=== PATIENT | male | born 1945 | race Caucasian/White ===

== ENCOUNTER → 2018-05-31 08:46 | Outpatient (CLI) | payer MEDICARE, BC, SELFPAY ==
[2018-05-31 10:40] LABS: Microalbumin,Random Urine 6.7 mg/L (NO RANGE EST.); Microalbumin:Creatinine Ratio 6.7 mg/g CRE (<30 mg/g CRE)
[2018-05-31 10:52] LABS: ALB/GLOB Ratio 1.4 RATIO (0.9-2.4); AST(SGOT) 13 U/L (15-37); Alanine Aminotransfer ALT/SGPT 19 U/L (16-61); Albumin, Serum 3.8 g/dL (3.2-5.0); Alkaline Phosphatase 74 U/L (45-117); Anion Gap 8 (5-15); BUN 16 mg/dL (7-18); BUN/Creat Ratio 18.5 RATIO (10-20); Calcium,Total 8.6 mg/dL (8.5-10.1); Chloride 107 mmol/L (98-107); Cholesterol 194 mg/dL (200); Creatinine, Serum 0.87 mg/dL (0.70-1.30); EST Glomerular Filtration Rate 92 mL/min (>60); Est Glom Filt Rate - Afr Amer 112 mL/min (>60); Globulin 2.8 g/dL (2.2-4.2); Glucose 103 mg/dL (74-106); High Density Lipoprotein 47 mg/dL; Magnesium 1.9 mg/dL (1.6-2.6); Potassium 4.3 mmol/L (3.5-5.1); Protein, Total 6.6 g/dL (6.4-8.2); Sodium Level 140 mmol/L (136-145); Thyroid Stim Hormone (TSH) 1.63 uIU/mL (0.358-3.74); Triglycerides 80 mg/dL; Very Low Density Lipoprotein 16 mg/dL (5-40)
== END ==
PROVIDERS: Family Provider Family Medicine; PCP Family Medicine; Visit Provider Family Medicine
DX: E78.00 Pure hypercholesterolemia, unspecified (principal); N40.0 Benign prostatic hyperplasia without lower urinary tract symptoms; G56.01 Carpal tunnel syndrome, right upper limb
CPT/HCPCS: 36415; 80053; 80061; 82043; 82570; 83735; 84443

== ENCOUNTER → 2018-11-30 10:01 | Outpatient (CLI) | payer MEDICARE, BC, SELFPAY ==
[2013-05-16 14:16] VITALS: BMI 33.9
[2018-11-30 12:25] LABS: Anion Gap 7 (5-15); BUN 15 mg/dL (7-18); BUN/Creat Ratio 17.6 RATIO (10-20); Calcium,Total 8.7 mg/dL (8.5-10.1); Chloride 110 mmol/L (98-107); Cholesterol 163 mg/dL (200); Creatinine, Serum 0.85 mg/dL (0.70-1.30); EST Glomerular Filtration Rate 94 mL/min (>60); Est Glom Filt Rate - Afr Amer 114 mL/min (>60); Glucose 102 mg/dL (74-106); High Density Lipoprotein 51 mg/dL; Potassium 4.3 mmol/L (3.5-5.1); Sodium Level 141 mmol/L (136-145); Triglycerides 61 mg/dL; Very Low Density Lipoprotein 12 mg/dL (5-40)
== END ==
PROVIDERS: Family Provider Family Medicine; PCP Family Medicine; Referring Provider Family Medicine; Visit Provider Nurse Practitioner Family
DX: E78.00 Pure hypercholesterolemia, unspecified (principal)
CPT/HCPCS: 36415; 80048; 80061

== ENCOUNTER 2019-04-19 12:06 | Inpatient (IN) | payer MEDICARE, BC, SELFPAY ==
[2019-04-19] VITALS (10 sets, daily range): BP systolic 98–120; BP diastolic 61–72; PULSE 48–70; RESP 16–18; TEMP 36.3–37.2; O2SAT 95–98; BMI 32.5
--- NOTE | 2019-04-19 12:40 | RAD_ITS ---
STUDY: X-RAY CHEST REASON FOR EXAM: Male, 73 years old. Chest pain and dizziness. TECHNIQUE: AP and lateral views of the chest. COMPARISON: None. FINDINGS: EKG electrodes are seen. The lungs are clear and expanded. There is no demonstrated pleural abnormality. Normal size heart. Normal mediastinum and reynold. Normal visualized pulmonary arteries. There is atherosclerotic tortuosity of the aortic arch and descending thoracic aorta. There are diffuse degenerative changes of the visualized thoracic spine. Normal visualized ribs, clavicles, and shoulders. There is no demonstrated abnormality of the visualized soft tissue structures of the upper abdomen. RAD/Chest PA and Lateral IMPRESSION: No acute abnormality is seen. Electronically Signed: Daniel Self, at 14:31 EDT , Service support ,
--- NOTE | 2019-04-19 12:40 | EKG12_ITS ---
Test Reason : CP Blood Pressure : / mmHG Vent. Rate : 048 BPM Atrial Rate : 048 BPM P-R Int : 116 ms QRS Dur : 096 ms QT Int : 432 ms P-R-T Axes : 061 051 002 degrees QTc Int : 385 ms Sinus bradycardia Incomplete right bundle branch block Borderline ECG Confirmed by ALMAZ RAZO MD ([id number]), graphics editor ELADIA SHARMA ([id number]) on 04/23/2019 10:50:06 AM Referred By: JEREMY
--- NOTE | 2019-04-19 12:54 | ED.VIS.GEN ---
History of Present Illness Chief Complaint: Chest Pain Informant: Patient Onset: Today, Hours - 2 Context: Sudden Onset Timing: Continuous Current Severity: Mild Maximum Severity: Moderate Narrative: Is a 73-year-old male denies any significant past medical history presenting with chest pain. Patient states he was washing his car when he had chest pressure in the center of his chest. He describes it as a pain and an ache. He denies any associated shortness of breath. He was nauseous and sweaty with it. His called 911 he was brought to the emergency room. Patient received full dose aspirin in route. Patient states his pain is starting to improve but is still present. He has a small amount of pain radiating to his left arm. He denies any other complaints at this time. He states when he woke up he was feeling well this morning. He does note that he had a cough and some chest congestion for the past few days. He denies any fever or chills. Has had a runny nose but denies any congestion right now. Denies any other complaints at this time. States he is never had a cardiac catheterization in the past. Past Medical History - Allergies and Home Meds Allergies/Adverse Reactions: Allergies No Known Allergies Allergy (Verified 04/19/19 12:07) Primary Care Physician: Cali Streeter MD [Primary Care Provider] - Prior records reviewed: Yes Surgical History: noncontributory Lives: With Family Smoking Status: Never smoker Review of Systems Cardiovascular: Reports: Chest pain Physical Exam Vital Signs/Narrative: Vital Signs Temp Pulse Resp BP Pulse Ox 04/19/19 12:36 102/72 04/19/19 12:07 99 F 48 L 17 99/66 98 Inital Vital Signs reviewed: Yes General: Well nourished, Well developed, - - Diaphoretic Head: Normocephalic, Atraumatic Eyes: Perrl, EOMI ENT: Moist mucous membranes, No rhinorrhea Neck: Supple, Nontender Cardiovascular: Regular rate, Regular rhythm, No murmurs Respiratory: No distress, CTA bilaterally, Chest nontender Abdomen: Soft, Nontender, Nondistended, Normal bowel sounds Back: Nontender, Normal Inspection Extremities: Nontender, No edema Skin: Normal color, No rash Neurological: Alert, Oriented x3, Cranial nerves II-XII grossly intact, Normal Strength, Normal Sensation Psychological: Normal affect, Normal Mood Diagnostic/Tx/Re-eval Chest X-Ray - ED: 2 View, Read by Radiologist, No Acute Disease Clinical Impression(s) from Imaging Studies Chest X-Ray 04/19/19 12:40 IMPRESSION: No acute abnormality is seen. Electronically Signed: Daniel Self, at 14:31 EDT , Service support , Laboratory Data 04/19/19 04/19/19 04/19/19 13:11 13:11 13:11 WBC 10.7 RBC 4.35 L Hgb 13.9 Hct 40.4 MCV 92.9 MCH 32.0 MCHC 34.4 RDW Std Deviation 43.3 RDW Coeff of Margarette 12.6 Plt Count 186 MPV 10.0 Immature Gran % (Auto) 0.400 Neut % (Auto) 88.3 H Lymph % (Auto) 5.9 L Brewster % (Auto) 4.7 Eos % (Auto) 0.5 Baso % (Auto) 0.2 Absolute Neuts (auto) 9.5 H Absolute Lymphs (auto) 0.63 L Nucleated RBC % 0 PT 14.3 INR 1.1 APTT 25.8 Sodium 140 Potassium 3.9 Chloride 108 H Carbon Dioxide 23.0 Anion Gap 9 BUN 19 H Creatinine 1.01 Estim Creat Clear Calc 73.63 Est GFR (MDRD) Af Amer 93 Est GFR (MDRD) Non-Af 77 BUN/Creatinine Ratio 18.8 Glucose 182 H Calcium 8.7 Troponin I < 0.015 - Rhythm Strip Rhythm Strip: Sinus bradycardia Rate: 48 Ectopy: None - EKG Initial EKG Interpretation: Sinus Bradycardia, RBBB, - - Sinus tachycardia rate of 48 ME interval 160 QRS 96 QT/QTc 432/385 Normal axis Nonspecific T wave inversion in lead III - Medical Decision Making Evaluated for an episode of chest pressure and pain rating to his left arm. It was associated with exertion. Patient appears diaphoretic but that resolved. Patient received full dose aspirin in route via EMS. Patient is normotensive with a systolic of 105. Is not given nitroglycerin for chest pain because of this. He is given IV morphine. Reevaluation is improvement of his symptoms. Given the timing and story I do think patient would benefit from observation for further cardiac monitoring. He is agreeable to this plan. He stable for general medical floor at time of disposition. Case discussed with Dr. Ruiz who accepts the patient. ED Disposition - Plan for ED Patient: Disposition: Acute Care Hospital [facility] Diagnosis: Chest pain Referrals: Cali Streeter MD [Primary Care Provider] -
[2019-04-19] MEDS: 0.9% Normal Saline 1,000 ML 1000 ML IV (13:09)
[2019-04-19] MEDS: Ondansetron 4 MG/2 ML Vial IV (13:10)
[2019-04-19] MEDS: Morphine 4 MG/ML Syringe IV (13:10)
[2019-04-19 13:17] LABS: Absolute Lymphocyte Count 0.63 X10^3/uL (0.83-4.51); Absolute Neutrophil Count 9.5 X10^3/uL (2.0-7.7); Basophil# 0.02 X10^3/uL; Basophil% 0.2 % (0-1); Eosinophil# 0.05 X10^3/uL; Eosinophils% 0.5 % (0-5); Hematocrit 40.4 % (40-54); Hemoglobin 13.9 g/dL (13.0-16.5); Lymphocyte # 0.63 X10^3/ul (4.0); Lymphocyte % 5.9 % (19-41); Mean Corp Hgb Conc 34.4 g/dL (32-36); Mean Corpuscular Volume 92.9 fL (80-94); Monocyte% 4.7 % (0-10); NRBC Flagged by Analyzer 0 % (0-5); Neutrophil # 9.48 X10^3/uL (2.7-7.7); Neutrophil % 88.3 % (47-70); Platelet Count 186 K/mm3 (150-450); RBC Distribution Width CV 12.6 % (11.6-14.6); RBC Distribution Width SD 43.3 fl (35.1-43.9); Red Blood Count 4.35 M/mm3 (4.6-6.2); White Blood Count 10.7 K/mm3 (4.4-11.0)
[2019-04-19 13:26] LABS: International Normalized Ratio 1.1; Prothrombin Time (Protime)PT. 14.3 SECONDS (11.7-14.9)
[2019-04-19 13:27] LABS: Partial Thromboplast Time 25.8 Seconds (24.1-36.2)
[2019-04-19 13:37] LABS: Anion Gap 9 (5-15); BUN 19 mg/dL (7-18); BUN/Creat Ratio 18.8 RATIO (10-20); Calcium,Total 8.7 mg/dL (8.5-10.1); Chloride 108 mmol/L (98-107); Creatinine, Serum 1.01 mg/dL (0.70-1.30); EST Glomerular Filtration Rate 77 mL/min (>60); Est Glom Filt Rate - Afr Amer 93 mL/min (>60); Estimated Creatinine Clearance 73.63 ml/min; Glucose 182 mg/dL (74-106); Potassium 3.9 mmol/L (3.5-5.1); Sodium Level 140 mmol/L (136-145)
--- NOTE | 2019-04-19 16:27 | HP.PCM_ITS ---
<Rosa Smith - Last Filed: 04/19/19 16:42> Problem List (1) BPH (benign prostatic hyperplasia) Status: Chronic (2) Chest pain Status: Acute History of Present Illness Date of Admission: 04/19/19 Chief Complaint: Chest pain. The patient is a 73 year old M who presents emergency room due to chest pain. Patient reports around 1030 this morning he was working on his car when he developed chest pressure in the center of his chest with associated shortness of breath, diaphoresis and lightheadedness. He reports pain radiated down left arm. Pain continued until he received morphine in the emergency room. He denies chest pain currently. He denies history of heart disease. He reports his blood pressure typically runs low. He takes medication for BPH. Otherwise denies medical history. He states he has never had chest pain before. Pain is not reproducible. Past Medical History Past Medical History (Chronic Problems): Chronic Problems BPH (benign prostatic hyperplasia) (Chronic) Allergies No Known Allergies Allergy (Verified 04/19/19 12:07) Home Medications: Ambulatory Orders Medication Instructions Recorded Calcium Carbonate/Vitamin D3 1 each PO DAILY 05/15/13 [Calcium 600 + Vit D Tablet] Lecithin, Soy [Lecithin] 200 mg PO DAILY 05/15/13 Terazosin HCl [Hytrin] 5 mg PO QHS 05/15/13 Surgical History: appendectomy, - - Left eye retinal detachment surgery. Psychiatric History: No pertinent psych hx Lives: Spouse/ Significant Other Smoking Status: Never smoker Tobacco Use: Non-smoker Alcohol: None Drugs: None - *Family History Maternal History Items: - - in her 90s from old age. Denies known cardiac history. Paternal History Items: - - from [place] in his 80s. Review of Systems Constitutional: Reports: - - Diaphoretic with chest pain. Denies: Chills, Fever, Weight Change HEENT: Denies: Head Aches, Sinus Congestion, Sinus Drainage Cardiovascular: Reports: Chest Pain, Light Headedness. Denies: Palpitations, Syncope Respiratory: Reports: Shortness of Breath - Associated with episode of chest pain. Denies: Cough, Shortness of breath at rest, Sputum production Gastrointestinal: Denies: Abdominal Pain, Nausea, Vomiting Genitourinary: Denies: Dysuria Musculoskeletal: Denies: Joint Pain, Joint Tenderness Skin: Denies: Rash, Wounds Neurological: Denies: Numbness, Tingling, Focal weakness Psychiatric: Denies: Anxiety, Depression, Homicidal Ideations, Suicidal Ideations Hematologic/ Lymphatic: Denies: Easy Bruising, Easy Bleeding VTE Information - Inpt Only VTE Present on Admission: No VTE Mechan Device Prophylaxis: None VTE Pharm Prophylaxis ordered?: Yes Patient Problems: Active and Suspected Problems Chest pain (Acute) - Physical Exam Vitals/I&O's: Vital Signs Temp Pulse Resp BP Pulse Ox 97.4 F L 56 L 17 108/72 97 04/19/19 15:51 04/19/19 15:51 04/19/19 15:51 04/19/19 15:51 04/19/19 15:51 Oxygen Delivery Method Room Air Weight: 240 lb 8.389 oz Body Mass Index (BMI) 32.5 Intake and Output for Last 24 Hours 04/17/19 04/18/19 04/19/19 23:59 23:59 23:59 Intake Total 1000 / 1000 Balance 1000 / 1000 General: Alert, Oriented x3, Cooperative HEENT: Atraumatic, PERRLA, EOMI, Normocephalic Neck: Supple, No JVD, Negative Carotid Bruits Lungs: Clear to auscultation, Normal air movement Cardiovascular: Regular rate, No murmurs Abdomen: Bowel Sounds Present, Soft, Non Tender, Non-Distended Extremities: No clubbing, No cyanosis, No edema, Capillary Refill Less than 3 Seconds Skin: No rashes, No breakdown Musculoskeletal: No Tenderness to Palpation of Joints or Extremities Neurological: Cranial nerves II-XII grossly intact, Neuro grossly intact Psych/Mental Status: Normal Affect, Appropriate Laboratory Results 04/19/19 13:11: WBC 10.7, RBC 4.35 L, Hgb 13.9, Hct 40.4, MCV 92.9, MCH 32.0, MCHC 34.4, RDW Std Deviation 43.3, RDW Coeff of Margarette 12.6, Plt Count 186, MPV 10.0, Immature Gran % (Auto) 0.400, Neut % (Auto) 88.3 H, Lymph % (Auto) 5.9 L, [place] % (Auto) 4.7, Eos % (Auto) 0.5, Baso % (Auto) 0.2, Absolute Neuts (auto) 9.5 H, Absolute Lymphs (auto) 0.63 L, Nucleated RBC % 0 04/19/19 13:11: PT 14.3, INR 1.1, APTT 25.8 04/19/19 13:11: Sodium 140, Potassium 3.9, Chloride 108 H, Carbon Dioxide 23.0, Anion Gap 9, BUN 19 H, Creatinine 1.01, Estim Creat Clear Calc 73.63, Est GFR (MDRD) Af Amer 93, Est GFR (MDRD) Non-Af 77, BUN/Creatinine Ratio 18.8, Glucose 182 H, Calcium 8.7, Troponin I < 0.015 Assessment/Plan All Active Problems Chest pain (Acute) 1. Chest pain, rule out ACS-initial troponin negative. EKG in ER demonstrated sinus bradycardia with right bundle branch block, T wave inversion in lead III. Trend enzymes. Repeat EKG in a.m. Plan for stress test in a.m. Check lipid panel in a.m. 2. Elevated glucose-suspect reactive, however check hemoglobin A1c. 3. BPH-continue home terra Zosyn regimen. DVT prophylaxis-Lovenox subcu. This patient was seen by JONI Dejesus under the supervision of Dr. Ruiz. <Marian Ruiz - Last Filed: 04/19/19 18:00> History of Present Illness The patient is a 73 year old M [] Past Medical History Allergies No Known Allergies Allergy (Verified 04/19/19 12:07) - Physical Exam Vitals/I&O's: Vital Signs Temp Pulse Resp BP Pulse Ox 97.4 F L 56 L 17 108/72 97 04/19/19 15:51 04/19/19 15:51 04/19/19 15:51 04/19/19 15:51 04/19/19 15:51 Oxygen Delivery Method Room Air Weight: 240 lb 8.389 oz Body Mass Index (BMI) 32.5 Intake and Output for Last 24 Hours 04/17/19 04/18/19 04/19/19 23:59 23:59 23:59 Intake Total 1000 / 1000 Balance 1000 / 1000 Laboratory Results 04/19/19 13:11: WBC 10.7, RBC 4.35 L, Hgb 13.9, Hct 40.4, MCV 92.9, MCH 32.0, MCHC 34.4, RDW Std Deviation 43.3, RDW Coeff of Margarette 12.6, Plt Count 186, MPV 10.0, Immature Gran % (Auto) 0.400, Neut % (Auto) 88.3 H, Lymph % (Auto) 5.9 L, [place] % (Auto) 4.7, Eos % (Auto) 0.5, Baso % (Auto) 0.2, Absolute Neuts (auto) 9.5 H, Absolute Lymphs (auto) 0.63 L, Nucleated RBC % 0 04/19/19 13:11: PT 14.3, INR 1.1, APTT 25.8 04/19/19 13:11: Sodium 140, Potassium 3.9, Chloride 108 H, Carbon Dioxide 23.0, Anion Gap 9, BUN 19 H, Creatinine 1.01, Estim Creat Clear Calc 73.63, Est GFR (MDRD) Af Amer 93, Est GFR (MDRD) Non-Af 77, BUN/Creatinine Ratio 18.8, Glucose 182 H, Calcium 8.7, Troponin I < 0.015 Current Medications Acetaminophen (Tylenol) 650 mg PO Q6H PRN PRN PRN Reason: Pain Score 1-3/Temp > 100.7 F Aspirin (Ecotrin) 81 mg PO DAILY@0800 RONALD Doxazosin Mesylate (Cardura) 4 mg PO QHS RONALD Sodium Chloride () 1,000 mls @ 125 mls/hr IV .Q8H RONALD Morphine Sulfate () 2 mg IV Q3H PRN PRN PRN Reason: Pain Score 6-10/10 Nitroglycerin (Nitrostat) 0.4 mg SUBLINGUAL Q5M PRN PRN Reason: CARDIAC/CHEST PAIN Ondansetron HCl (Zofran) 4 mg IV Q8H PRN PRN PRN Reason: NAUSEA/VOMITING Assessment/Plan Patient seen by FABIAN Dejesus under my supervision Patient is a 73-year-old male was admitted with complaint of chest pain. Chest pain started while he was washing his car today he described as pressure-like chest pain. He had associated shortness of breath, lightheadedness and diaphoresis. Pain was persistent and so he came into the ED and was relieved by morphine. He has no history of heart disease but does have heart disease in his family namely his father and his brother. Vitals were stable in the ED. Initial troponin was negative and EKG shows sinus bradycardia. He has been admitted to be managed for chest pain to rule out ACS. o/e: Vital Signs Height 6 ft Weight: 240 lb 8.389 oz Weight in Pounds 240.5 lbs Pulse Ox 97 Temperature 97.4 F Pulse Rate 56 Respiratory Rate 17 Blood Pressure 108/72 Blood Pressure Position Semi-Fowlers General: Alert, Oriented x3, Cooperative HEENT: Atraumatic, PERRLA, EOMI, Normocephalic Neck: Supple, No JVD, Negative Carotid Bruits Lungs: Clear to auscultation, Normal air movement Cardiovascular: Regular rate, No murmurs Abdomen: Bowel Sounds Present, Soft, Non Tender, Non-Distended Extremities: No clubbing, No cyanosis, No edema, Capillary Refill Less than 3 Seconds Skin: No rashes, No breakdown Musculoskeletal: No Tenderness to Palpation of Joints or Extremities Neurological: Cranial nerves II-XII grossly intact, Neuro grossly intact Psych/Mental Status: Normal Affect, Appropriate Plan is to admit to PCU with telemetry to manage for chest pain to rule out ACS. Cycle troponins and if negative for stress test tomorrow. Check lipid panel. P.o. aspirin 81 mg daily and sublingual nitroglycerin as needed. Rest of management as per JONI Dejesus's notes which I reviewed and endorsed. Code Visit OBSV E&M: [id number] Initial observation care L2
--- NOTE | 2019-04-19 16:53 | EKG12_ITS ---
Test Reason : AM EKG Blood Pressure : / mmHG Vent. Rate : 056 BPM Atrial Rate : 056 BPM P-R Int : 156 ms QRS Dur : 126 ms QT Int : 430 ms P-R-T Axes : 064 087 013 degrees QTc Int : 414 ms Sinus bradycardia Right bundle branch block Anteroseptal infarct , age undetermined Abnormal ECG When compared with ECG of 19-APR-2019 21:18, MANUAL COMPARISON REQUIRED, DATA IS UNCONFIRMED Confirmed by DUNG ARAGON, ALMAZ ([id number]), associate editor ELADIA SHARMA ([id number]) on 04/23/2019 11:29:02 AM Referred By: DR FAIRBANKS Confirmed By:ALMAZ RAZO MD
[2019-04-19] MEDS: 0.9% Normal Saline 1,000 ML 125 ML IV (17:56)
[2019-04-19 20:41] LABS: Hemoglobin A1c 5.5 % (4.2-6.3)
[2019-04-19] MEDS: Morphine 2 MG/ML Syringe IV (20:56)
[2019-04-19] MEDS: Enoxaparin 100 MG/ML Syringe SC (20:57)
--- NOTE | 2019-04-19 21:05 | EKG12_ITS ---
Test Reason : CP Blood Pressure : / mmHG Vent. Rate : 065 BPM Atrial Rate : 065 BPM P-R Int : 158 ms QRS Dur : 134 ms QT Int : 408 ms P-R-T Axes : 051 078 016 degrees QTc Int : 424 ms Normal sinus rhythm Right bundle branch block Anteroseptal infarct , age undetermined Abnormal ECG When compared with ECG of 19-APR-2019 16:43, MANUAL COMPARISON REQUIRED, DATA IS UNCONFIRMED Confirmed by DUNG ARAGON, ALMAZ ([id number]), science editor ELADIA SHARMA ([id number]) on 04/23/2019 11:30:30 AM Referred By: DR GUERRERO Confirmed By:ALMAZ RAZO MD
[2019-04-19] MEDS: Doxazosin 4 MG Tablet PO (22:07)
[2019-04-19] MEDS: Atorvastatin Calcium 40 MG Tablet PO (22:07)
[2019-04-20] VITALS (32 sets, daily range): BP systolic 102–127; BP diastolic 61–88; PULSE 54–92; RESP 14–28; TEMP 36.4–37.4; O2SAT 93–99; BMI 32.5
[2019-04-20] MEDS: 0.9% Normal Saline 1,000 ML 125 ML IV (00:56)
[2019-04-20] MEDS: Nitroglycerin Oint 1 INCH PACKET TRANSDERM. ×2 (00:58→05:54)
[2019-04-20] MEDS: Clopidogrel Bisulfate 300 MG Tablet PO (01:41)
[2019-04-20 05:00] LABS: Cholesterol 146 mg/dL (200); High Density Lipoprotein 42 mg/dL; Triglycerides 111 mg/dL; Very Low Density Lipoprotein 22 mg/dL (5-40)
[2019-04-20] MEDS: Acetaminophen 325 MG Tablet 650 MG PO ×2 (05:51→15:44)
--- NOTE | 2019-04-20 05:55 | EKG12_ITS ---
Test Reason : CP Blood Pressure : / mmHG Vent. Rate : 055 BPM Atrial Rate : 055 BPM P-R Int : 158 ms QRS Dur : 126 ms QT Int : 424 ms P-R-T Axes : 064 062 001 degrees QTc Int : 405 ms Sinus bradycardia Right bundle branch block Septal infarct , age undetermined Abnormal ECG When compared with ECG of 19-APR-2019 12:09, MANUAL COMPARISON REQUIRED, DATA IS UNCONFIRMED Confirmed by DUNG ARAGON, ALMAZ ([id number]), newspaper photo editor ELADIA SHARMA ([id number]) on 04/23/2019 11:30:55 AM Referred By: MAGDI Confirmed By:ALMAZ RAZO MD
[2019-04-20] MEDS: Ondansetron 4 MG/2 ML Vial IV (05:59)
--- NOTE | 2019-04-20 07:12 | CON.PCM_ITS ---
Reason for Consult Date of Consultation: 04/20/19 Reason for Consultation: Abnormal cardiac enzymes History of Present Illness: The patient is a 73 year old M with no any significant past medical history presenting with chest pain. Patient states he was washing his car when he had chest pressure in the center of his chest. He describes it as a pain and an ache. It was noted to be dull he denies any associated shortness of breath. He was nauseous and sweaty with it. His called 911 he was brought to the emergency room. Patient received full dose aspirin in route. Patient states his pain is starting to improve but is still present. He has a small amount of pain radiating to his left arm. He denies any other complaints at this time. He states when he woke up he was feeling well this morning. He does note that he had a cough and some chest congestion for the past few days. He denies any fever or chills. Has had a runny nose but denies any congestion right now. Denies any other complaints at this time. States he is never had a cardiac catheterization in the past. He was seen in the emergency room was noted to have nonspecific ST-T wave changes with T wave inversions in the inferior leads. Subsequent cardiac enzymes were obtained which were noted to be abnormal. Cardiology was consulted for further evaluation and management. This morning he is free of chest discomfort. Past Medical History Allergies/Adverse Reactions: Allergies No Known Allergies Allergy (Verified 04/19/19 12:07) Home Medications: Ambulatory Orders Medication Instructions Recorded Calcium Carbonate/Vitamin D3 1 each PO DAILY 05/15/13 [Calcium 600 + Vit D Tablet] Lecithin, Soy [Lecithin] 200 mg PO DAILY 05/15/13 Terazosin HCl [Hytrin] 5 mg PO QHS 05/15/13 Past Medical History (Chronic Problems): Chronic Problems BPH (benign prostatic hyperplasia) (Chronic) Surgical History: appendectomy, - - Left eye retinal detachment surgery. Psychiatric History: No pertinent psych hx - *Family History Maternal History Items: - - in her 90s from old age. Denies known cardiac history. Paternal History Items: - - from [place] in his 80s. Lives: Spouse/ Significant Other Smoking Status: Never smoker Tobacco Use: Non-smoker Alcohol: None Drugs: None Review of Systems - Review of Systems General: Denies: Fever, Night Sweats, Fatigue HEENT: Denies: Vision Change Cardiovascular: Reports: Chest Discomfort, Chest Discomfort with Exertion, Chest Pressure. Denies: Shortness of Breath, Orthopnea, PND, Peripheral Edema, Palpitations, Lightheadedness, Dizziness, Near Syncope, Syncope Respiratory: Denies: Cough, Sputum Production, Hemoptysis Gastrointestinal: Denies: Hematemesis, Hematochezia, Melena Genitourinary: Denies: Dysuria, Hematuria Muscoloskeletal: Denies: Myalgias Skin: Denies: Rash Psychiatric: Denies: Anxiety Endocrine: Denies: Heat Intolerance Hematologic/ Lymphatic: Denies: Anemia Subjectve: Pleasant gentleman in no distress Objective: Vital Signs Temp Pulse Resp BP Pulse Ox 97.9 F 54 L 18 118/76 96 04/20/19 05:50 04/20/19 05:54 04/20/19 05:50 04/20/19 05:54 04/20/19 05:50 Oxygen Flow Rate (L/min) 2 Oxygen Delivery Method Nasal Cannula Weight: 240 lb 8.389 oz Body Mass Index (BMI) 32.5 Intake and Output for Last 24 Hours 04/18/19 04/19/19 04/20/19 23:59 23:59 23:59 Intake Total 2446.25 / 2446.25 812.08 / 812.08 Output Total 250 / 250 Balance 2196.25 / 2196.25 812.08 / 812.08 General: Awake, Alert, Oriented x 3 HEENT: PERRL, EOMI, Sclera Non Icteric Neck: Supple, Good ROM, No Lymph Node Enlargement Lungs: Clear to auscultation Cardiovascular: Regular Rhythm, Normal S1, Normal S2, No Murmurs, No Rubs, No Gallops Vascular: No Carotid Bruits, Normal Femoral Pulses, Normal Radial Pulses, Normal Dorsalis Pedal Pulse, Normal Posterior Tibial Pulses Abdomen: Bowel Sounds Present, Soft, Non Tender, No HSM, No Organomegaly Extremities: No Cyanosis, No Clubbing, No edema Musculoskeletal: No Erythema Skin: No Rashes Lymphatic: No Lymph Node Enlargement Neurological: No Focal Motor or Sensory Deficit Psych/Mental Status: Appropriate 04/19/19 13:11: WBC 10.7, RBC 4.35 L, Hgb 13.9, Hct 40.4, MCV 92.9, MCH 32.0, MCHC 34.4, Plt Count 186, MPV 10.0, Immature Gran % (Auto) 0.400, Neut % (Auto) 88.3 H, Lymph % (Auto) 5.9 L, [place] % (Auto) 4.7, Eos % (Auto) 0.5, Baso % (Auto) 0.2, Absolute Neuts (auto) 9.5 H, Nucleated RBC % 0 04/19/19 13:11: PT 14.3, INR 1.1, APTT 25.8 04/19/19 13:11: Sodium 140, Potassium 3.9, Chloride 108 H, Carbon Dioxide 23.0, Anion Gap 9, BUN 19 H, Creatinine 1.01, Est GFR (MDRD) Af Amer 93, Est GFR (MDRD) Non-Af 77, BUN/Creatinine Ratio 18.8, Glucose 182 H, Calcium 8.7, Troponin I < 0.015 04/19/19 13:11: Hemoglobin A1c 5.5 04/19/19 18:08: Troponin I 1.650 H* 04/19/19 20:11: Troponin I 9.470 H* 04/19/19 23:00: Troponin I 36.200 H* 04/20/19 01:40: Troponin I 65.000 H* 04/20/19 04:20: Triglycerides 111, Cholesterol 146, LDL Cholesterol 82, VLDL Cholesterol 22, HDL Cholesterol 42 04/20/19 04:20: Troponin I 93.900 H* Rhythm: EKG: Normal sinus rhythm with sinus bradycardia with T wave inversions noted in lead III. Assessment/Plan 1. Non-ST elevation myocardial infarction * Patient presents with chest discomfort and is noted to have a non-ST elevation myocardial infarction. At this particular time he is pain-free but my recommendation is in view of his presentation and the enzyme abnormality would recommend urgent cardiac catheterization. The risk benefits and alternatives have been explained to the patient and his they understand and agreed to proceed. * Continue aspirin * Patient was loaded with clopidogrel and will continue * High intensity statin * Further recommendations will depend on the results of the above. * Addendum: Review of the EKG this morning demonstrates anterior Q waves. Cardiac catheterization performed this morning demonstrates the following: Normal left main coronary artery. Left anterior descending artery totally occluded. Left circumflex artery with mild diffuse disease. Dominant right coronary artery with no significant disease. Severe left ventricular systolic dysfunction with nearly akinetic anterior and a pical wall with estimated EF of 20 to 25%. Based on the above angiographic findings the patient to be considered for angioplasty and stenting and possible thrombectomy of the left anterior descending artery. Patient remains pain-free at this time. Above discussed with interventionalist.
[2019-04-20] MEDS: Aspirin E.C. 81 MG Tablet PO (07:49)
[2019-04-20] MEDS: 0.9% Normal Saline 1,000 ML 15 ML IV (07:58)
--- NOTE | 2019-04-20 08:50 | CL.D_ITS ---
Patient Name: MIESHA CHAVEZ Study Date: 04/20/2019 Performing: Mynor Smallwood MD Ht: 72.04 inches 183 cm : 1945 Wt: 240.3 lbs 109 kg Age: 73 Gender: male BSA: 2.3 PROCEDURE(S) PERFORMED [id number]/LV CLINICAL PROFILE AND INDICATIONS Indications: ACS <= 24 hrs Heart Failure: None Stress/Imaging Stress/Image Study Performed: No CAD Presentations: Non-STEMI. Symptom onset Date/Time: 04/20/19 10:25:19 CONCLUSIONS Acute IL due to occlusion of LAD Depressed Left Ventricular systolic function - Severe RECOMMENDATIONS Referred for immediate PCI DESCRIPTION OF PROCEDURE The patient arrived to the procedure lab. The risks and benefits of the procedure as well as a full d escription of our services here and current unavailability of surgical backup were fully explained to the patient and/or their significant other prior to the catheterization. The Timeout was completed, verifying the correct patient and procedure. The patient's procedural site was prepped and draped in the usual fashion. Local anesthetic was given subcutaneously to right radial region with Lidocaine 2% . Using a modified Seldinger technique, arterial access was obtained via the right radial artery, a 6 Fr sheath was inserted. Left Coronary Artery selective angiography was performed in multiple views u sing a 5 Fr. 4.0 [place] catheter. Right Coronary Artery selective angiography was then performed in mu ltiple views using a 5 Fr. 4.0 [place] catheter. Left Ventriculography was performed in JOAQUIN projection using a 5 Fr. Pigtail catheter. LV to AO pullback pressures were then recorded. CORONARY ANGIOGRAPHY DOMINANCE: Co- Dominant LEFT HEART ASSESSMENT Left Ventricular Ejection Fraction: by LV Gram 20 % Anterior Akinesis. Apical Akinesis Depressed Left Ventricular systolic function LEFT MAIN: Angiographically normal LEFT ANTERIOR DESCENDING ARTERY: OSTIAL LAD: is occluded CIRCUMFLEX ARTERY: Mild luminal irregularities RAMUS: Moderate luminal irregularities up to 50% RIGHT CORONARY ARTERY: Mild luminal irregularities less than 30% COMPLICATIONS PROCEDURE MEDICATIONS Versed 1 mg IV Fentanyl 50 mcg IV Oxygen: 2 L/min via nasal cannula Heparin diluted in 23cc Heparinized saline. Patient given 10cc IA of this solution. 04/20/2019 08:28 :01 SUMMARY OF HEMODYNAMIC DATA Time AIR REST ECG 08:13:30 AO 104/66 (79) SA 08:29:47 LV 89/7, 20 08:34:09 LV 90/8, 19 08:34:15 LV 106/2, 34 08:35:28 LVp 102/1, 24 08:35:31 AOp 103/0 (56) 08:35:36 AOp 135/61 (80) 08:37:49 Signed By Mynor Smallwood MD On 04/20/2019 08:50:19 Mynor Smallwood MD
--- NOTE | 2019-04-20 10:45 | EKG12_ITS ---
Test Reason : Blood Pressure : / mmHG Vent. Rate : 059 BPM Atrial Rate : 059 BPM P-R Int : 160 ms QRS Dur : 124 ms QT Int : 398 ms P-R-T Axes : 069 084 005 degrees QTc Int : 394 ms Sinus bradycardia Right bundle branch block Anteroseptal infarct , age undetermined Abnormal ECG Confirmed by AUGIE ARAGON, ANALI ([id number]), book or script editor VITO QUINN ([id number]) on 05/01/2019 9:06:54 AM Referred By: Confirmed By:ANALI GHOSH MD
[2019-04-20 11:05] LABS: ACT Activated Clotting Time 202 sec (74-137)
--- NOTE | 2019-04-20 11:07 | CL.I_ITS ---
Patient Name: MIESHA CHAVEZ Study Date: 04/20/2019 Performing: Lorelei Torres MD Ht: 72.05 inches 183 cm : 1945 Wt: 240.3 lbs 109 kg Age: 73 Gender: male BSA: 2.3 PROCEDURE(S) PERFORMED [id number] W OR WO PTCA, SINGLE CORONARY ARTERY [id number], SINGLE CORONARY ARTERY CLINICAL PROFILE AND CO-MORBIDITIES Indications: ACS <= 24 hrs Heart Failure: None Stress/Imaging Stress/Image Study Performed: No CAD Presentations: Non-STEMI. Symptom onset Date/Time: 04/20/19 10:25:19 CONCLUSIONS Successful PCI with Drug eluting stent and PTCA to the proximal LAD and PTCA alone of ostial LCx (Kis sing balloon inflation). RECOMMENDATIONS Follow up with primary inventory clerk RENETTA Indefinitley Brilinta for at least 12 months. Consider DAPT with ASA and plavix for a longer duration than 1 year if patient is able to tolerate. DESCRIPTION OF PROCEDURE The patient arrived to the procedure lab. The risks and benefits of the procedure as well as a full d escription of our services here and current unavailability of surgical backup were fully explained to the patient and/or their significant other prior to the catheterization. The Timeout was completed, verifying the correct patient and procedure. The patient's procedural site was prepped and draped in the usual fashion. Local anesthetic was given subcutaneously to right radial region with Lidocaine 2% Using a modified Seldinger technique,arterial access was obtained via the right radial artery, a 6Fr sheath was inserted. Left Coronary Artery selective angiography was performed in multiple views usin g a 5 Fr. 4.0 [place] catheter. Right Coronary Artery selective angiography was then performed in multi ple views using a 5 Fr. 4.0 [place] catheter. Left Ventriculography was performed in JOAQUIN projection usi ng a 5 Fr. Pigtail catheter. LV to AO pullback pressures were then recorded.The images were reviewed and options discussed. A decision was then made to proceed with an Intervention, IVUS o r other adjunct procedure. XB 3 Guide catheter was inserted and engaged into the LCA. BMW Guide wire was advanced to the LAD . Zoar AP inserted Pass # 1 Zoar AP Removed 3x20 Emerge Balloon catheter was inserted. Balloon ca theter was advanced across lesion in the LAD, proximal. PTCA balloon inflated at 8 atms for 15 secs. 4x32 Synergy Drug Eluting stent was inserted. Drug Eluting stent was advanced across the lesion in th e LAD, proximal. Angiogram performed post stent deployment. 4x8 Synergy Drug Eluting stent was insert ed. Drug Eluting stent was advanced across the lesion in the LAD, proximal. Angiogram performed post stent deployment. Angiogram performed post stent deployment. Runthrough Guide wire was advanced to th e Circumflex. 3x12 Emerge Balloon catheter was inserted. Balloon catheter was advanced across lesion in the circumflex, ostial. 3.5x8 Emerge Balloon catheter was inserted. Balloon catheter was advanced across lesion in the LAD, proximal. PTCA balloon inflated at 6 atms for 8 secs. Circ Angiogram performed post balloon dilatation. The arterial sheath was pulled and a TR Band was appli ed for hemostasis.9cc of air INTERVENTION INFORMATION LESION SITE: LAD (Proximal) Lesion Complexity: High/C, lesion at bifurcation: Yes, thrombus present: Yes, lesion length: 30 mm, c ulprit lesion: Yes, Previously treated lesion: No Pre Stenosis: 100 % Pre intervention GARRISON flow: 0 PROCEDURE: Thrombectomy, Drug Eluting Stent with pre and post dilatation Post Stenosis: 0 % Post intervention GARRISON flow: 2 Lesion Devices: Ferguson .014 BMW [place] Straight 190cm Cardinal 6 Fr XB3.0 100cm Guide Catheter hField Technologiestronic 6 Fr. Zoar AP Aspiration Catheter Nima Sci EMERGE MR 3.00x20 BALLOON Nima Sci Synergy MR MAX 4.00x32 Nima Sci Synergy MR MAX 4.00x08 Nima Sci EMERGE MR 3.50x08 BALLOON LESION SITE: Circumflex (Ostial) Lesion Complexity: High/C, chronic total occlusion: No, lesion at bifurcation: Yes, thrombus present: No, lesion length: 4 mm, culprit lesion: Yes, Previously treated lesion: No Pre Stenosis: 80 % Pre intervention GARRISON flow: 3 PROCEDURE: Balloon Angioplasty Post Stenosis: 0 % Post intervention GARRISON flow: 3 Lesion Devices: Cardinal 6 Fr XB3.0 100cm Guide Catheter Terumo .014 Runthrough Extra Floppy 180cm straight Nima Sci EMERGE MR 3.00x12 BALLOON COMPLICATIONS No Complications PROCEDURE MEDICATIONS Versed 1 mg IV Fentanyl 50 mcg IV Versed 1 mg IV Oxygen: 2 L/min via nasal cannula Brilinta 180 mg PO @ 04/20/2019 10:20:37 Heparin diluted in 23cc Heparinized saline. Patient given 10cc IA of this solution. 04/20/2019 08:28 :01 Heparin 7000 unit(s) IV 04/20/2019 09:36:03 Heparin 1000 unit(s) IV 04/20/2019 10:11:47 Nitro 200 mcg IC 04/20/2019 09:44:12 Nitro 200 mcg IC 04/20/2019 09:44:12 SUMMARY OF HEMODYNAMIC DATA Time AIR REST ECG 08:13:30 AO 104/66 (79) SA 08:29:47 LV 89/7, 20 08:34:09 LV 90/8, 19 08:34:15 LV 106/2, 34 08:35:28 LVp 102/1, 24 08:35:31 AOp 103/0 (56) 08:35:36 AOp 135/61 (80) 08:37:49 AO 81/51 (64) 09:46:40 Signed By Lorelei Torres MD On 04/20/2019 11:06:36 Lorelei Torres MD
--- NOTE | 2019-04-20 11:16 | CASEMGMT ---
RN CM Assessment Presentation: NSTEMI Intro role of CM and purpose of RN CM assessment to patient and his . Demographics, PCP and Pharmacy verified. Pt states he is very independent, does exercise walking. Does not anticipate discharge needs. PCP: Dr. Cali Streeter Specialists: Dr. Smallwood Preferred Pharmacy: [facility]. Entered in chart Insurance: [facility]; [place] Prescription Benefit: yes. Brilinta savings card given to patient and his and explained. will ask for future copay amounts and notify cardiology office if cost issues arise. LNOK: Macrina Weller, Living Arrangements: Lives independently with his . No care needs. Transportation: Drives or can drive DME: none HHC: none Patient DC goals: home DC PLAN: home. No dc needs identified. Family encouraged to contact CM if concerns arise. Sanjay THORPEN RN ACM
[2019-04-20] MEDS: 0.9% Normal Saline 1,000 ML 40 ML IV (11:20)
[2019-04-20 11:42] LABS: Hematocrit 40.4 % (40-54); Hemoglobin 13.7 g/dL (13.0-16.5); Mean Corp Hgb Conc 33.9 g/dL (32-36); Mean Corpuscular Hgb 31.6 pg (27.0-32.0); Mean Corpuscular Volume 93.1 fL (80-94); Mean Platelet Vol. 10.1 fl (6.2-12.0); Platelet Count 221 K/mm3 (150-450); RBC Distribution Width SD 44.3 fl (35.1-43.9); Red Blood Count 4.34 M/mm3 (4.6-6.2); White Blood Count 14.3 K/mm3 (4.4-11.0)
--- NOTE | 2019-04-20 11:54 | CRPHASE1_ITS ---
Patient Communication PHII Cardiac Rehab Discussed with Patient:: Yes Guide to Cardiac Rehab Given to Patient:: Yes Cardiac Rehab Facility Choice List Given to Patient:: Yes Choice Program [facility] PHII:: Communication Given to CR, Refer to [facility] [place] Operator:: Ihsan Torres PCP:: Cali Streeter Phase II Cardiac Rehab:: Yes Sessions:: 36 sessions - 3 days/wk, 12 weeks Risk Factors/Lifestyle Smoking Status: Never smoker Hx Hypertension: No Hx Diabetes Mellitus Type 1: No Hx Diabetes Mellitus Type 2: No Hx Dyslipidemia: No Height: 6 ft Weight:: 240 lb BMI: 32.5 ETOH: No Substance Abuse: No Laboratory Values: Cardiac Rehab Phase I Labs Hemoglobin A1c 5.5 % (4.2-6.3) 04/19/19 13:11 Triglycerides 111 mg/dL (-199) 04/20/19 04:20 Cholesterol 146 mg/dL (200) 04/20/19 04:20 LDL Cholesterol 82 mg/dL (0-130) 04/20/19 04:20 HDL Cholesterol 42 mg/dL (40-) 04/20/19 04:20 Phase I Education Given On:: [place], Nutrition, Antiplatelet medication, CHF, Smoking cessation, Diabetes - Type I, Diabetes - Type II Issues Affecting Care:: None Knowledge of Condition:: Yes - NEEDS REINFORCEMENT Hospital Course Pain Description: Pressure Pain Intensity: 8 Medical/Surgical History NM:: Yes Angina:: Yes CAD:: Yes Pulmonary:: No COPD:: No Asthma:: No Diabetes:: No Hypertension:: No Dyslipidemia:: No Arrhythmias:: No PE:: No DVT:: No PVD:: No PAD:: No Arthritis:: Yes - LITTLE IN THE KNEES GERD:: Yes - OCCASIONAL, TAKE OTC IF NEEDED Cancer:: No Renal:: No Thyroid:: No Depression:: No Anxiety:: No PTCA:: Yes ICD:: No Pacemaker:: No Discharge/Home/Social Eval Discharge Disposition: Home Marital Status: Cardiac Rehabilitation Info Cardiac Rehabilitation Program Information: Cardiac Rehabilitation is important for patients like you who are recovering from a heart problem. Cardiac rehabilitation programs are recognized as integral to the continued care of the patient with coronary heart disease. The cardiac rehabilitation program is designed to optimize a patient's physical, psychological, and social functioning. Health palliative care physician work in cardiac rehabilitation programs and assist you with getting the treatments you need to get stronger and healthier - like exercise, healthy eating habits, and medications. Cardiac rehabilitation has been show to help people with heart problems live longer and have better life enjoyment than people who do not go to cardiac rehabilitation. Please contact the Cardiac Rehabilitation Program at [facility] at in two weeks if you have not heard from them.
--- NOTE | 2019-04-20 11:58 | CRPH1.INSTRU ---
General Education CAD and cardiac anatomy and function:: Not instructed Explanation of diagnoses and procedures:: Not instructed Sign/Symptoms of [place]:: Not instructed Antiplatelet therapy: Patient communicates acknowledgment, Family communicates acknowledgment Proper use of NTG-SL: Not instructed Emergency procedures and activation of EMS: Patient communicates acknowledgment, Family communicates acknowledgment Compliance of all prescribed medications: Patient communicates acknowledgment, Family communicates acknowledgment Smoking Patient Nicotine/Smoking Risk Factors Are:: Never smoked Dyslipidemia Patient Dyslipidemia Risk Factors Are:: Total Cholesterol - 146, Triglycerides - 111, HDL - 42, LDL - 82 Recommendations Include:: Lipid profile provided Dyslipidemia Response Code:: Not instructed Overweight/Obesity Patient Overweight/Obesity Risk Factors Are:: Obesity - > or = 30 Recommendations Include:: Weight loss of 5-10%, Reduced calorie diet, Exercise 5-7 times/week Overweight/Obesity:: Not instructed Hypertension Patient Hypertension Risk Factors Are:: No documented hx of HTN Heart Disease Heart Disease Response Code:: Not instructed Diabetes Patient Diabetes Risk Factors Are:: No documented hx of diabetes Metabolic Syndrome Recommendations Include:: Does not meet criteria Sedentary Sedentary Response Code:: Not instructed Stress Patient Stress Risk Factors Are:: Patient denies stress as a risk factor
--- NOTE | 2019-04-20 12:01 | PCM.PROGNOTE ---
Patient Problems: Active and Suspected Problems Chest pain (Acute) Subjective: Patient seen and examined. Denies further chest pain. Patient underwent PCI/PTCA to the proximal LAD and PTCA alone of ostial LCx this morning. - Physical Exam Vitals/I&O's: Vital Signs Temp Pulse Resp BP Pulse Ox 97.9 F 75 18 118/76 97 04/20/19 05:50 04/20/19 07:00 04/20/19 05:50 04/20/19 05:54 04/20/19 10:51 Oxygen Flow Rate (L/min) 2 Oxygen Delivery Method Room Air Weight: 240 lb Body Mass Index (BMI) 32.5 Intake and Output for Last 24 Hours 04/18/19 04/19/19 04/20/19 23:59 23:59 23:59 Intake Total 2446.25 / 2446.25 1095.50 / 1095.50 Output Total 250 / 250 Balance 2196.25 / 2196.25 1095.50 / 1095.50 General: Alert, Oriented x3, Cooperative HEENT: Atraumatic, PERRLA, EOMI, Normocephalic Neck: Supple, No JVD, Negative Carotid Bruits Lungs: Clear to auscultation, Normal air movement Cardiovascular: Regular rate, Regular Rhythm, Normal S1, Normal S2, No murmurs Abdomen: Bowel Sounds Present, Soft, Non Tender, Non-Distended Extremities: No clubbing, No cyanosis, No edema, Capillary Refill Less than 3 Seconds Skin: No rashes, No breakdown Musculoskeletal: No Tenderness to Palpation of Joints or Extremities Neurological: Cranial nerves II-XII grossly intact, Neuro grossly intact Psych/Mental Status: Normal Affect, Appropriate Laboratory Results 04/19/19 13:11: WBC 10.7, RBC 4.35 L, Hgb 13.9, Hct 40.4, MCV 92.9, MCH 32.0, MCHC 34.4, RDW Std Deviation 43.3, RDW Coeff of Margarette 12.6, Plt Count 186, MPV 10.0, Immature Gran % (Auto) 0.400, Neut % (Auto) 88.3 H, Lymph % (Auto) 5.9 L, Teller % (Auto) 4.7, Eos % (Auto) 0.5, Baso % (Auto) 0.2, Absolute Neuts (auto) 9.5 H, Absolute Lymphs (auto) 0.63 L, Nucleated RBC % 0 04/19/19 13:11: PT 14.3, INR 1.1, APTT 25.8 04/19/19 13:11: Sodium 140, Potassium 3.9, Chloride 108 H, Carbon Dioxide 23.0, Anion Gap 9, BUN 19 H, Creatinine 1.01, Estim Creat Clear Calc 73.63, Est GFR (MDRD) Af Amer 93, Est GFR (MDRD) Non-Af 77, BUN/Creatinine Ratio 18.8, Glucose 182 H, Calcium 8.7, Troponin I < 0.015 04/19/19 13:11: Hemoglobin A1c 5.5 04/19/19 18:08: Troponin I 1.650 H* 04/19/19 20:11: Troponin I 9.470 H* 04/19/19 23:00: Troponin I 36.200 H* 04/20/19 01:40: Troponin I 65.000 H* 04/20/19 04:20: Triglycerides 111, Cholesterol 146, LDL Cholesterol 82, VLDL Cholesterol 22, HDL Cholesterol 42 04/20/19 04:20: Troponin I 93.900 H* 04/20/19 07:08: Troponin I 100.000 H* 04/20/19 10:06: Activated Clotting Time 202 H 04/20/19 11:30: WBC 14.3 H, RBC 4.34 L, Hgb 13.7, Hct 40.4, MCV 93.1, MCH 31.6, MCHC 33.9, RDW Std Deviation 44.3 H, RDW Coeff of Margarette 13.0, Plt Count 221, MPV 10.1 Current Medications Acetaminophen (Tylenol) 650 mg PO Q6H PRN PRN PRN Reason: Pain Score 1-3/Temp > 100.7 F Last Admin: 04/20/19 05:51 Dose: 650 mg Documented by: Aspirin (Ecotrin) 81 mg PO DAILY@0800 [facility] Last Admin: 04/20/19 07:49 Dose: 81 mg Documented by: Atorvastatin Calcium (Lipitor) 40 mg PO QHS [facility] Last Admin: 04/19/19 22:38 Dose: Not Given Documented by: Atropine Sulfate () 0.5 mg IV UD PRN PRN Reason: HR <50 bpm Doxazosin Mesylate (Cardura) 4 mg PO QHS [facility] Last Admin: 04/19/19 22:07 Dose: 4 mg Documented by: Heparin Sodium (Beef Lung) (Heparin 500 Unit/5 Ml (100/Ml)) 500 unit IV UD PRN PRN Reason: HEPARIN FLUSH Sodium Chloride () 1,000 mls @ 125 mls/hr IV .Q8H [facility] Last Infusion: 04/20/19 08:09 Dose: Infused Documented by: Sodium Chloride () 250 mls @ 15 mls/hr IV .[id number] PRN PRN Reason: Saline Flush Sodium Chloride () 1,000 mls @ 15 mls/hr IV .Q48H [facility] Last Infusion: 04/20/19 10:45 Dose: Infused Documented by: Sodium Chloride () 1,000 mls @ 40 mls/hr IV .Q25H [facility] Stop: 04/20/19 13:39 Last Admin: 04/20/19 11:20 Dose: 40 mls/hr Documented by: Eptifibatide (Integrilin) 75 mg in 100 mls @ 17.456 mls/hr CONT INF .Q5H44M [facility] Last Admin: 04/20/19 11:30 Dose: 2 mcg/kg/min, 17.5 mls/hr Documented by: Labetalol HCl (Trandate) 5 mg IV X1 PRN PRN Reason: SBP > 160 when pulling sheath Stop: 04/22/19 10:40 Morphine Sulfate () 2 mg IV Q3H PRN PRN PRN Reason: Pain Score 6-10/10 Last Admin: 04/19/19 20:56 Dose: 2 mg Documented by: Nitroglycerin (Nitrostat) 0.4 mg SUBLINGUAL Q5M PRN PRN Reason: CARDIAC/CHEST PAIN Nitroglycerin (Nitrobid) 1 inch TRANSDERM. Q6 [facility] Last Admin: 04/20/19 05:54 Dose: 1 inch Documented by: Ondansetron HCl (Zofran) 4 mg IV Q8H PRN PRN PRN Reason: NAUSEA/VOMITING Last Admin: 04/20/19 05:59 Dose: 4 mg Documented by: Sodium Chloride () 10 - 40 ml IV UD PRN PRN Reason: SALINE FLUSH Sodium Chloride () 500 ml IV BOLUS PRN PRN Reason: VASO-VAGAL PROTOCOL Medical Necessity - Tobacco Use Smoking Status: Never smoker Tobacco Use: Non-smoker Assessment/Plan All Active Problems Chest pain (Acute) 1. NSTEMI secondary to LAD occlusion-troponin peaked at 100. Patient underwent cardiac catheterization which showed occluded ostial LAD and subsequently underwent PCI/PTCA to the proximal LAD and PTCA alone of ostial LCx this morning. LVEF 20%. Continue aspirin, Brilinta, statin. If blood pressure allows, recommend low-dose beta-adam. Obtain echo in a.m. 2. BPH-continue home medication regimen. DVT prophylaxis -Lovenox subcu This patient was seen by JONI Dejesus under the supervision of Dr. Gil.
[2019-04-20] MEDS: LORazepam 0.5 MG Tablet PO (17:02)
[2019-04-20] MEDS: Atorvastatin Calcium 40 MG Tablet PO (22:08)
[2019-04-20] MEDS: Doxazosin 4 MG Tablet PO (22:08)
[2019-04-21] VITALS (17 sets, daily range): BP systolic 94–123; BP diastolic 54–82; PULSE 66–89; RESP 15–24; TEMP 36.7–37.2; O2SAT 92–96
[2019-04-21 04:22] LABS: Hematocrit 38.9 % (40-54); Hemoglobin 13.3 g/dL (13.0-16.5); Mean Corp Hgb Conc 34.2 g/dL (32-36); Mean Corpuscular Hgb 32.1 pg (27.0-32.0); Mean Platelet Vol. 10.3 fl (6.2-12.0); Platelet Count 204 K/mm3 (150-450); RBC Distribution Width CV 13.1 % (11.6-14.6); RBC Distribution Width SD 45.1 fl (35.1-43.9); Red Blood Count 4.14 M/mm3 (4.6-6.2); White Blood Count 12.2 K/mm3 (4.4-11.0)
[2019-04-21 04:40] LABS: ALB/GLOB Ratio 1.1 RATIO (0.9-2.4); AST(SGOT) 267 U/L (15-37); Alanine Aminotransfer ALT/SGPT 75 U/L (16-61); Alkaline Phosphatase 58 U/L (45-117); Anion Gap 6 (5-15); BUN 21 mg/dL (7-18); BUN/Creat Ratio 23.9 RATIO (10-20); Calcium,Total 8.3 mg/dL (8.5-10.1); Chloride 107 mmol/L (98-107); Creatinine, Serum 0.88 mg/dL (0.70-1.30); EST Glomerular Filtration Rate 91 mL/min (>60); Est Glom Filt Rate - Afr Amer 110 mL/min (>60); Estimated Creatinine Clearance 84.51 ml/min; Globulin 2.7 g/dL (2.2-4.2); Glucose 122 mg/dL (74-106); Potassium 4.3 mmol/L (3.5-5.1); Protein, Total 5.7 g/dL (6.4-8.2); Sodium Level 137 mmol/L (136-145)
--- NOTE | 2019-04-21 05:55 | ECHOCS_ITS ---
Reason For Study: S/P TX Procedure This was a 2D Doppler, Color Flow transthoracic echocardiogram. The study was technically difficult. Exam performed portable in ICU/CCU. Left Ventricle Normal LV size. The estimated ejection fraction is 25 %. Stage 1 diastolic dysfunction. Severe segmental systolic dysfunction (see wall motion). Mid-anteroseptal : Akinetic. [place] : Akinetic. Mid- Anterior : Hypokinetic. There are regional wall motion abnormalities as specified. The rest of the wall segments are normal. Right Ventricle Normal RV size. Normal systolic function. Atria The left atrium is moderately enlarged. Normal right atrium. Hypermobile atrial septum. Mitral Valve Normal mitral valve. Mild (1+) eccentric mitral valve insufficiency. Tricuspid Valve Normal tricuspid valve. Mild tricuspid valve insufficiency. Pulmonary artery systolic pressure is 36 mmHg. Aortic Valve Trisinus/trileaflet aortic valve. Pulmonic Valve Normal pulmonic valve. Great Vessels Normal aortic root. The pulmonary artery is normal size. Normal inferior vena cava. Pericardium/Pleural No pericardial effusion. Medication Performed a rapid injection of agitated mix of 9 cc saline and 1cc air to assess for atrial septal defect. Unable to visualize bubble study x 2. Diluted definity 3.5ml given slow IV push to enhance endocardial definition. MMode/2D Measurements & Calculations LVIDd: 5.5 cm IVSd: 0.93 cm Ao root diam: 3.1 cm LVIDs: 3.9 cm LVPWd: 1.1 cm RVDd: 3.3 cm FS: 28.7 % LAV(MOD-bp): 77.6 ml LA A4 area: 24.0 cm2 LA dimension(2D): 4.2 cm LAV(MOD-bp) Indexed: 33.8 ml/m2 LAV(MOD-sp2): 77.7 ml LAV(MOD-sp4): 77.4 ml RA A4 area: 17.2 cm2 Doppler Measurements & Calculations MV E max dameon: 53.7 cm/sec Lat Peak E' Dameon: 10.3 cm/sec Med Peak E' Dameon: 5.8 cm/sec MV A max dameon: 64.6 cm/sec E/E' lat: 5.2 E/E' med: 9.3 MV E/A: 0.83 Ao V2 max: 100.2 cm/sec LV V1 max: 77.3 cm/sec PA V2 max: 76.9 cm/sec Ao max P.0 mmHg LV V1 max P.4 mmHg TR max dameon: 274.8 cm/sec TR max P.2 mmHg Interpretation Summary Hypermobile atrial septum. Normal LV size. The estimated ejection fraction is 25 %. Stage 1 diastolic dysfunction. The left atrium is moderately enlarged. Severe segmental systolic dysfunction (see wall motion). Contrast injection was performed. Ordering Physician: Rosa Smith Referring Physician: Cali Streeter MD Performed By: Polly Laurent RDCS
[2019-04-21] MEDS: TICAGRELOR 90 MG TABLET PO (09:46)
[2019-04-21] MEDS: Aspirin E.C. 81 MG Tablet PO (09:50)
--- NOTE | 2019-04-21 10:00 | EKG12_ITS ---
Test Reason : AM EKG Blood Pressure : / mmHG Vent. Rate : 076 BPM Atrial Rate : 076 BPM P-R Int : 148 ms QRS Dur : 130 ms QT Int : 376 ms P-R-T Axes : 069 081 057 degrees QTc Int : 423 ms Normal sinus rhythm RIVCD Anteroseptal [place], age undetermined Abnormal ECG Confirmed by AUGIE ARAGON, ANALI ([id number]), video editor VITO QUINN ([id number]) on 05/01/2019 9:06:42 AM Referred By: ALESSIA Confirmed By:ANALI GHOSH MD
--- NOTE | 2019-04-21 10:50 | PN.CARD_ITS ---
Subjectve: Patient seen and evaluated. Appears to be doing well with no cardiac complaints. Had uneventful night Objective: Vital Signs Temp Pulse Resp BP Pulse Ox 99 F 73 20 H 98/61 95 04/21/19 04:00 04/21/19 08:00 04/21/19 08:00 04/21/19 08:00 04/21/19 08:00 Oxygen Flow Rate (L/min) 2 Oxygen Delivery Method Room Air Weight: 240 lb Body Mass Index (BMI) 32.5 Intake and Output for Last 24 Hours 04/19/19 04/20/19 04/21/19 23:59 23:59 23:59 Intake Total 2446.25 / 2446.25 2337.96 / 2337.96 307.92 / 307.92 Output Total 250 / 250 Balance 2196.25 / 2196.25 2337.96 / 2337.96 307.92 / 307.92 General: Awake, Alert, Oriented x 3 HEENT: PERRL, EOMI, Sclera Non Icteric Neck: Supple, Good ROM, No Lymph Node Enlargement Lungs: Clear to auscultation Cardiovascular: Regular Rhythm, Normal S1, Normal S2, No Murmurs, No Rubs, No Gallops Vascular: No Carotid Bruits, Normal Femoral Pulses, Normal Radial Pulses, Normal Dorsalis Pedal Pulse, Normal Posterior Tibial Pulses Abdomen: Bowel Sounds Present, Soft, Non Tender, No HSM, No Organomegaly Extremities: No Cyanosis, No Clubbing, No edema Musculoskeletal: No Erythema Skin: No Rashes Lymphatic: No Lymph Node Enlargement Neurological: No Focal Motor or Sensory Deficit Psych/Mental Status: Appropriate 04/20/19 11:30: WBC 14.3 H, RBC 4.34 L, Hgb 13.7, Hct 40.4, MCV 93.1, MCH 31.6, MCHC 33.9, Plt Count 221, MPV 10.1 04/21/19 04:15: WBC 12.2 H, RBC 4.14 L, Hgb 13.3, Hct 38.9 L, MCV 94.0, MCH 32.1 H, MCHC 34.2, Plt Count 204, MPV 10.3 04/21/19 04:15: Sodium 137, Potassium 4.3, Chloride 107, Carbon Dioxide 24.0, Anion Gap 6, BUN 21 H, Creatinine 0.88, Est GFR (MDRD) Af Amer 110, Est GFR (MDRD) Non-Af 91, BUN/Creatinine Ratio 23.9 H, Glucose 122 H, Calcium 8.3 L, Total Bilirubin 1.20 H Rhythm: EKG: ECHO: Stress Test: Cardiac Cath: PCI: CT Surgery: Holter monitor: EPS: PPM: CXR: Chest CT Scan: Medical Necessity - Tobacco Use Smoking Status: Never smoker Tobacco Use: Non-smoker Assessment/Plan 1. Non-ST elevation myocardial infarction * Patient presents with chest discomfort and is noted to have a non-ST elevation myocardial infarction. * High intensity statin * Patient underwent cardiac catheterization which demonstrated the following Normal left main coronary artery. Left anterior descending artery totally occluded. Left circumflex artery with mild diffuse disease. Dominant right coronary artery with no significant disease. Severe left ventricular systolic dysfunction with nearly akinetic anterior and apical wall with estimated EF of 20 to 25%. He subsequently underwent angioplasty and stenting of the proximal left anterior descending artery and mid left anterior descending artery uneventfully. This morning he is free of chest discomfort evolutionary EKG changes are noted. Echocardiogram demonstrates severe left ventricular systolic dysfunction. His blood pressure is too low to add MALIK inhibitors at this particular time We will try low-dose beta-adam with Toprol XL 25 mg a day and then switch to carvedilol as an outpatient. Will discharge for outpatient follow-up
--- NOTE | 2019-04-21 11:16 | DCINST_ITS ---
- Discharge Diagnoses Current Active Problems: Current Active and Chronic Problems (Last Updated 04/20/19 @ 16:34 by Merry Salomon) Atherosclerosis of coronary artery of [place] heart without angina pectoris (Chronic) History of coronary artery stent placement (Acute 04/20/19) [id number] LAD w/ 4.0 x 32 mm and 4.0 x 8 mm Synergy Stents, POBA-Ostial LCx 04/20/19 Non-STEMI (non-ST elevated myocardial infarction) (Acute 04/19/19) Ischemic cardiomyopathy (Acute) You will use the following diet at home:: Cardiac Discharge Activity: - - Follow post-cath instructions. Call your doctor if your incision/area has: Continuous Slow Oozing, Sudden Increased Bleeding, Increased Pain/ Swelling, Increased Redness, Foul Smelling Discharge, Swelling at the incision site Call your doctor if you observe: Shortness of breath, Dizziness, Fainting spel ls, Chest pain Allergies/Adverse Reactions: Allergies No Known Allergies Allergy (Verified 04/19/19 12:07) Medications to take at Discharge Calcium Carbonate/Vitamin D3 [Calcium 600-Vit D3 400 Tablet] 1 each PO DAILY 05/15/13 Lecithin, Soy [Lecithin] 200 mg PO DAILY 05/15/13 Terazosin HCl [Hytrin] 5 mg PO QHS 05/15/13 Aspirin E.C. [Ecotrin] 81 mg PO DAILY@0800 #30 tab 04/21/19 Atorvastatin Calcium [Lipitor] 40 mg PO QHS #30 tab 04/21/19 Metoprolol(XL)Succ [Toprol Xl (Beta Larissa)] 12.5 mg PO DAILY #30 tab 04/21/19 Ticagrelor [Brilinta] 90 mg PO BID #60 tab 04/21/19 The following prescriptions were given: Ticagrelor [Brilinta] 90 mg PO BID #60 tab Transmission Status: Pending to [facility] Aspirin E.C. [Ecotrin] 81 mg PO DAILY@0800 #30 tab Transmission Status: Pending to [facility] Atorvastatin Calcium [Lipitor] 40 mg PO QHS #30 tab Transmission Status: Pending to [facility] Metoprolol(XL)Succ [Toprol Xl (Beta Larissa)] 12.5 mg PO DAILY #30 tab Transmission Status: Pending to [facility] Orders to be completed after discharge: Phase II, Outpatient Cardiac Rehab Location: None Selected Primary Care Physician: Cali Streeter MD [Primary Care Provider] - Please follow up with your Primary Care Physician in: 1 Week Test Results: Test results from this visit will be discussed in further detail at your follow- up appointment, if applicable. Please Follow Up With: Mynor Smallwood MD When: 1-2 Weeks, May see AVI[employer] ELECTRONIC WARFARE OPERATOR/PA Proposed Discharge Date: 04/21/19
--- NOTE | 2019-04-21 11:18 | PCM.DC.SUM ---
<Rosa Smith - Last Filed: 04/21/19 11:28> Discharge Date and Diagnosis Date of Admission: 04/19/19 Date of Discharge: 04/21/19 - Primary Discharge Diagnosis Active and Suspected Problems (Last Updated 04/20/19 @ 16:34 by Merry Salomon) 1. NSTEMI secondary to LAD occlusion s/p PTCA/MAX to LAD and PTCA of the ostial LCX 2. Severe ischemic cardiomyopathy 3. Hyperlipidemia 4. BPH - Secondary Discharge Diagnosis Chronic Problems (Last Updated 04/20/19 @ 16:34 by Merry Salomon) Atherosclerosis of coronary artery of [place] heart without angina pectoris (Chronic) Hospital Course and Treatment Imaging Results: Diagnostic Data Chest X-Ray 04/19/19 12:40 IMPRESSION: No acute abnormality is seen. Electronically Signed: Daniel Self, at 14:31 EDT , Service support , Dr. Smallwood- Cardiology Operations: None Procedures: 2-D Echocardiogram, Cardiac catheterization Summary of Care Provided: The patient is a 73 year old M admitted 04/19/2019 due to chest pain. 1. NSTEMI secondary to LAD occlusion s/p PTCA/MAX to LAD and PTCA of the ostial LCX- troponin peaked at 100. Patient underwent cardiac catheterization 04/20/19 which showed occluded ostial LAD and subsequently underwent PCI/PTCA to the proximal LAD and PTCA alone of ostial LCx. LVEF 20%. Continue aspirin, Brilinta, statin, metoprolol XL. Follow-up with cardiology in 1 to 2 weeks. Follow-up with primary care provider in 1 week. 2. Severe ischemic cardiomyopathy-echocardiogram demonstrated EF 25%, stage I diastolic dysfunction, severe segmental systolic dysfunction. 3. Hyperlipidemia-continue statin regimen. 4. BPH-continue home medication regimen. General: Alert, Oriented x3, Cooperative HEENT: Atraumatic, PERRLA, EOMI, Normocephalic Neck: Supple, No JVD, Negative Carotid Bruits Lungs: Clear to auscultation, Normal air movement Cardiovascular: Regular rate, Regular Rhythm, Normal S1, Normal S2, No murmurs Abdomen: Bowel Sounds Present, Soft, Non Tender, Non-Distended Extremities: No clubbing, No cyanosis, No edema, Capillary Refill Less than 3 Seconds Skin: No rashes, No breakdown Musculoskeletal: No Tenderness to Palpation of Joints or Extremities Neurological: Cranial nerves II-XII grossly intact, Neuro grossly intact Psych/Mental Status: Normal Affect, Appropriate Patient seen and examined prior to discharge. Physical assessment as noted above. Patient is stable for discharge with follow up recommendations as noted above. This patient was seen by JONI Dejesus under the supervision of Dr. Perez. - Physical Exam Vitals/I&O's: Vital Signs Temp Pulse Resp BP Pulse Ox 99 F 73 20 H 98/61 95 04/21/19 04:00 04/21/19 08:00 04/21/19 08:00 04/21/19 08:00 04/21/19 08:00 Oxygen Flow Rate (L/min) 2 Oxygen Delivery Method Room Air Weight: 240 lb Body Mass Index (BMI) 32.5 Intake and Output for Last 24 Hours 04/19/19 04/20/19 04/21/19 23:59 23:59 23:59 Intake Total 2446.25 / 2446.25 2337.96 / 2337.96 307.92 / 307.92 Output Total 250 / 250 Balance 2196.25 / 2196.25 2337.96 / 2337.96 307.92 / 307.92 Laboratory Results 04/20/19 11:30: WBC 14.3 H, RBC 4.34 L, Hgb 13.7, Hct 40.4, MCV 93.1, MCH 31.6, MCHC 33.9, RDW Std Deviation 44.3 H, RDW Coeff of Margarette 13.0, Plt Count 221, MPV 10.1 04/21/19 04:15: WBC 12.2 H, RBC 4.14 L, Hgb 13.3, Hct 38.9 L, MCV 94.0, MCH 32.1 H, MCHC 34.2, RDW Std Deviation 45.1 H, RDW Coeff of Margarette 13.1, Plt Count 204, MPV 10.3 04/21/19 04:15: Sodium 137, Potassium 4.3, Chloride 107, Carbon Dioxide 24.0, Anion Gap 6, BUN 21 H, Creatinine 0.88, Estim Creat Clear Calc 84.51, Est GFR (MDRD) Af Amer 110, Est GFR (MDRD) Non-Af 91, BUN/Creatinine Ratio 23.9 H, Glucose 122 H, Calcium 8.3 L, Total Bilirubin 1.20 H, AST 267 H, ALT 75 H, Alkaline Phosphatase 58, Total Protein 5.7 L, Albumin 3.0 L, Globulin 2.7, Albumin/Globulin Ratio 1.1 Current Medications Acetaminophen (Tylenol) 650 mg PO Q6H PRN PRN PRN Reason: Pain Score 1-3/Temp > 100.7 F Last Admin: 04/20/19 15:44 Dose: 650 mg Documented by: Aspirin (Ecotrin) 81 mg PO DAILY@0800 [facility] Last Admin: 04/21/19 09:50 Dose: 81 mg Documented by: Atorvastatin Calcium (Lipitor) 40 mg PO QHS [facility] Last Admin: 04/20/19 22:08 Dose: 40 mg Documented by: Atropine Sulfate () 0.5 mg IV UD PRN PRN Reason: HR <50 bpm Doxazosin Mesylate (Cardura) 4 mg PO QHS [facility] Last Admin: 04/20/19 22:08 Dose: 4 mg Documented by: Heparin Sodium (Beef Lung) (Heparin 500 Unit/5 Ml (100/Ml)) 500 unit IV UD PRN PRN Reason: HEPARIN FLUSH Sodium Chloride () 250 mls @ 15 mls/hr IV .[id number] PRN PRN Reason: Saline Flush Sodium Chloride () 1,000 mls @ 15 mls/hr IV .Q48H [facility] Last Infusion: 04/20/19 10:45 Dose: Infused Documented by: Labetalol HCl (Trandate) 5 mg IV X1 PRN PRN Reason: SBP > 160 when pulling sheath Stop: 04/22/19 10:40 Metoprolol Succinate (Toprol Xl (Beta Larissa)) 12.5 mg PO DAILY [facility] Morphine Sulfate () 2 mg IV Q3H PRN PRN PRN Reason: Pain Score 6-10/10 Last Admin: 04/19/19 20:56 Dose: 2 mg Documented by: Nitroglycerin (Nitrostat) 0.4 mg SUBLINGUAL Q5M PRN PRN Reason: CARDIAC/CHEST PAIN Ondansetron HCl (Zofran) 4 mg IV Q8H PRN PRN PRN Reason: NAUSEA/VOMITING Last Admin: 04/20/19 05:59 Dose: 4 mg Documented by: Sodium Chloride () 10 - 40 ml IV UD PRN PRN Reason: SALINE FLUSH Sodium Chloride () 500 ml IV BOLUS PRN PRN Reason: VASO-VAGAL PROTOCOL Ticagrelor (Brilinta) 90 mg PO BID [facility] Last Admin: 04/21/19 09:46 Dose: 90 mg Documented by: Discharge Diet: Low fat/ Low Cholesterol Discharge Activity: - - Follow post-cath instructions. Call your doctor if your incision/area has: Continuous Slow Oozing, Sudden Increased Bleeding, Increased Pain/ Swelling, Increased Redness, Foul Smelling Discharge, Swelling at the incision site Call your doctor if you observe: Shortness of breath, Dizziness, Fainting spells, Chest pain Home Medications: Medications to take at Discharge Calcium Carbonate/Vitamin D3 [Calcium 600-Vit D3 400 Tablet] 1 each PO DAILY 05/15/13 Lecithin, Soy [Lecithin] 200 mg PO DAILY 05/15/13 Terazosin HCl [Hytrin] 5 mg PO QHS 05/15/13 Aspirin E.C. [Ecotrin] 81 mg PO DAILY@0800 #30 tab 04/21/19 Atorvastatin Calcium [Lipitor] 40 mg PO QHS #30 tab 04/21/19 Metoprolol(XL)Succ [Toprol Xl (Beta Larissa)] 12.5 mg PO DAILY #30 tab 04/21/19 Ticagrelor [Brilinta] 90 mg PO BID #60 tab 04/21/19 Following Prescrptions Were Given to Patient: Ticagrelor [Brilinta] 90 mg PO BID #60 tab Transmission Status: Received by [address] Aspirin E.C. [Ecotrin] 81 mg PO DAILY@0800 #30 tab Transmission Status: Received by [address] Atorvastatin Calcium [Lipitor] 40 mg PO QHS #30 tab Transmission Status: Received by [address] Metoprolol(XL)Succ [Toprol Xl (Beta Larissa)] 12.5 mg PO DAILY #30 tab Transmission Status: Received by [address] Other Amb Orders: Phase II, Outpatient Cardiac Rehab Location: None Selected Primary Care Physician: Cali Streeter MD [Primary Care Provider] - Please follow up with your Primary Care Physician in: 1 Week Please Follow Up With: Mynor Smallwood MD When: 1-2 Weeks, May see BACK END DEVELOPER/PA Disposition: Home Minutes spent on discharge:: 35 Patient Condition:: Stable Medical Necessity - Tobacco Use Smoking Status: Never smoker Tobacco Use: Non-smoker Meaningful Use Info Meaningful Use Diagnoses (Choose all that apply): AMI - AMI Aspirin given w/in 24hrs of arrival?: Yes ASA at discharge?: Yes Statins at discharge?: Yes Harshil/ARB at discharge?: No Reason Harshil/ARB not ordered:: Hypotension Beta Larissa at discharge?: Yes Done w/ Acute NM measure.: Yes Documented LVEF (%): 25 <Devin Perez - Last Filed: 04/21/19 13:17> Discharge Date and Diagnosis - Secondary Discharge Diagnosis Chronic Problems (Last Updated 04/21/19 @ 11:18 by SAURABH DejesusC) Atherosclerosis of coronary artery of [place] heart without angina pectoris (Chronic) Hospital Course and Treatment Imaging Results: 04/21/19 05:55 Echo Complete W/ Contrast [ECHO] Routine Summary of Care Provided: This patient was seen in conjunction with Rosa BORJAS. I have independently interviewed and examined the patient and reviewed pertinent history, examination findings, laboratory and plan of management. I have reviewed the note and agree with the documented findings with the few additional points. In brief, patient is 73-year-old gentleman admitted for chest pain and evaluation came to be non-STEMI. Patient further heart catheter showed LAD occlusion status post MAX and LAD and PTCA of ostial left circumflex. EF 20%. Patient on aspirin, Brilinta, statin, metoprolol XL. Cardiac rehab and follow-up with PCP and americ[employer] board certified orthotist set up. Severe ischemic cardiomyopathy, acute systolic heart failure secondary to non-STEMI. Discharge medication reconciliation done. Discharge follow-up instructions completed. Discharge process discussed with the patient and all questions were answered to patient's satisfaction. Total time spent, exact 35 minutes on discharge meds reconciliation, examination, review of imaging and blood test and discussion with the patient on follow-up instructions. I have discussed my assessment with Rosa BORJAS and orders have been reviewed. [] Subjective: Seen and examined. Patient does not have chest pain, shortness of breath or palpitation. Overall, uneventful last night. Right radial artery good pulse, no bruise or hematoma - Physical Exam Vitals/I&O's: Vital Signs Temp Pulse Resp BP Pulse Ox 98.0 F 78 16 114/82 H 95 04/21/19 08:00 04/21/19 11:26 04/21/19 11:00 04/21/19 11:00 04/21/19 11:00 Oxygen Flow Rate (L/min) 2 Oxygen Delivery Method Room Air Weight: 240 lb Body Mass Index (BMI) 32.5 Intake and Output for Last 24 Hours 04/19/19 04/20/19 04/21/19 23:59 23:59 23:59 Intake Total 2446.25 / 2446.25 2337.96 / 2337.96 307.92 / 307.92 Output Total 250 / 250 Balance 2196.25 / 2196.25 2337.96 / 2337.96 307.92 / 307.92 General: Alert, Oriented x3, Cooperative HEENT: Atraumatic, PERRLA, EOMI, Normocephalic Neck: Supple, No JVD, Negative Carotid Bruits Lungs: Clear to auscultation, Normal air movement, No rhonchi, No wheeze, No rales Cardiovascular: Regular rate, Regular Rhythm, Normal S1, Normal S2, No murmurs Abdomen: Bowel Sounds Present, Soft, Non Tender, Non-Distended Extremities: No edema, Capillary Refill Less than 3 Seconds Skin: No rashes, No breakdown Musculoskeletal: No Tenderness to Palpation of Joints or Extremities, Arthritic Changes Neurological: Cranial nerves II-XII grossly intact, Deep Tendon Reflexes 2+/4 and Symmetrical, Neuro grossly intact Psych/Mental Status: Normal Affect, Appropriate Laboratory Results 04/21/19 04:15: WBC 12.2 H, RBC 4.14 L, Hgb 13.3, Hct 38.9 L, MCV 94.0, MCH 32.1 H, MCHC 34.2, RDW Std Deviation 45.1 H, RDW Coeff of Margarette 13.1, Plt Count 204, MPV 10.3 04/21/19 04:15: Sodium 137, Potassium 4.3, Chloride 107, Carbon Dioxide 24.0, Anion Gap 6, BUN 21 H, Creatinine 0.88, Estim Creat Clear Calc 84.51, Est GFR (MDRD) Af Amer 110, Est GFR (MDRD) Non-Af 91, BUN/Creatinine Ratio 23.9 H, Glucose 122 H, Calcium 8.3 L, Total Bilirubin 1.20 H, AST 267 H, ALT 75 H, Alkaline Phosphatase 58, Total Protein 5.7 L, Albumin 3.0 L, Globulin 2.7, Albumin/Globulin Ratio 1.1 Current Medications Acetaminophen (Tylenol) 650 mg PO Q6H PRN PRN PRN Reason: Pain Score 1-3/Temp > 100.7 F Last Admin: 04/20/19 15:44 Dose: 650 mg Documented by: Aspirin (Ecotrin) 81 mg PO DAILY@0800 [facility] Last Admin: 04/21/19 09:50 Dose: 81 mg Documented by: Atorvastatin Calcium (Lipitor) 40 mg PO QHS [facility] Last Admin: 04/20/19 22:08 Dose: 40 mg Documented by: Atropine Sulfate () 0.5 mg IV UD PRN PRN Reason: HR <50 bpm Doxazosin Mesylate (Cardura) 4 mg PO QHS [facility] Last Admin: 04/20/19 22:08 Dose: 4 mg Documented by: Heparin Sodium (Beef Lung) (Heparin 500 Unit/5 Ml (100/Ml)) 500 unit IV UD PRN PRN Reason: HEPARIN FLUSH Sodium Chloride () 250 mls @ 15 mls/hr IV .[id number] PRN PRN Reason: Saline Flush Sodium Chloride () 1,000 mls @ 15 mls/hr IV .Q48H [facility] Last Infusion: 04/20/19 10:45 Dose: Infused Documented by: Labetalol HCl (Trandate) 5 mg IV X1 PRN PRN Reason: SBP > 160 when pulling sheath Stop: 04/22/19 10:40 Metoprolol Succinate (Toprol Xl (Beta Larissa)) 12.5 mg PO DAILY [facility] Last Admin: 04/21/19 11:26 Dose: 12.5 mg Documented by: Morphine Sulfate () 2 mg IV Q3H PRN PRN PRN Reason: Pain Score 6-10/10 Last Admin: 04/19/19 20:56 Dose: 2 mg Documented by: Nitroglycerin (Nitrostat) 0.4 mg SUBLINGUAL Q5M PRN PRN Reason: CARDIAC/CHEST PAIN Ondansetron HCl (Zofran) 4 mg IV Q8H PRN PRN PRN Reason: NAUSEA/VOMITING Last Admin: 04/20/19 05:59 Dose: 4 mg Documented by: Sodium Chloride () 10 - 40 ml IV UD PRN PRN Reason: SALINE FLUSH Sodium Chloride () 500 ml IV BOLUS PRN PRN Reason: VASO-VAGAL PROTOCOL Ticagrelor (Brilinta) 90 mg PO BID [facility] Last Admin: 04/21/19 09:46 Dose: 90 mg Documented by: Code Visit Inpatient E&M: [id number] Disch Hosp
[2019-04-21] MEDS: Metoprolol(XL)Succ 25 MG Tablet 12.5 MG PO (11:26)
== END 2019-04-21 13:25 | disposition home or self-care (01) | DRG 247 ==
LOC: ED 15:14 → PCU 15:18 → ICU 04-20 10:47
PROVIDERS: Hospitalist; Internal Medicine; Nurse Practitioner Family; Specialist; Admitting Provider Student in an Organized Health Care Education/Training Program; Emergency Provider Emergency Medicine; Family Provider Family Medicine; PCP Family Medicine; Visit Provider Internal Medicine
DX: I21.4 Non-ST elevation (NSTEMI) myocardial infarction (principal); N40.0 Benign prostatic hyperplasia without lower urinary tract symptoms; I25.10 Atherosclerotic heart disease of native coronary artery without angina pectoris; I25.5 Ischemic cardiomyopathy; E78.5 Hyperlipidemia, unspecified
CPT/HCPCS: 36415; 71046; 80048; 80053; 80061; 83036; 84484; 85025; 85027; 85347; 85610; 85730; 92920; 92928; 93005; 93306; 93458; 99152; 99153; 99285; J7030; J7040; Q9957; Q9967; A4216; C1725; C1757; C1769; C1874; C1887; C1894; C8929; C9600; J1327; J2405

== ENCOUNTER → 2019-05-01 | Outpatient (CLI) | payer MEDICARE, BC, SELFPAY ==
[2019-04-19 15:58] VITALS: BMI 32.5
[2019-04-20 11:58] VITALS: BMI 32.5
--- NOTE | 2019-05-01 12:20 | CR.HP_ITS ---
CR - History & Physical - General Arrival date:: 05/01/19 Arrival time:: 12:00 Date of Referral:: 04/20/19 Date of CR Evaluation:: 05/01/19 Referring Physician: DR RAZO Primary Diagnosis: PCI WITH STENT - History of Present Cardiac Event Onset Date: Enter Onset Date of cardiac illnesses in Comment field below Current stable Angina Pectoris:: No Acute Myocardial Infarction within 12 months:: Yes Coronary Artery Bypass Graft:: No Heart valve replacement or repair:: No PTCA or coronary stenting:: Yes - X2 Heart or Heart-Lung Transplant:: No Heart Failure EF <35%:: Yes - 25% EF Type of Symptoms:: CHEST PRESSURE, ARMS AND A LOT OF SWEATING Interventions with present event:: STENT X2 Were there any complications?: NONE - Medications Home Medications: Ambulatory Orders Medication Instructions Recorded Calcium Carbonate/Vitamin D3 1 each PO DAILY 05/15/13 [Calcium 600-Vit D3 400 Tablet] Lecithin, Soy [Lecithin] 200 mg PO DAILY 05/15/13 Terazosin HCl [Hytrin] 5 mg PO QHS 05/15/13 Aspirin E.C. [Ecotrin] 81 mg PO DAILY@0800 #30 tab 04/21/19 Atorvastatin Calcium [Lipitor] 40 mg PO QHS #30 tab 04/21/19 Metoprolol(XL)Succ [Toprol Xl 12.5 mg PO DAILY #30 tab 04/21/19 (Beta Larissa)] Ticagrelor [Brilinta] 90 mg PO BID #60 tab 04/21/19 - Allergies Allergies/Adverse Reactions: Allergies No Known Allergies Allergy (Verified 04/19/19 12:07) - Sleep Disorder Evaluation Hx of Sleep Apnea: No Do you snore loudly (louder than talking or can be heard through closed doors)?: No Do you often feel tired/ fatigued/ sleepy during daytime?: Yes Has anyone observed you stop breathing during sleep?: No History of Hypertension (for STOP score): No STOP Results: Negative Advanced Directives - Advanced Directives Power of Pilot: Yes - PT AND ENCOURAGED TO BRING A COPY TO [facility] DNR Order?:: No Past Medical History - Past Medical Illness Medical History: Past Medical History (Last Updated 04/21/19 @ 11:18 by Rosa Luis, GEOSCIENCE PROFESSOR-C) Atherosclerosis of coronary artery of [place] heart without angina pectoris (Chronic) I25.10 Non-STEMI (non-ST elevated myocardial infarction) (Acute) Onset Date: 04/19/19 I21.4 Ischemic cardiomyopathy (Acute) I25.5 BPH (benign prostatic hyperplasia) N40.0 Obesity E66.9 Ureteral calculus, left N20.1 - Past Surgical History Surgical History: Past Surgical History (Last Updated 04/21/19 @ 11:18 by SAURABH DejesusC) History of coronary artery stent placement (Acute) Onset Date: 04/20/19 Z95.5 [id number] LAD w/ 4.0 x 32 mm and 4.0 x 8 mm Synergy Stents, POBA-Ostial LCx 04/20/19 History of appendectomy Z90.49 History of eye surgery Z98.890 History of lithotripsy Z98.890 Surgical History: appendectomy, - - Left eye retinal detachment surgery. - Family History Summary Family History: Family History (Last Updated 04/20/19 @ 16:34 by Merry Salomon) Father Myocardial infarction, Onset Age: 80 Social History - Smoking History Smoking Status: Never smoker - Alcohol Use Alcohol Usage: No - Substance Abuse Hx Substance Use: No - Occupation Occupation (List type of work in comments):: Retired - Hobbies, Recreation, Social Activities Hobbies: Reading, Watch TV, Walking Recreational Activities: I am able to engage in a few activities Social Environment - Status Marital Status: - Current Living Arrangements Living Environment:: Spouse - Children How many children do you have?: 2 Do any of your children live nearby?: Yes - Safety Do you feel safe in your surroundings?: Yes - Assistance Do you need any assistance at home?: NONE Review of Systems - Review of Systems Hints: Right click = Denies (Slash). Left click = Reports ([place]) Review of Present Symptoms: Reports: Shortness of Breath at Rest - SOMETIMES I FEEL LIKE I NEED TO 'CATCH MY BREATH' AT NIGHT WHEN LYING ON MY SIDE?, Shortness of Breath with Exertion - I DO HAVE SOME SOB WITH EXERTION AT PRESENT,, Dizziness/Lightheadedness - WITH SUDDEN CHANGE OF POSITION, Fatigue, Appetite - Normal, Sleep - Normal. Denies: PVD, Operative Discomfort, Angina, Wound Healing, Heart Arrhythmia/Irregularities - Pain Is Patient Pain Free?: Yes Risk Factor Assessment - Chief Complaint Chief Complaint: CURRETN PCI PAT WHO PRESENTS TODAY FOR CR INITIAL EVALUATION - Vital Signs Temperature: 98.6 F Respiratory Rate: 16 Pulse Ox: 95 Blood Pressure: 100/68 Nailbeds:: PINK - Pulse Pulse Rate: 65 Pulse Rhythm: Regular - Hypertension How long have you been treated?: HAVE NEVER BEEN ON B/P MEDS BEFORE MY STENTS - Blood Cholesterol/Lipids Total Cholesterol (mg/dL) Goal = less than 200 mg/dL: 146 HDL Cholesterol (mg/dL) Goal = less than 40 mg/dL: 42 LDL Cholesterol (mg/dL) Goal = less than 70 mg/dL: 82 Triglycerides (mg/dL) Goal = less than 150 mg/dL: 111 - Diabetes Nutrition Referral for Diabetes: No - Obesity Height: 6 ft Weight:: 240 lb Weight in Pounds: 240.0 lbs Weight Source: Estimated by Patient Body Mass Index (BMI): 32.5 Nutritional Referral for Obesity: No - PT NOT INTERESTED AT THIS TIME - Physical Inactivity Physical Inactivity: Recreational activity - Risk Stratification Risk Guidelines: Lowest Risk: Risk Factor for Smoking, Risk Factor for Dyslipidemia, Risk Factor for Diabetes, Risk Factor for Hypertension, Risk Factor for Sedentary Lifestyle, Risk Factor for Depression, Highest Risk: Risk Factor for Obesity - BMI 32.5 - For Smoking Smoking Risk Guidelines: Smoking Low Risk: None or quit greater than 6 months ago. Smoking Moderate Risk: Smoker or quit 6 months or less ago. Smoking High Risk: Smoker - For Dyslipidemia Dyslipidemia Risk Guidelines: Low Risk: Moderate Risk: High Risk: 15-25% fat 25.1-29% fat >/= 30% fat. <7% sat fat 7-9% sat fat >9% sat fat. <150 mg chol 150-299 mg chol >/= 300 mg chol. LDL <100 LDL 100-129 LDL >/= 130. Chol/HDL ratio <5.0 Chol/HDL ratio 5.0-6.0 Chol/HDL ratio >6.0. Triglycerides <100 Triglycerides 100- 149 Triglycerides >/= 150 - For Diabetes Mellitus Diabetes Risk Guidelines: Diabetes Low Risk: HgA1c <6.5% and/or FBG <120. Diabetes Moderate Risk: HgA1c 6.6-7.9% and/or FBG 120-180. Diabetes High Risk: HgA1c >/= 8% and/or FBG >180 - For Obesity/Overweight Obesity/Overweight Risk Guidelines: Obesity Low Risk: BMI <25.0. Obesity Moderate Risk: BMI 25-29.9. Obesity High Risk: BMI >/= 30.0 - For Hypertension Hypertension Risk Guidelines: Hypertension Low Risk: Systolic <120 and Diastolic <80. Hypertension Moderate Risk: Systolic 120-139 and Diastolic 80-89. Hypertension High Risk: Systolic >/= 140 and [place] to[place] >/= 90 - For Sedentary Lifestyle Sedentary Lifestyle Risk Guidelines: Sedentary Lifestyle Low Risk: >/= 1,500 kcal/week. Sedentary Lifestyle Moderate Risk: 700-1,499 kcal/week. Sedentary Lifestyle High Risk: < 700 kcal/week - For Depression Depression Risk Guidelines: Depression Low Risk: Not clinically depressed. Depression Moderate Risk: Mildly depressed. Depression High Risk: Clinically depressed - Family History Family History: Family History (Last Updated 04/20/19 @ 16:34 by Merry Salomon) Father Myocardial infarction, Onset Age: 80 Motivation - Motivation to Participate On a scale of 1 to 10, how prepared are you to commit to attending program?: 10 What do you see as barriers to successfully being able to complete the program?: NONE What do you see as the benefits of succesfully completing the program? In other words, what do you hope to get out of participating in the program?: GET BACK TO NORMAL LIKE I WAS 2 YEARS AGO FEEL STRONGER Are there issues you are dealing with that will interfere with completing the program?: NONE Do you have a spouse or signficant other, family or friends who will help support you to complete the program?: SPOUSE
[2019-05-01 12:44] VITALS: BP 100/68; PULSE 65; RESP 16; TEMP 37; O2SAT 95; BMI 32.5
--- NOTE | 2019-05-01 13:14 | CR.ITP_ITS ---
General Information - General Information Admitting Diagnosis: NSTEMI, PCI W/COROANRY STENT PLACEMENT - Education/Goals Barriers to Learning: Hearing Impairment, Vision Impairment Individual Counseling: Initial Assessment: Abnormal Cholesterol Levels, High Blood Pressure Cardiac Rehabilitation Goals: 1. Maintain the individual as the primary focus of care. 2. To improve the patient's quality of life. 3. Identification of cardi ac risk factors and provide cardiac risk factor management. 4. Enhance the psychosocial status of the patient. 5. Reconditioning enough to allow the patient to resume customary activities. 6. Control symptoms of cardiac disease Scale for measuring improvement of personal goals: Enter appropriate number in Comments. 2 = Unchanged. 3 = Slightly Better. 4 = Moderate Improvement. 5 = Met my Goal Personal Goals: Initial Assessment: Improve energy level, Participate in home exercise program, Get back to work, or to resume activities faster, Improve knowledge of cardiac disease, Improve muscle strength and endurance, Improve diet and eating habits (eat healthier), Control risk factors (learn risk factor modification) Exercise - Initial Assessment - Visit Date of Eval: 05/01/19 Session #:: 0 - STARTING 05/02/2019 @ 10:15 - Stages of Change Stages of Change:: Action - Physician Prescribed Exercise Modalities: Treadmill, Rower, Airdyne, NuStep Frequency (days/week): 3x/week for 12 weeks [36 sessions] Duration (Minutes):: 30-45 Intensity: 60-80% age predicted maximum heart rate reserve METs - Progression: 0.5-1.0 MET, RPE 11-14 WEEK: 3 Target Heart Rate:: 97-127 - Hypertension Do any of the following apply?: Yes, Medication Resting Blood Pressure:: 100/68 - Intervention Home Exercise/Activity Goal:: Moderate Exercise 30 min/day x 5 days/wk - Education Goals:: Warm-up, RPE LELAND Scale, S/S, Safe Exercise, Self-Monitoring - Exercise Program Goals Exercise Program Goals: Aerobic Activity >30 min Nutrition - Initial Assessment - Program Goals Nutrition Program Goals: LDL <70. Total Cholesterol <200. HDL >45. Triglycerides <150. HgbA1C <7%. BMI <25 - Visit Date of Assessment:: 05/01/19 - Stages of Change Stages of Change:: Action - Lipids Total Cholesterol (mg/dL) Goal = less than 200 mg/dL: 146 HDL Cholesterol (mg/dL) Goal = less than 45 mg/dL: 42 LDL Cholesterol (mg/dL) Goal = less than 70 mg/dL: 82 Triglycerides (mg/dL) Goal = less than 150 mg/dL: 111 - Diabetes Diabetes:: No Insulin: No Non-Insulin Dependent?: No Do you monitor your blood sugar at home?: No - Weight Management Height: 6 ft Weight:: 240 lb Body Fat %:: 32.5 - Intervention Referral to dietitian:: No Referral to Diabetic Clinic:: No Will attend diet classes:: Yes - Education Gave educational materials for:: Healthy eating Tobacco - Initial Assessment - Program Goals Tobacco Program Goals: Complete smoking cessation. Attend education classes. Improve Knowledge Test score - Stage of Change Stages of Change:: Action - Learning Barriers Learning Barriers: Hearing, Vision - Family Support Do you have family support?: Yes - Tobacco Use Tobacco Use: Non-smoker Do you use smokeless tobacco?: No - Intervention Smoking Cessation Referral:: No Individual Education/Counseling:: No Education Schedule Given:: Yes - Education Attended class for:: Treating Heart Disease, How The Heart Works, What it means to have Heart Disease, How Coronary Artery Disease is Diagnosed, Heart Procedures, What Heart Medications Do, Risk Factors & Modifications, Living an Active Life, Nutrition, Emotions & Heart Disease, Stress Management & Relaxation, Sleep Disorders & Heart Disease Psychosocial - Initial Assess - Target Goals Target Goals: Assess presence or absence of depression. Using a valid screening tool, maximizes coping skills. Positive support system - Stages of Change Stages of Change:: Action - Psychosocial Test Tool Used:: HANDS Depression Questionnaire - Intervention PS - Interventions: Yes Attend Stress Management Classes, No Referral to Mental Health, No Referral to [facility] Case Management, No Referral to Physician, No Uses Stress Management Skills - Education Gave educational materials for:: Coping techniques, Signs & symptoms of depression, Stress management, Relaxation techniques - Patient/Program Goal Preventative Medication(s):: Aspirin, MALIK inhibitor, Clopidogrel, Beta adam, Statin/lipid - Assistive Devices Assistive Devices:: None Fall Risk Assessed:: Yes Patient Health Questionnaire Initial Assessment 1. Little interest or pleasure in doing things: Several days 2. Feeling down, depressed, or hopeless: Not at all 3. Trouble falling or staying asleep, or sleeping too much: Several days 4. Feeling tired or having little energy: Several days 5. Poor appetite or overeating: Not at all 6. Feeling bad about yourself -- or that you are a failure or have let yourself or your family down: Not at all 7. Trouble concentrating on things, such as reading the newspaper or watching television: Not at all 8. Moving or speaking so slowly that other people could have noticed. Or the opposite - being so fidgety or restless that you have been moving around a lot more than usual: Not at all 9. Thoughts that you would be better off , or of hurting yourself in some way: Not at all How difficult have these problems made it for you to do your work, take care of things at home, or get along with other people?: Not difficult at all Total Score: 3 AMY-Q SV Test - Statements CAD is a disease of the arteries in the heart: False Examples of risk factors for heart disease: True Angina is chest pain or discomfort: True The benefits of resistance training include: True Eating more meat and dairy products: False Anti-platelet medications such as aspirin are important: True The only effective way to manage stress: False An exercise warm-up slowly increases heart rate: True Prepared, processed foods usually have high sodium: True Depression is common after a heart attack: True The statin medications lower cholesterol: True To control blood pressure, lower the amount of sodium: True If someone gets chest discomfort during walking: False Transfats are partially hydrogenated vegetable oils: True Sleep apnea that is not treated increases the risk: False To control cholesterol, one should become a vegetarian: False Someone knows if he/she is exercising at the right level: True Diabetes cannot be prevented with exercise & health eating: False Stress is a large risk for heart attack: True A diet that can help lower blood pressure is rich in: True - Total Score Total Correct Responses: 20 Self-Efficacy Initial Assessment We would like to know how confident you are in doing certain activities. Please select your confidence level for:: Select your confidence level for the following using the scale 1-10 where 1 is not at all confident and 10 is totally confident. Your score is the average of all 6 responses. Fatigue: How confident are you that you can keep the fatigue caused by your disease from interfering with the things you want to do? Select Number: 8 Physical Discomfort or Pain: How confident are you that you can keep the physical discomfort or pain of your disease from interfering with the things you want to do? Select Number: 8 Emotional Distress: How confident are you that you can keep the emotional distress caused by your disease from interfering with the things you want to do? Select Number: 8 Other Symptoms or Health Problems: How confident are you that you can keep other symptoms or health problems from interfering with the things you want to do? Select Number: 8 Different Tasks and Activities: How confident are you that you can do the different tasks and activities needed to manage your health condition so as to reduce your need to see a doctor? Select Number: 8 Medication: How confident are you that you can do things other than just taking medication to reduce how much your illness affects your everyday life? Select Number: 8 Total Score:: 8 Nutrition Survey - Nutrition Survey Instructions Scoring Instructions: Scoring is as follows: Yes = 1 points. No = 0 point. Patient score that is >/=12 is considered to be at potential nutritional risk and could benefit from a referral to a registered dietitian. - Nutrition Survey Initial Have you lost >10 lbs over the past 2 months without trying?: No Are you following a special diet at home for diabetes, low fat, or low salt?: No Are you interested in meeting with a dietitian for help understanding your diet?: No Do you eat less than 3 meals a day?: No Do you eat fatty meats (sol, sausage, ribs, etc), fried foods, desserts, large amounts of salad dressings, margarine, butter, or cheese most days?: No Do you have food allergies? [Enter types in comment field]: No Do you eat in restaurants more than 3 times a week?: No Do you season food with salt, seasoning salt, or garlic salt?: Yes - SOME, VERY LITTLE Do you used canned, boxed, frozen meals, or soups, seasoning packets?: No Total Score:: 1
[2019-05-01 13:33] VITALS: BP 100/68
== END | disposition home or self-care (01) ==
LOC: CR 12:19
PROVIDERS: Family Provider Family Medicine; PCP Family Medicine; Referring Provider Internal Medicine Cardiovascular Disease; Visit Provider Internal Medicine Cardiovascular Disease
DX: Z95.5 Presence of coronary angioplasty implant and graft (principal)

== ENCOUNTER 2019-05-23 10:15 | Outpatient (RCR) | payer MEDICARE, BC, SELFPAY ==
[2019-04-20 11:58] VITALS: BMI 32.5
[2019-05-01 12:44] VITALS: BMI 32.5
== END 2019-05-26 23:59 ==
LOC: CR 10:15
PROVIDERS: Family Provider Family Medicine; PCP Family Medicine; Referring Provider Internal Medicine Cardiovascular Disease; Visit Provider Internal Medicine Cardiovascular Disease
DX: I25.10 Atherosclerotic heart disease of native coronary artery without angina pectoris (principal); Z95.5 Presence of coronary angioplasty implant and graft
CPT/HCPCS: 93798

== ENCOUNTER 2019-06-25 10:15 | Outpatient (RCR) | payer MEDICARE, BC, SELFPAY ==
[2019-04-20 11:58] VITALS: BMI 32.5
[2019-05-08 07:20] VITALS: BMI 32.3
--- NOTE | 2019-05-30 06:59 | PCM.CR.ITP ---
Exercise - 30-day Assessment - Visit Date of Eval: 05/30/19 Session #:: 11 - Started CR on 05/02/2019 has not missed any sessions. - Stages of Change Stages of Change:: Action - Physician Prescribed Exercise Modalities: Treadmill, Rower, Airdyne, NuStep Frequency (days/week): 3 Duration (Minutes):: 30-45 Intensity: 60-80% age predicted maximum heart rate reserve METs - Progression: 0.5-1.0 MET, RPE 11-14 WEEK: 4 Target Heart Rate:: 97-127 max HR 126 - Hypertension Medication Changes:: Yes - 05/16/19 lisinopril 2.5mg added - Intervention Home Exercise/Activity Goal:: Moderate Exercise 30 min/day x 5 days/wk - Education Goals:: Warm-up, RPE LELAND Scale, S/S, Safe Exercise, Self-Monitoring - Exercise Program Goals Exercise Program Goals: Aerobic Activity >30 min Nutrition - Initial Assessment - Program Goals Nutrition Program Goals: LDL <70. Total Cholesterol <200. HDL >45. Triglycerides <150. HgbA1C <7%. BMI <25 - Diabetes Do you monitor your blood sugar at home?: No Nutrition - 30-Day Assessment - Program Goals Nutrition Program Goals: LDL <70. Total Cholesterol <200. HDL >45. Triglycerides <150. HgbA1C <7%. BMI <25 - Visit Date of Eval: 05/30/19 - Stages of Change Stages of Change:: Action - Lipids Has the patient seen the dietitian?: No - Diabetes Diabetes:: No - Weight Management Weight:: 238 lb 8 oz - stable +/- 1# - Intervention Referral to dietitian:: No Referral to Diabetic Clinic:: No Will attend diet classes:: Yes - Education Attended class for:: Healthy eating Tobacco - Initial Assessment - Program Goals Tobacco Program Goals: Complete smoking cessation. Attend education classes. Improve Knowledge Test score - Learning Barriers Learning Barriers: Hearing, Vision Tobacco - 30-Day Assessment - Program Goals Tobacco Program Goals: Complete smoking cessation. Attend education classes. Improve Knowledge Test score - Stage of Change Stages of Change:: Action - Learning Barriers Learning Barriers: Participates in education - Family Support Do you have family support?: Yes - Tobacco Use Tobacco Use: Non-smoker Do you use smokeless tobacco?: No - Intervention Smoking Cessation Referral:: No Individual Education/Counseling:: No Education Schedule Given:: Yes - Education Attended class for:: Treating Heart Disease, How The Heart Works, What it means to have Heart Disease, How Coronary Artery Disease is Diagnosed Psychosocial - Initial Assess - Target Goals Target Goals: Assess presence or absence of depression. Using a valid screening tool, maximizes coping skills. Positive support system - Psychosocial Test Tool Used:: HANDS Depression Questionnaire - Assistive Devices Fall Risk Assessed:: Yes Psychosocial - 30-Day Assess - Target Goals Target Goals: Assess presence or absence of depression. Using a valid screening tool, maximizes coping skills. Positive support system - Stages of Change Stages of Change:: Action - Psychosocial Test Tool Used:: HANDS Depression Questionnaire - Intervention PS - Interventions: Yes Attend Stress Management Classes, No Referral to Mental Health, No Referral to [facility] Case Management, No Referral to Physician, No Uses Stress Management Skills - Education Attended classes for:: Coping techniques, Signs & symptoms of depression, Stress management, Relaxation techniques - Patient/Program Goal Preventative Medication(s):: Aspirin, MALIK inhibitor, Clopidogrel, Beta adam, Statin/lipid - patient reports taking medications as prescribed. - Assistive Devices Assistive Devices:: None Fall Risk Assessed:: Yes Patient Health Questionnaire 30-Day Re-eval Assessment 1. Little interest or pleasure in doing things: Several days 2. Feeling down, depressed, or hopeless: Not at all 3. Trouble falling or staying asleep, or sleeping too much: Several days 4. Feeling tired or having little energy: Not at all 5. Poor appetite or overeating: Not at all 6. Feeling bad about yourself -- or that you are a failure or have let yourself or your family down: Not at all 7. Trouble concentrating on things, such as reading the newspaper or watching television: Not at all 8. Moving or speaking so slowly that other people could have noticed. Or the opposite - being so fidgety or restless that you have been moving around a lot more than usual: Not at all 9. Thoughts that you would be better off , or of hurting yourself in some way: Not at all How difficult have these problems made it for you to do your work, take care of things at home, or get along with other people?: Not difficult at all Total Score: 2 Self-Efficacy 30-Day Re-eval Assessment We would like to know how confident you are in doing certain activities. Please select your confidence level for:: Select your confidence level for the following using the scale 1-10 where 1 is not at all confident and 10 is totally confident. Your score is the average of all 6 responses. Fatigue: How confident are you that you can keep the fatigue caused by your disease from interfering with the things you want to do? Select Number: 8 Physical Discomfort or Pain: How confident are you that you can keep the physical discomfort or pain of your disease from interfering with the things you want to do? Select Number: 9 Emotional Distress: How confident are you that you can keep the emotional distress caused by your disease from interfering with the things you want to do? Select Number: 9 Other Symptoms or Health Problems: How confident are you that you can keep other symptoms or health problems from interfering with the things you want to do? Select Number: 9 Different Tasks and Activities: How confident are you that you can do the different tasks and activities needed to manage your health condition so as to reduce your need to see a doctor? Select Number: 10 Medication: How confident are you that you can do things other than just taking medication to reduce how much your illness affects your everyday life? Select Number: 10 Total Score:: 9
== END 2019-06-26 23:59 ==
LOC: CR 10:15
PROVIDERS: Family Provider Family Medicine; PCP Family Medicine; Referring Provider Internal Medicine Cardiovascular Disease; Visit Provider Internal Medicine Cardiovascular Disease
DX: I25.10 Atherosclerotic heart disease of native coronary artery without angina pectoris (principal); Z95.5 Presence of coronary angioplasty implant and graft
CPT/HCPCS: 93798

== ENCOUNTER → 2019-07-19 08:31 | Outpatient (CLI) | payer MEDICARE, BC, SELFPAY ==
[2019-04-20 11:58] VITALS: BMI 32.5
[2019-05-08 07:20] VITALS: BMI 32.3
--- NOTE | 2019-07-19 08:32 | ECHOCS_ITS ---
Reason For Study: S/P AK Procedure This was a 2D Doppler, Color Flow transthoracic echocardiogram. Exam performed in department. Left Ventricle Mildly dilated left ventricle. The estimated ejection fraction is 30 %. Moderately severe segmental systolic dysfunction (see wall motion). Stage 2 diastolic dysfunction. [place] : Akinetic. Anterio- Basal: Normal. Infero-Basal: Normal. The rest of the wall segments are hypokinetic. Right Ventricle Normal RV size. Normal systolic function. Atria The left atrium is mildly enlarged. The right atrium is mildly enlarged. Bubble contrast study negative for right to left interatrial shunt. Mitral Valve Normal mitral valve. Tricuspid Valve Normal tricuspid valve. Mild (1+) tricuspid valve insufficiency. Pulmonary artery systolic pressure is 34 mmHg. Aortic Valve Trisinus/trileaflet aortic valve. Pulmonic Valve The pulmonic valve is not well visualized. Great Vessels Normal aortic root. The pulmonary artery is normal size. Normal inferior vena cava. Pericardium/Pleural No pericardial effusion. Medication 22 gauge I.V. with prn adaptor inserted into right arm. Performed a rapid injection of agitated mix of 9 cc saline and 1cc air to assess for atrial septal defect. Diluted definity 4ml given slow IV push to enhance endocardial definition. MMode/2D Measurements & Calculations LVIDd: 5.8 cm IVSd: 0.97 cm Ao root diam: 3.3 cm LVIDs: 4.7 cm LVPWd: 0.97 cm RVDd: 3.6 cm FS: 19.1 % LAV(MOD-bp): 73.2 ml LVAd ap4: 38.4 cm2 SV(MOD-sp4): 57.2 ml LAV(MOD-bp) Indexed: 32.3 ml/m2 EDV(MOD-sp4): 147.2 ml LAV(MOD-sp2): 78.0 ml EDV(sp4-el): 149.6 ml LAV(MOD-sp4): 65.0 ml LVAs ap4: 28.8 cm2 ESV(MOD-sp4): 90.1 ml ESV(sp4-el): 91.3 ml EF(MOD-sp4): 38.8 % EF(sp4-el): 38.9 % SV(sp4-el): 58.2 ml LA A4 area: 22.0 cm2 LA dimension(2D): 4.5 cm RA A4 area: 21.0 cm2 Time Measurements MV dec time: 0.19 sec Doppler Measurements & Calculations MV E max dameon: 66.2 cm/sec Lat Peak E' Dameon: 11.0 cm/sec Med Peak E' Dameon: 7.1 cm/sec MV A max dameon: 49.3 cm/sec E/E' lat: 6.0 E/E' med: 9.3 MV E/A: 1.3 Ao V2 max: 121.0 cm/sec LV V1 max: 91.5 cm/sec PA V2 max: 99.3 cm/sec Ao max P.9 mmHg LV V1 max P.4 mmHg TR max dameon: 265.8 cm/sec TR max P.3 mmHg Interpretation Summary Mildly dilated left ventricle. The estimated ejection fraction is 30 %. Moderately severe segmental systolic dysfunction (see wall motion). Stage 2 diastolic dysfunction. The rest of the wall segments are hypokinetic. Contrast injection was performed. Compared to prior study, there is no significant change. Ordering Physician: Mynor Smallwood Referring Physician: SHERI HEATON Performed By: Soila Peres RDCS
== END ==
PROVIDERS: Family Provider Family Medicine; PCP Family Medicine; Referring Provider Internal Medicine Cardiovascular Disease; Visit Provider Internal Medicine Cardiovascular Disease
DX: I25.5 Ischemic cardiomyopathy (principal)
CPT/HCPCS: 93306; Q9957; A4216; C8929

== ENCOUNTER 2019-07-27 10:15 | Outpatient (RCR) | payer MEDICARE, BC, SELFPAY ==
[2019-04-20 11:58] VITALS: BMI 32.5
[2019-05-08 07:20] VITALS: BMI 32.3
--- NOTE | 2019-06-29 08:53 | PCM.CR.ITP ---
General Information - General Information Admitting Diagnosis: PCI with Stent - Education/Goals Barriers to Learning: None Cardiac Rehabilitation Goals: 1. Maintain the individual as the primary focus of care. 2. To improve the patient's quality of life. 3. Identification of cardiac risk factors and provide cardiac risk factor management. 4. Enhance the psychosocial status of the patient. 5. Reconditioning enough to allow the patient to resume customary activities. 6. Control symptoms of cardiac disease Scale for measuring improvement of personal goals: Enter appropriate number in Comments. 2 = Unchanged. 3 = Slightly Better. 4 = Moderate Improvement. 5 = Met my Goal Exercise - 60-Day Assessment - Visit Date of Eval: 06/29/19 Session #:: 22 - Stages of Change Stages of Change:: Action - Physician Prescribed Exercise Modalities: Treadmill, Airdyne, NuStep Frequency (days/week): 3 Duration (Minutes):: 30-45 Intensity: 60-80% age predicted maximum heart rate reserve METs - Progression: 0.5-1.0 MET, RPE 11-14 WEEK: 4.5 Target Heart Rate:: 97-127 Max HR 129 - Hypertension Resting Blood Pressure:: 94/54 Peak Exercise Blood Pressure:: 140/48 Medication Changes:: Yes - 05/16 Lisinopril 2.5 mg QD added - Intervention Home Exercise/Activity Goal:: Moderate Exercise 30 min/day x 5 days/wk - Education Goals:: RPE LELAND Scale, S/S, Safe Exercise, Self-Monitoring - Exercise Program Goals Exercise Program Goals: Aerobic Activity >30 min, B/P <130/80 Nutrition - Initial Assessment - Program Goals Nutrition Program Goals: LDL <70. Total Cholesterol <200. HDL >45. Triglycerides <150. HgbA1C <7%. BMI <25 - Diabetes Do you monitor your blood sugar at home?: No Nutrition - 60-Day Assessment - Program Goals Nutrition Program Goals: LDL <70. Total Cholesterol <200. HDL >45. Triglycerides <150. HgbA1C <7%. BMI <25 - Visit Date of Eval: 06/29/19 - Stages of Change Stages of Change:: Action - Diabetes Diabetes:: No - Weight Management Weight:: 108.182 kg - Intervention Referral to dietitian:: No Referral to Diabetic Clinic:: No Will attend diet classes:: Yes - Education Attended class for:: Signs & symptoms of hypoglycemia, Signs & symptoms of hyperglycemia, Relate diabetes to coronary artery disease, Healthy eating Tobacco - Initial Assessment - Program Goals Tobacco Program Goals: Complete smoking cessation. Attend education classes. Improve Knowledge Test score - Learning Barriers Learning Barriers: Hearing, Vision Tobacco - 60-Day Assessment - Program Goals Tobacco Program Goals: Complete smoking cessation. Attend education classes. Improve Knowledge Test score - Stage of Change Stages of Change:: Action - Learning Barriers Learning Barriers: Participates in education - Family Support Do you have family support?: Yes - Tobacco Use Tobacco Use: Non-smoker Do you use smokeless tobacco?: No - Intervention Smoking Cessation Referral:: No Individual Education/Counseling:: No Education Schedule Given:: Yes - Education Attended class for:: Treating Heart Disease, How The Heart Works, What it means to have Heart Disease, How Coronary Artery Disease is Diagnosed, Heart Procedures, What Heart Medications Do, Living an Active Life, Nutrition, Emotions & Heart Disease, Stress Management & Relaxation, Sleep Disorders & Heart Disease Psychosocial - Initial Assess - Target Goals Target Goals: Assess presence or absence of depression. Using a valid screening tool, maximizes coping skills. Positive support system - Psychosocial Test Tool Used:: HANDS Depression Questionnaire - Assistive Devices Fall Risk Assessed:: Yes Psychosocial - 60-Day Assess - Target Goals Target Goals: Assess presence or absence of depression. Using a valid screening tool, maximizes coping skills. Positive support system - Stages of Change Stages of Change:: Action - Psychosocial Test Tool Used:: HANDS Depression Questionnaire - Intervention PS - Interventions: Yes Attend Stress Management Classes, Yes Uses Stress Management Skills, No Referral to Mental Health, No Referral to [facility] Case Management, No Referral to Physician - Education Attended classes for:: Coping techniques, Signs & symptoms of depression, Stress management, Relaxation techniques - Assistive Devices Assistive Devices:: None Fall Risk Assessed:: Yes Patient Health Questionnaire 60-Day Re-eval Assessment 1. Little interest or pleasure in doing things: Several days 2. Feeling down, depressed, or hopeless: Not at all 3. Trouble falling or staying asleep, or sleeping too much: Several days 4. Feeling tired or having little energy: Not at all 5. Poor appetite or overeating: Not at all 6. Feeling bad about yourself -- or that you are a failure or have let yourself or your family down: Not at all 7. Trouble concentrating on things, such as reading the newspaper or watching television: Not at all 8. Moving or speaking so slowly that other people could have noticed. Or the opposite - being so fidgety or restless that you have been moving around a lot more than usual: Not at all 9. Thoughts that you would be better off , or of hurting yourself in some way: Not at all How difficult have these problems made it for you to do your work, take care of things at home, or get along with other people?: Not difficult at all Total Score: 2 Self-Efficacy 60-Day Re-eval Assessment We would like to know how confident you are in doing certain activities. Please select your confidence level for:: Select your confidence level for the following using the scale 1-10 where 1 is not at all confident and 10 is totally confident. Your score is the average of all 6 responses. Fatigue: How confident are you that you can keep the fatigue caused by your disease from interfering with the things you want to do? Select Number: 9 Physical Discomfort or Pain: How confident are you that you can keep the physical discomfort or pain of your disease from interfering with the things you want to do? Select Number: 9 Emotional Distress: How confident are you that you can keep the emotional distress caused by your disease from interfering with the things you want to do? Select Number: 9 Other Symptoms or Health Problems: How confident are you that you can keep other symptoms or health problems from interfering with the things you want to do? Select Number: 9 Different Tasks and Activities: How confident are you that you can do the different tasks and activities needed to manage your health condition so as to reduce your need to see a doctor? Select Number: 10 Medication: How confident are you that you can do things other than just taking medication to reduce how much your illness affects your everyday life? Select Number: 10 Total Score:: 9
[2019-06-29 08:59] VITALS: BP 140/48; BP 94/54
== END 2019-07-27 23:59 ==
LOC: CR 10:15
PROVIDERS: Family Provider Family Medicine; PCP Family Medicine; Referring Provider Internal Medicine Cardiovascular Disease; Visit Provider Internal Medicine Cardiovascular Disease
DX: I25.10 Atherosclerotic heart disease of native coronary artery without angina pectoris (principal); Z95.5 Presence of coronary angioplasty implant and graft
CPT/HCPCS: 93798

== ENCOUNTER 2019-07-30 08:28 | Outpatient (RCR) | payer MEDICARE, BC, SELFPAY ==
[2019-04-20 11:58] VITALS: BMI 32.5
[2019-05-08 07:20] VITALS: BMI 32.3
[2019-07-28 00:46] VITALS: BP 140/48; BP 94/54
== END 2019-08-25 23:59 ==
LOC: CR 08:28
PROVIDERS: Family Provider Family Medicine; PCP Family Medicine; Referring Provider Internal Medicine Cardiovascular Disease; Visit Provider Internal Medicine Cardiovascular Disease
DX: I25.10 Atherosclerotic heart disease of native coronary artery without angina pectoris (principal); Z95.5 Presence of coronary angioplasty implant and graft
CPT/HCPCS: 93798

== ENCOUNTER 2019-09-13 10:42 | Day surgery (SDC) | payer MEDICARE, BC, SELFPAY ==
[2019-04-20 11:58] VITALS: BMI 32.5
[2019-08-09 09:36] VITALS: BMI 32.5
[2019-09-10 15:04] LABS: Bacteria 0 SEEN /hpf (None Seen); Mucous, Urine 0 SEEN /hpf (<or=2+); Red Blood Cells-Urine 0 SEEN /hpf (0-5); Squamous Epithelial Cells - UA 0 SEEN /hpf (0-5); White Blood Cells 0 SEEN /hpf (0-5)
[2019-09-10 16:06] LABS: Color, Urine Yellow (Yellow); Glucose, Dipstick Normal (Normal); Ketone-Dipstick Negative (Negative); Leukocyte Esterase-Dipstick Negative /ul (Negative); Nitrite-Dipstick Negative (Negative); Occult Blood-Urine Negative /ul (Negative); Protein-Dipstick Negative (Negative); Urine Bilirubin Dipstick Negative (Negative); Urine Clarity Clear (Clear); Urine Urobilinogen Normal (Normal)
[2019-09-10 16:08] LABS: Hematocrit 44.5 % (40-54); Mean Corp Hgb Conc 33.7 g/dL (32-36); Mean Corpuscular Hgb 31.6 pg (27.0-32.0); Mean Corpuscular Volume 93.9 fL (80-94); Mean Platelet Vol. 11.5 fl (6.2-12.0); Platelet Count 200 K/mm3 (150-450); RBC Distribution Width CV 12.7 % (11.6-14.6); RBC Distribution Width SD 43.8 fl (35.1-43.9); Red Blood Count 4.74 M/mm3 (4.6-6.2); White Blood Count 7.2 K/mm3 (4.4-11.0)
[2019-09-10 16:21] LABS: International Normalized Ratio 1.2; Prothrombin Time (Protime)PT. 14.7 SECONDS (11.7-14.9)
[2019-09-10 16:25] LABS: Anion Gap 6 (5-15); BUN 14 mg/dL (7-18); BUN/Creat Ratio 17.4 RATIO (10-20); Calcium,Total 9.1 mg/dL (8.5-10.1); Chloride 112 mmol/L (98-107); EST Glomerular Filtration Rate 100 mL/min (>60); Est Glom Filt Rate - Afr Amer 121 mL/min (>60); Glucose 110 mg/dL (74-106); Potassium 4.4 mmol/L (3.5-5.1); Sodium Level 142 mmol/L (136-145)
[2019-09-12 07:43] VITALS: BMI 32.5
[2019-09-13] VITALS (14 sets, daily range): BP systolic 103–120; BP diastolic 43–76; PULSE 57–69; RESP 14–18; TEMP 36.8–36.9; O2SAT 92–98; BMI 32.5
--- NOTE | 2019-09-13 11:51 | HP.PCM_ITS ---
History and Physical Date of Admission: 09/13/19 This is a 74-year-old gentleman that presents here today for a defibrillator placement. In March 2019 he had a non-ST myocardial infarction with a totally occluded left anterior descending artery and circumflex artery with mild diffuse disease. He did have severe left ventricular systolic dysfunction with an estimated ejection fraction of 20 to 25%. He underwent angioplasty and stenting of the proximal left anterior descending artery with 2 drug-eluting stents and plain old balloon angioplasty to the ostial circumflex artery. He did have a repeat echocardiogram which demonstrated an ejection fraction of 30% with segmental wall motion abnormalities involving an akinetic apex in 06/2019. He does not have any chest discomfort/heaviness/tightness. He does not have any worsening symptoms of shortness of breath. He denies any PND. He does not have any orthopnea. He does not have any symptoms of congestive heart failure. He does not have any palpitations that he is aware of. He does not have any lightheadedness or dizziness. He does not have any near-syncope or syncope. He does not have any lower extremity edema. He does not have any symptoms of claudication. Intake Vital Signs 09/13/19 BMI 32.5 Intake Visit Reasons: Amb Documentation Allergies No Known Allergies Allergy (Verified 08/09/19 10:43) [facility] Medical History Atherosclerosis of coronary artery of [place] heart without angina pectoris (Chronic) Non-STEMI (non-ST elevated myocardial infarction) (Resolved 04/19/19) Ischemic cardiomyopathy (Chronic) Hyperlipemia (Chronic) Right bundle branch block (RBBB) (Chronic) BPH (benign prostatic hyperplasia) (Chronic) Obesity (Chronic) Ureteral calculus, left (Resolved) Surgical History History of coronary artery stent placement (Resolved 04/20/19) History of appendectomy (Resolved) History of eye surgery (Resolved) History of lithotripsy (Resolved) Family History Father Myocardial infarction, Onset Age: 80 Social History Smoking Status: Never smoker ROS Const Const: Negative for fatigue, weakness, headache(s), frequent falls, night sweats, daytime sleepiness or excessive sweating Eyes Eyes: Negative for blind spots, loss of peripheral vision, transient loss of vision, blurry vision or double vision ENT ENT: Negative for headache(s) or balance problems Cardio Chest Pain: No Palpitations: No Edema: Right (slight edema), None Muscle aches with walking: None Resp Respiratory: Negative for SOB with activity, SOB at rest, SOB orthopnea\SOB lying down, Cough or paroxysmal nocturnal dyspnea GI GI: Negative nausea, vomiting, heartburn, bright, red blood in stools or black,tarry stools : Negative for hematuria Musc Musc: Negative for muscle aches/ myalgia, muscle weakness, joint pain or balance problems Skin Skin: Negative non-healing lesions, rash or unusual bruising Neuro Neuro: Negative for frequent falls, headache(s), weakness, blurry vision or double vision Humphrey Hematologic/Lymphatic: Negative for easy bleeding or easy bruising Endo Endo: Negative for fatigue or excessive sweating Psych Psych: Negative for anxiety or depression Allergy Allergy/Immunology: Negative for rash Cardiology Exam Const Appearance: cooperative, no acute distress and well developed Orientation: alert, awake and oriented x3 Head Head: normocephalic and atraumatic Mouth: moist mucous membranes Eyes General: appearance normal, both eyes and all related structures Conjunctivae: conjunctivae normal Pupils: PERRL EOM: EOM intact bilaterally Neck Neck: normal visual inspection, no lymphadenopathy and no JVD Carotids: Negative bruit Neck Mass: Negative Neck mass Chest Chest inspection: normal inspection of the chest and symmetric chest movement Auscultation: Bilateral: Clear to Auscultation Cardio Palpation: normal PMI Rate: regular rate Rhythm: regular rhythm Heart sounds: S1 normal and S2 normal; negative rub, gallop or murmur GI GI: normal to inspection, soft, no hepatosplenomegaly and bowel sounds present; negative tender Neuro General: alert, awake, oriented x3, CN's II-XI intact bilaterally and moves all extremities Extremities Pulses: Normal: Right Posterior Tibial Pulse, Left Posterior Tibial Pulse, Right Radial Pulse, Left Radial Pulse Lower Extremity Edema: None: Bilateral Psych Psychological: normal affect Assessment & Plan 1. Cardiomyopathy, ischemic I25.5 Plan He will undergo a prophylactic ICD placement today. He will follow-up in the office accordingly. A SDM interaction occurred at this visit using an SDM tool prior to initial implant of ICD. 2. Atherosclerosis of coronary artery of [place] heart without angina pectoris I25.10 Plan Patient will continue with his current dose of beta-adam, lisinopril, aspirin and atorvastatin. He is also on Brilinta.
--- NOTE | 2019-09-13 14:19 | OP.PCM_ITS ---
Report of Operation Date of Procedure: 09/13/19 Description of Procedure: Preoperative diagnosis implantation of ISCHEMIC cm WITH nyha cLASS ii AND LVEF 25-30% for Primary prevention VVI ICD Postoperative diagnosis same as above After informed consent and IV antibiotics the patient was brought to the [place] catheterization laboratory. The left side of the chest was prepped and draped in the usual sterile manner. The patient was sedated with intermittent boluses of IV Versed fentanyl and propofol as well as subcutaneous 1% lidocaine. An incision was made inferior to the clavicle to accommodate the size of the hardware device. The pocket was created using blunt and Bovie dissection. Hemostasis was obtained. Using the Seldinger technique the axillary vein was cannulated once and a guidewire was advanced under fluoroscopic guidance. Over the guidewire a sheath was advanced. Through this sheath, the electrode was positioned under fluoroscopic guidance into the right ventricle and was actively fixated. Once actively fixated, the lead was tested to check for proper sensing, capture threshold, impedance and to exclude diaphragmatic stimulation. Once the lead was implanted and all electrical parameters were confirmed to be functioning normally with appropriate values, the leads was then sutured to the pectoralis muscle with 2-0 silk on the Silastic collar ?2. The sponge and needle count were correct. Hemostasis was obtained. Antibiotic solution was used to flush the pocket. The new device was brought to the field. The lead was placed in the appropriate position of the header of the device and were secured by the setscrews and confirmed by the tug test. The device and the leads were then placed in the pocket. Pocket was closed with a deep layer of running 2-0 Vicryl, superficial layer of running 4-0 Vicryl and skin with Steri- Strips that were covered with a rolled 4 x 4's and Tegaderm. The patient left the lab with the device programmed to chronic parameters. There were no complications. Lead and device serial and model numbers are available in the chart documents provided by the device company entry level marketing representative procedure summary.
[2019-09-13] MEDS: Acetaminophen 325 MG Tablet PO (16:23)
--- NOTE | 2019-09-13 16:55 | RAD_ITS ---
STUDY: X-RAY CHEST REASON FOR EXAM: Male, 74 years old. post ICD insert TECHNIQUE: Single AP portable view of the chest. COMPARISON: 04/19/2019 FINDINGS: Left chest wall single-lead pacing device is in place. Appropriate lead positioning. No pneumothorax. Lungs are otherwise clear. Heart size is within normal limits RAD/Chest 1 View (Portable) IMPRESSION: As above Electronically Signed: Mahendra Streeter DO at 18:09 EDT Tel , Service support ,
[2019-09-13] MEDS: HYDROcodone Bitartrate/Apap 5/325 Tablet PO (21:43)
[2019-09-13] MEDS: Carvedilol 3.125 MG TABLET PO (21:43)
[2019-09-13] MEDS: TICAGRELOR 90 MG TABLET PO (21:44)
[2019-09-13] MEDS: Atorvastatin Calcium 40 MG Tablet PO (21:44)
[2019-09-13] MEDS: Doxazosin 4 MG Tablet PO (21:44)
[2019-09-14] MEDS: Acetaminophen 325 MG Tablet PO ×2 (01:54→08:46)
[2019-09-14] MEDS: HYDROcodone Bitartrate/Apap 5/325 Tablet PO ×2 (01:55→08:46)
[2019-09-14 02:00] VITALS: BP 97/48; PULSE 60; RESP 16; TEMP 36.6; O2SAT 98
--- NOTE | 2019-09-14 03:04 | NURSING ---
patient given ice pack for pain
[2019-09-14 03:41] VITALS: PULSE 65
--- NOTE | 2019-09-14 05:55 | RAD_ITS ---
STUDY: X-RAY CHEST REASON FOR EXAM: Male, 74 years old. S/P PACEMAKER INSERTION -- TO EXCLUDE PNEUMOTHORAX TECHNIQUE: Frontal and lateral views of the chest. Frontal inspiratory and excretory chest x-ray. COMPARISON: 09/13/2019 FINDINGS: Left single lead pacer with late tip over the right ventricle in good position. No kinking of wire. There is no demonstrated pneumothorax. The lungs are clear and expanded. There is no demonstrated pleural abnormality. Normal size heart. Normal mediastinum and reynold. Normal visualized pulmonary arteries. Normal visualized aortic arch and descending thoracic aorta. Normal visualized thoracic spine. There are degenerative changes of the acromioclavicular joints. There is no demonstrated abnormality of the visualized soft tissue structures of the upper abdomen. RAD/Chest 3 View IMPRESSION: No acute cardiopulmonary disease. There is no demonstrated pneumothorax. No significant interval change. Electronically Signed: Karen Manzano MD at 6:07 EDT , Service support ,
[2019-09-14 06:30] LABS: Anion Gap 5 (5-15); BUN 15 mg/dL (7-18); BUN/Creat Ratio 17.3 RATIO (10-20); Calcium,Total 8.1 mg/dL (8.5-10.1); Chloride 107 mmol/L (98-107); Creatinine, Serum 0.87 mg/dL (0.70-1.30); EST Glomerular Filtration Rate 92 mL/min (>60); Est Glom Filt Rate - Afr Amer 111 mL/min (>60); Estimated Creatinine Clearance 84.24 ml/min; Glucose 111 mg/dL (74-106); Potassium 4.1 mmol/L (3.5-5.1); Sodium Level 138 mmol/L (136-145)
[2019-09-14 07:43] VITALS: PULSE 55
[2019-09-14 08:25] VITALS: BP 100/71; PULSE 62; RESP 16; TEMP 36.7; O2SAT 95
[2019-09-14] MEDS: Aspirin E.C. 81 MG Tablet PO (08:38)
[2019-09-14] MEDS: TICAGRELOR 90 MG TABLET PO (08:38)
[2019-09-14] MEDS: Lisinopril 2.5 MG Tablet PO (08:39)
[2019-09-14] MEDS: Calcium Carb/Vitamin D 1 TABLET Tablet PO (08:39)
[2019-09-14] MEDS: Carvedilol 3.125 MG TABLET PO (08:39)
--- NOTE | 2019-09-14 09:02 | DCINST_ITS ---
Discharge Activity: May Drive - for at least 4 weeks or until your doctor says you may drive., May Not Shower - or take a bath for the first 6 days. You may shower on the 7th day after your procedure. Cover the incision site with saran wrap with the edges taped with bandage tape. Avoid getting the incision site soaking wet. After the shower remove the saran wrap & pat dry with a clean towel. Shower with the site covered for 3 days. NO tub baths, swimming, or hot tubs for 14 days after your procedure. Lifting Restrictions: 10 pounds Additional Activity Instructions:: Avoid raising the arm on the device implanted side over your head for 4 weeks following the procedure. Keep the arm sling on if it helps remind you not to lift your arm. No excessive stretching. Call your doctor if your incision/area has: Continuous Slow Oozing, Sudden Increased Bleeding, Increased Pain/ Swelling, Increased Redness, Foul Smelling Discharge, Swelling at the incision site, - - A pimple that develops along the incision. A dark or light colored thread (suture) along the incision. Call your doctor if you observe: Fever of 101 or Higher - and you do not have a cold or the flu., Change in Color - or significant swelling of the hand and arm on the ICD implanted side., Shortness of breath, Dizziness, Fainting spells, Swelling in the ankles, Chest pain Remove Dressing in (days):: 2 - Remove the large outer bandage 48 hours after your procedure. Do not remove the narrow white tapes (steri strips) which are over the incision. They will fall off on their own. Additional Dressing/Incision Instructions:: Follow the discharge instructions given to you for ICD/Pacemaker Additional Instructions: DO NOT HAVE AN MRI TEST. An MRI may damage or reprogram your ICD to a mode which is not safe. WHAT TO DO IF YOU RECEIVE A SHOCK FROM YOUR ICD. IF YOU RECEIVE A SHOCK FROM YOUR ICD, DO NOT, UNDER ANY CIRCUMSTANCES, DRIVE UNTIL YOUR ICD HAS BEEN EVALUATED and/or YOUR DOCTOR SAYS YOU MAY DRIVE. Call 911 if necessary to take you to the nearest Emergency Department. IF you receive a shock from your ICD and feel that your heart rhythm is back to normal and you do not feel short of breath, lightheaded, or have any chest discomfort, it is not necessary for you to go to the hospital or call 911. You should sit down and call your doctor the next day the office is open. IF you receive more than one shock from the ICD in a day, you should call 911 and go to the nearest Emergency Department to be seen by a doctor. IF your ICD shocks you more than once within a minute or you continue to feel lightheaded, short of breath, or have chest discomfort, you should call 911 immediately. If you become unconscious and your ICD has not been able to put your heart back into rhythm, someone should call 911 and start CPR. CPR should continue until the rescue squad arrives. IF the ICD fires while someone is giving you CPR, they may feel a slight shock sensation; this is not harmful to them. If at any time you are uncertain about what to do following a shock from your ICD, call 911. Allergies/Adverse Reactions: Allergies No Known Allergies Allergy (Verified 08/09/19 10:43) Medications to take at Discharge Calcium Carbonate/Vitamin D3 [Calcium 600-Vit D3 400 Tablet] 1 ea PO DAILY 05/15/13 Lecithin, Soy [Lecithin] 200 mg PO DAILY 05/15/13 Terazosin HCl [Hytrin] 5 mg PO QHS 05/15/13 Aspirin E.C. [Ecotrin] 81 mg PO DAILY@0800 #30 tab 04/21/19 atorvastatin 40 mg tablet 40 mg PO QHS #90 tab 05/08/19 lisinopril 2.5 mg tablet 2.5 mg PO DAILY #90 tab 05/08/19 ticagrelor 90 mg tablet 90 mg PO BID #180 tab 05/08/19 carvedilol 3.125 mg tablet 3.125 mg PO BID #180 tab 08/09/19 Primary Care Physician: Cali Streeter MD [Primary Care Provider] - Test Results: Test results from this visit will be discussed in further detail at your follow- up appointment, if applicable. Please Follow Up With: [facility] When: 09/23 at 1030am
--- NOTE | 2019-09-14 09:57 | PHA.DC.MR ---
Pharmacy Service has performed discharge medication reconciliation for this patient. The patient's discharge medication list was reviewed for discrepancies and discrepancies were resolved. Home Medications Calcium Carbonate/Vitamin D3 [Calcium 600-Vit D3 400 Tablet] 1 ea PO DAILY 05/15/13 Lecithin, Soy [Lecithin] 200 mg PO DAILY 05/15/13 Terazosin HCl [Hytrin] 5 mg PO QHS 05/15/13 Aspirin E.C. [Ecotrin] 81 mg PO DAILY@0800 #30 tab 04/21/19 atorvastatin 40 mg tablet 40 mg PO QHS #90 tab 05/08/19 lisinopril 2.5 mg tablet 2.5 mg PO DAILY #90 tab 05/08/19 ticagrelor 90 mg tablet 90 mg PO BID #180 tab 05/08/19 carvedilol 3.125 mg tablet 3.125 mg PO BID #180 tab 08/09/19
[2019-09-14 10:43] VITALS: BP 99/60; PULSE 65; RESP 17; TEMP 36.8; O2SAT 93
== END 2019-09-14 09:04 | disposition home or self-care (01) ==
LOC: CLSP 10:43 → PCU 09-14 07:28
PROVIDERS: Internal Medicine Cardiovascular Disease; PCP Family Medicine; Referring Provider Internal Medicine Cardiovascular Disease; Visit Provider Internal Medicine Cardiovascular Disease
DX: Z45.02 Encounter for adjustment and management of automatic implantable cardiac defibrillator (principal); I25.5 Ischemic cardiomyopathy; I25.10 Atherosclerotic heart disease of native coronary artery without angina pectoris; I25.2 Old myocardial infarction; E78.5 Hyperlipidemia, unspecified; N40.0 Benign prostatic hyperplasia without lower urinary tract symptoms; E66.9 Obesity, unspecified; Z68.32 Body mass index [BMI] 32.0-32.9, adult; Z00.6 Encounter for examination for normal comparison and control in clinical research program
CPT/HCPCS: 33249; 36415; 71045; 71047; 80048; 81001; 85027; 85610; 93641; 99152; 99153; J7040; J7050; C1894; J2405

== ENCOUNTER 2020-04-12 13:02 | Inpatient (IN) | payer MEDICARE, BC, SELFPAY ==
[2020-04-12] VITALS (13 sets, daily range): BP systolic 112–135; BP diastolic 61–91; PULSE 61–91; RESP 17–32; TEMP 36.5–37.3; O2SAT 88–97; BMI 31.1
--- NOTE | 2020-04-12 13:04 | EKG12_ITS ---
Test Reason : SOB Blood Pressure : / mmHG Vent. Rate : 063 BPM Atrial Rate : 063 BPM P-R Int : 152 ms QRS Dur : 136 ms QT Int : 444 ms P-R-T Axes : 042 030 -05 degrees QTc Int : 454 ms Normal sinus rhythm Right bundle branch block Anteroseptal infarct , age undetermined Abnormal ECG Confirmed by AUGIE ARAGON, ANALI ([id number]), senior editor ELADIA SHARMA ([id number]) on 04/15/2020 8:15:56 AM Referred By: LINA Confirmed By:ANALI GHOSH MD
--- NOTE | 2020-04-12 13:05 | ED.DCSUM_ITS ---
History of Present Illness Chief Complaint: Shortness of Breath Informant: Patient Onset: Weeks - 2 weeks Context: Gradual Onset Current Severity: Moderate Maximum Severity: Moderate Narrative: Patient presents with shortness of breath and cough. He was exposed to Covid on March 27. He states he developed symptoms on March 31. He complains of shortness of breath, mild cough, nausea, diarrhea, body aches, subjective fever. He has had decreased appetite and decreased p.o. intake. EMS states his pulse ox was 87% on room air. - Past Medical History (1) Atherosclerosis of coronary artery of [place] heart without angina pectoris Status: Chronic (2) History of implantable cardiac defibrillator (ICD) Status: Chronic (3) Hyperlipemia Status: Chronic (4) Ischemic cardiomyopathy Status: Chronic (5) Right bundle branch block (RBBB) Status: Chronic (6) History of coronary artery stent placement Status: Resolved Comment: [id number] LAD w/ 4.0 x 32 mm and 4.0 x 8 mm Synergy Stents, POBA-Ostial LCx 04/20/19 (7) Non-STEMI (non-ST elevated myocardial infarction) Status: Resolved Past Medical History - Allergies and Home Meds Allergies/Adverse Reactions: Allergies No Known Allergies Allergy (Verified 02/21/20 10:37) Primary Care Physician: Cali Streeter MD [Primary Care Provider] - Prior records reviewed: Yes Surgical History: appendectomy, - - Left eye retinal detachment surgery. Lives: Spouse/ Significant Other Smoking Status: Never smoker - Family History Maternal Family History: Family History (Last Reviewed 02/21/20 @ 10:[address] Mynor Smallwood MD) Father Myocardial infarction, Onset Age: 80 Family History: Reports: - - in her 90s from old age. Denies known cardiac history. Paternal Family History: Family History (Last Reviewed 02/21/20 @ 10:[address] Mynor Smallwood MD) Father Myocardial infarction, Onset Age: 80 Family History: Reports: - - from [place] in his 80s. Review of Systems General: Reports: Fever, Subjective Eyes: Denies: Visual changes - bilaterally ENT: Denies: Bilateral ear pain Cardiovascular: Denies: Chest pain Respiratory: Reports: Dyspnea, Cough. Denies: Sputum Gastrointestinal: Reports: Nausea, Diarrhea. Denies: Abdominal pain, Vomiting Musculoskeletal: Reports: Myalgias. Denies: Swelling Skin: Denies: Rash Neurological: Denies: Headache Hematologic: Denies: Easy bruising, Easy bleeding Allergy: Denies: Uticaria Physical Exam Inital Vital Signs reviewed: Yes General: Well nourished, Well developed Head: Normocephalic ENT: Moist mucous membranes Neck: Supple Cardiovascular: Regular rate, Regular rhythm Respiratory: Diminished Abdomen: Soft, Nontender Extremities: Nontender Skin: Normal color Neurological: Alert, Oriented x3 Psychological: Normal affect Diagnostic/Tx/Re-eval 04/12/20 13:50 Chest 1 View (Portable) [RAD] Stat IMPRESSION: Cardiomegaly with bilateral reticulonodular infiltrates may relate with pulmonary edema or multifocal pneumonia. 04/12/20 15:00 CTA Chest W/WO Contrast [CT] Stat IMPRESSION: No evidence for acute, embolism. No evidence for aortic dissection. Extensive bilateral groundglass densities seen likely relate with pulmonary edema or multifocal pneumonia such as atypical viral pneumonia. Ill-defined nodule in the right upper lobe also seen which can be assessed with follow-up chest CT in 3-6 months. Cardiomegaly with coronary vascular calcifications. Borderline enlarged mediastinal lymph nodes. Laboratory Results 04/12/20 04/12/20 04/12/20 13:30 13:30 13:30 WBC 10.3 RBC 4.84 Hgb 15.1 Hct 43.8 MCV 90.5 MCH 31.2 MCHC 34.5 RDW Std Deviation 41.1 RDW Coeff of Margarette 12.3 Plt Count 379 MPV 10.7 Immature Gran % (Auto) 0.600 Neut % (Auto) 86.9 H Lymph % (Auto) 2.9 L [place] % (Auto) 9.4 Eos % (Auto) 0.1 Baso % (Auto) 0.1 Absolute Neuts (auto) 9.0 H Absolute Lymphs (auto) 0.30 L Nucleated RBC % 0 D-Dimer Quant (PE/DVT) Cancelled Sodium 136 Potassium 3.8 Chloride 103 Carbon Dioxide 24.0 Anion Gap 9 BUN 27 H Creatinine 0.91 Estim Creat Clear Calc 80.54 Est GFR (MDRD) Af Amer 105 Est GFR (MDRD) Non-Af 87 BUN/Creatinine Ratio 29.7 H Glucose 127 H Lactic Acid Calcium 9.4 Total Bilirubin 1.20 H AST 38 H ALT 30 Alkaline Phosphatase 92 Total Protein 7.3 Albumin 2.6 L Globulin 4.7 H Albumin/Globulin Ratio 0.6 L COVID-19 (DANIEL) 04/12/20 04/12/20 04/12/20 13:30 13:30 14:19 WBC RBC Hgb Hct MCV MCH MCHC RDW Std Deviation RDW Coeff of Margarette Plt Count MPV Immature Gran % (Auto) Neut % (Auto) Lymph % (Auto) [place] % (Auto) Eos % (Auto) Baso % (Auto) Absolute Neuts (auto) Absolute Lymphs (auto) Nucleated RBC % D-Dimer Quant (PE/DVT) 3.97 H* Sodium Potassium Chloride Carbon Dioxide Anion Gap BUN Creatinine Estim Creat Clear Calc Est GFR (MDRD) Af Amer Est GFR (MDRD) Non-Af BUN/Creatinine Ratio Glucose Lactic Acid 2.4 H* Calcium Total Bilirubin AST ALT Alkaline Phosphatase Total Protein Albumin Globulin Albumin/Globulin Ratio COVID-19 (DANIEL) Detected - EKG Initial EKG Interpretation: Sinus Rhythm - Sinus at 63 with no acute ischemia. Right bundle branch block noted. - Medical Decision Making Patient was transitioned from nonrebreather to 6 L nasal cannula. O2 sat is currently 93% on this. Test results are discussed with him. No evidence of PE at this time. Patient be admitted for further treatment and care. - Critical Care Time Critical care time (excluding procedures): 30-74 minutes ED Disposition - Plan for ED Patient: Disposition: Acute Care Hospital [facility] Diagnosis: COVID-19, Respiratory failure Referrals: Cali Streeter MD [Primary Care Provider] -
--- NOTE | 2020-04-12 13:50 | RAD_ITS ---
STUDY: X-RAY CHEST REASON FOR EXAM: Male, 74 years old. cough, patient was exposed to covid TECHNIQUE: Single view of the chest was obtained COMPARISON: 09/14/2019 FINDINGS: Cardiac size is stable. Bilateral reticular nodule infiltrates noted may relate with pulmonary edema or multifocal pneumonia. Left-sided pacemaker device. No pneumothorax. No definite pleural effusion. IMPRESSION: Cardiomegaly with bilateral reticulonodular infiltrates may relate with pulmonary edema or multifocal pneumonia. Electronically Signed: Blas Gregorio, at 14:31 EDT Tel , Service support , RAD/Chest 1 View (Portable)
[2020-04-12 14:01] LABS: Basophil# 0.01 X10^3/uL; Basophil% 0.1 % (0-1); Eosinophil# 0.01 X10^3/uL; Eosinophils% 0.1 % (0-5); Hematocrit 43.8 % (40-54); Hemoglobin 15.1 g/dL (13.0-16.5); Lymphocyte % 2.9 % (19-41); Mean Corp Hgb Conc 34.5 g/dL (32-36); Mean Corpuscular Hgb 31.2 pg (27.0-32.0); Mean Corpuscular Volume 90.5 fL (80-94); Mean Platelet Vol. 10.7 fl (6.2-12.0); Monocyte# 0.97 X10^3/uL; Monocyte% 9.4 % (0-10); NRBC Flagged by Analyzer 0 % (0-5); Neutrophil # 8.99 X10^3/uL (2.7-7.7); Neutrophil % 86.9 % (47-70); POSITIVE DIFFERENTIAL YES; Platelet Count 379 K/mm3 (150-450); RBC Distribution Width CV 12.3 % (11.6-14.6); RBC Distribution Width SD 41.1 fl (35.1-43.9); Red Blood Count 4.84 M/mm3 (4.6-6.2); White Blood Count 10.3 K/mm3 (4.4-11.0)
[2020-04-12 14:04] LABS: Differential Indicated SCAN CRITERIA MET
--- NOTE | 2020-04-12 14:08 | NURSING ---
BLUE TOP NEEDS REDRAWN
[2020-04-12 14:16] LABS: ALB/GLOB Ratio 0.6 RATIO (0.9-2.4); AST(SGOT) 38 U/L (15-37); Alanine Aminotransfer ALT/SGPT 30 U/L (16-61); Albumin, Serum 2.6 g/dL (3.2-5.0); Alkaline Phosphatase 92 U/L (45-117); Anion Gap 9 (5-15); BUN 27 mg/dL (7-18); BUN/Creat Ratio 29.7 RATIO (10-20); Calcium,Total 9.4 mg/dL (8.5-10.1); Chloride 103 mmol/L (98-107); Creatinine, Serum 0.91 mg/dL (0.70-1.30); EST Glomerular Filtration Rate 87 mL/min (>60); Est Glom Filt Rate - Afr Amer 105 mL/min (>60); Estimated Creatinine Clearance 80.54 ml/min; Globulin 4.7 g/dL (2.2-4.2); Glucose 127 mg/dL (74-106); Potassium 3.8 mmol/L (3.5-5.1); Protein, Total 7.3 g/dL (6.4-8.2); Sodium Level 136 mmol/L (136-145)
--- NOTE | 2020-04-12 14:30 | ED.RN ---
lab called critical lab value of lactic 2.4. dr chaparro
[2020-04-12 14:32] LABS: Lactic Acid 2.4 mmol/L (0.4-1.9)
[2020-04-12 14:48] LABS: D-Dimer Quantitative (DVT/PE) 3.97 FEU/ug/m (0.27-0.49)
--- NOTE | 2020-04-12 15:00 | CT_ITS ---
STUDY: CTA CHEST REASON FOR EXAM: Male, 74 years old. COUGH,NAUSEA, COVID EXPOSURE, SOB RADIATION DOSAGE (If Supplied By Facility): CTDIvol = ( 28.00 ) mGy, DLP = ( 538.39 ) mGycm TECHNIQUE: The examination was performed with the intravenous administration of IV 100mL Isovue-370. Post-processing of the angiographic images was performed, with multiplanar reformation and 3D reconstruction. Individualized dose optimization techniques were used for this CT. COMPARISON: Chest radiograph from 04/12/2020. FINDINGS: The pulmonary artery and its branches demonstrate no evidence of filling defects to suggest acute pulmonary embolism. No evidence for aortic dissection. Calcifications of the thoracic aorta. Borderline enlarged mediastinal lymph nodes. Prominent caliber hilar lymph nodes also seen. Mild cardiomegaly. Extensive coronary vascular calcifications. Extensive bilateral groundglass densities seen likely relate with pulmonary edema or multifocal pneumonia. Ill-defined nodule in the right upper lobe also seen which can be assessed with follow-up chest CT in 3-6 months. No evidence for axillary lymphadenopathy. Asymmetric enlargement of the left thyroid lobe with calcifications in the isthmus trace amount pericardial fluid seen. Upper abdominal structures demonstrate no acute abnormalities. Reflux of contrast into the IVC mild hypoplasia of the adrenal glands. Small hiatal hernia. Left-sided pacemaker device. Osseous structures demonstrate no acute abnormalities. Degenerative changes of the thoracic spine with mild compression deformities and accentuated thoracic kyphotic curvature. IMPRESSION: No evidence for acute, embolism. No evidence for aortic dissection. Extensive bilateral groundglass densities seen likely relate with pulmonary edema or multifocal pneumonia such as atypical viral pneumonia. Ill-defined nodule in the right upper lobe also seen which can be assessed with follow-up chest CT in 3-6 months. Cardiomegaly with coronary vascular calcifications. Borderline enlarged mediastinal lymph nodes. Electronically Signed: Blas Gregorio, at 15:58 EDT Tel , Service support , CT/CTA Chest W/WO Contrast
--- NOTE | 2020-04-12 16:46 | NURSING ---
[facility], RESP FAILURE
--- NOTE | 2020-04-12 16:55 | HP.PCM_ITS ---
Problem List (1) COVID-19 Status: Acute (2) Respiratory failure Status: Acute (3) Atherosclerosis of coronary artery of [place] heart without angina pectoris Status: Chronic (4) History of coronary artery stent placement Status: Chronic Comment: [id number] LAD w/ 4.0 x 32 mm and 4.0 x 8 mm Synergy Stents, POBA-Ostial LCx 04/20/19 (5) History of implantable cardiac defibrillator (ICD) Status: Chronic (6) Ischemic cardiomyopathy Status: Chronic (7) Hyperlipemia Status: Chronic History of Present Illness Date of Admission: 04/12/20 Chief Complaint: Body pains and aches, shortness of breath. The patient is a 74 year old M with past medical history as mentioned above presented to the emergency room because of body pains and aches, cough and shortness of breath. His symptoms started 12 days ago with generalized body aches and pains, dull aching pains, all over the body, mild, without irritating or relieving factors. He mentioned that he exposed to someone who was diagnosed with COVID-19 on 27 April 2020 and 5 days later, he started having symptoms. Also, he complained of shortness of breath, mainly exertional, aggravated by any type of activity, relieved by rest, associated with dry cough without sputum production and without other associated symptoms. He reported diarrhea as well, twice to 3 times a day, loose stool without blood. He denied abdominal pain, nausea or vomiting. He denied urinary symptoms. In the emergency department, patient was afebrile, blood pressure and heart rate were stable, he was tachypneic, initially, required nonrebreather mask. Later, oxygen improved and he required 6 L of oxygen. Routine blood work was unremarkable. LFT was unremarkable. Lactic acid was 2.4. Chest x-ray showed bilateral lower lobe infiltrate. CTA chest reportedly showed no PE or dissection, official report is pending. EKG revealed normal sinus rhythm, right bundle branch block, no acute changes. He is being admitted for acute bilateral COVID-19 pneumonia complicated by acute hypoxic respiratory failure. Past Medical History Past Medical History (Chronic Problems): Chronic Problems (Last Updated 04/12/20 @ 16:[address] Maryann Diaz MD) Atherosclerosis of coronary artery of [place] heart without angina pectoris (Chronic) History of coronary artery stent placement (Chronic 04/20/19) [id number] LAD w/ 4.0 x 32 mm and 4.0 x 8 mm Synergy Stents, POBA-Ostial LCx 04/20/19 Non-STEMI (non-ST elevated myocardial infarction) (Chronic 04/19/19) History of implantable cardiac defibrillator (ICD) (Chronic 09/13/19) Ischemic cardiomyopathy (Chronic) Hyperlipemia (Chronic) Right bundle branch block (RBBB) (Chronic) Medical History: Medical History (Last Updated 04/12/20 @ 16:[address] Maryann Diaz MD) Atherosclerosis of coronary artery of [place] heart without angina pectoris (Chronic) I25.10 Non-STEMI (non-ST elevated myocardial infarction) (Chronic) Onset Date: 04/19/19 I21.4 Ischemic cardiomyopathy (Chronic) I25.5 Hyperlipemia (Chronic) E78.5 Right bundle branch block (RBBB) (Chronic) I45.10 BPH (benign prostatic hyperplasia) N40.0 Obesity E66.9 Ureteral calculus, left N20.1 Allergies No Known Allergies Allergy (Verified 02/21/20 10:37) Home Medications: Ambulatory Orders Medication Instructions Recorded Calcium Carbonate/Vitamin D3 1 ea PO DAILY 05/15/13 [Calcium 600-Vit D3 400 Tablet] Lecithin, Soy [Lecithin] 200 mg PO DAILY 05/15/13 Terazosin HCl [Hytrin] 5 mg PO QHS 05/15/13 Aspirin E.C. [Ecotrin] 81 mg PO DAILY@0800 #30 tab 04/21/19 atorvastatin 40 mg tablet 40 mg PO QHS #90 tab 05/08/19 lisinopril 2.5 mg tablet 2.5 mg PO DAILY #90 tab 05/08/19 ticagrelor 90 mg tablet 90 mg PO BID #180 tab 05/08/19 carvedilol 3.125 mg tablet 3.125 mg PO BID #180 tab 08/09/19 Surgical History: Surgical History (Last Reviewed 04/12/20 @ 17:[address] Maryann Diaz MD) History of coronary artery stent placement (Chronic) Onset Date: 04/20/19 Z95.5 [id number] LAD w/ 4.0 x 32 mm and 4.0 x 8 mm Synergy Stents, POBA-Ostial LCx 04/20/19 History of implantable cardiac defibrillator (ICD) (Chronic) Onset Date: 09/13/19 Z95.810 History of appendectomy Z90.49 History of eye surgery Z98.890 History of lithotripsy Z98.890 Surgical History: appendectomy, - - Left eye retinal detachment surgery. Psychiatric History: No pertinent psych hx Lives: Spouse/ Significant Other Smoking Status: Never smoker Alcohol: None Drugs: None - *Family History Maternal Family History: Family History (Last Reviewed 04/12/20 @ 17:[address] Maryann Diaz MD) Father Myocardial infarction, Onset Age: 80 History Items: - - in her 90s from old age. Denies known cardiac history. Paternal Family History: Family History (Last Reviewed 04/12/20 @ 17:[address] Maryann Diaz MD) Father Myocardial infarction, Onset Age: 80 History Items: - - from [place] in his 80s. Review of Systems Constitutional: Reports: Malaise, Weakness, Fatigue. Denies: Anorexia, Chills, Fever Eyes: Denies: Blurred vision, Double vision, Drainage, Redness HEENT: Denies: Difficulty Hearing, Ear Pain, Eye Pain, Nasal Congestion, Sore Throat Cardiovascular: Denies: Chest Pain, Chest Pressure, Edema, Heaviness, Light Headedness, Palpitations, Paroxysmal Noc. Dyspnea, Syncope Respiratory: Reports: Cough, Shortness of Breath. Denies: Sputum production, Wheezing Gastrointestinal: Reports: Diarrhea. Denies: Abdominal Pain, Constipation, Nausea, Vomiting Genitourinary: Denies: Dysuria, Frequency, Hematuria Musculoskeletal: Denies: Arm Pain, Back Pain, Foot Pain Skin: Denies: Dryness, Rash Neurological: Denies: Balance problems, Blurred vision, Double vision, Change in Speech, Slurred speech, Confusion, Headaches, Incoordination, Numbness Psychiatric: Denies: Anxiety, Depression Endocrine: Denies: Change in Body Habitus, Polydipsia, Polyuria VTE Information - Inpt Only VTE Present on Admission: No VTE Mechan Device Prophylaxis: None VTE Pharm Prophylaxis ordered?: No Patient Problems: Active and Suspected Problems (Last Updated 04/12/20 @ 16:[address] Maryann Diaz MD) COVID-19 (Acute) Respiratory failure (Acute) - Physical Exam Vitals/I&O's: Vital Signs Temp Pulse Resp BP Pulse Ox 98.8 F 66 17 123/75 H 94 04/12/20 16:08 04/12/20 16:08 04/12/20 16:08 04/12/20 16:08 04/12/20 16:08 Oxygen Flow Rate (L/min) 6 Oxygen Delivery Method Nasal Cannula Weight: 233 lb 3.985 oz Body Mass Index (BMI) 31.6 General: Alert, Oriented x3, Cooperative, - - Minimally short of breath. HEENT: Atraumatic, PERRLA, EOMI, Normocephalic Oral: Moist Mucosa, No Gingival or Mucosal Lesions/ Ulcerations Neck: Supple, No JVD, Negative Carotid Bruits, Trachea Midline, Thyroid Normal Size and Texture Lungs: No wheeze, Diminished, Rales, Rhonchi, - - Decreased breath sounds at the bases, bilateral basilar crackles. Cardiovascular: Regular rate, Regular Rhythm, Normal S1, Normal S2, PMI Normal Abdomen: Bowel Sounds Present, Soft, Non Tender, Non-Distended, No Hepato- splenomegaly Extremities: No clubbing, No cyanosis, No edema Skin: No rashes, No breakdown Lymphatic: No Cervical, Supraclavicular, or Inguinal Adenopathy Neurological: Cranial nerves II-XII grossly intact, Motor Exam 5/5 strength throughout Psych/Mental Status: Normal Affect, Appropriate, Alert and oriented to time, place, person, mood and affect Laboratory Results 04/12/20 13:30: WBC 10.3, RBC 4.84, Hgb 15.1, Hct 43.8, MCV 90.5, MCH 31.2, MCHC 34.5, RDW Std Deviation 41.1, RDW Coeff of Margarette 12.3, Plt Count 379, MPV 10.7, Immature Gran % (Auto) 0.600, Neut % (Auto) 86.9 H, Lymph % (Auto) 2.9 L, [place] % (Auto) 9.4, Eos % (Auto) 0.1, Baso % (Auto) 0.1, Absolute Neuts (auto) 9.0 H, Absolute Lymphs (auto) 0.30 L, Nucleated RBC % 0 04/12/20 13:30: D-Dimer Quant (PE/DVT) Cancelled 04/12/20 13:30: Sodium 136, Potassium 3.8, Chloride 103, Carbon Dioxide 24.0, Anion Gap 9, BUN 27 H, Creatinine 0.91, Estim Creat Clear Calc 80.54, Est GFR (MDRD) Af Amer 105, Est GFR (MDRD) Non-Af 87, BUN/Creatinine Ratio 29.7 H, Glucose 127 H, Calcium 9.4, Total Bilirubin 1.20 H, AST 38 H, ALT 30, Alkaline Phosphatase 92, Total Protein 7.3, Albumin 2.6 L, Globulin 4.7 H, Albumin/Globulin Ratio 0.6 L 04/12/20 13:30: Lactic Acid 2.4 H* 04/12/20 13:30: COVID-19 (DANIEL) Detected 04/12/20 14:19: D-Dimer Quant (PE/DVT) 3.97 H* Assessment/Plan All Active Problems (Last Updated 04/12/20 @ 16:[address] Maryann Diaz MD) COVID-19 (Acute) Respiratory failure (Acute) This is a 74 years old male patient presented to the emergency room because of 12 days history of body aches, pains, weakness, dry cough and shortness of breath, and he was found to have bilateral lower lung infiltrate, found to have COVID-19 positive and is being admitted for acute bilateral COVID-19 pneumonia complicated by acute hypoxic respiratory failure. #1 acute bilateral COVID-19 pneumonia: Chest x-ray reviewed. COVID-19 PCR was positive. Lactic acid is 2.4. Patient is afebrile, not tachycardic, tachypneic, blood pressure stable. He does not qualify for sepsis or severe sepsis. Blood culture sent. D-dimer was elevated but CTA chest was negative for PE, official report is pending. [facility], start IV Decadron, therapy Lovenox twice daily, check BMP, troponin, CPK, fibrinogen, LDH, pro time and INR, infectious disease consult, pulmonology consult, repeat CBC and BMP tomorrow morning, PT OT evaluation and treatment. No indication to start IV antibiotics. #2 acute hypoxic respiratory failure: Secondary to #1. Initially, patient required nonrebreather mask. Currently, he is on 6 L. He feels little bit better. Plan to treat underlying COVID-19 pneumonia, albuterol inhaler as needed, incentive spirometer. #3 CAD status post stents: EKG reviewed, no acute segment changes. Patient denied any chest pain. Continue aspirin, Coreg, Brilinta, lisinopril and statins. #4 ischemic cardiomyopathy: Status post ICD. Clinically stable, compensated, no evidence of acute CHF. Plan to continue aspirin, lisinopril and Coreg, monitor volume status. #5 hyperlipidemia: Continue statins. #6 CODE STATUS: Full code. Discussed with the patient himself. #7 DVT prophylaxis: He will be on therapeutic Lovenox twice daily. This note was generated with [employer] dictation software. It may contain incorrect words, spelling, and punctuation that were not noted in checking the note before signing. Inpatient E&M: 11917 Init Hosp L3
--- NOTE | 2020-04-12 17:21 | ED.RN ---
Saw med order after patient left floor. Called [facility]ner on mS2.
[2020-04-12 17:54] LABS: Reflex Lactate? Y
[2020-04-12 18:55] LABS: Lactic Acid 3.6 mmol/L (0.4-1.9)
[2020-04-12 20:20] LABS: International Normalized Ratio 1.4; Prothrombin Time (Protime)PT. 16.5 SECONDS (11.7-14.9)
[2020-04-12 20:24] LABS: BNP,B-Type NATRIURETIC PEPTIDE 440.1 pg/mL (0-100)
[2020-04-12 20:28] LABS: CPK Total, Creatine Kinase 50 U/L (39-308); LDH 344 U/L (87-241)
[2020-04-12 21:06] LABS: Procalcitonin 0.27 ng/mL (0.00-0.09)
[2020-04-12] MEDS: Atorvastatin Calcium 40 MG Tablet PO (21:07)
[2020-04-12] MEDS: Doxazosin 4 MG Tablet PO (21:07)
[2020-04-12] MEDS: TICAGRELOR 90 MG TABLET PO (21:07)
[2020-04-12] MEDS: Enoxaparin 100 MG/ML Syringe SC (21:08)
[2020-04-12] MEDS: 0.9% Saline Lock 10 ML Syringe IV (21:08)
[2020-04-12] MEDS: dexAMETHasone 4 MG/ML Vial 6 MG IV (21:10)
[2020-04-12 21:22] LABS: Fibrinogen > 900 mg/dl (203-444)
[2020-04-12 21:26] LABS: Allen Test Positive; Base Excess -1 mmol/L (-2 to +2); Bicarbonate 22.7 mmol/L (22-26); Blood Gas Specimen Type ART; O2 Delivery Device Cannula; PO2 54 mmHG (75-100); SITE L Radial; SO2 91 % (95-99); Total Carbon Dioxide 24 mmol/L; pCO2 28.8 mmHg (35-45)
[2020-04-13] VITALS (15 sets, daily range): BP systolic 101–121; BP diastolic 66–86; PULSE 56–89; RESP 16–20; TEMP 36.6–37.1; O2SAT 89–94
[2020-04-13 04:39] LABS: Absolute Neutrophil Count 6.7 X10^3/uL (2.0-7.7); Basophil# 0.01 X10^3/uL; Basophil% 0.1 % (0-1); Hematocrit 40.3 % (40-54); Hemoglobin 13.5 g/dL (13.0-16.5); Mean Corp Hgb Conc 33.5 g/dL (32-36); Mean Corpuscular Volume 92.6 fL (80-94); Mean Platelet Vol. 10.2 fl (6.2-12.0); Monocyte# 0.35 X10^3/uL; Monocyte% 4.7 % (0-10); NRBC Flagged by Analyzer 0 % (0-5); Neutrophil # 6.73 X10^3/uL (2.7-7.7); Neutrophil % 90.4 % (47-70); POSITIVE DIFFERENTIAL YES; POSITIVE MORPHOLOGY YES; Platelet Count 344 K/mm3 (150-450); RBC Distribution Width CV 12.5 % (11.6-14.6); RBC Distribution Width SD 42.9 fl (35.1-43.9); Red Blood Count 4.35 M/mm3 (4.6-6.2); White Blood Count 7.5 K/mm3 (4.4-11.0)
[2020-04-13 04:52] LABS: Differential Indicated SCAN CRITERIA MET
[2020-04-13 04:53] LABS: Anion Gap 8 (5-15); BUN 28 mg/dL (7-18); BUN/Creat Ratio 31.1 RATIO (10-20); Calcium,Total 8.7 mg/dL (8.5-10.1); Chloride 102 mmol/L (98-107); EST Glomerular Filtration Rate 88 mL/min (>60); Est Glom Filt Rate - Afr Amer 106 mL/min (>60); Estimated Creatinine Clearance 81.43 ml/min; Glucose 141 mg/dL (74-106); Potassium 4.1 mmol/L (3.5-5.1); Sodium Level 135 mmol/L (136-145)
[2020-04-13 05:14] LABS: Differential Comment SCANNED
[2020-04-13] MEDS: Enoxaparin 100 MG/ML Syringe SC ×2 (06:16→18:00)
--- NOTE | 2020-04-13 08:35 | PCM.CONS.PUL ---
Problem List (1) COVID-19 Status: Acute (2) Atherosclerosis of coronary artery of [place] heart without angina pectoris Status: Chronic Qualifiers: Coronary Disease-Associated Artery/Lesion type: [place] artery Qualified Code(s): I25.10 - Atherosclerotic heart disease of [place] coronary artery without angina pectoris (3) History of implantable cardiac defibrillator (ICD) Status: Chronic (4) Ischemic cardiomyopathy Status: Chronic (5) Hyperlipemia Status: Chronic (6) Right bundle branch block (RBBB) Status: Chronic Reason for Consult Date of Consultation: 04/13/20 Reason for Consultation: COVID-19 History of Present Illness: The patient is a 74 year old M, with past medical history listed below, who presented was [facility] on 04/12/2020 secondary to progressive cough, shortness of breath, body aches and subjective fever. Patient reportedly had been exposed to COVID-19 on March 27 and started to develop symptoms on March 31. Patient had contacted his primary care physician and was reportedly told to try to manage symptoms at home. Patient states that the symptoms eventually became overwhelming so he called EMS for evaluation. Reportedly EMS had noted a pulse oximetry of 87% on room air at rest. In the ER, patient was noted to have hypoxia requiring 6 L nasal cannula to maintain appropriate saturations. Patient did not have tachycardia, but laboratory work-up did show an elevated lactate of 2.4, d-dimer at 3.97 and a leukocytosis of 10.3. Chemistry and liver functions were within normal limits. Patient was admitted to the floor for further evaluation. Patient reports subjective improvement in overall condition after being admitted. Patient states he feels the supplemental oxygen is made a significant improvement in his overall condition. Patient continues to report intermittent headaches, but states these has been improving. Patient states he feels fatigued. 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 Patient denies any exposure to asbestos or TB. Patient has never been a smoker and does not use inhalers at baseline. Patient does have an extensive cardiac history, but feels that this has not really been associated with any chest pain. Patient does not report any lower extremity swelling. Patient does not currently use therapy for sleep apnea and is unaware if he snores. Review of systems otherwise negative from a constitutional, HEENT, respiratory, cardiovascular, GI, genitourinary, musculoskeletal, skin, neurologic, psychiatric and hematologic system unless stated above. Past Medical History Past Medical History (Chronic Problems): Chronic Problems (Last Updated 04/12/20 @ 16:[address] Maryann Diaz MD) Atherosclerosis of coronary artery of [place] heart without angina pectoris (Chronic) History of coronary artery stent placement (Chronic 04/20/19) [id number] LAD w/ 4.0 x 32 mm and 4.0 x 8 mm Synergy Stents, POBA-Ostial LCx 04/20/19 Non-STEMI (non-ST elevated myocardial infarction) (Chronic 04/19/19) History of implantable cardiac defibrillator (ICD) (Chronic 09/13/19) Ischemic cardiomyopathy (Chronic) Hyperlipemia (Chronic) Right bundle branch block (RBBB) (Chronic) Medical History: Medical History (Last Updated 04/12/20 @ 16:[address] Maryann Diaz MD) Atherosclerosis of coronary artery of [place] heart without angina pectoris (Chronic) I25.10 Non-STEMI (non-ST elevated myocardial infarction) (Chronic) Onset Date: 04/19/19 I21.4 Ischemic cardiomyopathy (Chronic) I25.5 Hyperlipemia (Chronic) E78.5 Right bundle branch block (RBBB) (Chronic) I45.10 BPH (benign prostatic hyperplasia) N40.0 Obesity E66.9 Ureteral calculus, left N20.1 Allergies No Known Allergies Allergy (Verified 02/21/20 10:37) Home Medications: Ambulatory Orders Medication Instructions Recorded Calcium Carbonate/Vitamin D3 1 ea PO DAILY 05/15/13 [Calcium 600-Vit D3 400 Tablet] Lecithin, Soy [Lecithin] 200 mg PO DAILY 05/15/13 Terazosin HCl [Hytrin] 5 mg PO QHS 05/15/13 Aspirin E.C. [Ecotrin] 81 mg PO DAILY@0800 #30 tab 04/21/19 atorvastatin 40 mg tablet 40 mg PO QHS #90 tab 05/08/19 lisinopril 2.5 mg tablet 2.5 mg PO DAILY #90 tab 05/08/19 ticagrelor 90 mg tablet 90 mg PO BID #180 tab 05/08/19 carvedilol 3.125 mg tablet 3.125 mg PO BID #180 tab 08/09/19 Surgical History: Surgical History (Last Reviewed 04/12/20 @ 17:[address] Maryann Diaz MD) History of coronary artery stent placement (Chronic) Onset Date: 04/20/19 Z95.5 [id number]-[id number] LAD w/ 4.0 x 32 mm and 4.0 x 8 mm Synergy Stents, POBA-Ostial LCx 04/20/19 History of implantable cardiac defibrillator (ICD) (Chronic) Onset Date: 09/13/19 Z95.810 History of appendectomy Z90.49 History of eye surgery Z98.890 History of lithotripsy Z98.890 Surgical History: appendectomy, - - Left eye retinal detachment surgery. Psychiatric History: No pertinent psych hx Lives: Spouse/ Significant Other Smoking Status: Never smoker Alcohol: None Drugs: None - *Family History Maternal Family History: Family History (Last Reviewed 04/12/20 @ 17:[address] Maryann Diaz MD) Father Myocardial infarction, Onset Age: 80 History Items: - - in her 90s from old age. Denies known cardiac history. Paternal Family History: Family History (Last Reviewed 04/12/20 @ 17:[address] Maryann Diaz MD) Father Myocardial infarction, Onset Age: 80 History Items: - - from [place] in his 80s. Review of Systems Comment: See HPI Patient Problems: Active and Suspected Problems (Last Updated 04/12/20 @ 16:[address] Maryann Diaz MD) COVID-19 (Acute) Respiratory failure (Acute) Objective: All imaging was personally reviewed. Agree with formal interpretation. CT scan of the chest does show extensive groundglass opacities bilaterally. There is some bronchial thickening without bronchiectasis. Patient does not have a previous pulmonary function test for review. Previous cardiac work-up had shown an EF of 25 to 30% as recently as August 2019. - Physical Exam Vitals/I&O's: Vital Signs Temp Pulse Resp BP Pulse Ox 37.0 C 65 20 H 117/78 91 04/13/20 06:14 04/13/20 07:00 04/13/20 06:14 04/13/20 06:14 04/13/20 06:14 Oxygen Flow Rate (L/min) 50 Oxygen Delivery Method Airvo Weight: 104.014 kg Body Mass Index (BMI) 31.1 Intake and Output for Last 24 Hours 04/11/20 04/12/20 04/13/20 23:59 23:59 23:59 Intake Total 500 / 500 Output Total 250 / 250 Balance 250 / 250 General: Alert, Oriented x3, Cooperative, - - Mild conversational dyspnea. Appears stated age. HEENT: Atraumatic, PERRLA, EOMI, Normocephalic, - - Slight scleral injection without icterus Oral: Moist Mucosa, No Gingival or Mucosal Lesions/ Ulcerations, - - Crowded posterior pharynx Neck: Supple, No JVD, No Nodes, Trachea Midline Lungs: No rhonchi, No wheeze, Diminished, Rales - Right greater than left, - - Symmetric expansion. Cardiovascular: Regular rate, Regular Rhythm, Normal S1, Normal S2, No murmurs, No rub noted, No Gallop Abdomen: Bowel Sounds Present, Soft, Non Tender, Non-Distended, Obese Extremities: No clubbing, No cyanosis, No edema, Capillary Refill Less than 3 Seconds Skin: No rashes, No breakdown Musculoskeletal: No Tenderness to Palpation of Joints or Extremities Lymphatic: No Cervical, Supraclavicular, or Inguinal Adenopathy Neurological: Cranial nerves II-XII grossly intact, Neuro grossly intact, Motor Exam 5/5 strength throughout Psych/Mental Status: Alert and oriented to time, place, person, mood and affect Laboratory Results 04/12/20 13:30: WBC 10.3, RBC 4.84, Hgb 15.1, Hct 43.8, MCV 90.5, MCH 31.2, MCHC 34.5, RDW Std Deviation 41.1, RDW Coeff of [place] 12.3, Plt Count 379, MPV 10.7, Immature Gran % (Auto) 0.600, Neut % (Auto) 86.9 H, Lymph % (Auto) 2.9 L, [place] % (Auto) 9.4, Eos % (Auto) 0.1, Baso % (Auto) 0.1, Absolute Neuts (auto) 9.0 H, Absolute Lymphs (auto) 0.30 L, Nucleated RBC % 0 04/12/20 13:30: D-Dimer Quant (PE/DVT) Cancelled 04/12/20 13:30: Sodium 136, Potassium 3.8, Chloride 103, Carbon Dioxide 24.0, Anion Gap 9, BUN 27 H, Creatinine 0.91, Estim Creat Clear Calc 80.54, Est GFR (MDRD) Af Amer 105, Est GFR (MDRD) Non-Af 87, BUN/Creatinine Ratio 29.7 H, Glucose 127 H, Calcium 9.4, Total Bilirubin 1.20 H, AST 38 H, ALT 30, Alkaline Phosphatase 92, Total Protein 7.3, Albumin 2.6 L, Globulin 4.7 H, Albumin/Globulin Ratio 0.6 L 04/12/20 13:30: Lactic Acid 2.4 H* 04/12/20 13:30: COVID-19 (DANIEL) Detected 04/12/20 14:19: D-Dimer Quant (PE/DVT) 3.97 H* 04/12/20 18:17: Lactic Acid 3.6 H* 04/12/20 19:56: PT 16.5 H, INR 1.4, Fibrinogen > 900 H 04/12/20 19:56: Lactate Dehydrogenase 344 H, Total Creatine Kinase 50, Troponin I < 0.015 04/12/20 19:56: B-Natriuretic Peptide 440.1 H 04/12/20 19:56: Procalcitonin 0.27 H 04/12/20 21:20: Specimen Type ART, Sample Site L Radial, pH 7.50 H, Bicarbonate Actual 22.7, Total CO2 24, Base Excess -1, O2 Saturation 91 L, ABG pCO2 28.8 L, ABG pO2 54 L, Cash Test Positive, O2 Delivery Device Cannula 04/13/20 04:27: WBC 7.5, RBC 4.35 L, Hgb 13.5, Hct 40.3, MCV 92.6, MCH 31.0, MCHC 33.5, RDW Std Deviation 42.9, RDW Coeff of [place] 12.5, Plt Count 344, MPV 10.2, Immature Gran % (Auto) 0.800, Neut % (Auto) 90.4 H, Lymph % (Auto) 4.0 L, [place] % (Auto) 4.7, Eos % (Auto) 0.0, Baso % (Auto) 0.1, Absolute Neuts (auto) 6.7, Absolute Lymphs (auto) 0.30 L, Nucleated RBC % 0, Differential Comment SCANNED 04/13/20 04:27: Sodium 135 L, Potassium 4.1, Chloride 102, Carbon Dioxide 25.0, Anion Gap 8, BUN 28 H, Creatinine 0.90, Estim Creat Clear Calc 81.43, Est GFR (MDRD) Af Amer 106, Est GFR (MDRD) Non-Af 88, BUN/Creatinine Ratio 31.1 H, Glucose 141 H, Calcium 8.7 Current Medications Acetaminophen (Acetaminophen 325 Mg Tablet) 650 mg PO Q6H PRN PRN PRN Reason: HEADACHE(1-10)/FEVER (T>100F) Albuterol Sulfate (Albuterol Ih 8.5 Gm (Proair) Inhaler (200 Puffs)) 2 puff INHALATION Q4H PRN PRN PRN Reason: Shortness of breath, wheezing Aspirin (Aspirin E.C. 81 Mg Tablet) 81 mg PO DAILY@0800 [facility] Atorvastatin Calcium (Atorvastatin Calcium 40 Mg Tablet) 40 mg PO QHS [facility] Last Admin: 04/12/20 21:07 Dose: 40 mg Documented by: Carvedilol (Carvedilol 3.125 Mg Tablet) [facility] Dexamethasone Sodium Phosphate (Dexamethasone 10 Mg/Ml Vial) 6 mg IV DAILY [facility] Doxazosin Mesylate (Doxazosin 4 Mg Tablet) 4 mg PO QHS [facility] Last Admin: 04/12/20 21:07 Dose: 4 mg Documented by: Enoxaparin Sodium (Enoxaparin 100 Mg/Ml Syringe) 100 mg SC Q12@0600,1800 [facility] Last Admin: 04/13/20 06:16 Dose: 100 mg Documented by: Lisinopril (Lisinopril 2.5 Mg Tablet) 2.5 mg PO DAILY [facility] Miscellaneous Information (Inhaler, Assist Devices 1 Each Spacer) 1 each INHALATION PRN PRN PRN Reason: WITH ALBUTEROL MDI Ondansetron HCl (Ondansetron 4 Mg/2 Ml Vial) 4 mg IV Q8H PRN PRN PRN Reason: NAUSEA/VOMITING Sodium Chloride (0.9% Saline Lock 10 Ml Syringe) 10 - 40 ml IV UD PRN PRN Reason: SALINE FLUSH Last Admin: 04/12/20 21:08 Dose: 10 ml Documented by: Ticagrelor (Ticagrelor 90 Mg Tablet) 90 mg PO BID [facility] Last Admin: 04/12/20 21:07 Dose: 90 mg Documented by: Clinical Impression(s) from Imaging Studies Chest X-Ray 04/12/20 13:50 Chest CTA 04/12/20 15:00 Assessment/Plan All Active Problems (Last Updated 04/12/20 @ 16:[address] Maryann Diaz MD) COVID-19 (Acute) Respiratory failure (Acute) RECOMMENDATIONS: 1. Initiate anticoagulation and Decadron therapy 2. Hold on Remdesivir and convalescent serum 3. Wean oxygen as tolerated 4. Possible empiric BiPAP with AVAPS (tidal volume 450) with sleep 5. Okay to continue with baseline medical therapy for ischemic cardiomyopathy 6. Hold on diuretics for now, but also limit IV fluids IMPRESSIONS: 1. Acute hypoxic respiratory failure secondary to acute bilateral COVID-19 pneumonia Patient does not have a significant baseline respiratory insults. Patient does have a significant cardiac history. Extensive bilateral infiltrates are noted, likely secondary to COVID-19. However, patient is reporting symptomatology starting on March 31, almost 2 weeks ago. This would suggest the patient is possibly on the recovery phase of COVID-19. We will hold off on convalescent serum and Remdesivir at this point. Continue with supplemental oxygen. Patient does not appear to be volume overloaded at this time, so we will hold off on diuretic therapy. Continue recruitment measures and wean oxygen as tolerated. 2. Chronic systolic CHF secondary to ischemic cardiomyopathy with CAD status post stents Patient appears to be stable from a cardiac standpoint. Continue with medical therapy as previously prescribed. No significant renal dysfunction to indicate need to hold lisinopril. We will have to watch liver function closely if Remdesivir is initiated given statins. 3. Hyperlipidemia/obesity/advanced age/suspected JANAK Complicates care, management, recovery and prognosis. Patient may benefit from empiric BiPAP therapy with sleep and especially if patient has significant desaturations. Okay to continue with baseline medications for now. Inpatient E&M: 93688 Init Hosp L3
[2020-04-13] MEDS: TICAGRELOR 90 MG TABLET PO ×2 (08:57→23:18)
[2020-04-13] MEDS: Carvedilol 3.125 MG TABLET PO ×2 (08:57→17:59)
[2020-04-13] MEDS: Lisinopril 2.5 MG Tablet PO (08:57)
[2020-04-13] MEDS: Acetaminophen 325 MG Tablet 650 MG PO (08:58)
[2020-04-13] MEDS: 0.9% Saline Lock 10 ML Syringe IV (08:58)
[2020-04-13] MEDS: dexAMETHasone 10 MG/ML Vial 6 MG IV (08:58)
[2020-04-13] MEDS: Aspirin E.C. 81 MG Tablet PO (08:58)
--- NOTE | 2020-04-13 10:55 | PCM.PN.HOSP ---
Patient Problems: Active and Suspected Problems (Last Updated 04/12/20 @ 16:[address] Maryann Diaz MD) COVID-19 (Acute) Respiratory failure (Acute) Subjective: Pt states that he is feeling well other than his hypoxemia. No complaints. Vitals/I&O's: Vital Signs Temp Pulse Resp BP Pulse Ox 98.4 F 86 18 121/74 H 89 04/13/20 08:15 04/13/20 08:15 04/13/20 08:15 04/13/20 08:15 04/13/20 08:15 Oxygen Flow Rate (L/min) 9 Oxygen Delivery Method Nasal Cannula Weight: 104.014 kg Body Mass Index (BMI) 31.1 Intake and Output for Last 24 Hours 04/11/20 04/12/20 04/13/20 23:59 23:59 23:59 Intake Total 500 / 500 Output Total 250 / 250 Balance 250 / 250 General: Alert, Oriented x3, Cooperative, No apparent distress, Well developed, Well nourished HEENT: Atraumatic, Normocephalic Oral: Moist Mucosa Lungs: No rhonchi, No wheeze, No rales, Diminished Cardiovascular: Regular rate, Regular Rhythm, Normal S1, Normal S2, No murmurs, No Ectopic Activity, No rub noted, No Gallop Abdomen: Bowel Sounds Present, Soft, Non Tender, Non-Distended, No Hepato-splenomegaly, No hernias noted Extremities: No clubbing, No cyanosis, No edema, Capillary Refill Less than 3 Seconds, Peripheral Pulses Normal Skin: No rashes, No breakdown Neurological: Cranial nerves II-XII grossly intact, Neuro grossly intact Psych/Mental Status: Normal Affect, Agitated, Alert and oriented to time, place, person, mood and affect Laboratory Results 04/12/20 13:30: WBC 10.3, RBC 4.84, Hgb 15.1, Hct 43.8, MCV 90.5, MCH 31.2, MCHC 34.5, RDW Std Deviation 41.1, RDW Coeff of [place] 12.3, Plt Count 379, MPV 10.7, Immature Gran % (Auto) 0.600, Neut % (Auto) 86.9 H, Lymph % (Auto) 2.9 L, [place] % (Auto) 9.4, Eos % (Auto) 0.1, Baso % (Auto) 0.1, Absolute Neuts (auto) 9.0 H, Absolute Lymphs (auto) 0.30 L, Nucleated RBC % 0 04/12/20 13:30: D-Dimer Quant (PE/DVT) Cancelled 04/12/20 13:30: Sodium 136, Potassium 3.8, Chloride 103, Carbon Dioxide 24.0, Anion Gap 9, BUN 27 H, Creatinine 0.91, Estim Creat Clear Calc 80.54, Est GFR (MDRD) Af Amer 105, Est GFR (MDRD) Non-Af 87, BUN/Creatinine Ratio 29.7 H, Glucose 127 H, Calcium 9.4, Total Bilirubin 1.20 H, AST 38 H, ALT 30, Alkaline Phosphatase 92, Total Protein 7.3, Albumin 2.6 L, Globulin 4.7 H, Albumin/Globulin Ratio 0.6 L 04/12/20 13:30: Lactic Acid 2.4 H* 04/12/20 13:30: COVID-19 (DANIEL) Detected 04/12/20 14:19: D-Dimer Quant (PE/DVT) 3.97 H* 04/12/20 18:17: Lactic Acid 3.6 H* 04/12/20 19:56: PT 16.5 H, INR 1.4, Fibrinogen > 900 H 04/12/20 19:56: Lactate Dehydrogenase 344 H, Total Creatine Kinase 50, Troponin I < 0.015 04/12/20 19:56: B-Natriuretic Peptide 440.1 H 04/12/20 19:56: Procalcitonin 0.27 H 04/12/20 21:20: Specimen Type ART, Sample Site L Radial, pH 7.50 H, Bicarbonate Actual 22.7, Total CO2 24, Base Excess -1, O2 Saturation 91 L, ABG pCO2 28.8 L, ABG pO2 54 L, Cash Test Positive, O2 Delivery Device Cannula 04/13/20 04:27: WBC 7.5, RBC 4.35 L, Hgb 13.5, Hct 40.3, MCV 92.6, MCH 31.0, MCHC 33.5, RDW Std Deviation 42.9, RDW Coeff of [place] 12.5, Plt Count 344, MPV 10.2, Immature Gran % (Auto) 0.800, Neut % (Auto) 90.4 H, Lymph % (Auto) 4.0 L, [place] % (Auto) 4.7, Eos % (Auto) 0.0, Baso % (Auto) 0.1, Absolute Neuts (auto) 6.7, Absolute Lymphs (auto) 0.30 L, Nucleated RBC % 0, Differential Comment SCANNED 04/13/20 04:27: Sodium 135 L, Potassium 4.1, Chloride 102, Carbon Dioxide 25.0, Anion Gap 8, BUN 28 H, Creatinine 0.90, Estim Creat Clear Calc 81.43, Est GFR (MDRD) Af Amer 106, Est GFR (MDRD) Non-Af 88, BUN/Creatinine Ratio 31.1 H, Glucose 141 H, Calcium 8.7 Current Medications Acetaminophen (Acetaminophen 325 Mg Tablet) 650 mg PO Q6H PRN PRN PRN Reason: HEADACHE(1-10)/FEVER (T>100F) Last Admin: 04/13/20 08:58 Dose: 650 mg Documented by: Albuterol Sulfate (Albuterol Ih 8.5 Gm (Proair) Inhaler (200 Puffs)) 2 puff INHALATION Q4H PRN PRN PRN Reason: Shortness of breath, wheezing Aspirin (Aspirin E.C. 81 Mg Tablet) 81 mg PO DAILY@0800 [facility] Last Admin: 04/13/20 08:58 Dose: 81 mg Documented by: Atorvastatin Calcium (Atorvastatin Calcium 40 Mg Tablet) 40 mg PO QHS [facility] Last Admin: 04/12/20 21:07 Dose: 40 mg Documented by: Carvedilol (Carvedilol 3.125 Mg Tablet) 3.125 mg PO BIDCM [facility] Last Admin: 04/13/20 08:57 Dose: 3.125 mg Documented by: Dexamethasone Sodium Phosphate (Dexamethasone 10 Mg/Ml Vial) 6 mg IV DAILY [facility] Last Admin: 04/13/20 08:58 Dose: 6 mg Documented by: Doxazosin Mesylate (Doxazosin 4 Mg Tablet) 4 mg PO QHS [facility] Last Admin: 04/12/20 21:07 Dose: 4 mg Documented by: Enoxaparin Sodium (Enoxaparin 100 Mg/Ml Syringe) 100 mg SC Q12@0600,1800 [facility] Last Admin: 04/13/20 06:16 Dose: 100 mg Documented by: Lisinopril (Lisinopril 2.5 Mg Tablet) 2.5 mg PO DAILY [facility] Last Admin: 04/13/20 08:57 Dose: 2.5 mg Documented by: Miscellaneous Information (Inhaler, Assist Devices 1 Each Spacer) 1 each INHALATION PRN PRN PRN Reason: WITH ALBUTEROL MDI Ondansetron HCl (Ondansetron 4 Mg/2 Ml Vial) 4 mg IV Q8H PRN PRN PRN Reason: NAUSEA/VOMITING Sodium Chloride (0.9% Saline Lock 10 Ml Syringe) 10 - 40 ml IV UD PRN PRN Reason: SALINE FLUSH Last Admin: 04/13/20 08:58 Dose: 10 ml Documented by: Ticagrelor (Ticagrelor 90 Mg Tablet) 90 mg PO BID [facility] Last Admin: 04/13/20 08:57 Dose: 90 mg Documented by: STROKE Vital Signs/Narrative: Vital Signs Temp Pulse Resp BP Pulse Ox 04/13/20 08:15 98.4 F 86 18 121/74 H 89 04/13/20 08:00 91 04/13/20 07:00 65 Medical Necessity - Tobacco Use Smoking Status: Never smoker Assessment/Plan All Active Problems (Last Updated 04/12/20 @ 16:[address] Maryann Diaz MD) COVID-19 (Acute) Respiratory failure (Acute) Acute Hypoxemia Respiratory Failure 07/29 COVID 19 PNA -now on 9 L with SpO2 at 89% -wean as able -continue Decadron 6 mg daily for 10 days Day 08/06 -CT neg for PE -continue Lovenox 100 BID for now -plan is to hold off on Remdesivir and convalescent plasma for now as pt started with sx on 03/31 -Pulm and ID consulted Lactic acidosis -suspect related to acute hypoxia -did trend up so will repeat in am now that oxygenation is better Hyponatremia -mild -monitor HFpEF compensated -BNP not markedly elevated -ECHO from 06/2019 shows EF of 30%, stage 2 diastolic dysfunction -continue Coreg, lisinopril -no current diuretics needed CAD/HTN/HPL -last PCI 03/2019 -continue Brilinta/Coreg/Lisinopril/statin -hold ASA while on Brilinta and full dose LMWH or NOAC -avoid triple therapy BPH -takes no chronic meds Obesity -recommend wgt loss H/O nephrolithiasis -no current issues DVT prophylaxis -full dose LMWH Code status -Full Inpatient E&M: 76127 Subs Hosp L2
[2020-04-13] MEDS: Atorvastatin Calcium 40 MG Tablet PO (23:18)
[2020-04-13] MEDS: Doxazosin 4 MG Tablet PO (23:18)
[2020-04-14] VITALS (11 sets, daily range): BP systolic 108–132; BP diastolic 66–80; PULSE 58–67; RESP 16–24; TEMP 36.4–36.7; O2SAT 74–96
[2020-04-14] MEDS: Enoxaparin 100 MG/ML Syringe SC ×2 (06:01→17:13)
[2020-04-14 07:07] LABS: Lactic Acid 2.4 mmol/L (0.4-1.9)
--- NOTE | 2020-04-14 07:18 | PCM.PN.PUL ---
Patient Problems: Active and Suspected Problems (Last Updated 04/12/20 @ 16:[address] Maryann Diaz MD) COVID-19 (Acute) Respiratory failure (Acute) Subjective: The patient was seen and examined at the bedside this morning. Events from the last 24 hours have been reviewed. The patient is currently afebrile, hemodynamically stable and maintaining appropriate oxygen saturations on 7 L/min via nasal cannula. The patient remains on therapeutic Lovenox and Decadron. Objective: The patient's most recent lab work, culture data and imaging studies have all been personally reviewed. Surface echocardiogram from June 2019 revealed a mildly dilated LV with an ejection fraction of 30%. Pulmonary artery systolic pressure was estimated to be 34 mmHg. Coronavirus PCR was positive on April 12. Blood cultures have not shown any growth to date. - Physical Exam Vitals/I&O's: Vital Signs Temp Pulse Resp BP Pulse Ox 97.6 F L 63 24 H 126/72 H 93 04/14/20 06:07 04/14/20 06:07 04/14/20 06:07 04/14/20 06:07 04/14/20 06:07 Oxygen Flow Rate (L/min) 9 Oxygen Delivery Method Nasal Cannula Weight: 229 lb 4.986 oz Body Mass Index (BMI) 31.1 Intake and Output for Last 24 Hours 04/12/20 04/13/20 04/14/20 23:59 23:59 23:59 Intake Total 2800 / 2800 0 / 0 Output Total 850 / 850 Balance 1950 / 1950 0 / 0 General: Alert, Cooperative HEENT: Atraumatic, Normocephalic Oral: Moist Mucosa, No Gingival or Mucosal Lesions/ Ulcerations Neck: Supple, No Nodes, Trachea Midline Lungs: No rhonchi, No wheeze, No rales, Diminished Cardiovascular: Regular rate, Regular Rhythm Abdomen: Bowel Sounds Present, Soft, Non Tender, Obese Extremities: No clubbing, No cyanosis, Edema Skin: No breakdown Musculoskeletal: No Tenderness to Palpation of Joints or Extremities Lymphatic: No Cervical, Supraclavicular, or Inguinal Adenopathy Neurological: Cranial nerves II-XII grossly intact, Neuro grossly intact Psych/Mental Status: Normal Affect, Appropriate Labs (Last 48 Hours) 04/12/20 04/12/20 04/12/20 13:30 13:30 13:30 WBC 10.3 RBC 4.84 Hgb 15.1 Hct 43.8 MCV 90.5 MCH 31.2 MCHC 34.5 RDW Std Deviation 41.1 RDW Coeff of Margarette 12.3 Plt Count 379 MPV 10.7 Immature Gran % (Auto) 0.600 Neut % (Auto) 86.9 H Lymph % (Auto) 2.9 L [place] % (Auto) 9.4 Eos % (Auto) 0.1 Baso % (Auto) 0.1 Absolute Neuts (auto) 9.0 H Absolute Lymphs (auto) 0.30 L Nucleated RBC % 0 Differential Comment PT INR Fibrinogen D-Dimer Quant (PE/DVT) Cancelled Specimen Type Sample Site pH Bicarbonate Actual Total CO2 Base Excess O2 Saturation ABG pCO2 ABG pO2 Cash Test O2 Delivery Device Sodium 136 Potassium 3.8 Chloride 103 Carbon Dioxide 24.0 Anion Gap 9 BUN 27 H Creatinine 0.91 Estim Creat Clear Calc 80.54 Est GFR (MDRD) Af Amer 105 Est GFR (MDRD) Non-Af 87 BUN/Creatinine Ratio 29.7 H Glucose 127 H Lactic Acid Calcium 9.4 Total Bilirubin 1.20 H AST 38 H ALT 30 Alkaline Phosphatase 92 Lactate Dehydrogenase Total Creatine Kinase Troponin I B-Natriuretic Peptide Total Protein 7.3 Albumin 2.6 L Globulin 4.7 H Albumin/Globulin Ratio 0.6 L Procalcitonin COVID-19 (DANIEL) 04/12/20 04/12/20 04/12/20 13:30 13:30 14:19 WBC RBC Hgb Hct MCV MCH MCHC RDW Std Deviation RDW Coeff of [place] Plt Count MPV Immature Gran % (Auto) Neut % (Auto) Lymph % (Auto) [place] % (Auto) Eos % (Auto) Baso % (Auto) Absolute Neuts (auto) Absolute Lymphs (auto) Nucleated RBC % Differential Comment PT INR Fibrinogen D-Dimer Quant (PE/DVT) 3.97 H* Specimen Type Sample Site pH Bicarbonate Actual Total CO2 Base Excess O2 Saturation ABG pCO2 ABG pO2 Cash Test O2 Delivery Device Sodium Potassium Chloride Carbon Dioxide Anion Gap BUN Creatinine Estim Creat Clear Calc Est GFR (MDRD) Af Amer Est GFR (MDRD) Non-Af BUN/Creatinine Ratio Glucose Lactic Acid 2.4 H* Calcium Total Bilirubin AST ALT Alkaline Phosphatase Lactate Dehydrogenase Total Creatine Kinase Troponin I B-Natriuretic Peptide Total Protein Albumin Globulin Albumin/Globulin Ratio Procalcitonin COVID-19 (DANIEL) Detected 04/12/20 04/12/20 04/12/20 18:17 19:56 19:56 WBC RBC Hgb Hct MCV MCH MCHC RDW Std Deviation RDW Coeff of Margarette Plt Count MPV Immature Gran % (Auto) Neut % (Auto) Lymph % (Auto) [place] % (Auto) Eos % (Auto) Baso % (Auto) Absolute Neuts (auto) Absolute Lymphs (auto) Nucleated RBC % Differential Comment PT 16.5 H INR 1.4 Fibrinogen > 900 H D-Dimer Quant (PE/DVT) Specimen Type Sample Site pH Bicarbonate Actual Total CO2 Base Excess O2 Saturation ABG pCO2 ABG pO2 Cash Test O2 Delivery Device Sodium Potassium Chloride Carbon Dioxide Anion Gap BUN Creatinine Estim Creat Clear Calc Est GFR (MDRD) Af Amer Est GFR (MDRD) Non-Af BUN/Creatinine Ratio Glucose Lactic Acid 3.6 H* Calcium Total Bilirubin AST ALT Alkaline Phosphatase Lactate Dehydrogenase 344 H Total Creatine Kinase 50 Troponin I < 0.015 B-Natriuretic Peptide Total Protein Albumin Globulin Albumin/Globulin Ratio Procalcitonin COVID-19 (DANIEL) 04/12/20 04/12/20 04/12/20 19:56 19:56 21:20 WBC RBC Hgb Hct MCV MCH MCHC RDW Std Deviation RDW Coeff of Marg[place] Plt Count MPV Immature Gran % (Auto) Neut % (Auto) Lymph % (Auto) [place] % (Auto) Eos % (Auto) Baso % (Auto) Absolute Neuts (auto) Absolute Lymphs (auto) Nucleated RBC % Differential Comment PT INR Fibrinogen D-Dimer Quant (PE/DVT) Specimen Type ART Sample Site L Radial pH 7.50 H Bicarbonate Actual 22.7 Total CO2 24 Base Excess -1 O2 Saturation 91 L ABG pCO2 28.8 L ABG pO2 54 L Cash Test Positive O2 Delivery Device Cannula Sodium Potassium Chloride Carbon Dioxide Anion Gap BUN Creatinine Estim Creat Clear Calc Est GFR (MDRD) Af Amer Est GFR (MDRD) Non-Af BUN/Creatinine Ratio Glucose Lactic Acid Calcium Total Bilirubin AST ALT Alkaline Phosphatase Lactate Dehydrogenase Total Creatine Kinase Troponin I B-Natriuretic Peptide 440.1 H Total Protein Albumin Globulin Albumin/Globulin Ratio Procalcitonin 0.27 H COVID-19 (DANIEL) 04/13/20 04/13/20 04/14/20 04:27 04:27 06:20 WBC 7.5 RBC 4.35 L Hgb 13.5 Hct 40.3 MCV 92.6 MCH 31.0 MCHC 33.5 RDW Std Deviation 42.9 RDW Coeff of [place] 12.5 Plt Count 344 MPV 10.2 Immature Gran % (Auto) 0.800 Neut % (Auto) 90.4 H Lymph % (Auto) 4.0 L [place] % (Auto) 4.7 Eos % (Auto) 0.0 Baso % (Auto) 0.1 Absolute Neuts (auto) 6.7 Absolute Lymphs (auto) 0.30 L Nucleated RBC % 0 Differential Comment SCANNED PT INR Fibrinogen D-Dimer Quant (PE/DVT) Specimen Type Sample Site pH Bicarbonate Actual Total CO2 Base Excess O2 Saturation ABG pCO2 ABG pO2 Cash Test O2 Delivery Device Sodium 135 L Potassium 4.1 Chloride 102 Carbon Dioxide 25.0 Anion Gap 8 BUN 28 H Creatinine 0.90 Estim Creat Clear Calc 81.43 Est GFR (MDRD) Af Amer 106 Est GFR (MDRD) Non-Af 88 BUN/Creatinine Ratio 31.1 H Glucose 141 H Lactic Acid 2.4 H* Calcium 8.7 Total Bilirubin AST ALT Alkaline Phosphatase Lactate Dehydrogenase Total Creatine Kinase Troponin I B-Natriuretic Peptide Total Protein Albumin Globulin Albumin/Globulin Ratio Procalcitonin COVID-19 (DANIEL) Clinical Impression(s) from Imaging Studies Chest X-Ray 04/12/20 13:50 Chest CTA 04/12/20 15:00 Current Medications Acetaminophen (Acetaminophen 325 Mg Tablet) 650 mg PO Q6H PRN PRN PRN Reason: HEADACHE(1-10)/FEVER (T>100F) Last Admin: 04/13/20 08:58 Dose: 650 mg Documented by: Albuterol Sulfate (Albuterol Ih 8.5 Gm (Proair) Inhaler (200 Puffs)) 2 puff INHALATION Q4H PRN PRN PRN Reason: Shortness of breath, wheezing Atorvastatin Calcium (Atorvastatin Calcium 40 Mg Tablet) [address] [facility] Last Admin: 04/13/20 23:18 Dose: 40 mg Documented by: Carvedilol (Carvedilol 3.125 Mg Tablet) 3.[address] [facility] Last Admin: 04/13/20 17:59 Dose: 3.125 mg Documented by: Dexamethasone Sodium Phosphate (Dexamethasone 10 Mg/Ml Vial) [address] [facility] Last Admin: 04/13/20 08:58 Dose: 6 mg Documented by: Doxazosin Mesylate (Doxazosin 4 Mg Tablet) [address] [facility] Last Admin: 04/13/20 23:18 Dose: 4 mg Documented by: Enoxaparin Sodium (Enoxaparin 100 Mg/Ml Syringe) 100 mg SC Q12@0600,1800 [facility] Last Admin: 04/14/20 06:01 Dose: 100 mg Documented by: Lisinopril (Lisinopril 2.5 Mg Tablet) 2.[address] [facility] Last Admin: 04/13/20 08:57 Dose: 2.5 mg Documented by: Miscellaneous Information (Inhaler, Assist Devices 1 Each Spacer) 1 each INHALATION PRN PRN PRN Reason: WITH ALBUTEROL MDI Ondansetron HCl (Ondansetron 4 Mg/2 Ml Vial) 4 mg IV Q8H PRN PRN PRN Reason: NAUSEA/VOMITING Sodium Chloride (0.9% Saline Lock 10 Ml Syringe) 10 - 40 ml IV UD PRN PRN Reason: SALINE FLUSH Last Admin: 04/13/20 08:58 Dose: 10 ml Documented by: Ticagrelor (Ticagrelor 90 Mg Tablet) [address] [facility] Last Admin: 04/13/20 23:18 Dose: 90 mg Documented by: Medical Necessity - Tobacco Use Smoking Status: Never smoker Assessment/Plan All Active Problems (Last Updated 04/12/20 @ 16:[address] Maryann Diaz MD) COVID-19 (Acute) Respiratory failure (Acute) RECOMMENDATIONS: 1. Continue to wean supplemental oxygen to maintain saturations at or above 90%. 2. Continue therapeutic Lovenox. 3. Continue Decadron 6 mg daily x10 days. 4. Defer need for convalescent plasma and/or remdesivir to infectious diseases. IMPRESSIONS: 1. Acute hypoxic respiratory failure secondary to acute bilateral COVID-19 pneumonia The patient has apparently had 2 weeks of respiratory symptoms and was subsequently found to be positive for coronavirus. Plan to continue current supportive measures with supplemental oxygen to maintain saturations at or above 90%. Plan to continue Decadron 6 mg daily x10 days. Continue systemic anticoagulation with Lovenox. Given the duration of symptoms, unclear if the patient would benefit from remdesivir or convalescent plasma. However, infectious diseases consultation is currently pending. 2. Chronic systolic CHF secondary to ischemic cardiomyopathy with CAD status post stents Continue home medications as indicated. 3. Hyperlipidemia/obesity/advanced age/suspected JANAK Complicates care, management, recovery and prognosis. This note was generated with [email or web address] dictation software. It may contain incorrect words, spelling, and punctuation that were not noted in checking the note before signing. Inpatient E&M: 16006 Subs Hosp L2
--- NOTE | 2020-04-14 08:01 | PCM.PN.HOSP ---
Patient Problems: Active and Suspected Problems (Last Updated 04/12/20 @ 16:[address] Maryann Diaz MD) COVID-19 (Acute) Respiratory failure (Acute) Reason for Visit: Follow-up for COVID-19 pneumonia. Patient has significant cardiac disease with history of coronary stent and chronic systolic heart failure status post AICD. Objective: Seen and examined Patient is short of breath at rest. Has dry cough, nonproductive. No chest pain or pressure. History of coronary artery disease with 2 stents. Left subclavicular AICD with history of chronic systolic heart failure. On 9 L of oxygen. Physical exam General: Alert, Oriented x3, Cooperative HEENT: Atraumatic, PERRLA, EOMI, Normocephalic Oral: No Gingival or Mucosal Lesions/ Ulcerations Neck: Supple, No JVD, Negative Carotid Bruits Lungs: Air entry diminished in bilateral lung bases. Bilateral coarse crepitation. Cardiovascular: Regular rate, Regular Rhythm, Normal S1, Normal S2, No murmurs Abdomen: Bowel Sounds Present, Soft, Non Tender, Non-Distended : No renal angle tenderness. No suprapubic tenderness. Extremities: Bilateral ankle edema, Capillary Refill Less than 3 Seconds Skin: No rashes, No breakdown Musculoskeletal: No Tenderness to Palpation of Joints or Extremities Neurological: Cranial nerves II-XII grossly intact, Deep Tendon Reflexes 2+/4 and Symmetrical, Neuro grossly intact Psych/Mental Status: Normal Affect, Appropriate. Vitals/I&O's: Vital Signs Temp Pulse Resp BP Pulse Ox 97.6 F L 63 24 H 126/72 H 93 04/14/20 06:07 04/14/20 06:07 04/14/20 06:07 04/14/20 06:07 04/14/20 06:07 Oxygen Flow Rate (L/min) 9 Oxygen Delivery Method Nasal Cannula Weight: 229 lb 4.986 oz Body Mass Index (BMI) 31.1 Intake and Output for Last 24 Hours 04/12/20 04/13/20 04/14/20 23:59 23:59 23:59 Intake Total 2800 / 2800 0 / 0 Output Total 850 / 850 Balance 1950 / 1950 0 / 0 Laboratory Results 04/14/20 06:20: Lactic Acid 2.4 H* Current Medications Acetaminophen (Acetaminophen 325 Mg Tablet) 650 mg PO Q6H PRN PRN PRN Reason: HEADACHE(1-10)/FEVER (T>100F) Last Admin: 04/13/20 08:58 Dose: 650 mg Documented by: Albuterol Sulfate (Albuterol Ih 8.5 Gm (Proair) Inhaler (200 Puffs)) 2 puff INHALATION Q4H PRN PRN PRN Reason: Shortness of breath, wheezing Atorvastatin Calcium (Atorvastatin Calcium 40 Mg Tablet) 40 mg PO QHS [facility] Last Admin: 04/13/20 23:18 Dose: 40 mg Documented by: Carvedilol (Carvedilol 3.125 Mg Tablet) 3.125 mg PO BIDCM [facility] Last Admin: 04/13/20 17:59 Dose: 3.125 mg Documented by: Dexamethasone Sodium Phosphate (Dexamethasone 10 Mg/Ml Vial) 6 mg IV DAILY [facility] Last Admin: 04/13/20 08:58 Dose: 6 mg Documented by: Doxazosin Mesylate (Doxazosin 4 Mg Tablet) 4 mg PO QHS [facility] Last Admin: 04/13/20 23:18 Dose: 4 mg Documented by: Enoxaparin Sodium (Enoxaparin 100 Mg/Ml Syringe) 100 mg SC Q12@0600,1800 [facility] Last Admin: 04/14/20 06:01 Dose: 100 mg Documented by: Lisinopril (Lisinopril 2.5 Mg Tablet) 2.5 mg PO DAILY [facility] Last Admin: 04/13/20 08:57 Dose: 2.5 mg Documented by: Miscellaneous Information (Inhaler, Assist Devices 1 Each Spacer) 1 each INHALATION PRN PRN PRN Reason: WITH ALBUTEROL MDI Ondansetron HCl (Ondansetron 4 Mg/2 Ml Vial) 4 mg IV Q8H PRN PRN PRN Reason: NAUSEA/VOMITING Sodium Chloride (0.9% Saline Lock 10 Ml Syringe) 10 - 40 ml IV UD PRN PRN Reason: SALINE FLUSH Last Admin: 04/13/20 08:58 Dose: 10 ml Documented by: Ticagrelor (Ticagrelor 90 Mg Tablet) 90 mg PO BID [facility] Last Admin: 04/13/20 23:18 Dose: 90 mg Documented by: STROKE Vital Signs/Narrative: Vital Signs Temp Pulse Resp BP Pulse Ox 04/14/20 06:07 97.6 F L 63 24 H 126/72 H 93 10/19/20 06:00 74 04/14/20 05:59 58 L Medical Necessity - Tobacco Use Smoking Status: Never smoker Assessment/Plan All Active Problems (Last Updated 04/12/20 @ 16:[address] Maryann Diaz MD) COVID-19 (Acute) Respiratory failure (Acute) Acute Hypoxemia Respiratory Failure secondary to COVID-19 pneumonia: Titrate oxygen to keep pulse ox 92%. -continue Decadron 6 mg daily for 10 days Day 08/06 -CT neg for PE -continue Lovenox 100 BID for now -plan is to hold off on Remdesivir and convalescent plasma for now as pt started with started on 03/31. His symptoms started on 04/04. Therefore 2 weeks or over. Employee Relations Manager and ID were consulted. Lactic acidosis suspected secondary to hypoxia and dehydration: Patient lactic acid was 3.6, 2.4 and then 2.6. IV fluid normal saline 500 normal bolus ordered. Mild hyponatremia: Corrected. HFpEF compensated: -BNP not markedly elevated -ECHO from 06/2019 shows EF of 30%, stage 2 diastolic dysfunction -continue Coreg, lisinopril -no current diuretics needed Coronary artery disease, hypertension and dyslipidemia: -last PCI 03/2019 -continue Brilinta/Coreg/Lisinopril/statin -hold ASA while on Brilinta and full dose LMWH, enoxaparin -avoid triple therapy. H&H 13.5/40.3 BPH -takes no chronic meds Obesity -recommend wgt loss H/O nephrolithiasis -no current issues DVT prophylaxis -full dose LMWH Code status -Full Inpatient E&M: 47982 Subs Hosp L2
[2020-04-14] MEDS: Carvedilol 3.125 MG TABLET PO ×2 (08:03→17:13)
[2020-04-14] MEDS: Lisinopril 2.5 MG Tablet PO (09:34)
[2020-04-14] MEDS: TICAGRELOR 90 MG TABLET PO ×2 (09:34→21:29)
[2020-04-14] MEDS: dexAMETHasone 10 MG/ML Vial 6 MG IV (09:35)
[2020-04-14 10:26] LABS: Reflex Lactate? Y
[2020-04-14 11:35] LABS: Lactic Acid 2.6 mmol/L (0.4-1.9)
--- NOTE | 2020-04-14 15:01 | CON.PCM_ITS ---
Problem List (1) COVID-19 Status: Acute Reason for Consult: covid Consulted by: Dr. Perez History of Present Illness: The patient is a 74 year old M who presented with 2 weeks of progressive cough, dyspnea, diarrhea, loss of smell, mild nausea, headache. No sputum. No fever. also sick after he developed symptoms. Came to ED, admitted on dex, feeling ok now but still hypoxic with some cough. Full ROS performed and neg except as noted above. - Medical History Past Medical History (Chronic Problems): Chronic Problems (Last Updated 04/12/20 @ 16:[address] Maryann Diaz MD) Atherosclerosis of coronary artery of [place] heart without angina pectoris (Chronic) History of coronary artery stent placement (Chronic 04/20/19) [id number] LAD w/ 4.0 x 32 mm and 4.0 x 8 mm Synergy Stents, POBA-Ostial LCx 04/20/19 Non-STEMI (non-ST elevated myocardial infarction) (Chronic 04/19/19) History of implantable cardiac defibrillator (ICD) (Chronic 09/13/19) Ischemic cardiomyopathy (Chronic) Hyperlipemia (Chronic) Right bundle branch block (RBBB) (Chronic) Allergies/Adverse Reactions: Allergies No Known Allergies Allergy (Verified 02/21/20 10:37) Home Medications: Ambulatory Orders Medication Instructions Recorded Calcium Carbonate/Vitamin D3 1 ea PO DAILY 05/15/13 [Calcium 600-Vit D3 400 Tablet] Lecithin, Soy [Lecithin] 200 mg PO DAILY 05/15/13 Terazosin HCl [Hytrin] 5 mg PO QHS 05/15/13 Aspirin E.C. [Ecotrin] 81 mg PO DAILY@0800 #30 tab 04/21/19 atorvastatin 40 mg tablet 40 mg PO QHS #90 tab 05/08/19 lisinopril 2.5 mg tablet 2.5 mg PO DAILY #90 tab 05/08/19 carvedilol 3.125 mg tablet 3.125 mg PO BID #180 tab 08/09/19 ticagrelor 90 mg tablet 90 mg PO BID #180 tab 04/14/20 - Social History Tobacco Use: non-smoker Vital Signs Temp Pulse Resp BP Pulse Ox 97.8 F 65 16 114/66 90 04/14/20 11:56 04/14/20 11:56 04/14/20 11:56 04/14/20 11:56 04/14/20 11:56 Oxygen Flow Rate (L/min) 9 Oxygen Delivery Method Nasal Cannula Weight: 104.014 kg Body Mass Index (BMI) 31.1 Microbiology Past 72 Hours 04/12/20 13:30 Blood Culture - Preliminary Blood Culture (Wb) - Right Hand No growth in 48 hours. 04/12/20 13:30 Blood Culture - Preliminary Blood Culture (Wb) - Left Hand No growth in 48 hours. Laboratory Tests Past 24 Hrs 04/14/20 04/14/20 06:20 11:05 Lactic Acid 2.4 H* 2.6 H* - Other Studies Radiology: [] reviewed Other Studies: [] Route of nutrition/ use of supplements: [] Nutritional Intake: [] IV Site: [] Rivera Catheter: [] - Physical Exam General: Alert, Oriented x3, Cooperative, No apparent distress HEENT: Atraumatic, PERRLA, EOMI Neck: Supple, No Nodes Lungs: Diminished Cardiovascular: Regular rate, Regular Rhythm Abdomen: Soft, Non Tender, Non-Distended Extremities: No edema Skin: No rashes, Rash Present IV Site: Peripheral, without redness Musculoskeletal: No Tenderness to Palpation of Joints or Extremities Neurological: Cranial nerves II-XII grossly intact - Assessment/Plan Antibiotics: [] Assessment/Plan: [] Active and Suspected Problems (Last Updated 04/12/20 @ 16:[address] Maryann Diaz MD) COVID-19 (Acute) Respiratory failure (Acute) acute hypoxic resp failure due to covid - on steroids. Given timing of symptoms, doubt benefit from plasma and remdesivir. No PE seen on CT. Will follow, thank you, d/w Dr. Eldridge
--- NOTE | 2020-04-14 15:05 | CASEMGMT ---
RN CM called patient's for initial transition planning/care coordination assessment. RN SHAINA introduced self and role at [facility]. willing to participate in assessment and is able to answer all questions appropriately. Care providers, pharmacy, and demographics verified. Patient wishes to discharge home, denies need for home health at this time. states she has no further needs or concerns at this time. CM to follow for discharge planning needs that may arise. PCP: Cali Streeter Specialists: Selin international account representative [facility] [employer] Prescription Benefit: yes Living Will/HPOA: yes, Macrina Weller LNOK: Living Arrangements: Patient lives with in a 1.5 story home with bed and bath on main level. Patient is independent at home. Transportation: self/ DME/HHC: No DME or previous HHC. Will monitor need for home oxygen at discharge. Disposition Plan: Patient to discharge home with family support and follow-up plans in place. Kacie BURCH, RN, CM
[2020-04-14] MEDS: 0.9% Normal Saline 1,000 ML 500 ML IV (19:22)
[2020-04-14] MEDS: Doxazosin 4 MG Tablet PO (21:29)
[2020-04-14] MEDS: Atorvastatin Calcium 40 MG Tablet PO (21:29)
[2020-04-14] MEDS: 0.9% Normal Saline 1,000 ML 100 ML IV (21:30)
[2020-04-14] MEDS: INHALER, ASSIST DEVICES 1 EACH SPACER INHALATION (21:30)
[2020-04-14 21:54] LABS: Reflex Lactate? Y
[2020-04-14 23:51] LABS: Lactic Acid 6.8 mmol/L (0.4-1.9)
[2020-04-15] VITALS (10 sets, daily range): BP systolic 107–129; BP diastolic 51–73; PULSE 57–95; RESP 18; TEMP 36.6–37.1; O2SAT 93–99
--- NOTE | 2020-04-15 00:08 | NURSING ---
lab notified to redraw lactic acid stat
[2020-04-15 01:11] LABS: Lactic Acid 2.4 mmol/L (0.4-1.9)
[2020-04-15] MEDS: INHALER, ASSIST DEVICES 1 EACH SPACER INHALATION (03:43)
[2020-04-15 04:46] LABS: Reflex Lactate? Y
[2020-04-15] MEDS: Enoxaparin 100 MG/ML Syringe SC ×2 (05:22→17:32)
[2020-04-15 06:25] LABS: Absolute Lymphocyte Count 0.41 X10^3/uL (0.83-4.51); Absolute Neutrophil Count 9.8 X10^3/uL (2.0-7.7); Basophil# 0.02 X10^3/uL; Basophil% 0.2 % (0-1); Eosinophil# 0.02 X10^3/uL; Eosinophils% 0.2 % (0-5); Hemoglobin 13.5 g/dL (13.0-16.5); Lymphocyte # 0.41 X10^3/ul (4.0); Lymphocyte % 3.6 % (19-41); Mean Corp Hgb Conc 32.9 g/dL (32-36); Mean Corpuscular Hgb 31.1 pg (27.0-32.0); Mean Corpuscular Volume 94.5 fL (80-94); Mean Platelet Vol. 10.2 fl (6.2-12.0); Monocyte# 0.97 X10^3/uL; Monocyte% 8.6 % (0-10); NRBC Flagged by Analyzer 0 % (0-5); Neutrophil # 9.75 X10^3/uL (2.7-7.7); Neutrophil % 86.2 % (47-70); POSITIVE DIFFERENTIAL YES; Platelet Count 404 K/mm3 (150-450); RBC Distribution Width CV 12.6 % (11.6-14.6); RBC Distribution Width SD 43.8 fl (35.1-43.9); Red Blood Count 4.34 M/mm3 (4.6-6.2); White Blood Count 11.3 K/mm3 (4.4-11.0)
[2020-04-15 06:26] LABS: Differential Indicated SCAN CRITERIA MET
[2020-04-15 06:43] LABS: Differential Comment SCANNED
[2020-04-15 06:48] LABS: ALB/GLOB Ratio 0.6 RATIO (0.9-2.4); AST(SGOT) 30 U/L (15-37); Alanine Aminotransfer ALT/SGPT 31 U/L (16-61); Albumin, Serum 2.2 g/dL (3.2-5.0); Alkaline Phosphatase 69 U/L (45-117); Anion Gap 8 (5-15); BUN 19 mg/dL (7-18); Calcium,Total 8.5 mg/dL (8.5-10.1); Chloride 109 mmol/L (98-107); Creatinine, Serum 0.86 mg/dL (0.70-1.30); EST Glomerular Filtration Rate 92 mL/min (>60); Est Glom Filt Rate - Afr Amer 112 mL/min (>60); Estimated Creatinine Clearance 85.22 ml/min; Globulin 3.8 g/dL (2.2-4.2); Glucose 99 mg/dL (74-106); Sodium Level 138 mmol/L (136-145)
[2020-04-15 06:51] LABS: Lactic Acid 3.3 mmol/L (0.4-1.9)
--- NOTE | 2020-04-15 08:24 | PCM.PN.HOSP ---
Patient Problems: Active and Suspected Problems (Last Updated 04/12/20 @ 16:[address] Maryann Diaz MD) COVID-19 (Acute) Respiratory failure (Acute) Reason for Visit: Follow-up for COVID-19 bilateral pneumonia along with acute hypoxic respiratory failure and history of coronary artery disease, CHF status post AICD and cardiac stents Objective: Patient is still on minute of oxygen. Good urine output almost 1 L yesterday and 1850 mL on 04/13. Positive fluid balance of about 3 L. Had bowel movement on 04/13. No fever since admission. Lactic acid elevated, peaked at 6.8, down to 2.4 then again 3.3 chest x-ray is ordered. 9 L of oxygen. Physical exam General: Alert, Oriented x3, Cooperative HEENT: Atraumatic, PERRLA, EOMI, Normocephalic Oral: No Gingival or Mucosal Lesions/ Ulcerations Neck: Supple, No JVD, Negative Carotid Bruits Lungs: Air entry diminished in bilateral lung bases. No gross crepitations or rhonchi auscultated. Cardiovascular: Regular rate, Regular Rhythm, Normal S1, Normal S2, No murmurs Abdomen: Bowel Sounds Present, Soft, Non Tender, Non-Distended : No renal angle tenderness. No suprapubic tenderness. Extremities: No edema, Capillary Refill Less than 3 Seconds Skin: No rashes, No breakdown Musculoskeletal: No Tenderness to Palpation of Joints or Extremities Neurological: Cranial nerves II-XII grossly intact, Deep Tendon Reflexes 2+/4 and Symmetrical, Neuro grossly intact, muscle strength 4+/5 major joints Psych/Mental Status: Normal Affect, Appropriate. Vitals/I&O's: Vital Signs Temp Pulse Resp BP Pulse Ox 98.8 F 68 18 107/60 96 04/15/20 03:40 04/15/20 07:44 04/15/20 03:40 04/15/20 03:40 04/15/20 03:40 Oxygen Flow Rate (L/min) 9 Oxygen Delivery Method Nasal Cannula Weight: 229 lb 4.986 oz Body Mass Index (BMI) 31.1 Intake and Output for Last 24 Hours 04/13/20 04/14/20 04/15/20 23:59 23:59 23:59 Intake Total 2800 / 2800 1500 / 1500 943.33 / 943.33 Output Total 850 / 850 975 / 975 400 / 400 Balance 1950 / 1950 525 / 525 543.33 / 543.33 Microbiology Past 72 Hours 04/12/20 13:30 Blood Culture (Wb) - Right Hand Blood Culture - Preliminary No growth in 48 hours. 04/12/20 13:30 Blood Culture (Wb) - Left Hand Blood Culture - Preliminary No growth in 48 hours. Laboratory Results 04/14/20 11:05: Lactic Acid 2.6 H* 04/14/20 17:40: Lactic Acid 3.0 H* 04/14/20 23:08: Lactic Acid 6.8 H* 04/15/20 00:40: Lactic Acid 2.4 H* 04/15/20 06:18: WBC 11.3 H, RBC 4.34 L, Hgb 13.5, Hct 41.0, MCV 94.5 H, MCH 31.1, MCHC 32.9, RDW Std Deviation 43.8, RDW Coeff of Margarette 12.6, Plt Count 404, MPV 10.2, Immature Gran % (Auto) 1.200 H, Neut % (Auto) 86.2 H, Lymph % (Auto) 3.6 L, [place] % (Auto) 8.6, Eos % (Auto) 0.2, Baso % (Auto) 0.2, Absolute Neuts (auto) 9.8 H, Absolute Lymphs (auto) 0.41 L, Nucleated RBC % 0, Differential Comment SCANNED 04/15/20 06:18: Sodium 138, Potassium 4.0, Chloride 109 H, Carbon Dioxide 21.0, Anion Gap 8, BUN 19 H, Creatinine 0.86, Estim Creat Clear Calc 85.22, Est GFR (MDRD) Af Amer 112, Est GFR (MDRD) Non-Af 92, BUN/Creatinine Ratio 22.0 H, Glucose 99, Calcium 8.5, Total Bilirubin 0.50, AST 30, ALT 31, Alkaline Phosphatase 69, Total Protein 6.0 L, Albumin 2.2 L, Globulin 3.8, Albumin/Globulin Ratio 0.6 L 04/15/20 06:18: Lactic Acid 3.3 H* Current Medications Acetaminophen (Acetaminophen 325 Mg Tablet) 650 mg PO Q6H PRN PRN PRN Reason: HEADACHE(1-10)/FEVER (T>100F) Last Admin: 04/13/20 08:58 Dose: 650 mg Documented by: Albuterol Sulfate (Albuterol Ih 8.5 Gm (Proair) Inhaler (200 Puffs)) 2 puff INHALATION Q4H PRN PRN PRN Reason: Shortness of breath, wheezing Last Admin: 04/15/20 03:43 Dose: 2 puff Documented by: Atorvastatin Calcium (Atorvastatin Calcium 40 Mg Tablet) 40 mg PO QHS [facility] Last Admin: 04/14/20 21:29 Dose: 40 mg Documented by: Carvedilol (Carvedilol 3.125 Mg Tablet) 3.125 mg PO BIDCM [facility] Last Admin: 04/14/20 17:13 Dose: 3.125 mg Documented by: Dexamethasone Sodium Phosphate (Dexamethasone 10 Mg/Ml Vial) 6 mg IV DAILY [facility] Last Admin: 04/14/20 09:35 Dose: 6 mg Documented by: Doxazosin Mesylate (Doxazosin 4 Mg Tablet) 4 mg PO QHS [facility] Last Admin: 04/14/20 21:29 Dose: 4 mg Documented by: Enoxaparin Sodium (Enoxaparin 100 Mg/Ml Syringe) 100 mg SC Q12@0600,1800 [facility] Last Admin: 04/15/20 05:22 Dose: 100 mg Documented by: Lisinopril (Lisinopril 2.5 Mg Tablet) 2.5 mg PO DAILY [facility] Last Admin: 04/14/20 09:34 Dose: 2.5 mg Documented by: Miscellaneous Information (Inhaler, Assist Devices 1 Each Spacer) 1 each INHALATION PRN PRN PRN Reason: WITH ALBUTEROL MDI Last Admin: 04/15/20 03:43 Dose: 1 each Documented by: Ondansetron HCl (Ondansetron 4 Mg/2 Ml Vial) 4 mg IV Q8H PRN PRN PRN Reason: NAUSEA/VOMITING Sodium Chloride (0.9% Saline Lock 10 Ml Syringe) 10 - 40 ml IV UD PRN PRN Reason: SALINE FLUSH Last Admin: 04/13/20 08:58 Dose: 10 ml Documented by: Ticagrelor (Ticagrelor 90 Mg Tablet) 90 mg PO BID [facility] Last Admin: 04/14/20 21:29 Dose: 90 mg Documented by: STROKE Vital Signs/Narrative: Vital Signs Pulse 04/15/20 07:44 68 Medical Necessity - Tobacco Use Smoking Status: Never smoker Assessment/Plan All Active Problems (Last Updated 04/12/20 @ 16:[address] Maryann Diaz MD) COVID-19 (Acute) Respiratory failure (Acute) Acute Hypoxemia Respiratory Failure secondary to COVID-19 pneumonia: Titrate oxygen to keep pulse ox 92%. -continue Decadron 6 mg daily for 10 days. ID consult reviewed. Already more than 2 weeks therefore doubt benefit from plasma and remdesivir. -CT neg for PE -continue Lovenox 100 BID for now -plan is to hold off on Remdesivir and convalescent plasma for now as pt started with started on 03/31. His symptoms started on 04/04. Lactic acidosis suspected secondary to hypoxia and dehydration: Patient lactic acid was 3.6, 2.4 and then 2.6. Lactic acid elevated 3.3, patient does not look septic and is well hydrated. Had about 2 L of fluid and 1 L of urine output. Positive fluid balance of 3 L. 3 L. Chest x-ray portable ordered. Map 75. Mild hyponatremia: Corrected. HFpEF compensated, chronic systolic and diastolic heart failure: -BNP not markedly elevated -ECHO from 06/2019 shows EF of 30%, stage 2 diastolic dysfunction -continue Coreg, lisinopril -no current diuretics needed Coronary artery disease, hypertension and dyslipidemia: -last PCI 03/2019 -continue Brilinta/Coreg/Lisinopril/statin -hold ASA while on Brilinta and full dose LMWH, enoxaparin -avoid triple therapy. H&H 13.5/40.3 BPH -takes no chronic meds Obesity -recommend wgt loss H/O nephrolithiasis -no current issues DVT prophylaxis -full dose LMWH Code status -Full Inpatient E&M: 54463 Subs Hosp L2
--- NOTE | 2020-04-15 08:30 | RAD_ITS ---
STUDY: X-RAY CHEST REASON FOR EXAM: Male, 74 years old. covid 19, pneumonia, acute respiratory failure TECHNIQUE: Single AP portable view of the chest. COMPARISON: Comparison is made with prior study dated 04/12/2020. FINDINGS: EKG electrodes are seen. Since prior study, there has been progressive pulmonary infiltrates predominantly in the bilateral peripheral distribution more prominent in the right hemithorax. This is in keeping with the patient''s diagnosis of covid . There is no demonstrated pleural abnormality. A left-sided ICD is seen. Normal mediastinum and reynold. Normal visualized pulmonary arteries. There is atherosclerotic tortuosity of the aortic arch and descending thoracic aorta. There are diffuse degenerative changes of the visualized thoracic spine. Normal visualized ribs, clavicles, and shoulders. There is no demonstrated abnormality of the visualized soft tissue structures of the upper abdomen. RAD/Chest 1 View (Portable) IMPRESSION: Progressive infiltrates in both lungs preferentially in the peripheral distribution. Electronically Signed: Daniel Self, at 8:57 EDT , Service support ,
[2020-04-15 09:55] LABS: BNP,B-Type NATRIURETIC PEPTIDE 409.6 pg/mL (0-100)
[2020-04-15] MEDS: Carvedilol 3.125 MG TABLET PO ×2 (10:11→17:32)
[2020-04-15] MEDS: dexAMETHasone 10 MG/ML Vial 6 MG IV (10:11)
[2020-04-15] MEDS: Lisinopril 2.5 MG Tablet PO (10:11)
[2020-04-15] MEDS: TICAGRELOR 90 MG TABLET PO ×2 (10:11→22:34)
[2020-04-15] MEDS: 0.9% Saline Lock 10 ML Syringe IV ×2 (10:13→13:51)
--- NOTE | 2020-04-15 13:24 | PN_ITS ---
Patient Problems: Active and Suspected Problems (Last Updated 04/12/20 @ 16:[address] Maryann Diaz MD) COVID-19 (Acute) Respiratory failure (Acute) Subjective: The patient was seen and examined at the bedside this morning. Events from the last 24 hours have been reviewed. The patient is currently afebrile, hemodynamically stable and maintaining appropriate oxygen saturations on 9 L/min. The patient feels about the same from a respiratory perspective is yesterday. He is currently documented to be overall net +3 L for the hospital admission. Objective: The patient's most recent lab work, culture data and imaging studies have all been personally reviewed. Surface echocardiogram from June 2019 revealed a mildly dilated LV with an ejection fraction of 30%. Pulmonary artery systolic pressure was estimated to be 34 mmHg. Coronavirus PCR was positive on April 12. Blood cultures have not shown any growth to date. - Physical Exam Vitals/I&O's: Vital Signs Temp Pulse Resp BP Pulse Ox 97.8 F 81 18 121/51 H 99 04/15/20 09:40 04/15/20 09:40 04/15/20 09:40 04/15/20 09:40 04/15/20 09:40 Oxygen Flow Rate (L/min) 9 Oxygen Delivery Method Nasal Cannula Weight: 229 lb 4.986 oz Body Mass Index (BMI) 31.1 Intake and Output for Last 24 Hours 04/13/20 04/14/20 04/15/20 23:59 23:59 23:59 Intake Total 2800 / 2800 1500 / 1500 943.33 / 943.33 Output Total 850 / 850 975 / 975 400 / 400 Balance 1950 / 1950 525 / 525 543.33 / 543.33 General: Alert, Cooperative, No apparent distress HEENT: Atraumatic, Normocephalic Oral: No Gingival or Mucosal Lesions/ Ulcerations Neck: Supple, No Nodes, Trachea Midline Lungs: Diminished Cardiovascular: Regular rate, Regular Rhythm Abdomen: Bowel Sounds Present, Soft, Non Tender Extremities: No clubbing, No cyanosis Skin: No breakdown Musculoskeletal: No Tenderness to Palpation of Joints or Extremities Lymphatic: No Cervical, Supraclavicular, or Inguinal Adenopathy Neurological: Cranial nerves II-XII grossly intact, Neuro grossly intact Psych/Mental Status: Normal Affect, Appropriate Labs (Last 48 Hours) 04/14/20 04/14/20 04/14/20 06:20 11:05 17:40 WBC RBC Hgb Hct MCV MCH MCHC RDW Std Deviation RDW Coeff of Margarette Plt Count MPV Immature Gran % (Auto) Neut % (Auto) Lymph % (Auto) [place] % (Auto) Eos % (Auto) Baso % (Auto) Absolute Neuts (auto) Absolute Lymphs (auto) Nucleated RBC % Differential Comment Sodium Potassium Chloride Carbon Dioxide Anion Gap BUN Creatinine Estim Creat Clear Calc Est GFR (MDRD) Af Amer Est GFR (MDRD) Non-Af BUN/Creatinine Ratio Glucose Lactic Acid 2.4 H* 2.6 H* 3.0 H* Calcium Total Bilirubin AST ALT Alkaline Phosphatase Troponin I B-Natriuretic Peptide Total Protein Albumin Globulin Albumin/Globulin Ratio 04/14/20 04/15/20 04/15/20 23:08 00:40 06:18 WBC 11.3 H RBC 4.34 L Hgb 13.5 Hct 41.0 MCV 94.5 H MCH 31.1 MCHC 32.9 RDW Std Deviation 43.8 RDW Coeff of Margarette 12.6 Plt Count 404 MPV 10.2 Immature Gran % (Auto) 1.200 H Neut % (Auto) 86.2 H Lymph % (Auto) 3.6 L [place] % (Auto) 8.6 Eos % (Auto) 0.2 Baso % (Auto) 0.2 Absolute Neuts (auto) 9.8 H Absolute Lymphs (auto) 0.41 L Nucleated RBC % 0 Differential Comment SCANNED Sodium Potassium Chloride Carbon Dioxide Anion Gap BUN Creatinine Estim Creat Clear Calc Est GFR (MDRD) Af Amer Est GFR (MDRD) Non-Af BUN/Creatinine Ratio Glucose Lactic Acid 6.8 H* 2.4 H* Calcium Total Bilirubin AST ALT Alkaline Phosphatase Troponin I B-Natriuretic Peptide Total Protein Albumin Globulin Albumin/Globulin Ratio 04/15/20 04/15/20 04/15/20 06:18 06:18 06:18 WBC RBC Hgb Hct MCV MCH MCHC RDW Std Deviation RDW Coeff of Margarette Plt Count MPV Immature Gran % (Auto) Neut % (Auto) Lymph % (Auto) [place] % (Auto) Eos % (Auto) Baso % (Auto) Absolute Neuts (auto) Absolute Lymphs (auto) Nucleated RBC % Differential Comment Sodium 138 Potassium 4.0 Chloride 109 H Carbon Dioxide 21.0 Anion Gap 8 BUN 19 H Creatinine 0.86 Estim Creat Clear Calc 85.22 Est GFR (MDRD) Af Amer 112 Est GFR (MDRD) Non-Af 92 BUN/Creatinine Ratio 22.0 H Glucose 99 Lactic Acid 3.3 H* Calcium 8.5 Total Bilirubin 0.50 AST 30 ALT 31 Alkaline Phosphatase 69 Troponin I B-Natriuretic Peptide 409.6 H Total Protein 6.0 L Albumin 2.2 L Globulin 3.8 Albumin/Globulin Ratio 0.6 L 04/15/20 06:18 WBC RBC Hgb Hct MCV MCH MCHC RDW Std Deviation RDW Coeff of Margarette Plt Count MPV Immature Gran % (Auto) Neut % (Auto) Lymph % (Auto) [place] % (Auto) Eos % (Auto) Baso % (Auto) Absolute Neuts (auto) Absolute Lymphs (auto) Nucleated RBC % Differential Comment Sodium Potassium Chloride Carbon Dioxide Anion Gap BUN Creatinine Estim Creat Clear Calc Est GFR (MDRD) Af Amer Est GFR (MDRD) Non-Af BUN/Creatinine Ratio Glucose Lactic Acid Calcium Total Bilirubin AST ALT Alkaline Phosphatase Troponin I < 0.015 B-Natriuretic Peptide Total Protein Albumin Globulin Albumin/Globulin Ratio Microbiology 04/12/20 13:30 Blood Culture (Wb) - Right Hand Blood Culture - Preliminary No growth in 48 hours. 04/12/20 13:30 Blood Culture (Wb) - Left Hand Blood Culture - Preliminary No growth in 48 hours. Clinical Impression(s) from Imaging Studies Chest X-Ray 04/12/20 13:50 Chest CTA 04/12/20 15:00 Chest X-Ray 04/15/20 08:30 IMPRESSION: Progressive infiltrates in both lungs preferentially in the peripheral distribution. Electronically Signed: Daniel Self, at 8:57 EDT , Service support , Current Medications Acetaminophen (Acetaminophen 325 Mg Tablet) 650 mg PO Q6H PRN PRN PRN Reason: HEADACHE(1-10)/FEVER (T>100F) Last Admin: 04/13/20 08:58 Dose: 650 mg Documented by: Albuterol Sulfate (Albuterol Ih 8.5 Gm (Proair) Inhaler (200 Puffs)) 2 puff INHALATION Q4H PRN PRN PRN Reason: Shortness of breath, wheezing Last Admin: 04/15/20 03:43 Dose: 2 puff Documented by: Atorvastatin Calcium (Atorvastatin Calcium 40 Mg Tablet) 40 mg PO QHS [facility] Last Admin: 04/14/20 21:29 Dose: 40 mg Documented by: Carvedilol (Carvedilol 3.125 Mg Tablet) 3.125 mg PO BIDCM [facility] Last Admin: 04/15/20 10:11 Dose: 3.125 mg Documented by: Dexamethasone Sodium Phosphate (Dexamethasone 10 Mg/Ml Vial) 6 mg IV DAILY [facility] Last Admin: 04/15/20 10:11 Dose: 6 mg Documented by: Doxazosin Mesylate (Doxazosin 4 Mg Tablet) 4 mg PO QHS [facility] Last Admin: 04/14/20 21:29 Dose: 4 mg Documented by: Enoxaparin Sodium (Enoxaparin 100 Mg/Ml Syringe) 100 mg SC Q12@0600,1800 [facility] Last Admin: 04/15/20 05:22 Dose: 100 mg Documented by: Lisinopril (Lisinopril 2.5 Mg Tablet) 2.5 mg PO DAILY [facility] Last Admin: 04/15/20 10:11 Dose: 2.5 mg Documented by: Miscellaneous Information (Inhaler, Assist Devices 1 Each Spacer) 1 each INHALATION PRN PRN PRN Reason: WITH ALBUTEROL MDI Last Admin: 04/15/20 03:43 Dose: 1 each Documented by: Ondansetron HCl (Ondansetron 4 Mg/2 Ml Vial) 4 mg IV Q8H PRN PRN PRN Reason: NAUSEA/VOMITING Sodium Chloride (0.9% Saline Lock 10 Ml Syringe) 10 - 40 ml IV UD PRN PRN Reason: SALINE FLUSH Last Admin: 04/15/20 10:13 Dose: 10 ml Documented by: Ticagrelor (Ticagrelor 90 Mg Tablet) 90 mg PO BID [facility] Last Admin: 04/15/20 10:11 Dose: 90 mg Documented by: Medical Necessity - Tobacco Use Smoking Status: Never smoker Assessment/Plan All Active Problems (Last Updated 04/12/20 @ 16:[address] Maryann Diaz MD) COVID-19 (Acute) Respiratory failure (Acute) RECOMMENDATIONS: 1. Continue to wean supplemental oxygen to maintain saturations at or above 90%. 2. Continue therapeutic Lovenox. 3. Continue Decadron 6 mg daily x10 days. 4. Consider attempts at gentle diuresis as tolerated by hemodynamics and renal function. 5. Encourage incentive spirometer use and mobilize patient as tolerated. IMPRESSIONS: 1. Acute hypoxic respiratory failure secondary to acute bilateral COVID-19 pneumonia The patient has apparently had 2 weeks of respiratory symptoms and was subsequently found to be positive for coronavirus. Plan to continue current supportive measures with supplemental oxygen to maintain saturations at or above 90%. Plan to continue Decadron 6 mg daily x10 days. Continue systemic anticoagulation with Lovenox. Given the duration of symptoms, it is unlikely that the patient would benefit from remdesivir or convalescent plasma. The patient's persistently elevated lactate is likely secondary to hypoxemia. I would recommend that routine lactate levels not be checked any further. Consider attempts at gentle diuresis as tolerated by hemodynamics and renal function. 2. Chronic systolic CHF secondary to ischemic cardiomyopathy with CAD status post stents Continue home medications as indicated. Start IV Lasix today. 3. Hyperlipidemia/obesity/advanced age/suspected JANAK Complicates care, management, recovery and prognosis. Continue home medications as indicated. This note was generated with [employer] dictation software. It may contain incorrect words, spelling, and punctuation that were not noted in checking the note before signing. Inpatient E&M: 33349 Subs Hosp L2
[2020-04-15] MEDS: Furosemide 20 MG/2 ML VIAL IV (13:51)
--- NOTE | 2020-04-15 14:42 | CASEMGMT ---
RN CM Note: Spoke with re: home oxygen for her on dc. She states both she and her will use [facility] on discharge. Sanjay BURCH RN ACM
--- NOTE | 2020-04-15 15:13 | PN.ID_ITS ---
Patient Problems: Active and Suspected Problems (Last Updated 04/12/20 @ 16:[address] Maryann Diaz MD) COVID-19 (Acute) Respiratory failure (Acute) Subjective: Feeling better today, no aches, no fever, no sputum - Physical Exam Vitals/I&O's: Vital Signs Temp Pulse Resp BP Pulse Ox 97.8 F 95 18 121/51 H 99 04/15/20 09:40 04/15/20 13:00 04/15/20 09:40 04/15/20 09:40 04/15/20 09:40 Oxygen Flow Rate (L/min) 9 Oxygen Delivery Method Nasal Cannula Weight: 104.014 kg Body Mass Index (BMI) 31.1 Intake and Output for Last 24 Hours 04/13/20 04/14/20 04/15/20 23:59 23:59 23:59 Intake Total 2800 / 2800 1500 / 1500 1743.33 / 1743.33 Output Total 850 / 850 975 / 975 850 / 850 Balance 1950 / 1950 525 / 525 893.33 / 893.33 General: Alert, Cooperative, No apparent distress Lungs: Diminished Cardiovascular: Regular rate, Regular Rhythm Abdomen: Soft, Non Tender, Non-Distended Skin: No rashes Microbiology Past 72 Hours 04/12/20 13:30 Blood Culture (Wb) - Right Hand Blood Culture - Preliminary No growth in 48 hours. 04/12/20 13:30 Blood Culture (Wb) - Left Hand Blood Culture - Preliminary No growth in 48 hours. Laboratory Results 04/14/20 17:40: Lactic Acid 3.0 H* 04/14/20 23:08: Lactic Acid 6.8 H* 04/15/20 00:40: Lactic Acid 2.4 H* 04/15/20 06:18: WBC 11.3 H, RBC 4.34 L, Hgb 13.5, Hct 41.0, MCV 94.5 H, MCH 31.1, MCHC 32.9, RDW Std Deviation 43.8, RDW Coeff of Margarette 12.6, Plt Count 404, MPV 10.2, Immature Gran % (Auto) 1.200 H, Neut % (Auto) 86.2 H, Lymph % (Auto) 3.6 L, [place] % (Auto) 8.6, Eos % (Auto) 0.2, Baso % (Auto) 0.2, Absolute Neuts (auto) 9.8 H, Absolute Lymphs (auto) 0.41 L, Nucleated RBC % 0, Differential Comment SCANNED 04/15/20 06:18: Sodium 138, Potassium 4.0, Chloride 109 H, Carbon Dioxide 21.0, Anion Gap 8, BUN 19 H, Creatinine 0.86, Estim Creat Clear Calc 85.22, Est GFR (MDRD) Af Amer 112, Est GFR (MDRD) Non-Af 92, BUN/Creatinine Ratio 22.0 H, Glucose 99, Calcium 8.5, Total Bilirubin 0.50, AST 30, ALT 31, Alkaline Phosphatase 69, Total Protein 6.0 L, Albumin 2.2 L, Globulin 3.8, Albumin/Globulin Ratio 0.6 L 04/15/20 06:18: Lactic Acid 3.3 H* 04/15/20 06:18: B-Natriuretic Peptide 409.6 H 04/15/20 06:18: Troponin I < 0.015 Current Medications Acetaminophen (Acetaminophen 325 Mg Tablet) 650 mg PO Q6H PRN PRN PRN Reason: HEADACHE(1-10)/FEVER (T>100F) Last Admin: 04/13/20 08:58 Dose: 650 mg Documented by: Albuterol Sulfate (Albuterol Ih 8.5 Gm (Proair) Inhaler (200 Puffs)) 2 puff INHALATION Q4H PRN PRN PRN Reason: Shortness of breath, wheezing Last Admin: 04/15/20 03:43 Dose: 2 puff Documented by: Atorvastatin Calcium (Atorvastatin Calcium 40 Mg Tablet) 40 mg PO QHS [facility] Last Admin: 04/14/20 21:29 Dose: 40 mg Documented by: Carvedilol (Carvedilol 3.125 Mg Tablet) 3.125 mg PO BIDCM [facility] Last Admin: 04/15/20 10:11 Dose: 3.125 mg Documented by: Dexamethasone Sodium Phosphate (Dexamethasone 10 Mg/Ml Vial) 6 mg IV DAILY [facility] Last Admin: 04/15/20 10:11 Dose: 6 mg Documented by: Doxazosin Mesylate (Doxazosin 4 Mg Tablet) 4 mg PO QHS [facility] Last Admin: 04/14/20 21:29 Dose: 4 mg Documented by: Enoxaparin Sodium (Enoxaparin 100 Mg/Ml Syringe) 100 mg SC Q12@0600,1800 [facility] Last Admin: 04/15/20 05:22 Dose: 100 mg Documented by: Lisinopril (Lisinopril 2.5 Mg Tablet) 2.5 mg PO DAILY [facility] Last Admin: 04/15/20 10:11 Dose: 2.5 mg Documented by: Miscellaneous Information (Inhaler, Assist Devices 1 Each Spacer) 1 each INHALATION PRN PRN PRN Reason: WITH ALBUTEROL MDI Last Admin: 04/15/20 03:43 Dose: 1 each Documented by: Ondansetron HCl (Ondansetron 4 Mg/2 Ml Vial) 4 mg IV Q8H PRN PRN PRN Reason: NAUSEA/VOMITING Sodium Chloride (0.9% Saline Lock 10 Ml Syringe) 10 - 40 ml IV UD PRN PRN Reason: SALINE FLUSH Last Admin: 04/15/20 13:51 Dose: 10 ml Documented by: Ticagrelor (Ticagrelor 90 Mg Tablet) 90 mg PO BID [facility] Last Admin: 04/15/20 10:11 Dose: 90 mg Documented by: Medical Necessity - Tobacco Use Smoking Status: Never smoker Route of nutrition/ use of supplements: [] Nutritional Intake: [] IV Site: [] Rivera Catheter: [] - Assessment/Plan Antibiotics: [] Assessment/Plan: [] Active and Suspected Problems (Last Updated 04/12/20 @ 16:[address] Maryann Diaz MD) COVID-19 (Acute) Respiratory failure (Acute) acute hypoxic resp failure due to covid - on steroids. Given timing of symptoms, doubt benefit from plasma and remdesivir. No PE seen on CT. Sats improved. Lactate still elevated. Will follow
[2020-04-15] MEDS: Atorvastatin Calcium 40 MG Tablet PO (22:34)
[2020-04-15] MEDS: Doxazosin 4 MG Tablet PO (22:34)
[2020-04-16] VITALS (9 sets, daily range): BP systolic 104–127; BP diastolic 63–81; PULSE 60–80; RESP 18–30; TEMP 36.4–36.8; O2SAT 90–96
[2020-04-16] MEDS: Enoxaparin 100 MG/ML Syringe SC ×2 (06:38→17:12)
[2020-04-16 06:44] LABS: Absolute Lymphocyte Count 0.37 X10^3/uL (0.83-4.51); Basophil# 0.01 X10^3/uL; Basophil% 0.1 % (0-1); Eosinophil# 0.04 X10^3/uL; Eosinophils% 0.5 % (0-5); Hematocrit 37.6 % (40-54); Hemoglobin 12.6 g/dL (13.0-16.5); Lymphocyte # 0.37 X10^3/ul (4.0); Lymphocyte % 5.1 % (19-41); Mean Corp Hgb Conc 33.5 g/dL (32-36); Mean Corpuscular Hgb 31.5 pg (27.0-32.0); Mean Platelet Vol. 10.4 fl (6.2-12.0); Monocyte# 0.65 X10^3/uL; Monocyte% 8.9 % (0-10); NRBC Flagged by Analyzer 0 % (0-5); Neutrophil # 6.04 X10^3/uL (2.7-7.7); Neutrophil % 82.8 % (47-70); POSITIVE DIFFERENTIAL YES; Platelet Count 380 K/mm3 (150-450); RBC Distribution Width CV 12.7 % (11.6-14.6); RBC Distribution Width SD 44.3 fl (35.1-43.9); White Blood Count 7.3 K/mm3 (4.4-11.0)
[2020-04-16 06:58] LABS: Differential Indicated SCAN CRITERIA MET
[2020-04-16 07:02] LABS: Differential Comment SCANNED
[2020-04-16] MEDS: Lisinopril 2.5 MG Tablet PO (08:17)
[2020-04-16] MEDS: dexAMETHasone 10 MG/ML Vial 6 MG IV (08:17)
[2020-04-16] MEDS: 0.9% Saline Lock 10 ML Syringe IV ×2 (08:17→09:15)
[2020-04-16] MEDS: TICAGRELOR 90 MG TABLET PO ×2 (08:17→19:56)
[2020-04-16] MEDS: Carvedilol 3.125 MG TABLET PO ×2 (08:17→17:12)
--- NOTE | 2020-04-16 08:23 | PCM.PN.HOSP ---
Patient Problems: Active and Suspected Problems (Last Updated 04/12/20 @ 16:[address] Maryann Diaz MD) COVID-19 (Acute) Respiratory failure (Acute) Reason for Visit: Follow-up for COVID-19 pneumonia and multiple other cardiac comorbidities. Objective: Patient did not had fever. Heart rate and blood pressure is controlled. Respiratory rate 18 but he still on 9 L of oxygen. No leukocytosis. Lymphocyte count 5.1%. Patient has cough and chest congestion but unable to bring phlegm or mucus. Soft bowel movement yesterday. Physical exam General: Alert, Oriented x3, Cooperative HEENT: Atraumatic, PERRLA, EOMI, Normocephalic Oral: No Gingival or Mucosal Lesions/ Ulcerations Neck: Supple, No JVD, Negative Carotid Bruits Lungs: Air entry diminished in bilateral lung bases. Bilateral coarse crepitations present on both flanks. Cardiovascular: Regular rate, Regular Rhythm, Normal S1, Normal S2, No murmurs Abdomen: Bowel Sounds Present, Soft, Non Tender, Non-Distended : No renal angle tenderness. No suprapubic tenderness. Extremities: No edema, Capillary Refill Less than 3 Seconds Skin: No rashes, No breakdown Musculoskeletal: No Tenderness to Palpation of Joints or Extremities Neurological: Cranial nerves II-XII grossly intact, Deep Tendon Reflexes 2+/4 and Symmetrical, Neuro grossly intact Psych/Mental Status: Normal Affect, Appropriate. Vitals/I&O's: Vital Signs Temp Pulse Resp BP Pulse Ox 98.3 F 69 30 H 127/80 H 90 04/16/20 08:09 04/16/20 08:09 04/16/20 08:09 04/16/20 08:09 04/16/20 08:09 Oxygen Flow Rate (L/min) 9 Oxygen Delivery Method Nasal Cannula Weight: 229 lb 4.986 oz Body Mass Index (BMI) 31.1 Intake and Output for Last 24 Hours 04/14/20 04/15/20 04/16/20 23:59 23:59 23:59 Intake Total 1500 / 1500 2343.33 / 2343.33 Output Total 975 / 975 1650 / 1650 Balance 525 / 525 693.33 / 693.33 Microbiology Past 72 Hours 04/12/20 13:30 Blood Culture (Wb) - Right Hand Blood Culture - Preliminary No growth in 48 hours. 04/12/20 13:30 Blood Culture (Wb) - Left Hand Blood Culture - Preliminary No growth in 48 hours. Laboratory Results 04/15/20 06:18: B-Natriuretic Peptide 409.6 H 04/15/20 06:18: Troponin I < 0.015 04/16/20 06:10: WBC 7.3, RBC 4.00 L, Hgb 12.6 L, Hct 37.6 L, MCV 94.0, MCH 31.5, MCHC 33.5, RDW Std Deviation 44.3 H, RDW Coeff of Margarette 12.7, Plt Count 380, MPV 10.4, Immature Gran % (Auto) 2.600 H, Neut % (Auto) 82.8 H, Lymph % (Auto) 5.1 L, Humphreys % (Auto) 8.9, Eos % (Auto) 0.5, Baso % (Auto) 0.1, Absolute Neuts (auto) 6.0, Absolute Lymphs (auto) 0.37 L, Nucleated RBC % 0, Differential Comment SCANNED Current Medications Acetaminophen (Acetaminophen 325 Mg Tablet) 650 mg PO Q6H PRN PRN PRN Reason: HEADACHE(1-10)/FEVER (T>100F) Last Admin: 04/13/20 08:58 Dose: 650 mg Documented by: Albuterol Sulfate (Albuterol Ih 8.5 Gm (Proair) Inhaler (200 Puffs)) 2 puff INHALATION Q4H PRN PRN PRN Reason: Shortness of breath, wheezing Last Admin: 04/15/20 03:43 Dose: 2 puff Documented by: Atorvastatin Calcium (Atorvastatin Calcium 40 Mg Tablet) 40 mg PO QHS REPLACED BY [facility] Last Admin: 04/15/20 22:34 Dose: 40 mg Documented by: Carvedilol (Carvedilol 3.125 Mg Tablet) 3.125 mg PO BIDCM REPLACED BY [facility] Last Admin: 04/16/20 08:17 Dose: 3.125 mg Documented by: Dexamethasone Sodium Phosphate (Dexamethasone 10 Mg/Ml Vial) 6 mg IV DAILY REPLACED BY [facility] Last Admin: 04/16/20 08:17 Dose: 6 mg Documented by: Doxazosin Mesylate (Doxazosin 4 Mg Tablet) 4 mg PO QHS REPLACED BY [facility] Last Admin: 04/15/20 22:34 Dose: 4 mg Documented by: Enoxaparin Sodium (Enoxaparin 100 Mg/Ml Syringe) 100 mg SC Q12@0600,1800 REPLACED BY [facility] Last Admin: 04/16/20 06:38 Dose: 100 mg Documented by: Furosemide (Furosemide 40 Mg/4 Ml Vial) 40 mg IV DAILY REPLACED BY [facility] Lisinopril (Lisinopril 2.5 Mg Tablet) 2.5 mg PO DAILY REPLACED BY [facility] Last Admin: 04/16/20 08:17 Dose: 2.5 mg Documented by: Miscellaneous Information (Inhaler, Assist Devices 1 Each Spacer) 1 each INHALATION PRN PRN PRN Reason: WITH ALBUTEROL MDI Last Admin: 04/15/20 03:43 Dose: 1 each Documented by: Ondansetron HCl (Ondansetron 4 Mg/2 Ml Vial) 4 mg IV Q8H PRN PRN PRN Reason: NAUSEA/VOMITING Sodium Chloride (0.9% Saline Lock 10 Ml Syringe) 10 - 40 ml IV UD PRN PRN Reason: SALINE FLUSH Last Admin: 04/16/20 08:17 Dose: 10 ml Documented by: Ticagrelor (Ticagrelor 90 Mg Tablet) 90 mg PO BID REPLACED BY [facility] Last Admin: 04/16/20 08:17 Dose: 90 mg Documented by: STROKE Vital Signs/Narrative: Vital Signs Temp Pulse Resp BP Pulse Ox 04/16/20 08:09 98.3 F 69 30 H 127/80 H 90 04/16/20 06:54 80 04/16/20 06:39 97.6 F L 67 18 125/81 H 96 Medical Necessity - Tobacco Use Smoking Status: Never smoker Assessment/Plan All Active Problems (Last Updated 04/12/20 @ 16:[address] Maryann Diaz MD) COVID-19 (Acute) Respiratory failure (Acute) Acute Hypoxemia Respiratory Failure secondary to COVID-19 pneumonia: Titrate oxygen to keep pulse ox 92%. -continue Decadron 6 mg daily for 10 days. ID consult reviewed. Already more than 2 weeks therefore doubt benefit from plasma and remdesivir. -CT neg for PE -continue Lovenox 100 BID for now -plan is to hold off on Remdesivir and convalescent plasma for now as pt started with started on 03/31. His symptoms started on 04/04. 04/16: I talked to the patient's son, Mr Gonsales yesterday and updated the clinical information. Lactic acid still high 3.3 on 04/15. Patient seems well-hydrated. 6950 mL urine output. Positive fluid balance 3.1 L. Chest x-ray reviewed and shows progression of bilateral peripheral infiltrates. Discussed with ID. Since no benefit for antibiotics. Ordered sputum culture. Lactic acidosis suspected secondary to hypoxia and dehydration: Patient lactic acid was 3.6, 2.4 and then 2.6. Lactic acid elevated 3.3, patient does not look septic and is well hydrated. Mild hyponatremia: Corrected. HFpEF compensated, chronic systolic and diastolic heart failure: -BNP not markedly elevated -ECHO from 06/2019 shows EF of 30%, stage 2 diastolic dysfunction -continue Coreg, lisinopril -no current diuretics needed Coronary artery disease, hypertension and dyslipidemia: -last PCI 03/2019 -continue Brilinta/Coreg/Lisinopril/statin -hold ASA while on Brilinta and full dose LMWH, enoxaparin -avoid triple therapy. H&H 13.5/40.3 BPH -takes no chronic meds Obesity -recommend wgt loss H/O nephrolithiasis -no current issues DVT prophylaxis -full dose LMWH Code status -Full Inpatient E&M: 75457 Subs Hosp L2
[2020-04-16] MEDS: Furosemide 40 MG/4 ML Vial IV (09:15)
--- NOTE | 2020-04-16 13:03 | PCM.PN.PUL ---
Patient Problems: Active and Suspected Problems (Last Updated 04/12/20 @ 16:[address] Maryann Diaz MD) COVID-19 (Acute) Respiratory failure (Acute) Subjective: The patient was seen and examined at the bedside this morning. Events from the last 24 hours have been reviewed. The patient is currently afebrile, hemodynamically stable and maintaining appropriate oxygen saturations on 9 L/min via nasal cannula. The patient's coughing persists. The patient is currently documented to be overall net +3.1 L for the hospital admission. Objective: The patient's most recent lab work, culture data and imaging studies have all been personally reviewed. Surface echocardiogram from June 2019 revealed a mildly dilated LV with an ejection fraction of 30%. Pulmonary artery systolic pressure was estimated to be 34 mmHg. Coronavirus PCR was positive on April 12. Blood cultures have not shown any growth to date. - Physical Exam Vitals/I&O's: Vital Signs Temp Pulse Resp BP Pulse Ox 98.3 F 78 30 H 127/80 H 90 04/16/20 08:09 04/16/20 10:00 04/16/20 08:09 04/16/20 08:09 04/16/20 10:00 Oxygen Flow Rate (L/min) 9 Oxygen Delivery Method Nasal Cannula Weight: 229 lb 4.986 oz Body Mass Index (BMI) 31.1 Intake and Output for Last 24 Hours 04/14/20 04/15/20 04/16/20 23:59 23:59 23:59 Intake Total 1500 / 1500 2343.33 / 2343.33 300 / 300 Output Total 975 / 975 1650 / 1650 300 / 300 Balance 525 / 525 693.33 / 693.33 0 / 0 General: Alert, Cooperative HEENT: Atraumatic, Normocephalic Oral: No Gingival or Mucosal Lesions/ Ulcerations Neck: Supple, No Nodes Lungs: Diminished Cardiovascular: Regular rate, Regular Rhythm Abdomen: Bowel Sounds Present, Soft, Non Tender Extremities: No clubbing, No cyanosis Skin: No breakdown Musculoskeletal: No Tenderness to Palpation of Joints or Extremities Lymphatic: No Cervical, Supraclavicular, or Inguinal Adenopathy Neurological: Cranial nerves II-XII grossly intact, Neuro grossly intact Psych/Mental Status: Normal Affect, Appropriate Labs (Last 48 Hours) 1004/14/20 04/15/20 17:40 23:08 00:40 WBC RBC Hgb Hct MCV MCH MCHC RDW Std Deviation RDW Coeff of Margarette Plt Count MPV Immature Gran % (Auto) Neut % (Auto) Lymph % (Auto) Hughes % (Auto) Eos % (Auto) Baso % (Auto) Absolute Neuts (auto) Absolute Lymphs (auto) Nucleated RBC % Differential Comment Sodium Potassium Chloride Carbon Dioxide Anion Gap BUN Creatinine Estim Creat Clear Calc Est GFR (MDRD) Af Amer Est GFR (MDRD) Non-Af BUN/Creatinine Ratio Glucose Lactic Acid 3.0 H* 6.8 H* 2.4 H* Calcium Total Bilirubin AST ALT Alkaline Phosphatase Troponin I B-Natriuretic Peptide Total Protein Albumin Globulin Albumin/Globulin Ratio 04/15/20 04/15/20 04/15/20 06:18 06:18 06:18 WBC 11.3 H RBC 4.34 L Hgb 13.5 Hct 41.0 MCV 94.5 H MCH 31.1 MCHC 32.9 RDW Std Deviation 43.8 RDW Coeff of Margarette 12.6 Plt Count 404 MPV 10.2 Immature Gran % (Auto) 1.200 H Neut % (Auto) 86.2 H Lymph % (Auto) 3.6 L Hughes % (Auto) 8.6 Eos % (Auto) 0.2 Baso % (Auto) 0.2 Absolute Neuts (auto) 9.8 H Absolute Lymphs (auto) 0.41 L Nucleated RBC % 0 Differential Comment SCANNED Sodium 138 Potassium 4.0 Chloride 109 H Carbon Dioxide 21.0 Anion Gap 8 BUN 19 H Creatinine 0.86 Estim Creat Clear Calc 85.22 Est GFR (MDRD) Af Amer 112 Est GFR (MDRD) Non-Af 92 BUN/Creatinine Ratio 22.0 H Glucose 99 Lactic Acid 3.3 H* Calcium 8.5 Total Bilirubin 0.50 AST 30 ALT 31 Alkaline Phosphatase 69 Troponin I B-Natriuretic Peptide Total Protein 6.0 L Albumin 2.2 L Globulin 3.8 Albumin/Globulin Ratio 0.6 L 04/15/20 04/15/20 04/16/20 06:18 06:18 06:10 WBC 7.3 RBC 4.00 L Hgb 12.6 L Hct 37.6 L MCV 94.0 MCH 31.5 MCHC 33.5 RDW Std Deviation 44.3 H RDW Coeff of Margarette 12.7 Plt Count 380 MPV 10.4 Immature Gran % (Auto) 2.600 H Neut % (Auto) 82.8 H Lymph % (Auto) 5.1 L Hughes % (Auto) 8.9 Eos % (Auto) 0.5 Baso % (Auto) 0.1 Absolute Neuts (auto) 6.0 Absolute Lymphs (auto) 0.37 L Nucleated RBC % 0 Differential Comment SCANNED Sodium Potassium Chloride Carbon Dioxide Anion Gap BUN Creatinine Estim Creat Clear Calc Est GFR (MDRD) Af Amer Est GFR (MDRD) Non-Af BUN/Creatinine Ratio Glucose Lactic Acid Calcium Total Bilirubin AST ALT Alkaline Phosphatase Troponin I < 0.015 B-Natriuretic Peptide 409.6 H Total Protein Albumin Globulin Albumin/Globulin Ratio Clinical Impression(s) from Imaging Studies Chest X-Ray 04/12/20 13:50 Chest CTA 04/12/20 15:00 Chest X-Ray 04/15/20 08:30 IMPRESSION: Progressive infiltrates in both lungs preferentially in the peripheral distribution. Electronically Signed: Daniel Self, at 8:57 EDT , Service support , Current Medications Acetaminophen (Acetaminophen 325 Mg Tablet) 650 mg PO Q6H PRN PRN PRN Reason: HEADACHE(1-10)/FEVER (T>100F) Last Admin: 04/13/20 08:58 Dose: 650 mg Documented by: Albuterol Sulfate (Albuterol Ih 8.5 Gm (Proair) Inhaler (200 Puffs)) 2 puff INHALATION Q4H PRN PRN PRN Reason: Shortness of breath, wheezing Last Admin: 04/15/20 03:43 Dose: 2 puff Documented by: Atorvastatin Calcium (Atorvastatin Calcium 40 Mg Tablet) 40 mg PO QHS [facility] Last Admin: 04/15/20 22:34 Dose: 40 mg Documented by: Carvedilol (Carvedilol 3.125 Mg Tablet) 3.125 mg PO BIDCM [facility] Last Admin: 04/16/20 08:17 Dose: 3.125 mg Documented by: Dexamethasone Sodium Phosphate (Dexamethasone 10 Mg/Ml Vial) 6 mg IV DAILY [facility] Last Admin: 04/16/20 08:17 Dose: 6 mg Documented by: Doxazosin Mesylate (Doxazosin 4 Mg Tablet) 4 mg PO QHS [facility] Last Admin: 04/15/20 22:34 Dose: 4 mg Documented by: Enoxaparin Sodium (Enoxaparin 100 Mg/Ml Syringe) 100 mg SC Q12@0600,1800 [facility] Last Admin: 04/16/20 06:38 Dose: 100 mg Documented by: Furosemide (Furosemide 40 Mg/4 Ml Vial) 40 mg IV DAILY [facility] Last Admin: 04/16/20 09:15 Dose: 40 mg Documented by: Lisinopril (Lisinopril 2.5 Mg Tablet) 2.5 mg PO DAILY [facility] Last Admin: 04/16/20 08:17 Dose: 2.5 mg Documented by: Miscellaneous Information (Inhaler, Assist Devices 1 Each Spacer) 1 each INHALATION PRN PRN PRN Reason: WITH ALBUTEROL MDI Last Admin: 04/15/20 03:43 Dose: 1 each Documented by: Ondansetron HCl (Ondansetron 4 Mg/2 Ml Vial) 4 mg IV Q8H PRN PRN PRN Reason: NAUSEA/VOMITING Sodium Chloride (0.9% Saline Lock 10 Ml Syringe) 10 - 40 ml IV UD PRN PRN Reason: SALINE FLUSH Last Admin: 04/16/20 09:15 Dose: 10 ml Documented by: Ticagrelor (Ticagrelor 90 Mg Tablet) 90 mg PO BID [facility] Last Admin: 04/16/20 08:17 Dose: 90 mg Documented by: Medical Necessity - Tobacco Use Smoking Status: Never smoker Assessment/Plan All Active Problems (Last Updated 04/12/20 @ 16:[address] Maryann Diaz MD) COVID-19 (Acute) Respiratory failure (Acute) RECOMMENDATIONS: 1. Continue to wean supplemental oxygen to maintain saturations at or above 90%. 2. Continue therapeutic Lovenox. 3. Continue Decadron 6 mg daily x10 days. 4. Continue attempts at gentle diuresis as tolerated by hemodynamics and renal function. 5. Encourage incentive spirometer use and mobilize patient as tolerated. IMPRESSIONS: 1. Acute hypoxic respiratory failure secondary to acute bilateral COVID-19 pneumonia The patient has apparently had 2 weeks of respiratory symptoms and was subsequently found to be positive for coronavirus. Plan to continue current supportive measures with supplemental oxygen to maintain saturations at or above 90%. Plan to continue Decadron 6 mg daily x10 days. Continue systemic anticoagulation with Lovenox. Given the duration of symptoms, it is unlikely that the patient would benefit from remdesivir or convalescent plasma. The patient's persistently elevated lactate is likely secondary to hypoxemia. Continue attempts at gentle diuresis as tolerated by hemodynamics and renal function. 2. Chronic systolic CHF secondary to ischemic cardiomyopathy with CAD status post stents Continue home medications as indicated. Continue IV Lasix today. 3. Hyperlipidemia/obesity/advanced age/suspected JANAK Complicates care, management, recovery and prognosis. Continue home medications as indicated. This note was generated with [employer] dictation software. It may contain incorrect words, spelling, and punctuation that were not noted in checking the note before signing. Inpatient E&M: 38432 Subs Hosp L2
--- NOTE | 2020-04-16 13:46 | CASEMGMT ---
RN CM NOTE: Pt's states would like to have scripts sent to [facility] retail pharmacy at discharge. This was changed in [facility] at this time. Capo BURCH RN CM
--- NOTE | 2020-04-16 17:03 | PCM.PN.ID ---
Patient Problems: Active and Suspected Problems (Last Updated 04/12/20 @ 16:[address] Maryann Diaz MD) COVID-19 (Acute) Respiratory failure (Acute) Subjective: Feeling better, no fever, no other complaints - Physical Exam Vitals/I&O's: Vital Signs Temp Pulse Resp BP Pulse Ox 98.1 F 60 22 H 104/73 92 04/16/20 14:00 04/16/20 14:00 04/16/20 14:00 04/16/20 14:00 04/16/20 14:00 Oxygen Flow Rate (L/min) 9 Oxygen Delivery Method Nasal Cannula Weight: 104.014 kg Body Mass Index (BMI) 31.1 Intake and Output for Last 24 Hours 04/14/20 04/15/20 04/16/20 23:59 23:59 23:59 Intake Total 1500 / 1500 2343.33 / 2343.33 1340 / 1340 Output Total 975 / 975 1650 / 1650 1750 / 1750 Balance 525 / 525 693.33 / 693.33 -410 / -410 General: Alert, Cooperative, No apparent distress Lungs: Diminished Cardiovascular: Regular rate, Regular Rhythm Abdomen: Soft, Non Tender, Non-Distended Skin: No rashes Microbiology Past 72 Hours 04/12/20 13:30 Blood Culture (Wb) - Right Hand Blood Culture - Preliminary No growth in 48 hours. 04/12/20 13:30 Blood Culture (Wb) - Left Hand Blood Culture - Preliminary No growth in 48 hours. Laboratory Results 04/16/20 06:10: WBC 7.3, RBC 4.00 L, Hgb 12.6 L, Hct 37.6 L, MCV 94.0, MCH 31.5, MCHC 33.5, RDW Std Deviation 44.3 H, RDW Coeff of Margarette 12.7, Plt Count 380, MPV 10.4, Immature Gran % (Auto) 2.600 H, Neut % (Auto) 82.8 H, Lymph % (Auto) 5.1 L, Curry % (Auto) 8.9, Eos % (Auto) 0.5, Baso % (Auto) 0.1, Absolute Neuts (auto) 6.0, Absolute Lymphs (auto) 0.37 L, Nucleated RBC % 0, Differential Comment SCANNED Current Medications Acetaminophen (Acetaminophen 325 Mg Tablet) 650 mg PO Q6H PRN PRN PRN Reason: HEADACHE(1-10)/FEVER (T>100F) Last Admin: 04/13/20 08:58 Dose: 650 mg Documented by: Albuterol Sulfate (Albuterol Ih 8.5 Gm (Proair) Inhaler (200 Puffs)) 2 puff INHALATION Q4H PRN PRN PRN Reason: Shortness of breath, wheezing Last Admin: 04/15/20 03:43 Dose: 2 puff Documented by: Atorvastatin Calcium (Atorvastatin Calcium 40 Mg Tablet) 40 mg PO QHS [facility] Last Admin: 04/15/20 22:34 Dose: 40 mg Documented by: Carvedilol (Carvedilol 3.125 Mg Tablet) 3.125 mg PO BIDCM [facility] Last Admin: 04/16/20 08:17 Dose: 3.125 mg Documented by: Dexamethasone Sodium Phosphate (Dexamethasone 10 Mg/Ml Vial) 6 mg IV DAILY [facility] Last Admin: 04/16/20 08:17 Dose: 6 mg Documented by: Doxazosin Mesylate (Doxazosin 4 Mg Tablet) 4 mg PO QHS [facility] Last Admin: 04/15/20 22:34 Dose: 4 mg Documented by: Enoxaparin Sodium (Enoxaparin 100 Mg/Ml Syringe) 100 mg SC Q12@0600,1800 [facility] Last Admin: 04/16/20 06:38 Dose: 100 mg Documented by: Furosemide (Furosemide 40 Mg/4 Ml Vial) 40 mg IV DAILY [facility] Last Admin: 04/16/20 09:15 Dose: 40 mg Documented by: Lisinopril (Lisinopril 2.5 Mg Tablet) 2.5 mg PO DAILY [facility] Last Admin: 04/16/20 08:17 Dose: 2.5 mg Documented by: Miscellaneous Information (Inhaler, Assist Devices 1 Each Spacer) 1 each INHALATION PRN PRN PRN Reason: WITH ALBUTEROL MDI Last Admin: 04/15/20 03:43 Dose: 1 each Documented by: Ondansetron HCl (Ondansetron 4 Mg/2 Ml Vial) 4 mg IV Q8H PRN PRN PRN Reason: NAUSEA/VOMITING Sodium Chloride (0.9% Saline Lock 10 Ml Syringe) 10 - 40 ml IV UD PRN PRN Reason: SALINE FLUSH Last Admin: 04/16/20 09:15 Dose: 10 ml Documented by: Ticagrelor (Ticagrelor 90 Mg Tablet) 90 mg PO BID [facility] Last Admin: 04/16/20 08:17 Dose: 90 mg Documented by: Medical Necessity - Tobacco Use Smoking Status: Never smoker Route of nutrition/ use of supplements: [] Nutritional Intake: [] IV Site: [] Rivera Catheter: [] - Assessment/Plan Antibiotics: [] Assessment/Plan: [] Active and Suspected Problems (Last Updated 04/12/20 @ 16:[address] Maryann Diaz MD) COVID-19 (Acute) Respiratory failure (Acute) acute hypoxic resp failure due to covid - on steroids. Given timing of symptoms, doubt benefit from plasma and remdesivir. No PE seen on CT. Remains on 9L, feeling better Will follow
[2020-04-16] MEDS: Doxazosin 4 MG Tablet PO (19:56)
[2020-04-16] MEDS: Atorvastatin Calcium 40 MG Tablet PO (19:56)
--- NOTE | 2020-04-16 20:15 | NURSING ---
pt son updated via phone.
[2020-04-17] VITALS (16 sets, daily range): BP systolic 94–121; BP diastolic 45–74; PULSE 62–85; RESP 16–20; TEMP 35.6–37; O2SAT 90–96
[2020-04-17] MEDS: Enoxaparin 100 MG/ML Syringe SC ×2 (04:05→17:27)
[2020-04-17 06:45] LABS: Lactic Acid 1.4 mmol/L (0.4-1.9)
[2020-04-17 07:12] LABS: ALB/GLOB Ratio 0.5 RATIO (0.9-2.4); AST(SGOT) 26 U/L (15-37); Alanine Aminotransfer ALT/SGPT 42 U/L (16-61); Albumin, Serum 2.1 g/dL (3.2-5.0); Alkaline Phosphatase 69 U/L (45-117); Anion Gap 7 (5-15); BUN 19 mg/dL (7-18); BUN/Creat Ratio 24.2 RATIO (10-20); Calcium,Total 8.8 mg/dL (8.5-10.1); Chloride 108 mmol/L (98-107); Creatinine, Serum 0.78 mg/dL (0.70-1.30); EST Glomerular Filtration Rate 103 mL/min (>60); Est Glom Filt Rate - Afr Amer 125 mL/min (>60); Estimated Creatinine Clearance 73.29 ml/min; Glucose 99 mg/dL (74-106); Magnesium 1.8 mg/dL (1.6-2.6); Phosphorus 3.9 mg/dL (2.5-4.9); Potassium 4.2 mmol/L (3.5-5.1); Protein, Total 6.1 g/dL (6.4-8.2); Sodium Level 139 mmol/L (136-145)
--- NOTE | 2020-04-17 09:11 | PCM.PN.HOSP ---
Patient Problems: Active and Suspected Problems (Last Updated 04/12/20 @ 16:[address] Maryann Diaz MD) COVID-19 (Acute) Respiratory failure (Acute) Reason for Visit: Follow-up for COVID-19 pneumonia and chronic heart disease Objective: Patient heart rate and blood pressure is controlled Still on 9 L of oxygen. Not tachypneic. No fever. Physical exam General: Alert, Oriented x3, Cooperative HEENT: Atraumatic, PERRLA, EOMI, Normocephalic Oral: No Gingival or Mucosal Lesions/ Ulcerations Neck: Supple, No JVD, Negative Carotid Bruits Lungs: Air entry diminished in bilateral lung bases. Bilateral fine occasional crackle present in both lungs. Cardiovascular: Regular rate, Regular Rhythm, Normal S1, Normal S2, No murmurs Abdomen: Bowel Sounds Present, Soft, Non Tender, Non-Distended : No renal angle tenderness. No suprapubic tenderness. Extremities: No edema, Capillary Refill Less than 3 Seconds Skin: No rashes, No breakdown Musculoskeletal: No Tenderness to Palpation of Joints or Extremities Neurological: Cranial nerves II-XII grossly intact, Deep Tendon Reflexes 2+/4 and Symmetrical, Neuro grossly intact Psych/Mental Status: Normal Affect, Appropriate. Vitals/I&O's: Vital Signs Temp Pulse Resp BP Pulse Ox 98.6 F 68 20 H 121/74 H 96 04/17/20 04:01 04/17/20 06:00 04/17/20 04:01 04/17/20 04:01 04/17/20 04:01 Oxygen Flow Rate (L/min) 9 Oxygen Delivery Method Nasal Cannula Weight: 229 lb 4.986 oz Body Mass Index (BMI) 31.1 Intake and Output for Last 24 Hours 04/15/20 04/16/20 04/17/20 23:59 23:59 23:59 Intake Total 2343.33 / 2343.33 1740 / 1740 Output Total 1650 / 1650 2525 / 2525 1200 / 1200 Balance 693.33 / 693.33 -785 / -785 -1200 / -1200 Microbiology Past 72 Hours 04/12/20 13:30 Blood Culture (Wb) - Right Hand Blood Culture - Preliminary No growth in 48 hours. 04/12/20 13:30 Blood Culture (Wb) - Left Hand Blood Culture - Preliminary No growth in 48 hours. Laboratory Results 04/17/20 06:00: Sodium 139, Potassium 4.2, Chloride 108 H, Carbon Dioxide 24.0, Anion Gap 7, BUN 19 H, Creatinine 0.78, Estim Creat Clear Calc 73.29, Est GFR (MDRD) Af Amer 125, Est GFR (MDRD) Non-Af 103, BUN/Creatinine Ratio 24.2 H, Glucose 99, Calcium 8.8, Phosphorus 3.9, Magnesium 1.8, Total Bilirubin 0.60, AST 26, ALT 42, Alkaline Phosphatase 69, C-React Prot Ext Range 51.20 H, Total Protein 6.1 L, Albumin 2.1 L, Globulin 4.0, Albumin/Globulin Ratio 0.5 L 04/17/20 06:00: Lactic Acid 1.4 Current Medications Acetaminophen (Acetaminophen 325 Mg Tablet) 650 mg PO Q6H PRN PRN PRN Reason: HEADACHE(1-10)/FEVER (T>100F) Last Admin: 04/13/20 08:58 Dose: 650 mg Documented by: Albuterol Sulfate (Albuterol Ih 8.5 Gm (Proair) Inhaler (200 Puffs)) 2 puff INHALATION Q4H PRN PRN PRN Reason: Shortness of breath, wheezing Last Admin: 04/15/20 03:43 Dose: 2 puff Documented by: Atorvastatin Calcium (Atorvastatin Calcium 40 Mg Tablet) 40 mg PO QHS [facility] Last Admin: 04/16/20 19:56 Dose: 40 mg Documented by: Carvedilol (Carvedilol 3.125 Mg Tablet) 3.125 mg PO BIDCM [facility] Last Admin: 04/16/20 17:12 Dose: 3.125 mg Documented by: Dexamethasone Sodium Phosphate (Dexamethasone 10 Mg/Ml Vial) 6 mg IV DAILY [facility] Last Admin: 04/16/20 08:17 Dose: 6 mg Documented by: Doxazosin Mesylate (Doxazosin 4 Mg Tablet) 4 mg PO QHS [facility] Last Admin: 04/16/20 19:56 Dose: 4 mg Documented by: Enoxaparin Sodium (Enoxaparin 100 Mg/Ml Syringe) 100 mg SC Q12@0600,1800 [facility] Last Admin: 04/17/20 04:05 Dose: 100 mg Documented by: Furosemide (Furosemide 40 Mg/4 Ml Vial) 40 mg IV DAILY [facility] Last Admin: 04/16/20 09:15 Dose: 40 mg Documented by: Lisinopril (Lisinopril 2.5 Mg Tablet) 2.5 mg PO DAILY [facility] Last Admin: 04/16/20 08:17 Dose: 2.5 mg Documented by: Miscellaneous Information (Inhaler, Assist Devices 1 Each Spacer) 1 each INHALATION PRN PRN PRN Reason: WITH ALBUTEROL MDI Last Admin: 04/15/20 03:43 Dose: 1 each Documented by: Ondansetron HCl (Ondansetron 4 Mg/2 Ml Vial) 4 mg IV Q8H PRN PRN PRN Reason: NAUSEA/VOMITING Sodium Chloride (0.9% Saline Lock 10 Ml Syringe) 10 - 40 ml IV UD PRN PRN Reason: SALINE FLUSH Last Admin: 04/16/20 09:15 Dose: 10 ml Documented by: Ticagrelor (Ticagrelor 90 Mg Tablet) 90 mg PO BID [facility] Last Admin: 04/16/20 19:56 Dose: 90 mg Documented by: STROKE Vital Signs/Narrative: Vital Signs Pulse 04/17/20 06:00 68 Medical Necessity - Tobacco Use Smoking Status: Never smoker Assessment/Plan All Active Problems (Last Updated 04/12/20 @ 16:[address] Maryann Diaz MD) COVID-19 (Acute) Respiratory failure (Acute) Acute Hypoxemia Respiratory Failure secondary to COVID-19 pneumonia: Titrate oxygen to keep pulse ox 92%. -continue Decadron 6 mg daily for 10 days. ID consult reviewed. Already more than 2 weeks therefore doubt benefit from plasma and remdesivir. -CT neg for PE -continue Lovenox 100 BID for now -plan is to hold off on Remdesivir and convalescent plasma for now as pt started with started on 03/31. His symptoms started on 04/04. 04/16: I talked to the patient's son, Mr Gonsales on 04/15 and updated the clinical information. Lactic acid still high 3.3 on 04/15. Patient seems well-hydrated. 6950 mL urine output. Positive fluid balance 3.1 L. Chest x-ray reviewed and shows progression of bilateral peripheral infiltrates. Discussed with ID. Since no benefit for antibiotics. Sputum culture was ordered. 04/17: Patient oxygenation status remains same. Not tachypneic. Lactic acidosis suspected secondary to hypoxia and dehydration: Patient lactic acid was 3.6, 2.4 and then 2.6. Lactic acid elevated 3.3, patient does not look septic and is well hydrated. Mild hyponatremia: Corrected. 04/17: Lactic acid corrected 1.4 probably was related to hypoxemia. On Lasix 40 mg IV daily. HFpEF compensated, chronic systolic and diastolic heart failure: -BNP not markedly elevated -ECHO from 06/2019 shows EF of 30%, stage 2 diastolic dysfunction -continue Coreg, lisinopril Coronary artery disease, hypertension and dyslipidemia: -last PCI 03/2019 -continue Brilinta/Coreg/Lisinopril/statin -hold ASA while on Brilinta and full dose LMWH, enoxaparin -avoid triple therapy. H&H 13.5/40.3 BPH -takes no chronic meds Obesity -recommend wgt loss H/O nephrolithiasis -no current issues DVT prophylaxis -full dose LMWH Code status -Full Inpatient E&M: 60649 [facility] Hosp L2
[2020-04-17] MEDS: Lisinopril 2.5 MG Tablet PO (09:17)
[2020-04-17] MEDS: TICAGRELOR 90 MG TABLET PO ×2 (09:17→20:49)
[2020-04-17] MEDS: Carvedilol 3.125 MG TABLET PO (09:17)
[2020-04-17] MEDS: dexAMETHasone 10 MG/ML Vial 6 MG IV (09:18)
[2020-04-17] MEDS: Furosemide 40 MG/4 ML Vial IV (09:19)
[2020-04-17] MEDS: 0.9% Saline Lock 10 ML Syringe IV (09:20)
--- NOTE | 2020-04-17 13:54 | PCM.PN.PUL ---
Patient Problems: Active and Suspected Problems (Last Updated 04/12/20 @ 16:[address] Maryann Diaz MD) COVID-19 (Acute) Respiratory failure (Acute) Subjective: The patient was seen and examined at the bedside this morning. Events from the last 24 hours have been reviewed. The patient is currently afebrile, hemodynamically stable and maintaining appropriate oxygen saturations on 9 L/min via nasal cannula. Objective: The patient's most recent lab work, culture data and imaging studies have all been personally reviewed. Surface echocardiogram from June 2019 revealed a mildly dilated LV with an ejection fraction of 30%. Pulmonary artery systolic pressure was estimated to be 34 mmHg. Coronavirus PCR was positive on April 12. Blood cultures have not shown any growth to date. - Physical Exam Vitals/I&O's: Vital Signs Temp Pulse Resp BP Pulse Ox 98.4 F 63 16 94/65 93 04/17/20 12:03 04/17/20 12:03 04/17/20 12:03 04/17/20 12:03 04/17/20 12:03 Oxygen Flow Rate (L/min) 9 Oxygen Delivery Method Nasal Cannula Weight: 229 lb 4.986 oz Body Mass Index (BMI) 31.1 Intake and Output for Last 24 Hours 04/15/20 04/16/20 04/17/20 23:59 23:59 23:59 Intake Total 2343.33 / 2343.33 1740 / 1740 Output Total 1650 / 1650 2525 / 2525 1750 / 1750 Balance 693.33 / 693.33 -785 / -785 -1750 / -1750 General: Alert, No apparent distress HEENT: Atraumatic, Normocephalic Oral: Moist Mucosa Neck: Supple, No Nodes, Trachea Midline Lungs: No rhonchi, No wheeze, No rales, Diminished Cardiovascular: Regular rate, Regular Rhythm Abdomen: Bowel Sounds Present, Soft, Non Tender Extremities: No clubbing, No cyanosis, No edema Skin: No breakdown Musculoskeletal: No Tenderness to Palpation of Joints or Extremities Lymphatic: No Cervical, Supraclavicular, or Inguinal Adenopathy Neurological: Cranial nerves II-XII grossly intact, Neuro grossly intact Psych/Mental Status: Normal Affect, Appropriate Labs (Last 48 Hours) 04/16/20 04/17/20 04/17/20 06:10 06:00 06:00 WBC 7.3 RBC 4.00 L Hgb 12.6 L Hct 37.6 L MCV 94.0 MCH 31.5 MCHC 33.5 RDW Std Deviation 44.3 H RDW Coeff of Margarette 12.7 Plt Count 380 MPV 10.4 Immature Gran % (Auto) 2.600 H Neut % (Auto) 82.8 H Lymph % (Auto) 5.1 L Branch % (Auto) 8.9 Eos % (Auto) 0.5 Baso % (Auto) 0.1 Absolute Neuts (auto) 6.0 Absolute Lymphs (auto) 0.37 L Nucleated RBC % 0 Differential Comment SCANNED Sodium 139 Potassium 4.2 Chloride 108 H Carbon Dioxide 24.0 Anion Gap 7 BUN 19 H Creatinine 0.78 Estim Creat Clear Calc 73.29 Est GFR (MDRD) Af Amer 125 Est GFR (MDRD) Non-Af 103 BUN/Creatinine Ratio 24.2 H Glucose 99 Lactic Acid 1.4 Calcium 8.8 Phosphorus 3.9 Magnesium 1.8 Total Bilirubin 0.60 AST 26 ALT 42 Alkaline Phosphatase 69 C-React Prot Ext Range 51.20 H Total Protein 6.1 L Albumin 2.1 L Globulin 4.0 Albumin/Globulin Ratio 0.5 L Clinical Impression(s) from Imaging Studies Chest X-Ray 04/12/20 13:50 Chest CTA 04/12/20 15:00 Chest X-Ray 04/15/20 08:30 IMPRESSION: Progressive infiltrates in both lungs preferentially in the peripheral distribution. Electronically Signed: Daniel Self, at 8:57 EDT , Service support , Current Medications Acetaminophen (Acetaminophen 325 Mg Tablet) 650 mg PO Q6H PRN PRN PRN Reason: HEADACHE(1-10)/FEVER (T>100F) Last Admin: 04/13/20 08:58 Dose: 650 mg Documented by: Albuterol Sulfate (Albuterol Ih 8.5 Gm (Proair) Inhaler (200 Puffs)) 2 puff INHALATION Q4H PRN PRN PRN Reason: Shortness of breath, wheezing Last Admin: 04/15/20 03:43 Dose: 2 puff Documented by: Atorvastatin Calcium (Atorvastatin Calcium 40 Mg Tablet) 40 mg PO QHS [facility] Last Admin: 04/16/20 19:56 Dose: 40 mg Documented by: Carvedilol (Carvedilol 3.125 Mg Tablet) 3.125 mg PO BIDCM [facility] Last Admin: 04/17/20 09:17 Dose: 3.125 mg Documented by: Dexamethasone Sodium Phosphate (Dexamethasone 10 Mg/Ml Vial) 6 mg IV DAILY [facility] Last Admin: 04/17/20 09:18 Dose: 6 mg Documented by: Doxazosin Mesylate (Doxazosin 4 Mg Tablet) 4 mg PO QHS [facility] Last Admin: 04/16/20 19:56 Dose: 4 mg Documented by: Enoxaparin Sodium (Enoxaparin 100 Mg/Ml Syringe) 100 mg SC Q12@0600,1800 [facility] Last Admin: 04/17/20 04:05 Dose: 100 mg Documented by: Furosemide (Furosemide 40 Mg/4 Ml Vial) 40 mg IV DAILY [facility] Last Admin: 04/17/20 09:19 Dose: 40 mg Documented by: Lisinopril (Lisinopril 2.5 Mg Tablet) 2.5 mg PO DAILY [facility] Last Admin: 04/17/20 09:17 Dose: 2.5 mg Documented by: Miscellaneous Information (Inhaler, Assist Devices 1 Each Spacer) 1 each INHALATION PRN PRN PRN Reason: WITH ALBUTEROL MDI Last Admin: 04/15/20 03:43 Dose: 1 each Documented by: Ondansetron HCl (Ondansetron 4 Mg/2 Ml Vial) 4 mg IV Q8H PRN PRN PRN Reason: NAUSEA/VOMITING Sodium Chloride (0.9% Saline Lock 10 Ml Syringe) 10 - 40 ml IV UD PRN PRN Reason: SALINE FLUSH Last Admin: 04/17/20 09:20 Dose: 10 ml Documented by: Ticagrelor (Ticagrelor 90 Mg Tablet) 90 mg PO BID [facility] Last Admin: 04/17/20 09:17 Dose: 90 mg Documented by: Medical Necessity - Tobacco Use Smoking Status: Never smoker Assessment/Plan All Active Problems (Last Updated 04/12/20 @ 16:[address] Maryann Diaz MD) COVID-19 (Acute) Respiratory failure (Acute) RECOMMENDATIONS: 1. Continue to wean supplemental oxygen to maintain saturations at or above 90%. 2. Continue therapeutic Lovenox. 3. Continue Decadron 6 mg daily x10 days. 4. Continue attempts at gentle diuresis as tolerated by hemodynamics and renal function. 5. Encourage incentive spirometer use and mobilize patient as tolerated. IMPRESSIONS: 1. Acute hypoxic respiratory failure secondary to acute bilateral COVID-19 pneumonia The patient has apparently had 2 weeks of respiratory symptoms and was subsequently found to be positive for coronavirus. Plan to continue current supportive measures with supplemental oxygen to maintain saturations at or above 90%. Plan to continue Decadron 6 mg daily x10 days. Continue systemic anticoagulation with Lovenox. Given the duration of symptoms, it is unlikely that the patient would benefit from remdesivir or convalescent plasma. Continue attempts at gentle diuresis as tolerated by hemodynamics and renal function. 2. Chronic systolic CHF secondary to ischemic cardiomyopathy with CAD status post stents Continue home medications as indicated. Continue IV Lasix daily. 3. Hyperlipidemia/obesity/advanced age/suspected JANAK Complicates care, management, recovery and prognosis. Continue home medications as indicated. This note was generated with Mobi dictation software. It may contain incorrect words, spelling, and punctuation that were not noted in checking the note before signing. Inpatient E&M: 64820 Subs Hosp L2
--- NOTE | 2020-04-17 14:51 | PN.ID_ITS ---
Patient Problems: Active and Suspected Problems (Last Updated 04/12/20 @ 16:[address] Maryann Diaz MD) COVID-19 (Acute) Respiratory failure (Acute) Subjective: Feeling better today, no fever, still on 9L this AM. - Physical Exam Vitals/I&O's: Vital Signs Temp Pulse Resp BP Pulse Ox 98.1 F 64 16 98/62 90 04/17/20 14:07 04/17/20 14:37 04/17/20 14:07 04/17/20 14:07 04/17/20 14:07 Oxygen Flow Rate (L/min) 9 Oxygen Delivery Method Nasal Cannula Weight: 104.014 kg Body Mass Index (BMI) 31.1 Intake and Output for Last 24 Hours 04/15/20 04/16/20 04/17/20 23:59 23:59 23:59 Intake Total 2343.33 / 2343.33 1740 / 1740 Output Total 1650 / 1650 2525 / 2525 2750 / 2750 Balance 693.33 / 693.33 -785 / -785 -2750 / -2750 General: Alert, Cooperative, No apparent distress Lungs: Clear to auscultation, Diminished Cardiovascular: Regular rate, Regular Rhythm Abdomen: Soft, Non Tender, Non-Distended Skin: No rashes Microbiology Past 72 Hours 04/12/20 13:30 Blood Culture (Wb) - Left Hand Blood Culture - Final No growth in 5 days. 04/12/20 13:30 Blood Culture (Wb) - Right Hand Blood Culture - Final No growth in 5 days. Laboratory Results 04/17/20 06:00: Sodium 139, Potassium 4.2, Chloride 108 H, Carbon Dioxide 24.0, Anion Gap 7, BUN 19 H, Creatinine 0.78, Estim Creat Clear Calc 73.29, Est GFR (MDRD) Af Amer 125, Est GFR (MDRD) Non-Af 103, BUN/Creatinine Ratio 24.2 H, Glucose 99, Calcium 8.8, Phosphorus 3.9, Magnesium 1.8, Total Bilirubin 0.60, AST 26, ALT 42, Alkaline Phosphatase 69, C-React Prot Ext Range 51.20 H, Total Protein 6.1 L, Albumin 2.1 L, Globulin 4.0, Albumin/Globulin Ratio 0.5 L 04/17/20 06:00: Lactic Acid 1.4 Current Medications Acetaminophen (Acetaminophen 325 Mg Tablet) 650 mg PO Q6H PRN PRN PRN Reason: HEADACHE(1-10)/FEVER (T>100F) Last Admin: 04/13/20 08:58 Dose: 650 mg Documented by: Albuterol Sulfate (Albuterol Ih 8.5 Gm (Proair) Inhaler (200 Puffs)) 2 puff INHALATION Q4H PRN PRN PRN Reason: Shortness of breath, wheezing Last Admin: 04/15/20 03:43 Dose: 2 puff Documented by: Atorvastatin Calcium (Atorvastatin Calcium 40 Mg Tablet) 40 mg PO QHS [facility] Last Admin: 04/16/20 19:56 Dose: 40 mg Documented by: Carvedilol (Carvedilol 3.125 Mg Tablet) 3.125 mg PO BIDCM [facility] Last Admin: 04/17/20 09:17 Dose: 3.125 mg Documented by: Dexamethasone Sodium Phosphate (Dexamethasone 10 Mg/Ml Vial) 6 mg IV DAILY [facility] Last Admin: 04/17/20 09:18 Dose: 6 mg Documented by: Doxazosin Mesylate (Doxazosin 4 Mg Tablet) 4 mg PO QHS [facility] Last Admin: 04/16/20 19:56 Dose: 4 mg Documented by: Enoxaparin Sodium (Enoxaparin 100 Mg/Ml Syringe) 100 mg SC Q12@0600,1800 [facility] Last Admin: 04/17/20 04:05 Dose: 100 mg Documented by: Furosemide (Furosemide 40 Mg/4 Ml Vial) 40 mg IV DAILY [facility] Last Admin: 04/17/20 09:19 Dose: 40 mg Documented by: Lisinopril (Lisinopril 2.5 Mg Tablet) 2.5 mg PO DAILY [facility] Last Admin: 04/17/20 09:17 Dose: 2.5 mg Documented by: Miscellaneous Information (Inhaler, Assist Devices 1 Each Spacer) 1 each IN HALATION PRN PRN PRN Reason: WITH ALBUTEROL MDI Last Admin: 04/15/20 03:43 Dose: 1 each Documented by: Ondansetron HCl (Ondansetron 4 Mg/2 Ml Vial) 4 mg IV Q8H PRN PRN PRN Reason: NAUSEA/VOMITING Sodium Chloride (0.9% Saline Lock 10 Ml Syringe) 10 - 40 ml IV UD PRN PRN Reason: SALINE FLUSH Last Admin: 04/17/20 09:20 Dose: 10 ml Documented by: Ticagrelor (Ticagrelor 90 Mg Tablet) 90 mg PO BID [facility] Last Admin: 04/17/20 09:17 Dose: 90 mg Documented by: Medical Necessity - Tobacco Use Smoking Status: Never smoker Route of nutrition/ use of supplements: [] Nutritional Intake: [] IV Site: [] Rivera Catheter: [] - Assessment/Plan Antibiotics: [] Assessment/Plan: [] Active and Suspected Problems (Last Updated 04/12/20 @ 16:[address] Maryann Diaz MD) COVID-19 (Acute) Respiratory failure (Acute) acute hypoxic resp failure due to covid - on steroids. Given timing of symptoms, doubt benefit from plasma and remdesivir. No PE seen on CT. Remains on 9L, feeling better Will follow
[2020-04-17] MEDS: Doxazosin 4 MG Tablet PO (20:49)
[2020-04-17] MEDS: Atorvastatin Calcium 40 MG Tablet PO (20:50)
[2020-04-18] VITALS (10 sets, daily range): BP systolic 97–132; BP diastolic 59–73; PULSE 64–83; RESP 16–19; TEMP 36.2–37; O2SAT 92–96
[2020-04-18] MEDS: Enoxaparin 100 MG/ML Syringe SC ×2 (05:01→18:15)
--- NOTE | 2020-04-18 07:24 | PN_ITS ---
Patient Problems: Active and Suspected Problems (Last Updated 04/12/20 @ 16:[address] Maryann Diaz MD) COVID-19 (Acute) Respiratory failure (Acute) Reason for Visit: Follow-up for COVID-19 pneumonia and cardiac comorbidity Objective: No fever. Oxygen therapy on 8 L of oxygen. Patient blood pressure was low yesterday after giving Lasix and currently 123 systolic. Lasix discontinued. She does not have leg edema. Physical exam General: Alert, Oriented x3, Cooperative HEENT: Atraumatic, PERRLA, EOMI, Normocephalic Oral: No Gingival or Mucosal Lesions/ Ulcerations Neck: Supple, No JVD, Negative Carotid Bruits Lungs: Air entry diminished in bilateral lung bases. Bilateral fine crackles p resent. Cardiovascular: Regular rate, Regular Rhythm, Normal S1, Normal S2, No murmurs Abdomen: Bowel Sounds Present, Soft, Non Tender, Non-Distended : No renal angle tenderness. No suprapubic tenderness. Extremities: No edema, Capillary Refill Less than 3 Seconds Skin: No rashes, No breakdown Musculoskeletal: No Tenderness to Palpation of Joints or Extremities Neurological: Cranial nerves II-XII grossly intact, Deep Tendon Reflexes 2+/4 and Symmetrical, Neuro grossly intact Psych/Mental Status: Normal Affect, Appropriate. Vitals/I&O's: Vital Signs Temp Pulse Resp BP Pulse Ox 97.9 F 64 19 H 132/73 H 93 04/18/20 04:30 04/18/20 04:30 04/18/20 04:30 04/18/20 04:30 04/18/20 04:30 Oxygen Flow Rate (L/min) 8 Oxygen Delivery Method Nasal Cannula Weight: 229 lb 4.986 oz Body Mass Index (BMI) 31.1 Intake and Output for Last 24 Hours 04/16/20 04/17/20 04/18/20 23:59 23:59 23:59 Intake Total 1740 / 1740 850 / 850 250 / 250 Output Total 2525 / 2525 3600 / 3600 400 / 400 Balance -785 / -785 -2750 / -2750 -150 / -150 Microbiology Past 72 Hours 04/12/20 13:30 Blood Culture (Wb) - Left Hand Blood Culture - Final No growth in 5 days. 04/12/20 13:30 Blood Culture (Wb) - Right Hand Blood Culture - Final No growth in 5 days. Current Medications Acetaminophen (Acetaminophen 325 Mg Tablet) 650 mg PO Q6H PRN PRN PRN Reason: HEADACHE(1-10)/FEVER (T>100F) Last Admin: 04/13/20 08:58 Dose: 650 mg Documented by: Albuterol Sulfate (Albuterol Ih 8.5 Gm (Proair) Inhaler (200 Puffs)) 2 puff INHALATION Q4H PRN PRN PRN Reason: Shortness of breath, wheezing Last Admin: 04/15/20 03:43 Dose: 2 puff Documented by: Atorvastatin Calcium (Atorvastatin Calcium 40 Mg Tablet) 40 mg PO QHS [facility] Last Admin: 04/17/20 20:50 Dose: 40 mg Documented by: Carvedilol (Carvedilol 3.125 Mg Tablet) 3.125 mg PO BIDCM [facility] Last Admin: 04/17/20 17:05 Dose: Not Given Documented by: Dexamethasone Sodium Phosphate (Dexamethasone 10 Mg/Ml Vial) 6 mg IV DAILY [facility] Last Admin: 04/17/20 09:18 Dose: 6 mg Documented by: Doxazosin Mesylate (Doxazosin 4 Mg Tablet) 4 mg PO QHS [facility] Last Admin: 04/17/20 20:49 Dose: 4 mg Documented by: Enoxaparin Sodium (Enoxaparin 100 Mg/Ml Syringe) 100 mg SC Q12@0600,1800 [facility] Last Admin: 04/18/20 05:01 Dose: 100 mg Documented by: Furosemide (Furosemide 40 Mg/4 Ml Vial) 40 mg IV DAILY [facility] Last Admin: 04/17/20 09:19 Dose: 40 mg Documented by: Lisinopril (Lisinopril 2.5 Mg Tablet) 2.5 mg PO DAILY [facility] Last Admin: 04/17/20 09:17 Dose: 2.5 mg Documented by: Miscellaneous Information (Inhaler, Assist Devices 1 Each Spacer) 1 each INHALATION PRN PRN PRN Reason: WITH ALBUTEROL MDI Last Admin: 04/15/20 03:43 Dose: 1 each Documented by: Ondansetron HCl (Ondansetron 4 Mg/2 Ml Vial) 4 mg IV Q8H PRN PRN PRN Reason: NAUSEA/VOMITING Sodium Chloride (0.9% Saline Lock 10 Ml Syringe) 10 - 40 ml IV UD PRN PRN Reason: SALINE FLUSH Last Admin: 04/17/20 09:20 Dose: 10 ml Documented by: Ticagrelor (Ticagrelor 90 Mg Tablet) 90 mg PO BID [facility] Last Admin: 04/17/20 20:49 Dose: 90 mg Documented by: STROKE Vital Signs/Narrative: Vital Signs Temp Pulse Resp BP Pulse Ox 04/18/20 04:30 97.9 F 64 19 H 132/73 H 93 Medical Necessity - Tobacco Use Smoking Status: Never smoker Assessment/Plan All Active Problems (Last Updated 04/12/20 @ 16:[address] Maryann Diaz MD) COVID-19 (Acute) Respiratory failure (Acute) Acute Hypoxemia Respiratory Failure secondary to COVID-19 pneumonia: Titrate oxygen to keep pulse ox 92%. -continue Decadron 6 mg daily for 10 days. ID consult reviewed. Already more than 2 weeks therefore doubt benefit from plasma and remdesivir. -CT neg for PE -continue Lovenox 100 BID for now -plan is to hold off on Remdesivir and convalescent plasma for now as pt started with started on 03/31. His symptoms started on 04/04. 04/16: I talked to the patient's son, Mr Gonsales on 04/15 and updated the clinical information. Lactic acid still high 3.3 on 04/15. Patient seems well-hydrated. 6950 mL urine output. Positive fluid balance 3.1 L. Chest x-ray reviewed and shows progression of bilateral peripheral infiltrates. Discussed with ID. Since no benefit for antibiotics. Sputum culture was ordered. 04/17: Patient oxygenation status remains same. Not tachypneic. 04/18: On 8 L of oxygen. Lasix discontinued. Mild hypotension on low-dose Coreg 3.125 mg twice daily and lisinopril 2.5 mg daily. Advised to spread out antihypertensive with a gap of 3 hours. Lactic acidosis suspected secondary to hypoxia and dehydration: Patient lactic acid was 3.6, 2.4 and then 2.6. Lactic acid elevated 3.3, patient does not look septic and is well hydrated. Mild hyponatremia: Corrected. 04/17: Lactic acid corrected 1.4 probably was related to hypoxemia. On Lasix 40 mg IV daily. HFpEF compensated, chronic systolic and diastolic heart failure: -BNP not markedly elevated -ECHO from 06/2019 shows EF of 30%, stage 2 diastolic dysfunction -continue Coreg, lisinopril Coronary artery disease, hypertension and dyslipidemia: -last PCI 03/2019 -continue Brilinta/Coreg/Lisinopril/statin -hold ASA while on Brilinta and full dose LMWH, enoxaparin -avoid triple therapy. H&H 13.5/40.3 BPH -takes no chronic meds Obesity -recommend wgt loss H/O nephrolithiasis -no current issues DVT prophylaxis -full dose LMWH Code status -Full Active Medications Acetaminophen (Acetaminophen 325 Mg Tablet) 650 mg PO Q6H PRN PRN PRN Reason: HEADACHE(1-10)/FEVER (T>100F) Last Admin: 04/13/20 08:58 Dose: 650 mg Documented by: Albuterol Sulfate (Albuterol Ih 8.5 Gm (Proair) Inhaler (200 Puffs)) 2 puff INHALATION Q4H PRN PRN PRN Reason: Shortness of breath, wheezing Last Admin: 04/15/20 03:43 Dose: 2 puff Documented by: Atorvastatin Calcium (Atorvastatin Calcium 40 Mg Tablet) 40 mg PO QHS [facility] Last Admin: 04/17/20 20:50 Dose: 40 mg Documented by: Carvedilol (Carvedilol 3.125 Mg Tablet) 3.125 mg PO BIDCM [facility] Last Admin: 04/18/20 08:28 Dose: 3.125 mg Documented by: Dexamethasone Sodium Phosphate (Dexamethasone 10 Mg/Ml Vial) 6 mg IV DAILY [facility] Last Admin: 04/18/20 08:29 Dose: 6 mg Documented by: Doxazosin Mesylate (Doxazosin 4 Mg Tablet) 4 mg PO QHS [facility] Last Admin: 04/17/20 20:49 Dose: 4 mg Documented by: Enoxaparin Sodium (Enoxaparin 100 Mg/Ml Syringe) 100 mg SC Q12@0600,1800 [facility] Last Admin: 04/18/20 05:01 Dose: 100 mg Documented by: Lisinopril (Lisinopril 2.5 Mg Tablet) 2.5 mg PO DAILY [facility] Last Admin: 04/18/20 11:23 Dose: Not Given Documented by: Miscellaneous Information (Inhaler, Assist Devices 1 Each Spacer) 1 each INHALATION PRN PRN PRN Reason: WITH ALBUTEROL MDI Last Admin: 04/15/20 03:43 Dose: 1 each Documented by: Ondansetron HCl (Ondansetron 4 Mg/2 Ml Vial) 4 mg IV Q8H PRN PRN PRN Reason: NAUSEA/VOMITING Sodium Chloride (0.9% Saline Lock 10 Ml Syringe) 10 - 40 ml IV UD PRN PRN Reason: SALINE FLUSH Last Admin: 04/18/20 08:29 Dose: 10 ml Documented by: Ticagrelor (Ticagrelor 90 Mg Tablet) 90 mg PO BID [facility] Last Admin: 04/18/20 08:29 Dose: 90 mg Documented by: Inpatient E&M: [id number] Subs Hosp L2
[2020-04-18 08:14] LABS: ALB/GLOB Ratio 0.6 RATIO (0.9-2.4); AST(SGOT) 23 U/L (15-37); Alanine Aminotransfer ALT/SGPT 47 U/L (16-61); Albumin, Serum 2.3 g/dL (3.2-5.0); Alkaline Phosphatase 70 U/L (45-117); Anion Gap 6 (5-15); BUN 23 mg/dL (7-18); BUN/Creat Ratio 28.6 RATIO (10-20); Calcium,Total 8.8 mg/dL (8.5-10.1); Chloride 105 mmol/L (98-107); EST Glomerular Filtration Rate 100 mL/min (>60); Est Glom Filt Rate - Afr Amer 121 mL/min (>60); Estimated Creatinine Clearance 91.61 ml/min; Globulin 4.1 g/dL (2.2-4.2); Glucose 91 mg/dL (74-106); Potassium 4.4 mmol/L (3.5-5.1); Protein, Total 6.4 g/dL (6.4-8.2); Sodium Level 136 mmol/L (136-145)
[2020-04-18] MEDS: Carvedilol 3.125 MG TABLET PO (08:28)
[2020-04-18] MEDS: TICAGRELOR 90 MG TABLET PO ×2 (08:29→21:38)
[2020-04-18] MEDS: dexAMETHasone 10 MG/ML Vial 6 MG IV (08:29)
[2020-04-18] MEDS: 0.9% Saline Lock 10 ML Syringe IV (08:29)
--- NOTE | 2020-04-18 14:15 | NURSING ---
turned o2 to 7l nc
--- NOTE | 2020-04-18 15:35 | PN.ID_ITS ---
Patient Problems: Active and Suspected Problems (Last Updated 04/12/20 @ 16:[address] Maryann Diaz MD) COVID-19 (Acute) Respiratory failure (Acute) Subjective: Feeling better slowly no fever, no n/v/d. - Physical Exam Vitals/I&O's: Vital Signs Temp Pulse Resp BP Pulse Ox 97.6 F L 79 16 97/59 L 96 04/18/20 14:03 04/18/20 14:03 04/18/20 14:03 04/18/20 14:03 04/18/20 14:03 Oxygen Flow Rate (L/min) 8 Oxygen Delivery Method Nasal Cannula Weight: 104.014 kg Body Mass Index (BMI) 31.1 Intake and Output for Last 24 Hours 04/16/20 04/17/20 04/18/20 23:59 23:59 23:59 Intake Total 1740 / 1740 850 / 850 250 / 250 Output Total 2525 / 2525 3600 / 3600 800 / 800 Balance -785 / -785 -2750 / -2750 -550 / -550 General: Alert, Cooperative, No apparent distress Lungs: Clear to auscultation, Diminished Cardiovascular: Regular rate, Regular Rhythm Abdomen: Soft, Non Tender, Non-Distended Skin: No rashes Microbiology Past 72 Hours 04/12/20 13:30 Blood Culture (Wb) - Left Hand Blood Culture - Final No growth in 5 days. 04/12/20 13:30 Blood Culture (Wb) - Right Hand Blood Culture - Final No growth in 5 days. Laboratory Results 04/18/20 07:27: Sodium 136, Potassium 4.4, Chloride 105, Carbon Dioxide 25.0, Anion Gap 6, BUN 23 H, Creatinine 0.80, Estim Creat Clear Calc 91.61, Est GFR (MDRD) Af Amer 121, Est GFR (MDRD) Non-Af 100, BUN/Creatinine Ratio 28.6 H, Glucose 91, Calcium 8.8, Magnesium 2.0, Total Bilirubin 0.60, AST 23, ALT 47, Alkaline Phosphatase 70, Total Protein 6.4, Albumin 2.3 L, Globulin 4.1, Albumin/Globulin Ratio 0.6 L Current Medications Acetaminophen (Acetaminophen 325 Mg Tablet) 650 mg PO Q6H PRN PRN PRN Reason: HEADACHE(1-10)/FEVER (T>100F) Last Admin: 04/13/20 08:58 Dose: 650 mg Documented by: Albuterol Sulfate (Albuterol Ih 8.5 Gm (Proair) Inhaler (200 Puffs)) 2 puff INHALATION Q4H PRN PRN PRN Reason: Shortness of breath, wheezing Last Admin: 04/15/20 03:43 Dose: 2 puff Documented by: Atorvastatin Calcium (Atorvastatin Calcium 40 Mg Tablet) 40 mg PO QHS [facility] Last Admin: 04/17/20 20:50 Dose: 40 mg Documented by: Carvedilol ([facility] 3.125 Mg Tablet) [facility] Last Admin: 04/18/20 08:28 Dose: 3.125 mg Documented by: Dexamethasone Sodium Phosphate (Dexamethasone 10 Mg/Ml Vial) 6 mg IV DAILY [facility] Last Admin: 04/18/20 08:29 Dose: 6 mg Documented by: Doxazosin Mesylate (Doxazosin 4 Mg Tablet) 4 mg PO QHS [facility] Last Admin: 04/17/20 20:49 Dose: 4 mg Documented by: Enoxaparin Sodium (Enoxaparin 100 Mg/Ml Syringe) 100 mg SC Q12@0600,1800 [facility] Last Admin: 04/18/20 05:01 Dose: 100 mg Documented by: Lisinopril (Lisinopril 2.5 Mg Tablet) 2.5 mg PO DAILY [facility] Last Admin: 04/18/20 13:15 Dose: Not Given Documented by: Miscellaneous Information (Inhaler, Assist Devices 1 Each Spacer) 1 each INHALATION PRN PRN PRN Reason: WITH ALBUTEROL MDI Last Admin: 04/15/20 03:43 Dose: 1 each Documented by: Ondansetron HCl (Ondansetron 4 Mg/2 Ml Vial) 4 mg IV Q8H PRN PRN PRN Reason: NAUSEA/VOMITING Sodium Chloride (0.9% Saline Lock 10 Ml Syringe) 10 - 40 ml IV UD PRN PRN Reason: SALINE FLUSH Last Admin: 04/18/20 08:29 Dose: 10 ml Documented by: Ticagrelor (Ticagrelor 90 Mg Tablet) 90 mg PO BID [facility] Last Admin: 04/18/20 08:29 Dose: 90 mg Documented by: Medical Necessity - Tobacco Use Smoking Status: Never smoker Route of nutrition/ use of supplements: [] Nutritional Intake: [] IV Site: [] Rivera Catheter: [] - Assessment/Plan Antibiotics: [] Assessment/Plan: [] Active and Suspected Problems (Last Updated 04/12/20 @ 16:[address] Maryann Diaz MD) COVID-19 (Acute) Respiratory failure (Acute) acute hypoxic resp failure due to covid - on steroids. Given timing of symptoms, doubt benefit from plasma and remdesivir. No PE seen on CT. Reduced to 8L, feeling better Will follow
[2020-04-18] MEDS: Atorvastatin Calcium 40 MG Tablet PO (21:38)
[2020-04-18] MEDS: Doxazosin 4 MG Tablet PO (21:38)
[2020-04-19] VITALS (11 sets, daily range): BP systolic 101–121; BP diastolic 61–74; PULSE 58–97; RESP 17–20; TEMP 36.5–36.9; O2SAT 92–96
[2020-04-19] MEDS: Enoxaparin 100 MG/ML Syringe SC ×2 (05:09→16:16)
[2020-04-19] MEDS: TICAGRELOR 90 MG TABLET PO ×2 (08:03→22:30)
[2020-04-19] MEDS: dexAMETHasone 10 MG/ML Vial 6 MG IV (08:03)
[2020-04-19] MEDS: Carvedilol 3.125 MG TABLET PO ×2 (08:03→16:16)
[2020-04-19] MEDS: Lisinopril 2.5 MG Tablet PO (08:03)
[2020-04-19] MEDS: 0.9% Saline Lock 10 ML Syringe IV (08:04)
--- NOTE | 2020-04-19 11:12 | PN_ITS ---
Patient Problems: Active and Suspected Problems (Last Updated 04/12/20 @ 16:[address] Maryann Diaz MD) COVID-19 (Acute) Respiratory failure (Acute) Objective: Patient requirement has come down, currently on 5 L of oxygen. Denies shortness of breath on exertion. No fever or chills. Heart rate and blood pressure is controlled. Physical exam General: Alert, Oriented x3, Cooperative HEENT: Atraumatic, PERRLA, EOMI, Normocephalic Oral: No Gingival or Mucosal Lesions/ Ulcerations Neck: Supple, No JVD, Negative Carotid Bruits Lungs: Air entry diminished in bilateral lung bases. Bilateral fine crackles present, improved. Cardiovascular: Regular rate, Regular Rhythm, Normal S1, Normal S2, No murmurs Abdomen: Bowel Sounds Present, Soft, Non Tender, Non-Distended : No renal angle tenderness. No suprapubic tenderness. Extremities: Mild chronic right leg edema more than left as per patient, Capillary Refill Less than 3 Seconds Skin: No rashes, No breakdown Musculoskeletal: No Tenderness to Palpation of Joints or Extremities Neurological: Cranial nerves II-XII grossly intact, Deep Tendon Reflexes 2+/4 and Symmetrical, Neuro grossly intact Psych/Mental Status: Normal Affect, Appropriate. Vitals/I&O's: Vital Signs Temp Pulse Resp BP Pulse Ox 98.5 F 65 17 117/68 94 04/19/20 08:00 04/19/20 08:00 04/19/20 08:00 04/19/20 08:00 04/19/20 08:00 Oxygen Flow Rate (L/min) 5 Oxygen Delivery Method Nasal Cannula Weight: 229 lb 4.986 oz Body Mass Index (BMI) 31.1 Intake and Output for Last 24 Hours 04/17/20 04/18/20 04/19/20 23:59 23:59 23:59 Intake Total 850 / 850 400 / 400 300 / 300 Output Total 3600 / 3600 1200 / 1200 1000 / 1000 Balance -2750 / -2750 -800 / -800 -700 / -700 Microbiology Past 72 Hours 04/12/20 13:30 Blood Culture (Wb) - Left Hand Blood Culture - Final No growth in 5 days. 04/12/20 13:30 Blood Culture (Wb) - Right Hand Blood Culture - Final No growth in 5 days. Current Medications Acetaminophen (Acetaminophen 325 Mg Tablet) 650 mg PO Q6H PRN PRN PRN Reason: HEADACHE(1-10)/FEVER (T>100F) Last Admin: 04/13/20 08:58 Dose: 650 mg Documented by: Albuterol Sulfate (Albuterol Ih 8.5 Gm (Proair) Inhaler (200 Puffs)) 2 puff INHALATION Q4H PRN PRN PRN Reason: Shortness of breath, wheezing Last Admin: 04/15/20 03:43 Dose: 2 puff Documented by: Atorvastatin Calcium (Atorvastatin Calcium 40 Mg Tablet) 40 mg PO QHS [facility] Last Admin: 04/18/20 21:38 Dose: 40 mg Documented by: Car[facility]ilol ([facility] 3.125 Mg [facility] Last Admin: 04/19/20 08:03 Dose: 3.125 mg Documented by: Dexamethasone Sodium Phosphate (Dexamethasone 10 Mg/Ml Vial) 6 mg IV DAILY [facility] Last Admin: 04/19/20 08:03 Dose: 6 mg Documented by: Doxazosin Mesylate (Doxazosin 4 Mg Tablet) 4 mg PO QHS [facility] Last Admin: 04/18/20 21:38 Dose: 4 mg Documented by: Enoxaparin Sodium (Enoxaparin 100 Mg/Ml Syringe) 100 mg SC Q12@0600,1800 [facility] Last Admin: 04/19/20 05:09 Dose: 100 mg Documented by: Lisinopril (Lisinopril 2.5 Mg Tablet) 2.5 mg PO DAILY [facility] Last Admin: 04/19/20 08:03 Dose: 2.5 mg Documented by: Miscellaneous Information (Inhaler, Assist Devices 1 Each Spacer) 1 each INHALATION PRN PRN PRN Reason: WITH ALBUTEROL MDI Last Admin: 04/15/20 03:43 Dose: 1 each Documented by: Ondansetron HCl (Ondansetron 4 Mg/2 Ml Vial) 4 mg IV Q8H PRN PRN PRN Reason: NAUSEA/VOMITING Sodium Chloride (0.9% Saline Lock 10 Ml Syringe) 10 - 40 ml IV UD PRN PRN Reason: SALINE FLUSH Last Admin: 04/19/20 08:04 Dose: 10 ml Documented by: Ticagrelor (Ticagrelor 90 Mg Tablet) 90 mg PO BID [facility] Last Admin: 04/19/20 08:03 Dose: 90 mg Documented by: STROKE Vital Signs/Narrative: Vital Signs Temp Pulse Resp BP Pulse Ox 04/19/20 08:00 98.5 F 65 17 117/68 94 Medical Necessity - Tobacco Use Smoking Status: Never smoker Assessment/Plan All Active Problems (Last Updated 04/12/20 @ 16:[address] Maryann Diaz MD) COVID-19 (Acute) Respiratory failure (Acute) Acute Hypoxemia Respiratory Failure secondary to COVID-19 pneumonia: Titrate oxygen to keep pulse ox 92%. -continue Decadron 6 mg daily for 10 days. ID consult reviewed. Already more than 2 weeks therefore doubt benefit from plasma and remdesivir. -CT neg for PE -continue Lovenox 100 BID for now -plan is to hold off on Remdesivir and convalescent plasma for now as pt started with started on 03/31. His symptoms started on 04/04. 04/16: I talked to the patient's son, Mr Gonsales on 04/15 and updated the clinical information. Lactic acid still high 3.3 on 04/15. Patient seems well-hydrated. 6950 mL urine output. Positive fluid balance 3.1 L. Chest x-ray reviewed and shows progression of bilateral peripheral infiltrates. Discussed with ID. Since no benefit for antibiotics. Sputum culture was ordered. 04/17: Patient oxygenation status remains same. Not tachypneic. 04/18: On 8 L of oxygen. Lasix discontinued. Mild hypotension on low-dose Coreg 3.125 mg twice daily and lisinopril 2.5 mg daily. Advised to spread out a ntihypertensive with a gap of 3 hours. 04/19: On 5 L of oxygen. Continue present treatment. Lasix if leg edema increase as needed. Lactic acidosis suspected secondary to hypoxia and dehydration: Patient lactic acid was 3.6, 2.4 and then 2.6. Lactic acid elevated 3.3, patient does not look septic and is well hydrated. Mild hyponatremia: Corrected. 04/17: Lactic acid corrected 1.4 probably was related to hypoxemia. On Lasix 40 mg IV daily. HFpEF compensated, chronic systolic and diastolic heart failure: -BNP not markedly elevated -ECHO from 06/2019 shows EF of 30%, stage 2 diastolic dysfunction -continue Coreg, lisinopril Coronary artery disease, hypertension and dyslipidemia: -last PCI 03/2019 -continue Brilinta/Coreg/Lisinopril/statin -hold ASA while on Brilinta and full dose LMWH, enoxaparin -avoid triple therapy. H&H 13.5/40.3 BPH -takes no chronic meds Obesity -recommend wgt loss H/O nephrolithiasis -no current issues DVT prophylaxis -full dose LMWH Code status -Full Microbiology Past 72 Hours 04/12/20 13:30 Blood Culture (Wb) - Left Hand Blood Culture - Final No growth in 5 days. 04/12/20 13:30 Blood Culture (Wb) - Right Hand Blood Culture - Final No growth in 5 days. Inpatient E&M: [id number] Subs Hosp L2
[2020-04-19] MEDS: Doxazosin 4 MG Tablet PO (22:30)
[2020-04-19] MEDS: Atorvastatin Calcium 40 MG Tablet PO (22:30)
[2020-04-20] VITALS (11 sets, daily range): BP systolic 102–123; BP diastolic 60–78; PULSE 63–87; RESP 18–20; TEMP 36.2–36.8; O2SAT 94–97
[2020-04-20] MEDS: Enoxaparin 100 MG/ML Syringe SC ×2 (05:26→16:23)
--- NOTE | 2020-04-20 05:59 | PCM.PN.PUL ---
Patient Problems: Active and Suspected Problems (Last Updated 04/12/20 @ 16:[address] Maryann Diaz MD) COVID-19 (Acute) Respiratory failure (Acute) Subjective: The patient was seen and examined at the bedside this morning. Events from the last 24 hours have been reviewed. The patient is currently afebrile, hemodynamically stable and maintaining appropriate oxygen saturations on 4 L/min via nasal cannula. The patient remains on therapeutic Lovenox and Decadron. He is currently documented to be overall net -1.9 L for the hospital admission. Objective: The patient's most recent lab work, culture data and imaging studies have all been personally reviewed. Surface echocardiogram from June 2019 revealed a mildly dilated LV with an ejection fraction of 30%. Pulmonary artery systolic pressure was estimated to be 34 mmHg. Coronavirus PCR was positive on April 12. Blood cultures have not shown any growth to date. - Physical Exam Vitals/I&O's: Vital Signs Temp Pulse Resp BP Pulse Ox 97.9 F 65 18 113/67 95 04/20/20 03:46 04/20/20 03:59 04/20/20 03:46 04/20/20 03:46 04/20/20 03:46 Oxygen Flow Rate (L/min) 4 Oxygen Delivery Method Nasal Cannula Weight: 229 lb 4.986 oz Body Mass Index (BMI) 31.1 Intake and Output for Last 24 Hours 04/18/20 04/19/20 04/20/20 23:59 23:59 23:59 Intake Total 400 / 400 1140 / 1740 870 / 870 Output Total 1200 / 1200 1000 / 2100 1825 / 1825 Balance -800 / -800 140 / -360 -955 / -955 General: Alert, Cooperative, No apparent distress HEENT: Atraumatic, Normocephalic Oral: No Gingival or Mucosal Lesions/ Ulcerations Neck: Supple, No Nodes, Trachea Midline Lungs: Diminished Cardiovascular: Regular rate, Regular Rhythm Abdomen: Bowel Sounds Present, Soft, Non Tender Extremities: No clubbing, No cyanosis, No edema Skin: No breakdown Musculoskeletal: No Tenderness to Palpation of Joints or Extremities Lymphatic: No Cervical, Supraclavicular, or Inguinal Adenopathy Neurological: Neuro grossly intact Psych/Mental Status: Normal Affect Labs (Last 48 Hours) 04/18/20 07:27 Sodium 136 Potassium 4.4 Chloride 105 Carbon Dioxide 25.0 Anion Gap 6 BUN 23 H Creatinine 0.80 Estim Creat Clear Calc 91.61 Est GFR (MDRD) Af Amer 121 Est GFR (MDRD) Non-Af 100 BUN/Creatinine Ratio 28.6 H Glucose 91 Calcium 8.8 Magnesium 2.0 Total Bilirubin 0.60 AST 23 ALT 47 Alkaline Phosphatase 70 Total Protein 6.4 Albumin 2.3 L Globulin 4.1 Albumin/Globulin Ratio 0.6 L Clinical Impression(s) from Imaging Studies Chest X-Ray 04/12/20 13:50 Chest CTA 04/12/20 15:00 Chest X-Ray 04/15/20 08:30 IMPRESSION: Progressive infiltrates in both lungs preferentially in the peripheral distribution. Electronically Signed: Daniel Self, at 8:57 EDT , Service support , Current Medications Acetaminophen (Acetaminophen 325 Mg Tablet) 650 mg PO Q6H PRN PRN PRN Reason: HEADACHE(1-10)/FEVER (T>100F) Last Admin: 04/13/20 08:58 Dose: 650 mg Documented by: Albuterol Sulfate (Albuterol Ih 8.5 Gm (Proair) Inhaler (200 Puffs)) 2 puff INHALATION Q4H PRN PRN PRN Reason: Shortness of breath, wheezing Last Admin: 04/15/20 03:43 Dose: 2 puff Documented by: Atorvastatin Calcium (Atorvastatin Calcium 40 Mg Tablet) 40 mg PO QHS [facility] Last Admin: 04/19/20 22:30 Dose: 40 mg Documented by: Carvedilol (Carvedilol 3.125 Mg Tablet) 3.125 mg PO BIDCM [facility] Last Admin: 04/19/20 16:16 Dose: 3.125 mg Documented by: Dexamethasone Sodium Phosphate (Dexamethasone 10 Mg/Ml Vial) 6 mg IV DAILY [facility] Last Admin: 04/19/20 08:03 Dose: 6 mg Documented by: Doxazosin Mesylate (Doxazosin 4 Mg Tablet) 4 mg PO QHS [facility] Last Admin: 04/19/20 22:30 Dose: 4 mg Documented by: Enoxaparin Sodium (Enoxaparin 100 Mg/Ml Syringe) 100 mg SC Q12@0600,1800 [facility] Last Admin: 04/20/20 05:26 Dose: 100 mg Documented by: Lisinopril (Lisinopril 2.5 Mg Tablet) 2.5 mg PO DAILY [facility] Last Admin: 04/19/20 08:03 Dose: 2.5 mg Documented by: Miscellaneous Information (Inhaler, Assist Devices 1 Each Spacer) 1 each INHALATION PRN PRN PRN Reason: WITH ALBUTEROL MDI Last Admin: 04/15/20 03:43 Dose: 1 each Documented by: Ondansetron HCl (Ondansetron 4 Mg/2 Ml Vial) 4 mg IV Q8H PRN PRN PRN Reason: NAUSEA/VOMITING Sodium Chloride (0.9% Saline Lock 10 Ml Syringe) 10 - 40 ml IV UD PRN PRN Reason: SALINE FLUSH Last Admin: 04/19/20 08:04 Dose: 10 ml Documented by: Ticagrelor (Ticagrelor 90 Mg Tablet) 90 mg PO BID [facility] Last Admin: 04/19/20 22:30 Dose: 90 mg Documented by: Medical Necessity - Tobacco Use Smoking Status: Never smoker Assessment/Plan All Active Problems (Last Updated 04/12/20 @ 16:[address] Maryann Diaz MD) COVID-19 (Acute) Respiratory failure (Acute) RECOMMENDATIONS: 1. Continue to wean supplemental oxygen to maintain saturations at or above 90%. 2. Continue therapeutic Lovenox. 3. Continue Decadron 6 mg daily x10 days. 4. Continue attempts at gentle diuresis as tolerated by hemodynamics and renal function. 5. Encourage incentive spirometer use and mobilize patient as tolerated. 6. Given improving oxygenation status, will sign off. Please call with any additional questions. IMPRESSIONS: 1. Acute hypoxic respiratory failure secondary to acute bilateral COVID-19 pneumonia The patient has apparently had 2 weeks of respiratory symptoms and was subsequently found to be positive for coronavirus. Plan to continue current supportive measures with supplemental oxygen to maintain saturations at or above 90%. Plan to continue Decadron 6 mg daily x10 days. Continue systemic anticoagulation with Lovenox. Given the duration of symptoms, it is unlikely that the patient would benefit from remdesivir or convalescent plasma. Continue attempts at gentle diuresis as tolerated by hemodynamics and renal function. 2. Chronic systolic CHF secondary to ischemic cardiomyopathy with CAD status post stents Continue home medications as indicated. Continue IV Lasix daily. 3. Hyperlipidemia/obesity/advanced age/suspected JANAK Complicates care, management, recovery and prognosis. Continue home medications as indicated. This note was generated with [employer] dictation software. It may contain incorrect words, spelling, and punctuation that were not noted in checking the note before signing. Inpatient E&M: 86256 Subs Hosp L2
[2020-04-20 07:03] LABS: Absolute Lymphocyte Count 0.77 X10^3/uL (0.83-4.51); Absolute Neutrophil Count 10.1 X10^3/uL (2.0-7.7); Basophil# 0.02 X10^3/uL; Basophil% 0.2 % (0-1); Eosinophil# 0.06 X10^3/uL; Eosinophils% 0.5 % (0-5); Hematocrit 41.9 % (40-54); Hemoglobin 13.9 g/dL (13.0-16.5); Lymphocyte # 0.77 X10^3/ul (4.0); Lymphocyte % 6.3 % (19-41); Mean Corp Hgb Conc 33.2 g/dL (32-36); Mean Corpuscular Hgb 31.2 pg (27.0-32.0); Mean Corpuscular Volume 94.2 fL (80-94); Mean Platelet Vol. 10.6 fl (6.2-12.0); Monocyte# 0.96 X10^3/uL; Monocyte% 7.9 % (0-10); NRBC Flagged by Analyzer 0 % (0-5); Neutrophil # 10.14 X10^3/uL (2.7-7.7); Neutrophil % 83.4 % (47-70); Platelet Count 392 K/mm3 (150-450); RBC Distribution Width CV 12.8 % (11.6-14.6); RBC Distribution Width SD 43.8 fl (35.1-43.9); Red Blood Count 4.45 M/mm3 (4.6-6.2); White Blood Count 12.2 K/mm3 (4.4-11.0)
[2020-04-20 07:17] LABS: ALB/GLOB Ratio 0.6 RATIO (0.9-2.4); AST(SGOT) 19 U/L (15-37); Alanine Aminotransfer ALT/SGPT 45 U/L (16-61); Albumin, Serum 2.3 g/dL (3.2-5.0); Alkaline Phosphatase 66 U/L (45-117); Anion Gap 7 (5-15); BUN 22 mg/dL (7-18); BUN/Creat Ratio 28.9 RATIO (10-20); Calcium,Total 8.8 mg/dL (8.5-10.1); Chloride 106 mmol/L (98-107); Creatinine, Serum 0.76 mg/dL (0.70-1.30); EST Glomerular Filtration Rate 107 mL/min (>60); Est Glom Filt Rate - Afr Amer 129 mL/min (>60); Estimated Creatinine Clearance 73.29 ml/min; Globulin 3.8 g/dL (2.2-4.2); Glucose 95 mg/dL (74-106); Magnesium 2.1 mg/dL (1.6-2.6); Potassium 4.4 mmol/L (3.5-5.1); Protein, Total 6.1 g/dL (6.4-8.2); Sodium Level 136 mmol/L (136-145)
[2020-04-20] MEDS: dexAMETHasone 10 MG/ML Vial 6 MG IV (10:11)
[2020-04-20] MEDS: 0.9% Saline Lock 10 ML Syringe IV (10:11)
[2020-04-20] MEDS: Carvedilol 3.125 MG TABLET PO ×2 (10:11→16:24)
[2020-04-20] MEDS: TICAGRELOR 90 MG TABLET PO ×2 (10:11→21:45)
--- NOTE | 2020-04-20 12:48 | PN_ITS ---
Patient Problems: Active and Suspected Problems (Last Updated 04/12/20 @ 16:[address] Maryann Diaz MD) COVID-19 (Acute) Respiratory failure (Acute) Reason for Visit: Follow-up for COVID-19 pneumonia, other cardiac comorbidities Objective: Patient oxygen requirement has come down, currently on 3 L of oxygen. No fever or chills. Blood pressure 102/60, 113/67. No signs of dizziness, lightheadedness chest pain or shortness of breath. Physical exam General: Alert, Oriented x3, Cooperative HEENT: Atraumatic, PERRLA, EOMI, Normocephalic Oral: No Gingival or Mucosal Lesions/ Ulcerations Neck: Supple, No JVD, Negative Carotid Bruits Lungs: Air entry diminished in bilateral lung bases. Bilateral fine crackles present, improved. Cardiovascular: Regular rate, Regular Rhythm, Normal S1, Normal S2, No murmurs Abdomen: Bowel Sounds Present, Soft, Non Tender, Non-Distended : No renal angle tenderness. No suprapubic tenderness. Extremities: Mild chronic right leg edema more than left as per patient, Capillary Refill Less than 3 Seconds Skin: No rashes, No breakdown Musculoskeletal: No Tenderness to Palpation of Joints or Extremities Neurological: Cranial nerves II-XII grossly intact, Deep Tendon Reflexes 2+/4 and Symmetrical, Neuro grossly intact Psych/Mental Status: Normal Affect, Appropriate. Vitals/I&O's: Vital Signs Temp Pulse Resp BP Pulse Ox 97.2 F L 80 18 102/60 94 04/20/20 10:02 04/20/20 10:02 04/20/20 10:02 04/20/20 10:02 04/20/20 10:02 Oxygen Flow Rate (L/min) 3 Oxygen Delivery Method Nasal Cannula Weight: 229 lb 4.986 oz Body Mass Index (BMI) 31.1 Intake and Output for Last 24 Hours 04/18/20 04/19/20 04/20/20 23:59 23:59 23:59 Intake Total 400 / 400 1140 / 1740 870 / 870 Output Total 1200 / 1200 1000 / 2100 1825 / 1825 Balance -800 / -800 140 / -360 -955 / -955 Microbiology Past 72 Hours 04/12/20 13:30 Blood Culture (Wb) - Left Hand Blood Culture - Final No growth in 5 days. 04/12/20 13:30 Blood Culture (Wb) - Right Hand Blood Culture - Final No growth in 5 days. Laboratory Results 04/20/20 05:59: WBC 12.2 H, RBC 4.45 L, Hgb 13.9, Hct 41.9, MCV 94.2 H, MCH 31.2, MCHC 33.2, RDW Std Deviation 43.8, RDW Coeff of Margarette 12.8, Plt Count 392, MPV 10.6, Immature Gran % (Auto) 1.700 H, Neut % (Auto) 83.4 H, Lymph % (Auto) 6.3 L, Maries % (Auto) 7.9, Eos % (Auto) 0.5, Baso % (Auto) 0.2, Absolute Neuts (auto) 10.1 H, Absolute Lymphs (auto) 0.77 L, Nucleated RBC % 0 04/20/20 05:59: Sodium 136, Potassium 4.4, Chloride 106, Carbon Dioxide 23.0, Anion Gap 7, BUN 22 H, Creatinine 0.76, Estim Creat Clear Calc 73.29, Est GFR (MDRD) Af Amer 129, Est GFR (MDRD) Non-Af 107, BUN/Creatinine Ratio 28.9 H, Glucose 95, Calcium 8.8, Magnesium 2.1, Total Bilirubin 0.50, AST 19, ALT 45, Alkaline Phosphatase 66, Total Protein 6.1 L, Albumin 2.3 L, Globulin 3.8, Albumin/Globulin Ratio 0.6 L Current Medications Acetaminophen (Acetaminophen 325 Mg Tablet) 650 mg PO Q6H PRN PRN PRN Reason: HEADACHE(1-10)/FEVER (T>100F) Last Admin: 04/13/20 08:58 Dose: 650 mg Documented by: Albuterol Sulfate (Albuterol Ih 8.5 Gm (Proair) Inhaler (200 Puffs)) 2 puff INHALATION Q4H PRN PRN PRN Reason: Shortness of breath, wheezing Last Admin: 04/15/20 03:43 Dose: 2 puff Documented by: Atorvastatin Calcium (Atorvastatin Calcium 40 Mg Tablet) 40 mg PO QHS [facility] Last Admin: 04/19/20 22:30 Dose: 40 mg Documented by: [facility]ilol ([facility] 3.125 Mg [facility] Last Admin: 04/20/20 10:11 Dose: 3.125 mg Documented by: Dexamethasone Sodium Phosphate (Dexamethasone 10 Mg/Ml Vial) 6 mg IV DAILY [facility] Last Admin: 04/20/20 10:11 Dose: 6 mg Documented by: Doxazosin Mesylate (Doxazosin 4 Mg Tablet) 4 mg PO QHS [facility] Last Admin: 04/19/20 22:30 Dose: 4 mg Documented by: Enoxaparin Sodium (Enoxaparin 100 Mg/Ml Syringe) 100 mg SC Q12@0600,1800 [facility] Last Admin: 04/20/20 05:26 Dose: 100 mg Documented by: Lisinopril (Lisinopril 2.5 Mg Tablet) 2.5 mg PO DAILY [facility] Last Admin: 04/20/20 10:06 Dose: Not Given Documented by: Miscellaneous Information (Inhaler, Assist Devices 1 Each Spacer) 1 each INHALATION PRN PRN PRN Reason: WITH ALBUTEROL MDI Last Admin: 04/15/20 03:43 Dose: 1 each Documented by: Ondansetron HCl (Ondansetron 4 Mg/2 Ml Vial) 4 mg IV Q8H PRN PRN PRN Reason: NAUSEA/VOMITING Sodium Chloride (0.9% Saline Lock 10 Ml Syringe) 10 - 40 ml IV UD PRN PRN Reason: SALINE FLUSH Last Admin: 04/20/20 10:11 Dose: 10 ml Documented by: Ticagrelor (Ticagrelor 90 Mg Tablet) 90 mg PO BID [facility] Last Admin: 04/20/20 10:11 Dose: 90 mg Documented by: STROKE Vital Signs/Narrative: Vital Signs Temp Pulse Resp BP Pulse Ox 04/20/20 10:02 97.2 F L 80 18 102/60 94 04/20/20 09:02 87 Medical Necessity - Tobacco Use Smoking Status: Never smoker Assessment/Plan All Active Problems (Last Updated 04/12/20 @ 16:[address] Maryann Diaz MD) COVID-19 (Acute) Respiratory failure (Acute) Acute Hypoxemia Respiratory Failure secondary to COVID-19 pneumonia: Titrate oxygen to keep pulse ox 92%. -continue Decadron 6 mg daily for 10 days. ID consult reviewed. Already more than 2 weeks therefore doubt benefit from plasma and remdesivir. -CT neg for PE -continue Lovenox 100 BID for now -plan is to hold off on Remdesivir and convalescent plasma for now as pt started with started on 03/31. His symptoms started on 04/04. 04/16: I talked to the patient's son, Mr Gonsales on 04/15 and updated the clinical information. Lactic acid still high 3.3 on 04/15. Patient seems well-hydrated. 6950 mL urine output. Positive fluid balance 3.1 L. Chest x-ray reviewed and shows progression of bilateral peripheral infiltrates. Discussed with ID. Since no benefit for antibiotics. Sputum culture was ordered. 04/17: Patient oxygenation status remains same. Not tachypneic. 04/18: On 8 L of oxygen. Lasix discontinued. Mild hypotension on low-dose Coreg 3.125 mg twice daily and lisinopril 2.5 mg daily. Advised to spread out antihypertensive with a gap of 3 hours. 04/19: On 5 L of oxygen. Continue present treatment. Lasix if leg edema increase as needed. 04/20: On 3 L of oxygen. Mild hypotension, discussed with the nurse. Rest as mentioned above. Blood culture negative for 5 days Lactic acidosis suspected secondary to hypoxia and dehydration: Patient lactic acid was 3.6, 2.4 and then 2.6. Lactic acid elevated 3.3, patient does not look septic and is well hydrated. Mild hyponatremia: Corrected. 04/17: Lactic acid corrected 1.4 probably was related to hypoxemia. Lasix was given. HFpEF compensated, chronic systolic and diastolic heart failure: -BNP not markedly elevated -ECHO from 06/2019 shows EF of 30%, stage 2 diastolic dysfunction -continue Coreg, lisinopril Coronary artery disease, hypertension and dyslipidemia: -last PCI 03/2019 -continue Brilinta/Coreg/Lisinopril/statin -hold ASA while on Brilinta and full dose LMWH, enoxaparin -avoid triple therapy. H&H 13.5/40.3 BPH -takes no chronic meds Obesity -recommend wgt loss H/O nephrolithiasis -no current issues DVT prophylaxis -full dose LMWH Code status -Full Discharge plan: Possible in 1 to 2 days. Will need oxygen home-going need assessment Microbiology Past 72 Hours 04/12/20 13:30 Blood Culture (Wb) - Left Hand Blood Culture - Final No growth in 5 days. 04/12/20 13:30 Blood Culture (Wb) - Right Hand Blood Culture - Final No growth in 5 days. Laboratory Results 04/20/20 05:59: WBC 12.2 H, RBC 4.45 L, Hgb 13.9, Hct 41.9, MCV 94.2 H, MCH 31.2, MCHC 33.2, RDW Std Deviation 43.8, RDW Coeff of Margarette 12.8, Plt Count 392, MPV 10.6, Immature Gran % (Auto) 1.700 H, Neut % (Auto) 83.4 H, Lymph % (Auto) 6.3 L, Maries % (Auto) 7.9, Eos % (Auto) 0.5, Baso % (Auto) 0.2, Absolute Neuts (auto) 10.1 H, Absolute Lymphs (auto) 0.77 L, Nucleated RBC % 0 04/20/20 05:59: Sodium 136, Potassium 4.4, Chloride 106, Carbon Dioxide 23.0, Anion Gap 7, BUN 22 H, Creatinine 0.76, Estim Creat Clear Calc 73.29, Est GFR (MDRD) Af Amer 129, Est GFR (MDRD) Non-Af 107, BUN/Creatinine Ratio 28.9 H, Glucose 95, Calcium 8.8, Magnesium 2.1, Total Bilirubin 0.50, AST 19, ALT 45, Alkaline Phosphatase 66, Total Protein 6.1 L, Albumin 2.3 L, Globulin 3.8, Albumin/Globulin Ratio 0.6 L Inpatient E&M: 31740 Subs Hosp L2
[2020-04-20] MEDS: Doxazosin 4 MG Tablet PO (21:45)
[2020-04-20] MEDS: Atorvastatin Calcium 40 MG Tablet PO (21:45)
[2020-04-21] VITALS (14 sets, daily range): BP systolic 110–119; BP diastolic 67–72; PULSE 59–102; RESP 16–20; TEMP 36.5–36.7; O2SAT 92–95
[2020-04-21] MEDS: Enoxaparin 100 MG/ML Syringe SC ×2 (05:37→17:10)
--- NOTE | 2020-04-21 08:00 | PCM.PN.HOSP ---
Patient Problems: Active and Suspected Problems (Last Updated 04/12/20 @ 16:[address] Maryann Diaz MD) COVID-19 (Acute) Respiratory failure (Acute) Reason for Visit: Follow-up on hypoxia/acute COVID-19 pneumonia Subjective: Patient was seen and examined. Denied any new complaints. He denied any progressive shortness of breath. Denied any nausea or diarrhea. He is currently on 3 L of oxygen. Objective: Physical exam: Vitals/I&O's: Vital Signs Temp Pulse Resp BP Pulse Ox 97.8 F 59 L 17 113/70 95 04/21/20 02:59 04/21/20 03:59 04/21/20 05:33 04/21/20 02:59 04/21/20 05:33 Oxygen Flow Rate (L/min) 3 Oxygen Delivery Method Nasal Cannula Weight: 104.014 kg Body Mass Index (BMI) 31.1 Intake and Output for Last 24 Hours 04/19/20 04/20/20 04/21/20 23:59 23:59 23:59 Intake Total 1140 / 1740 870 / 870 150 / 150 Output Total 1000 / 2100 1825 / 1825 Balance 140 / -360 -955 / -955 150 / 150 General: Alert, Oriented x3, Cooperative, No apparent distress HEENT: Atraumatic, PERRLA, EOMI, Normocephalic Oral: Moist Mucosa Neck: Supple Lungs: Clear to auscultation, Normal air movement Cardiovascular: Regular rate, Regular Rhythm, Normal S1, Normal S2, No murmurs Abdomen: Bowel Sounds Present, Soft, Non Tender, Non-Distended, No Hepato-splenomegaly Extremities: No edema Skin: No rashes, No breakdown Musculoskeletal: No Tenderness to Palpation of Joints or Extremities Lymphatic: No Cervical, Supraclavicular, or Inguinal Adenopathy Neurological: Cranial nerves II-XII grossly intact Psych/Mental Status: Normal Affect, Appropriate Current Medications Acetaminophen (Acetaminophen 325 Mg Tablet) 650 mg PO Q6H PRN PRN PRN Reason: HEADACHE(1-10)/FEVER (T>100F) Last Admin: 04/13/20 08:58 Dose: 650 mg Documented by: Albuterol Sulfate (Albuterol Ih 8.5 Gm (Proair) Inhaler (200 Puffs)) 2 puff INHALATION Q4H PRN PRN PRN Reason: Shortness of breath, wheezing Last Admin: 04/15/20 03:43 Dose: 2 puff Documented by: Atorvastatin Calcium (Atorvastatin Calcium 40 Mg Tablet) 40 mg PO QHS [facility] Last Admin: 04/20/20 21:45 Dose: 40 mg Documented by: Carvedilol (Carvedilol 3.125 Mg Tablet) 3.125 mg PO BIDCM [facility] Last Admin: 04/20/20 16:24 Dose: 3.125 mg Documented by: Dexamethasone Sodium Phosphate (Dexamethasone 10 Mg/Ml Vial) 6 mg IV DAILY [facility] Last Admin: 04/20/20 10:11 Dose: 6 mg Documented by: Doxazosin Mesylate (Doxazosin 4 Mg Tablet) 4 mg PO QHS [facility] Last Admin: 04/20/20 21:45 Dose: 4 mg Documented by: Enoxaparin Sodium (Enoxaparin 100 Mg/Ml Syringe) 100 mg SC Q12@0600,1800 [facility] Last Admin: 04/21/20 05:37 Dose: 100 mg Documented by: Lisinopril (Lisinopril 2.5 Mg Tablet) 2.5 mg PO DAILY [facility] Last Admin: 04/20/20 10:06 Dose: Not Given Documented by: Miscellaneous Information (Inhaler, Assist Devices 1 Each Spacer) 1 each INHALATION PRN PRN PRN Reason: WITH ALBUTEROL MDI Last Admin: 04/15/20 03:43 Dose: 1 each Documented by: Ondansetron HCl (Ondansetron 4 Mg/2 Ml Vial) 4 mg IV Q8H PRN PRN PRN Reason: NAUSEA/VOMITING Sodium Chloride (0.9% Saline Lock 10 Ml Syringe) 10 - 40 ml IV UD PRN PRN Reason: SALINE FLUSH Last Admin: 04/20/20 10:11 Dose: 10 ml Documented by: Ticagrelor (Ticagrelor 90 Mg Tablet) 90 mg PO BID [facility] Last Admin: 04/20/20 21:45 Dose: 90 mg Documented by: STROKE Vital Signs/Narrative: Vital Signs Resp Pulse Ox 04/21/20 05:33 17 95 Medical Necessity - Tobacco Use Smoking Status: Never smoker Assessment/Plan All Active Problems (Last Updated 04/12/20 @ 16:[address] Maryann Diaz MD) COVID-19 (Acute) Respiratory failure (Acute) 1. Acute respiratory failure secondary to acute COVID-19 pneumonia, slowly improving Patient currently on 3 L of oxygen Continue with breathing treatments, oral steroids, encourage use of incentive spirometer. Wean off oxygen for SPO2 more than 94% 2. Acute COVID-19 pneumonia, slowly improving clinically Patient did not receive convalescent plasma return severe Continue on oral steroid 3. Lactic acidosis secondary to #1, resolved 4. Coronary artery disease/hypertension/hyperlipidemia/chronic combined CHF, all remain stable 5. DVT prophylaxis on therapeutic Lovenox Inpatient E&M: 78522 Subs Hosp L2
[2020-04-21] MEDS: TICAGRELOR 90 MG TABLET PO ×2 (08:52→23:06)
[2020-04-21] MEDS: dexAMETHasone 10 MG/ML Vial 6 MG IV (08:53)
[2020-04-21] MEDS: 0.9% Saline Lock 10 ML Syringe IV ×2 (08:53→23:07)
--- NOTE | 2020-04-21 16:41 | PN.ID_ITS ---
Patient Problems: Active and Suspected Problems (Last Updated 04/12/20 @ 16:[address] Maraynn Diaz MD) COVID-19 (Acute) Respiratory failure (Acute) Subjective: Feeling better, no fever, O2 much improved - Physical Exam Vitals/I&O's: Vital Signs Temp Pulse Resp BP Pulse Ox 97.8 F 59 L 16 110/72 95 04/21/20 08:48 04/21/20 08:48 04/21/20 08:48 04/21/20 08:48 04/21/20 09:02 Oxygen Flow Rate (L/min) 3 Oxygen Delivery Method Nasal Cannula Weight: 104.014 kg Body Mass Index (BMI) 31.1 Intake and Output for Last 24 Hours 04/19/20 04/20/20 04/21/20 23:59 23:59 23:59 Intake Total 1140 / 1740 870 / 870 150 / 150 Output Total 1000 / 2100 1825 / 1825 Balance 140 / -360 -955 / -955 150 / 150 General: Alert, Cooperative, No apparent distress Lungs: Clear to auscultation Cardiovascular: Regular rate, Regular Rhythm Abdomen: Soft, Non Tender, Non-Distended Skin: No rashes Current Medications Acetaminophen (Acetaminophen 325 Mg Tablet) 650 mg PO Q6H PRN PRN PRN Reason: HEADACHE(1-10)/FEVER (T>100F) Last Admin: 04/13/20 08:58 Dose: 650 mg Documented by: Albuterol Sulfate (Albuterol Ih 8.5 Gm (Proair) Inhaler (200 Puffs)) 2 puff INHALATION Q4H PRN PRN PRN Reason: Shortness of breath, wheezing Last Admin: 04/15/20 03:43 Dose: 2 puff Documented by: Atorvastatin Calcium (Atorvastatin Calcium 40 Mg Tablet) 40 mg PO QHS [facility] Last Admin: 04/20/20 21:45 Dose: 40 mg Documented by: Carvedilol ([facility] 3.125 Mg Tablet) [facility] Last Admin: 04/21/20 09:04 Dose: Not Given Documented by: Dexamethasone (Dexamethasone 4 Mg Tablet) 6 mg PO X1 ONE Stop: 04/22/20 08:01 Doxazosin Mesylate (Doxazosin 4 Mg Tablet) 4 mg PO QHS [facility] Last Admin: 04/20/20 21:45 Dose: 4 mg Documented by: Enoxaparin Sodium (Enoxaparin 100 Mg/Ml Syringe) 100 mg SC Q12@0600,1800 [facility] Last Admin: 04/21/20 05:37 Dose: 100 mg Documented by: Lisinopril (Lisinopril 2.5 Mg Tablet) 2.5 mg PO DAILY [facility] Last Admin: 04/21/20 09:04 Dose: Not Given Documented by: Miscellaneous Information (Inhaler, Assist Devices 1 Each Spacer) 1 each INHALATION PRN PRN PRN Reason: WITH ALBUTEROL MDI Last Admin: 04/15/20 03:43 Dose: 1 each Documented by: Ondansetron HCl (Ondansetron 4 Mg/2 Ml Vial) 4 mg IV Q8H PRN PRN PRN Reason: NAUSEA/VOMITING Sodium Chloride (0.9% Saline Lock 10 Ml Syringe) 10 - 40 ml IV UD PRN PRN Reason: SALINE FLUSH Last Admin: 04/21/20 08:53 Dose: 10 ml Documented by: Ticagrelor (Ticagrelor 90 Mg Tablet) 90 mg PO BID [facility] Last Admin: 04/21/20 08:52 Dose: 90 mg Documented by: Medical Necessity - Tobacco Use Smoking Status: Never smoker Route of nutrition/ use of supplements: [] Nutritional Intake: [] IV Site: [] Rivera Catheter: [] - Assessment/Plan Antibiotics: [] Assessment/Plan: [] Active and Suspected Problems (Last Updated 04/12/20 @ 16:[address] Maryann Diaz MD) COVID-19 (Acute) Respiratory failure (Acute) acute hypoxic resp failure due to covid - on steroids. Given timing of symptoms, doubt benefit from plasma and remdesivir. No PE seen on CT. O2 much improved. No need for further quarantine at discharge. Completes dex in AM. Will follow as needed
[2020-04-21] MEDS: Carvedilol 3.125 MG TABLET PO (17:10)
[2020-04-21] MEDS: Doxazosin 4 MG Tablet PO (23:06)
[2020-04-21] MEDS: Atorvastatin Calcium 40 MG Tablet PO (23:06)
[2020-04-22] VITALS (10 sets, daily range): BP systolic 99–116; BP diastolic 59–67; PULSE 58–100; RESP 16–18; TEMP 36.4–36.6; O2SAT 84–94
[2020-04-22] MEDS: Enoxaparin 100 MG/ML Syringe SC (05:20)
[2020-04-22 06:12] LABS: Basophil# 0.02 X10^3/uL; Basophil% 0.2 % (0-1); Eosinophil# 0.02 X10^3/uL; Eosinophils% 0.2 % (0-5); Hematocrit 42.2 % (40-54); Hemoglobin 14.1 g/dL (13.0-16.5); Lymphocyte % 7.3 % (19-41); Mean Corp Hgb Conc 33.4 g/dL (32-36); Mean Corpuscular Hgb 31.2 pg (27.0-32.0); Mean Corpuscular Volume 93.4 fL (80-94); Mean Platelet Vol. 10.1 fl (6.2-12.0); Monocyte# 0.91 X10^3/uL; Monocyte% 8.3 % (0-10); NRBC Flagged by Analyzer 0 % (0-5); Neutrophil # 9.01 X10^3/uL (2.7-7.7); Neutrophil % 82.7 % (47-70); Platelet Count 380 K/mm3 (150-450); RBC Distribution Width CV 12.8 % (11.6-14.6); RBC Distribution Width SD 43.8 fl (35.1-43.9); Red Blood Count 4.52 M/mm3 (4.6-6.2); White Blood Count 10.9 K/mm3 (4.4-11.0)
[2020-04-22 08:40] LABS: ALB/GLOB Ratio 0.6 RATIO (0.9-2.4); AST(SGOT) 23 U/L (15-37); Alanine Aminotransfer ALT/SGPT 56 U/L (16-61); Albumin, Serum 2.3 g/dL (3.2-5.0); Alkaline Phosphatase 67 U/L (45-117); Anion Gap 8 (5-15); BUN 24 mg/dL (7-18); BUN/Creat Ratio 27.8 RATIO (10-20); Calcium,Total 8.5 mg/dL (8.5-10.1); Chloride 105 mmol/L (98-107); Creatinine, Serum 0.86 mg/dL (0.70-1.30); EST Glomerular Filtration Rate 92 mL/min (>60); Est Glom Filt Rate - Afr Amer 112 mL/min (>60); Estimated Creatinine Clearance 85.22 ml/min; Globulin 3.9 g/dL (2.2-4.2); Glucose 95 mg/dL (74-106); Magnesium 2.1 mg/dL (1.6-2.6); Potassium 4.4 mmol/L (3.5-5.1); Protein, Total 6.2 g/dL (6.4-8.2); Sodium Level 137 mmol/L (136-145)
[2020-04-22] MEDS: TICAGRELOR 90 MG TABLET PO (11:09)
[2020-04-22] MEDS: Lisinopril 2.5 MG Tablet PO (11:09)
[2020-04-22] MEDS: dexAMETHasone 4 MG Tablet 6 MG PO (11:09)
[2020-04-22] MEDS: Carvedilol 3.125 MG TABLET PO (11:10)
--- NOTE | 2020-04-22 12:05 | CASEMGMT ---
YOUSIF CM Note: oxygen script and supporting testing faxed to [facility] [place], portable tank requested to be delivered to [facility]. Sanjay BURCH RN ACM
--- NOTE | 2020-04-22 14:11 | CASEMGMT ---
Addendum entered by Simon Marroquin 04/22/20 14:38: Per physician, son mentioned home health care for patient, but numerous agencies were called and do not take COVID patients. Patient's PCP can order HHC for patient once quarantine is completed. Sanjay CAN Original Note: YOUSIF MERRITT Note: call from Gisell @ [employer]. They will be delivering the portable tank. Phone # for room given so she can contact patient as she was not able to reach anyone at pt's home. Sanjay CAN
--- NOTE | 2020-04-22 14:20 | DCINST_ITS ---
- Discharge Diagnoses Current Active Problems: Current Active and Chronic Problems (Last Updated 04/12/20 @ 16:[address] Maryann Diaz MD) COVID-19 (Acute) Respiratory failure (Acute) Atherosclerosis of coronary artery of [place] heart without angina pectoris (Chronic) History of coronary artery stent placement (Chronic 04/20/19) [id number] LAD w/ 4.0 x 32 mm and 4.0 x 8 mm Synergy Stents, POBA-Ostial LCx 04/20/19 Non-STEMI (non-ST elevated myocardial infarction) (Chronic 04/19/19) History of implantable cardiac defibrillator (ICD) (Chronic 09/13/19) Ischemic cardiomyopathy (Chronic) Hyperlipemia (Chronic) Right bundle branch block (RBBB) (Chronic) Reason(s) for Visit for Discharge Instructions: Shortness of breath, Acute COVID- infection You will use the following diet at home:: Regular Your food should be the consistency of: Regular Your liquids should be the consistency of: Regular/Thin Discharge Activity: Return to Normal Activity Additional Instructions: Continue to use your incentive spirometer all the time. Use your inhaler as prescribed. You should be on oxygen all the time especially when you walk or exert yourself. Home health nurse will be arranged as discussed. Follow-up with pulmonology, as needed, if there are any concerns, call [phone]. Allergies/Adverse Reactions: Allergies No Known Allergies Allergy (Verified 02/21/20 10:37) Medications to take at Discharge Calcium Carbonate/Vitamin D3 [Calcium 600-Vit D3 400 Tablet] 1 ea PO DAILY 05/15/13 Lecithin, Soy [Lecithin] 200 mg PO DAILY 05/15/13 Terazosin HCl [Hytrin] 5 mg PO QHS 05/15/13 Aspirin E.C. [Ecotrin] 81 mg PO DAILY@0800 #30 tab 04/21/19 atorvastatin 40 mg tablet 40 mg PO QHS #90 tab 05/08/19 carvedilol 3.125 mg tablet 3.125 mg PO BID #180 tab 08/09/19 ticagrelor 90 mg tablet 90 mg PO BID #180 tab 04/14/20 lisinopril 2.5 mg tablet 2.5 mg PO DAILY #90 tab 04/17/20 Acetaminophen [Tylenol Tablet] 650 mg PO Q6H PRN PRN tablet 04/22/20 Albuterol IH (ProAir) [Proair Hfa] 2 puff INHALATION Q4H PRN PRN #1 inhaler 04/22/20 The following prescriptions were given: Albuterol IH (ProAir) [Proair Hfa] 2 puff INHALATION Q4H PRN PRN #1 inhaler PRN Reason: Shortness of breath, wheezing Transmission Status: Pending to [facility] Primary Care Physician: Cali Streeter MD [Primary Care Provider] - Please follow up with your Primary Care Physician in: in 2 weeks Test Results: Test results from this visit will be discussed in further detail at your follow- up appointment, if applicable. Please Follow Up With: Call [phone] with concerns with SOB. Proposed Discharge Date: 04/22/20
--- NOTE | 2020-04-22 14:25 | DS.PCM_ITS ---
Discharge Date and Diagnosis - Problem List Patient Problems: Active and Suspected Problems (Last Updated 04/12/20 @ 16:[address] Maryann Diaz MD) COVID-19 (Acute) Respiratory failure (Acute) Date of Admission: 04/12/20 Date of Discharge: 04/22/20 - Primary Discharge Diagnosis Acute Problems: Active Problems (Last Updated 04/12/20 @ 16:[address] Maryann Diaz MD) Acute respiratory failure secondary to acute COVID-19 pneumonia Acute COVID-19 pneumonia Lactic acidosis secondary to hypoxia - Secondary Discharge Diagnosis Chronic Problems: Chronic Problems (Last Updated 04/12/20 @ 16:[address] Maryann Diaz MD) Atherosclerosis of coronary artery of [place] heart without angina pectoris (Chronic) History of coronary artery stent placement (Chronic 04/20/19) [id number] LAD w/ 4.0 x 32 mm and 4.0 x 8 mm Synergy Stents, POBA-Ostial LCx 04/20/19 Non-STEMI (non-ST elevated myocardial infarction) (Chronic 04/19/19) History of implantable cardiac defibrillator (ICD) (Chronic 09/13/19) Ischemic cardiomyopathy (Chronic) Hyperlipemia (Chronic) Right bundle branch block (RBBB) (Chronic) Hospital Course and Treatment Imaging Results: Clinical Impression(s) from Imaging Studies Chest X-Ray 04/12/20 13:50 Chest CTA 04/12/20 15:00 Chest X-Ray 04/15/20 08:30 IMPRESSION: Progressive infiltrates in both lungs preferentially in the peripheral distribution. Electronically Signed: Daniel Self, at 8:57 EDT , Service support , Infectious disease Operations: None Procedures: None Summary of Care Provided: The patient is a 74 year old M past medical history of CAD status post stents, status post AICD, ischemic cardiomyopathy, hypertension, hyperlipidemia who presented with body aches, cough and progressive shortness of breath that started 12 days prior to admission. Patient has been in contact with people with COVID-19. In the emergency room he was afebrile, he was tachypneic requ iring the use of nonrebreather mask. He was later on managed on 6 L of oxygen. His lactic acid was 2.1. Chest x-ray showed bilateral lower lobe infiltrate. CT of the chest was negative for acute PE. He was admitted to the Covid floor and managed expectantly. Infectious disease was consulted. Patient was managed on IV dexamethasone. He did not receive convalescent plasma or dexamethasone. Blood cultures were negative. Patient continued to improve and was off oxygen at rest at time of discharge. He however was found to require oxygen on ambulation when he dropped his saturation to 84% on room air. He qualified for discharge with oxygen. He was advised to continue to use his incentive spirometer. He completed his dexamethasone course during the hospital stay. Patient Problems: Active and Suspected Problems (Last Updated 04/12/20 @ 16:[address] Maryann Diaz MD) COVID-19 (Acute) Respiratory failure (Acute) Subjective: On the day of discharge, patient was seen and examined. He feels much improved. He was off oxygen throughout the night. He however needed oxygen when he ambulated. He desaturated to 84% on ambulation on room air. He improved on 2 L of oxygen. Objective: Physical exam: General: Alert, Oriented x3, Cooperative, No apparent distress HEENT: Atraumatic, PERRLA, EOMI, Normocephalic Oral: Moist Mucosa Neck: Supple Lungs: Clear to auscultation, Normal air movement Cardiovascular: Regular rate, Regular Rhythm, Normal S1, Normal S2, No murmurs Abdomen: Bowel Sounds Present, Soft, Non Tender, Non-Distended, No Hepato-sp lenomegaly Extremities: No edema Skin: No rashes, No breakdown Musculoskeletal: No Tenderness to Palpation of Joints or Extremities Lymphatic: No Cervical, Supraclavicular, or Inguinal Adenopathy Neurological: Cranial nerves II-XII grossly intact Psych/Mental Status: Normal Affect, Appropriate - Physical Exam Vitals/I&O's: Vital Signs Temp Pulse Resp BP Pulse Ox 97.5 F L 100 18 116/59 L 93 04/22/20 11:00 04/22/20 12:00 04/22/20 11:00 04/22/20 11:00 04/22/20 11:07 Oxygen Flow Rate (L/min) [ 2 AMBULATION with Oxygen] Oxygen Flow Rate (L/min) 3 Oxygen Delivery Method Room Air Weight: 104.014 kg Body Mass Index (BMI) 31.1 Intake and Output for Last 24 Hours 04/20/20 04/21/20 04/22/20 23:59 23:59 23:59 Intake Total 870 / 870 1150 / 1150 200 / 200 Output Total 1825 / 1825 Balance -955 / -955 1150 / 1150 200 / 200 Laboratory Results 04/22/20 05:50: WBC 10.9, RBC 4.52 L, Hgb 14.1, Hct 42.2, MCV 93.4, MCH 31.2, MCHC 33.4, RDW Std Deviation 43.8, RDW Coeff of [place] 12.8, Plt Count 380, MPV 10.1, Immature Gran % (Auto) 1.300 H, Neut % (Auto) 82.7 H, Lymph % (Auto) 7.3 L , [place] % (Auto) 8.3, Eos % (Auto) 0.2, Baso % (Auto) 0.2, Absolute Neuts (auto) 9.0 H, Absolute Lymphs (auto) 0.80 L, Nucleated RBC % 0 04/22/20 05:50: Sodium Cancelled, Potassium Cancelled, Chloride Cancelled, Carbon Dioxide Cancelled, Anion Gap Cancelled, BUN Cancelled, Creatinine Cancelled, Estim Creat Clear Calc Cancelled, Est GFR (MDRD) Af Amer Cancelled, Est GFR (MDRD) Non-Af Cancelled, BUN/Creatinine Ratio Cancelled, Glucose Cancelled, Calcium Cancelled, Magnesium Cancelled, Total Bilirubin Cancelled, AST Cancelled, ALT Cancelled, Alkaline Phosphatase Cancelled, Total Protein Cancelled, Albumin Cancelled, Globulin Cancelled, Albumin/Globulin Ratio Cancelled 04/22/20 07:50: Sodium 137, Potassium 4.4, Chloride 105, Carbon Dioxide 24.0, Anion Gap 8, BUN 24 H, Creatinine 0.86, Estim Creat Clear Calc 85.22, Est GFR (MDRD) Af Amer 112, Est GFR (MDRD) Non-Af 92, BUN/Creatinine Ratio 27.8 H, Glucose 95, Calcium 8.5, Magnesium 2.1, Total Bilirubin 0.60, AST 23, ALT 56, Alkaline Phosphatase 67, Total Protein 6.2 L, Albumin 2.3 L, Globulin 3.9, Albumin/Globulin Ratio 0.6 L Current Medications Acetaminophen (Acetaminophen 325 Mg Tablet) 650 mg PO Q6H PRN PRN PRN Reason: HEADACHE(1-10)/FEVER (T>100F) Last Admin: 04/13/20 08:58 Dose: 650 mg Documented by: Albuterol Sulfate (Albuterol Ih 8.5 Gm (Proair) Inhaler (200 Puffs)) 2 puff INHALATION Q4H PRN PRN PRN Reason: Shortness of breath, wheezing Last Admin: 04/15/20 03:43 Dose: 2 puff Documented by: Atorvastatin Calcium (Atorvastatin Calcium 40 Mg Tablet) 40 mg PO QHS [facility] Last Admin: 04/21/20 23:06 Dose: 40 mg Documented by: Carvedilol ([facility]vedilol 3.125 Mg Tablet) [facility] Last Admin: 04/22/20 11:10 Dose: 3.125 mg Documented by: Doxazosin Mesylate (Doxazosin 4 Mg Tablet) 4 mg PO QHS [facility] Last Admin: 04/21/20 23:06 Dose: 4 mg Documented by: Enoxaparin Sodium (Enoxaparin 100 Mg/Ml Syringe) 100 mg SC Q12@0600,1800 [facility] Last Admin: 04/22/20 05:20 Dose: 100 mg Documented by: Lisinopril (Lisinopril 2.5 Mg Tablet) 2.5 mg PO DAILY [facility] Last Admin: 04/22/20 11:09 Dose: 2.5 mg Documented by: Miscellaneous Information (Inhaler, Assist Devices 1 Each Spacer) 1 each INHALATION PRN PRN PRN Reason: WITH ALBUTEROL MDI Last Admin: 04/15/20 03:43 Dose: 1 each Documented by: Ondansetron HCl (Ondansetron 4 Mg/2 Ml Vial) 4 mg IV Q8H PRN PRN PRN Reason: NAUSEA/VOMITING Sodium Chloride (0.9% Saline Lock 10 Ml Syringe) 10 - 40 ml IV UD PRN PRN Reason: SALINE FLUSH Last Admin: 04/21/20 23:07 Dose: 10 ml Documented by: Ticagrelor (Ticagrelor 90 Mg Tablet) 90 mg PO BID [facility] Last Admin: 04/22/20 11:09 Dose: 90 mg Documented by: Discharge Diet: Low fat/ Low Cholesterol, 2000 mg Sodium Diet Discharge Activity: Return to Normal Activity Home Medications: Medications to take at Discharge Calcium Carbonate/Vitamin D3 [Calcium 600-Vit D3 400 Tablet] 1 ea PO DAILY 05/15/13 Lecithin, Soy [Lecithin] 200 mg PO DAILY 05/15/13 Terazosin HCl [Hytrin] 5 mg PO QHS 05/15/13 Aspirin E.C. [Ecotrin] 81 mg PO DAILY@0800 #30 tab 04/21/19 atorvastatin 40 mg tablet 40 mg PO QHS #90 tab 05/08/19 carvedilol 3.125 mg tablet 3.125 mg PO BID #180 tab 08/09/19 ticagrelor 90 mg tablet 90 mg PO BID #180 tab 04/14/20 lisinopril 2.5 mg tablet 2.5 mg PO DAILY #90 tab 04/17/20 Acetaminophen [Tylenol Tablet] 650 mg PO Q6H PRN PRN tab 04/22/20 Albuterol IH (ProAir) [Proair Hfa] 2 puff INHALATION Q4H PRN PRN #1 inhaler 04/22/20 Following Prescriptions Were Given to Patient: Albuterol IH (ProAir) [Proair Hfa] 2 puff INHALATION Q4H PRN PRN #1 inhaler PRN Reason: Shortness of breath, wheezing Transmission Status: Received by [facility] Primary Care Physician: Cali Streeter MD [Primary Care Provider] - Please follow up with your Primary Care Physician in: in 2 weeks Please Follow Up With: Call [phone] with concerns with SOB. Disposition: Home with Home Health Minutes spent on discharge:: 40 Patient Condition:: Stable Medical Necessity - Tobacco Use Smoking Status: Never smoker Meaningful Use Info Meaningful Use Diagnoses (Choose all that apply): None applicable Inpatient E&M: 54995 Disch Hosp
--- NOTE | 2020-04-23 13:44 | CASEMGMT ---
YOUSIF MERRITT Discharge F/U Phone Call LACE: 13 Strata: 3 Discharge date: 04/22/2020 Call date: 04/23/2020 Call time: [phone] Admission dx: COVID-19 pna, acute resp failure Pt answers phone and states he has been doing 'fairly well' since discharge. Pt is speaking in full sentences and is in no distress at this time. Pt states has been walking around with the oxygen on and has been doing exercises. Pt states 'I think I am on the mend.' Pt states no need for any HHC or further therapy at this time. Pt states no questions regarding discharge instructions/medications at this time. Pt states has f/u appt with Dr. Streeter on 04/28/2020. Pt states no suggestions for [facility] at this time and states 'The hospital is great, it's a great facility with great nurses.' Pt voices no further questions/concerns/needs at this time. [place] YOUSIF MERRITT
== END 2020-04-22 18:00 | disposition home or self-care (01) | DRG 177 ==
LOC: ED 16:34 → MS2 17:02
PROVIDERS: Family Medicine; Internal Medicine; Internal Medicine Infectious Disease; Admitting Provider Hospitalist; Emergency Provider Emergency Medicine; PCP Family Medicine; Visit Provider Internal Medicine
DX: U07.1 COVID-19 (principal); J96.01 Acute respiratory failure with hypoxia; J12.89 Other viral pneumonia; E87.2 Acidosis; I50.42 Chronic combined systolic (congestive) and diastolic (congestive) heart failure; I11.0 Hypertensive heart disease with heart failure; E87.1 Hypo-osmolality and hyponatremia; I25.10 Atherosclerotic heart disease of native coronary artery without angina pectoris; E78.5 Hyperlipidemia, unspecified; I25.2 Old myocardial infarction; I25.5 Ischemic cardiomyopathy; I45.10 Unspecified right bundle-branch block; Z95.5 Presence of coronary angioplasty implant and graft; Z95.810 Presence of automatic (implantable) cardiac defibrillator; E66.9 Obesity, unspecified; N40.0 Benign prostatic hyperplasia without lower urinary tract symptoms; Z68.31 Body mass index [BMI] 31.0-31.9, adult
CPT/HCPCS: 36415; 36600; 71045; 71275; 80048; 80053; 82550; 82803; 83605; 83615; 83735; 83880; 84100; 84145; 84484; 85025; 85379; 85384; 85610; 86140; 87040; 87635; 93005; 94660; 94668; 97162; 97166; 99251; 99283; 99285; J7030; J7040; Q9967; A4216; G0463; J1940; U0003

== ENCOUNTER → 2020-07-11 13:16 | Outpatient (CLI) | payer MEDICARE, BC, SELFPAY ==
[2019-04-20 11:58] VITALS: BMI 32.5
[2020-04-12 18:05] VITALS: BMI 31.1
--- NOTE | 2020-07-11 13:20 | CT_ITS ---
STUDY: CT CHEST WITH CONTRAST REASON FOR EXAM: Male, 75 years old. Abnormal CXR, RUL nodule, ground glass opacities, COVID 03/2020. RADIATION DOSAGE (If Supplied By Facility): CTDIvol = ( 18.99 ) mGy, DLP = ( 703.94 ) mGycm TECHNIQUE: Transaxial imaging was performed following intravenous administration of IV 100mL Isovue-300. Multiplanar coronal and sagittal images were reformatted. Individualized dose optimization techniques were used for this CT. COMPARISON: Comparison is made with prior study dated 04/12/2020. FINDINGS: A left-sided pacemaker device is seen. Since prior study, the previously seen bilateral multiple areas of groundglass appearance of almost completely resolved. A mild degree of persistent increased interstitial markings are seen. Further follow-up is recommended. There is no demonstrated pleural abnormality. There are calcifications of the coronary arteries. There are multiple small lymph nodes within the mediastinum, which are normal in size and morphology most compatible with reactive lymph hyperplasia. Normal hilar regions. Normal enhanced pulmonary arteries. Normal aorta arch and descending thoracic aorta. There are degenerative changes of the thoracic spine. There is no demonstrated abnormality of the visualized upper abdomen. CT/Chest WITH Contrast IMPRESSION: Marked improvement in the aeration of both lungs with a mild degree of persistent interstitial changes as described. Further follow-up is recommended. Electronically Signed: Daniel Self, at 14:15 EST , Service support ,
[2020-07-11 13:30] LABS: CREATININE FINGERSTICK 1.1 mg/dL (0.70-1.30)
== END ==
PROVIDERS: PCP Family Medicine; Referring Provider Family Medicine; Visit Provider Family Medicine
DX: R91.8 Other nonspecific abnormal finding of lung field (principal)
CPT/HCPCS: 71260; Q9967

== ENCOUNTER → 2021-01-06 08:38 | Outpatient (CLI) | payer MEDICARE, BC, SELFPAY ==
[2019-04-20 11:58] VITALS: BMI 32.5
[2020-11-18 07:17] VITALS: BMI 33.6
[2021-01-06 10:26] LABS: Absolute Lymphocyte Count 1.21 X10^3/uL (0.83-4.51); Basophil# 0.02 X10^3/uL; Basophil% 0.4 % (0-1); Eosinophil# 0.14 X10^3/uL; Eosinophils% 2.9 % (0-5); Hematocrit 42.7 % (40-54); Hemoglobin 14.3 g/dL (13.0-16.5); Lymphocyte # 1.21 X10^3/ul (0.83-4.51); Lymphocyte % 25.1 % (19-41); Mean Corp Hgb Conc 33.5 g/dL (32-36); Mean Corpuscular Hgb 31.2 pg (27.0-32.0); Mean Corpuscular Volume 93.2 fL (80-94); Mean Platelet Vol. 10.3 fl (6.2-12.0); Monocyte# 0.47 X10^3/uL; Monocyte% 9.7 % (0-10); NRBC Flagged by Analyzer 0 % (0-5); Neutrophil # 2.97 X10^3/uL (2.7-7.7); Neutrophil % 61.5 % (47-70); Platelet Count 237 K/mm3 (150-450); RBC Distribution Width CV 12.8 % (11.6-14.6); RBC Distribution Width SD 43.8 fl (35.1-43.9); Red Blood Count 4.58 M/mm3 (4.6-6.2); White Blood Count 4.8 K/mm3 (4.4-11.0)
[2021-01-06 10:59] LABS: ALB/GLOB Ratio 1.2 RATIO (0.9-2.4); AST(SGOT) 14 U/L (15-37); Alanine Aminotransfer ALT/SGPT 21 U/L (16-61); Albumin, Serum 3.6 g/dL (3.2-5.0); Alkaline Phosphatase 72 U/L (45-117); Anion Gap 5 (5-15); BUN 16 mg/dL (7-18); BUN/Creat Ratio 19.3 RATIO (10-20); Calcium,Total 8.5 mg/dL (8.5-10.1); Chloride 110 mmol/L (98-107); Cholesterol 111 mg/dL (200); Creatinine, Serum 0.83 mg/dL (0.70-1.30); EST Glomerular Filtration Rate 96 mL/min (>60); Est Glom Filt Rate - Afr Amer 117 mL/min (>60); Globulin 3.1 g/dL (2.2-4.2); Glucose 97 mg/dL (74-106); High Density Lipoprotein 50 mg/dL; PSA,Total - Annual Screen 4.79 ng/mL (0.00-4.00); Protein, Total 6.7 g/dL (6.4-8.2); Sodium Level 139 mmol/L (136-145); Thyroid Stim Hormone (TSH) 1.31 uIU/mL (0.358-3.74); Triglycerides 56 mg/dL; Very Low Density Lipoprotein 11 mg/dL (5-40)
[2021-01-06 11:11] LABS: Microalbumin,Random Urine < 5.0 mg/L (NO RANGE EST.)
== END ==
PROVIDERS: PCP Family Medicine; Referring Provider Family Medicine; Visit Provider Family Medicine
DX: E78.00 Pure hypercholesterolemia, unspecified (principal); I25.2 Old myocardial infarction; Z12.5 Encounter for screening for malignant neoplasm of prostate
CPT/HCPCS: 36415; 80053; 80061; 82043; 82570; 84153; 84443; 85025; G0103

== ENCOUNTER → 2021-03-30 13:14 | Outpatient (CLI) | payer MEDICARE, BC, SELFPAY ==
[2019-04-20 11:58] VITALS: BMI 32.5
== END ==
PROVIDERS: PCP Family Medicine; Referring Provider Family Medicine; Visit Provider Family Medicine
DX: M79.662 Pain in left lower leg (principal)
CPT/HCPCS: 93971

== ENCOUNTER → 2021-05-26 10:14 | Outpatient (CLI) | payer MEDICARE, BC, SELFPAY ==
[2019-04-20 11:58] VITALS: BMI 32.5
[2021-05-26 11:20] LABS: BNP,B-Type NATRIURETIC PEPTIDE 90.9 pg/mL (0-100)
[2021-05-26 11:23] LABS: Anion Gap 6 (5-15); BUN 18 mg/dL (7-18); BUN/Creat Ratio 19.8 RATIO (10-20); Chloride 108 mmol/L (98-107); Creatinine, Serum 0.91 mg/dL (0.70-1.30); EST Glomerular Filtration Rate 87 mL/min (>60); Est Glom Filt Rate - Afr Amer 105 mL/min (>60); Glucose 119 mg/dL (74-106); Potassium 4.2 mmol/L (3.5-5.1); Sodium Level 139 mmol/L (136-145)
== END ==
PROVIDERS: PCP Family Medicine; Visit Provider Nurse Practitioner Family
DX: I25.2 Old myocardial infarction (principal); R06.00 Dyspnea, unspecified; I25.5 Ischemic cardiomyopathy
CPT/HCPCS: 36415; 80048; 83880

== ENCOUNTER 2021-08-03 11:31 | Outpatient (CLI) | payer MEDICARE, BC, SELFPAY ==
[2019-04-20 11:58] VITALS: BMI 32.5
[2021-08-03 15:12] LABS: ALB/GLOB Ratio 1.1 RATIO (0.9-2.4); AST(SGOT) 14 U/L (15-37); Alanine Aminotransfer ALT/SGPT 23 U/L (16-61); Albumin, Serum 3.5 g/dL (3.2-5.0); Alkaline Phosphatase 77 U/L (45-117); Anion Gap 5 (5-15); BUN 13 mg/dL (7-18); BUN/Creat Ratio 15.7 RATIO (10-20); Calcium,Total 8.6 mg/dL (8.5-10.1); Chloride 109 mmol/L (98-107); Creatinine, Serum 0.83 mg/dL (0.70-1.30); EST Glomerular Filtration Rate 97 mL/min (>60); Est Glom Filt Rate - Afr Amer 117 mL/min (>60); Globulin 3.1 g/dL (2.2-4.2); Glucose 119 mg/dL (74-106); PSA,Total- Diagnostic 5.28 ng/mL (0.0-4.0); Protein, Total 6.6 g/dL (6.4-8.2); Sodium Level 139 mmol/L (136-145)
== END 2021-08-03 23:59 | disposition home or self-care (01) ==
LOC: MFPLAB 11:32
PROVIDERS: PCP Family Medicine; Visit Provider Family Medicine
DX: R19.7 Diarrhea, unspecified (principal); R97.20 Elevated prostate specific antigen [PSA]
CPT/HCPCS: 36415; 80053; 84153; 87177; 87209; 87493

== ENCOUNTER 2021-08-06 14:04 | Outpatient (CLI) | payer MEDICARE, BC, SELFPAY ==
[2019-04-20 11:58] VITALS: BMI 32.5
== END 2021-08-06 23:59 | disposition home or self-care (01) ==
LOC: MFPLAB 14:10
PROVIDERS: PCP Family Medicine; Referring Provider Family Medicine; Visit Provider Nurse Practitioner Family
DX: Z00.00 Encounter for general adult medical examination without abnormal findings (principal)

== ENCOUNTER → 2022-02-09 | Outpatient (CLI) | payer MEDICARE, BC, SELFPAY ==
[2019-04-20 11:58] VITALS: BMI 32.5
[2022-02-09 09:59] LABS: Absolute Lymphocyte Count 0.96 X10^3/uL (0.83-4.51); Basophil# 0.02 X10^3/uL; Basophil% 0.4 % (0-1); Eosinophil# 0.25 X10^3/uL; Eosinophils% 5.4 % (0-5); Hematocrit 41.2 % (40-54); Lymphocyte # 0.96 X10^3/ul (0.83-4.51); Lymphocyte % 20.7 % (19-41); Mean Corpuscular Hgb 33.4 pg (27.0-32.0); Mean Corpuscular Volume 98.3 fL (80-94); Mean Platelet Vol. 10.6 fl (6.2-12.0); Monocyte# 0.38 X10^3/uL; Monocyte% 8.2 % (0-10); NRBC Flagged by Analyzer 0 % (0-5); Neutrophil # 3.01 X10^3/uL (2.7-7.7); Neutrophil % 65.1 % (47-70); Platelet Count 228 K/mm3 (150-450); RBC Distribution Width CV 13.4 % (11.6-14.6); RBC Distribution Width SD 47.5 fl (35.1-43.9); Red Blood Count 4.19 M/mm3 (4.6-6.2); White Blood Count 4.6 K/mm3 (4.4-11.0)
[2022-02-09 11:04] LABS: ALB/GLOB Ratio 1.3 RATIO (0.9-2.4); AST(SGOT) 17 U/L (15-37); Alanine Aminotransfer ALT/SGPT 24 U/L (16-61); Albumin, Serum 3.6 g/dL (3.2-5.0); Alkaline Phosphatase 68 U/L (45-117); Anion Gap 4 (5-15); BUN 12 mg/dL (7-18); Calcium,Total 9.1 mg/dL (8.5-10.1); Chloride 109 mmol/L (98-107); Cholesterol 96 mg/dL (200); Creatinine, Serum 0.86 mg/dL (0.70-1.30); EST Glomerular Filtration Rate 93 mL/min (>60); Est Glom Filt Rate - Afr Amer 112 mL/min (>60); Globulin 2.8 g/dL (2.2-4.2); Glucose 110 mg/dL (74-106); High Density Lipoprotein 46 mg/dL; PSA,Total- Diagnostic 3.93 ng/mL (0.0-4.0); Potassium 3.9 mmol/L (3.5-5.1); Protein, Total 6.4 g/dL (6.4-8.2); Sodium Level 139 mmol/L (136-145); Thyroid Stim Hormone (TSH) 1.18 uIU/mL (0.358-3.74); Triglycerides 63 mg/dL; Very Low Density Lipoprotein 13 mg/dL (5-40)
== END | disposition home or self-care (01) ==
LOC: MFPLAB 08:21
PROVIDERS: PCP Family Medicine; Referring Provider Family Medicine; Visit Provider Family Medicine
DX: I25.5 Ischemic cardiomyopathy (principal); R97.20 Elevated prostate specific antigen [PSA]; E78.00 Pure hypercholesterolemia, unspecified
CPT/HCPCS: 36415; 80053; 80061; 83735; 84153; 84443; 85025

== ENCOUNTER → 2022-03-04 | Outpatient (CLI) | payer MEDICARE, BC, SELFPAY ==
[2019-04-20 11:58] VITALS: BMI 32.5
[2022-03-04 10:55] LABS: PSA,Total- Diagnostic 5.16 ng/mL (0.0-4.0)
== END | disposition home or self-care (01) ==
PROVIDERS: PCP Family Medicine; Referring Provider Urology; Visit Provider Urology
DX: R97.20 Elevated prostate specific antigen [PSA] (principal)
CPT/HCPCS: 36415; 84153

== ENCOUNTER → 2022-07-27 | Outpatient (CLI) | payer MEDICARE, BC, SELFPAY ==
[2019-04-20 11:58] VITALS: BMI 32.5
[2022-07-27 10:07] LABS: Absolute Lymphocyte Count 1.23 X10^3/uL (0.83-4.51); Absolute Neutrophil Count 3.3 X10^3/uL (2.0-7.7); Basophil# 0.02 X10^3/uL; Basophil% 0.4 % (0-1); Eosinophil# 0.22 X10^3/uL; Eosinophils% 4.2 % (0-5); Hematocrit 43.5 % (40-54); Hemoglobin 14.9 g/dL (13.0-16.5); Lymphocyte # 1.23 X10^3/ul (0.83-4.51); Lymphocyte % 23.3 % (19-41); Mean Corp Hgb Conc 34.3 g/dL (32-36); Mean Corpuscular Hgb 33.6 pg (27.0-32.0); Mean Platelet Vol. 10.4 fl (6.2-12.0); Monocyte# 0.51 X10^3/uL; Monocyte% 9.7 % (0-10); NRBC Flagged by Analyzer 0 % (0-5); Neutrophil # 3.28 X10^3/uL (2.7-7.7); Platelet Count 202 K/mm3 (150-450); RBC Distribution Width CV 13.3 % (11.6-14.6); RBC Distribution Width SD 48.2 fl (35.1-43.9); Red Blood Count 4.44 M/mm3 (4.6-6.2); White Blood Count 5.3 K/mm3 (4.4-11.0)
[2022-07-27 10:26] LABS: Microalbumin,Random Urine 9.6 mg/L (NO RANGE EST.); Microalbumin:Creatinine Ratio 14.2 mg/g CRE (<30 mg/g CRE)
[2022-07-27 10:58] LABS: ALB/GLOB Ratio 1.4 RATIO (0.9-2.4); AST(SGOT) 13 U/L (15-37); Alanine Aminotransfer ALT/SGPT 16 U/L (16-61); Albumin, Serum 3.8 g/dL (3.2-5.0); Alkaline Phosphatase 72 U/L (45-117); Anion Gap 9 (5-15); BUN 17 mg/dL (7-18); BUN/Creat Ratio 20.3 RATIO (10-20); Calcium,Total 8.9 mg/dL (8.5-10.1); Chloride 109 mmol/L (98-107); Creatinine, Serum 0.84 mg/dL (0.70-1.30); EST Glomerular Filtration Rate 95 mL/min (>60); Est Glom Filt Rate - Afr Amer 115 mL/min (>60); Globulin 2.7 g/dL (2.2-4.2); Glucose 99 mg/dL (74-106); Potassium 3.9 mmol/L (3.5-5.1); Protein, Total 6.5 g/dL (6.4-8.2); Sodium Level 140 mmol/L (136-145); Thyroid Stim Hormone (TSH) 1.52 uIU/mL (0.358-3.74)
== END | disposition home or self-care (01) ==
LOC: MFPLAB 08:41
PROVIDERS: PCP Family Medicine; Visit Provider Family Medicine
DX: I25.5 Ischemic cardiomyopathy (principal); E78.00 Pure hypercholesterolemia, unspecified
CPT/HCPCS: 36415; 80053; 82043; 82570; 84443; 85025

== ENCOUNTER → 2023-04-11 | Outpatient (CLI) | payer MEDICARE, BC, SELFPAY ==
[2019-04-20 11:58] VITALS: BMI 32.5
[2023-04-11 16:05] LABS: PSA,Total- Diagnostic 6.12 ng/mL (0.0-4.0)
== END | disposition home or self-care (01) ==
LOC: LAB 15:10
PROVIDERS: PCP Family Medicine; Referring Provider Nurse Practitioner; Visit Provider Nurse Practitioner
DX: R97.20 Elevated prostate specific antigen [PSA] (principal)
CPT/HCPCS: 36415; 84153

== ENCOUNTER → 2023-04-19 | Outpatient (CLI) | payer MEDICARE, BC, SELFPAY ==
[2019-04-20 11:58] VITALS: BMI 32.5
--- NOTE | 2023-04-19 13:27 | CT_ITS ---
STUDY: CT ABDOMEN AND PELVIS WITHOUT CONTRAST REASON FOR EXAM: Male, 77 years old. Gross hematuria RADIATION DOSAGE (If Supplied By Facility): CTDIvol = ( 8.33 ) mGy, DLP = ( 530.45 ) mGycm TECHNIQUE: Transaxial images were obtained from the dome of the diaphragm to the symphysis pubis without oral contrast, and without intravenous contrast. Sagittal and coronal images were reconstructed. Individualized dose optimization techniques were used for this CT. COMPARISON: Comparison is made with prior study dated May 14, 2013. FINDINGS: The visualized lung bases are unremarkable. Coronary artery calcification. Normal liver. Small gallstones are seen within the gallbladder lumen. Normal spleen. Normal pancreas. Normal bilateral adrenal glands. Parapelvic cysts are also seen in the right kidney. There is a mild degree of left hydronephrosis due to a 10.2 mm calculus in the left renal pelvis. There is also evidence of multiple left parapelvic cysts. Left perinephric stranding. Normal visualized stomach. Normal small intestine. There are multiple colonic diverticula consistent with diverticulosis. The appendix is visualized and appears normal. There is scattered atherosclerotic calcification of the abdominal aorta, without a demonstrated aneurysm. Normal inferior vena cava. Normal retroperitoneum. Normal urinary bladder. There is enlargement of the prostate gland. The prostate measures 4.2 cm x 5.7 cm. This causes indentation at the bladder base. Normal abdominal wall. There are degenerative changes of the visualized lumbar spine. CT/Abdomen/Pelvis without Cont IMPRESSION: 10.2 mm calculus in the left renal pelvis causing mild left hydronephrosis. Multiple bilateral parapelvic cysts. Multiple small gallstones. Sigmoid diverticulosis. Prostatic enlargement. Electronically Signed: Daniel Self MD at 14:04 EDT ,
== END | disposition home or self-care (01) ==
LOC: CT 13:26
PROVIDERS: PCP Family Medicine; Referring Provider Urology; Visit Provider Urology
DX: R31.0 Gross hematuria (principal); R10.84 Generalized abdominal pain
CPT/HCPCS: 74176

== ENCOUNTER → 2023-04-21 | Outpatient (CLI) | payer MEDICARE, BC, SELFPAY ==
[2019-04-20 11:58] VITALS: BMI 32.5
[2023-04-21 09:34] LABS: Hematocrit 42.4 % (40-54); Hemoglobin 13.9 g/dL (13.0-16.5); Mean Corp Hgb Conc 32.8 g/dL (32-36); Mean Corpuscular Hgb 33.2 pg (27.0-32.0); Mean Corpuscular Volume 101.2 fL (80-94); Platelet Count 179 K/mm3 (150-450); RBC Distribution Width CV 13.3 % (11.6-14.6); RBC Distribution Width SD 49.7 fl (35.1-43.9); Red Blood Count 4.19 M/mm3 (4.6-6.2); White Blood Count 5.8 K/mm3 (4.4-11.0)
[2023-04-21 09:57] LABS: Anion Gap 5 (5-15); BUN 15 mg/dL (7-18); BUN/Creat Ratio 17.1 RATIO (10-20); Calcium,Total 8.9 mg/dL (8.5-10.1); Chloride 110 mmol/L (98-107); Creatinine, Serum 0.88 mg/dL (0.70-1.30); EST Glomerular Filtration Rate 90 mL/min (>60); Est Glom Filt Rate - Afr Amer 109 mL/min (>60); Glucose 111 mg/dL (74-106); Potassium 4.1 mmol/L (3.5-5.1); Sodium Level 140 mmol/L (136-145)
== END | disposition home or self-care (01) ==
LOC: PSN 08:30
PROVIDERS: PCP Family Medicine; Referring Provider Urology; Visit Provider Urology
DX: Z01.818 Encounter for other preprocedural examination (principal)
CPT/HCPCS: 36415; 80048; 85027; 93005

== ENCOUNTER → 2023-05-31 | Outpatient (CLI) | payer MEDICARE, BC, SELFPAY ==
[2019-04-20 11:58] VITALS: BMI 32.5
[2023-05-31 11:10] LABS: Cholesterol 118 mg/dL (200); High Density Lipoprotein 65 mg/dL; Triglycerides 45 mg/dL; Very Low Density Lipoprotein 9 mg/dL (5-40)
== END | disposition home or self-care (01) ==
LOC: MFPLAB 08:02
PROVIDERS: PCP Family Medicine; Visit Provider Nurse Practitioner Family
DX: E78.00 Pure hypercholesterolemia, unspecified (principal)
CPT/HCPCS: 36415; 80061

== ENCOUNTER → 2023-11-22 | Outpatient (CLI) | payer MEDICARE, BC, SELFPAY ==
[2019-04-20 11:58] VITALS: BMI 32.5
[2023-11-22 10:11] LABS: PSA,Total- Diagnostic 5.44 ng/mL (0.0-4.0)
== END | disposition home or self-care (01) ==
PROVIDERS: PCP Family Medicine; Referring Provider Urology; Visit Provider Urology
DX: R97.20 Elevated prostate specific antigen [PSA] (principal)
CPT/HCPCS: 36415; 84153

== ENCOUNTER → 2024-05-18 | Outpatient (CLI) | payer MEDICARE, BC, SELFPAY ==
[2019-04-20 11:58] VITALS: BMI 32.5
[2024-05-18 10:32] LABS: Absolute Lymphocyte Count 1.23 X10^3/uL (0.83-4.51); Absolute Neutrophil Count 2.4 X10^3/uL (2.0-7.7); Basophil# 0.01 X10^3/uL; Basophil% 0.2 % (0-1); Eosinophil# 0.25 X10^3/uL; Hematocrit 41.9 % (40-54); Hemoglobin 14.3 g/dL (13.0-16.5); Lymphocyte # 1.23 X10^3/ul (0.83-4.51); Lymphocyte % 29.3 % (19-41); Mean Corp Hgb Conc 34.1 g/dL (32-36); Mean Corpuscular Volume 99.8 fL (80-94); Mean Platelet Vol. 10.3 fl (6.2-12.0); Monocyte# 0.33 X10^3/uL; Monocyte% 7.9 % (0-10); NRBC Flagged by Analyzer 0 % (0-5); Neutrophil # 2.37 X10^3/uL (2.7-7.7); Neutrophil % 56.4 % (47-70); Platelet Count 185 K/mm3 (150-450); RBC Distribution Width CV 13.2 % (11.6-14.6); RBC Distribution Width SD 48.1 fl (35.1-43.9); White Blood Count 4.2 K/mm3 (4.4-11.0)
[2024-05-18 13:07] LABS: ALB/GLOB Ratio 1.3 RATIO (0.9-2.4); AST(SGOT) 9 U/L (15-37); Alanine Aminotransfer ALT/SGPT 21 U/L (16-61); Albumin, Serum 3.6 g/dL (3.2-5.0); Alkaline Phosphatase 76 U/L (45-117); Anion Gap 6 (5-15); BUN 19 mg/dL (7-18); BUN/Creat Ratio 23.2 RATIO (10-20); Calcium,Total 8.7 mg/dL (8.5-10.1); Chloride 110 mmol/L (98-107); Cholesterol 131 mg/dL (200); Creatinine, Serum 0.82 mg/dL (0.70-1.30); EST Glomerular Filtration Rate 97 mL/min (>60); Est Glom Filt Rate - Afr Amer 117 mL/min (>60); Globulin 2.8 g/dL (2.2-4.2); Glucose 106 mg/dL (74-106); High Density Lipoprotein 65 mg/dL; Potassium 4.2 mmol/L (3.5-5.1); Protein, Total 6.4 g/dL (6.4-8.2); Sodium Level 140 mmol/L (136-145); Triglycerides 56 mg/dL; Very Low Density Lipoprotein 11 mg/dL (5-40)
== END | disposition home or self-care (01) ==
LOC: MFPLAB 09:16
PROVIDERS: PCP Family Medicine; Referring Provider Family Medicine; Visit Provider Family Medicine
DX: I95.1 Orthostatic hypotension (principal); E78.5 Hyperlipidemia, unspecified
CPT/HCPCS: 36415; 80053; 80061; 84443; 85025

== ENCOUNTER 2024-08-20 03:19 | Emergency (ER) | payer MEDICARE, BC, SELFPAY ==
[2019-04-20 11:58] VITALS: BMI 32.5
[2024-08-20 03:20] VITALS: BP 119/65; PULSE 51; RESP 18; TEMP 35.8; O2SAT 99; BMI 29.7
--- NOTE | 2024-08-20 04:20 | CT_ITS ---
PROCEDURE: ABDOMEN/PELVIS W IV CONT ONLY REASON FOR EXAM: Abdominal pain, nausea vomiting TECHNIQUE: Abdomen and pelvis CT with intravenous contrast. coronal and sagittal reformatted images IV CONTRAST: COMPARISON: 04/19/2023 FINDINGS: Mild patchy opacity in the bases may represent atelectasis. Pacemaker and coronary calcification and/or stent. No pericardial or pleural effusion. Mildly prominent small bowel loops in the central abdomen with a few scattered fluid levels may represent ileus or early obstructive change. Abnormal appearing small bowel loops in the right upper quadrant and right mid abdomen with wall thickening, edema, interloop and mesenteric fluid, edema consistent with enteritis which may be inflammatory, infectious or ischemic. Right upper quadrant, interloop and bilateral lower quadrant free fluid. No free air. The celiac, SMA and SUE fill with contrast. The liver, adrenal glands, pancreas and spleen appear within limits. Partially calcified gallstone. Bilateral parapelvic renal cysts. Left lower pole nonobstructing renal stone. No hydroureteronephrosis. Small dependent bladder calcification may represent stone or wall calcification for example axial 168 and sagittal 88. The bladder otherwise appears within limits without evidence of wall thickening. Diverticulosis. The appendix is not identified. Lower lumbar spondylosis/discogenic change. CT/Abdomen/Pelvis W IV Cont ONLY IMPRESSION: Abnormal appearing small bowel loops in the right upper quadrant and right mid abdomen with wall thickening, edema, interloop and mesenteric fluid, edema consistent with enteritis which may be inflammatory, in fectious or ischemic. Requires further clinical correlation/workup. Right upper quadrant, interloop and bilateral lower quadrant free fluid. No free air. Mildly prominent small bowel loops in the central abdomen with a few scattered fluid levels may represent ileus or early obstructive change. One or more dose reduction techniques were used (e.g., Automated exposure contr ol, adjustment of the mA and/or kV according to patient size, use of iterative reconstruction technique). Reading Location: [id number]
[2024-08-20 04:33] LABS: Absolute Lymphocyte Count 0.75 X10^3/uL (0.83-4.51); Absolute Neutrophil Count 10.2 X10^3/uL (2.0-7.7); Basophil# 0.04 X10^3/uL; Basophil% 0.3 % (0-1); Eosinophil# 0.02 X10^3/uL; Eosinophils% 0.2 % (0-5); Hematocrit 46.3 % (40-54); Hemoglobin 16.1 g/dL (13.0-16.5); Lymphocyte # 0.75 X10^3/ul (0.83-4.51); Lymphocyte % 6.6 % (19-41); Mean Corp Hgb Conc 34.8 g/dL (32-36); Mean Corpuscular Hgb 33.6 pg (27.0-32.0); Mean Corpuscular Volume 96.7 fL (80-94); Mean Platelet Vol. 10.6 fl (6.2-12.0); Monocyte# 0.34 X10^3/uL; NRBC Flagged by Analyzer 0 % (0-5); Neutrophil # 10.24 X10^3/uL (2.7-7.7); Neutrophil % 89.4 % (47-70); Platelet Count 205 K/mm3 (150-450); RBC Distribution Width CV 12.6 % (11.6-14.6); RBC Distribution Width SD 44.8 fl (35.1-43.9); Red Blood Count 4.79 M/mm3 (4.6-6.2); White Blood Count 11.5 K/mm3 (4.4-11.0)
[2024-08-20 04:47] LABS: ALB/GLOB Ratio 1.4 RATIO (0.9-2.4); AST(SGOT) 14 U/L (15-37); Alanine Aminotransfer ALT/SGPT 18 U/L (16-61); Albumin, Serum 3.9 g/dL (3.2-5.0); Alkaline Phosphatase 82 U/L (45-117); Anion Gap 13 (5-15); BUN 18 mg/dL (7-18); BUN/Creat Ratio 19.4 RATIO (10-20); Calcium,Total 9.6 mg/dL (8.5-10.1); Chloride 106 mmol/L (98-107); Creatinine, Serum 0.93 mg/dL (0.70-1.30); EST Glomerular Filtration Rate 84 mL/min (>60); Est Glom Filt Rate - Afr Amer 101 mL/min (>60); Estimated Creatinine Clearance 81.25 ml/min; Globulin 2.8 g/dL (2.2-4.2); Glucose 169 mg/dL (74-106); Lipase 29 U/L (73-393); Potassium 3.4 mmol/L (3.5-5.1); Protein, Total 6.7 g/dL (6.4-8.2); Sodium Level 141 mmol/L (136-145)
[2024-08-20] MEDS: 0.9% Normal Saline (1000mL) 1,000 ML 999 ML IV (04:53)
[2024-08-20 04:55] VITALS: BP 120/67; PULSE 72; RESP 18; TEMP 36.6; O2SAT 95
--- NOTE | 2024-08-20 05:36 | EDS_ITS ---
HPI HPI - GI History of Present Illness Chief Complaint: Abd Pain Informant: patient and family Narrative Narrative: Brought by EMS son is present. Doing well 10 PM 6 hours ago pain mid abdomen after eating popcorn with significant other. Symptoms went to the left lower quadrant. No fevers no chills. Normal bowel movements. Colonoscopies in the past. Denies any abdominal surgeries. However patient evaluated for a.m. symptoms went away 1 emergency department. History of kidney stones. History of defibrillator from ischemic cardiomyopathy on aspirin therapy. He had 1 emesis multiple times at home. No current nausea. Prior similar symptoms: No PFSH PFSH Medical History Pneumonia due to COVID-19 virus (04/12/20) HFrEF (heart failure with reduced ejection fraction) COVID-19 virus detected (04/12/20) Right bundle branch block (RBBB) Hyperlipemia Ureteral calculus, left Obesity Atherosclerosis of coronary artery of [place] heart without angina pectoris Non-STEMI (non-ST elevated myocardial infarction) (04/19/19) Ischemic cardiomyopathy BPH (benign prostatic hyperplasia) Home Medications ?Medication ?Instructions ?Recorded ?Last Taken ?Type calcium 600 mg (as 1 ea PO DAILY 05/15/1304/19 History carbonate)-vitamin D3 10 mcg (400 unit) tablet lecithin, soy 400 mg capsule 200 mg PO DAILY SUPPLEMEN T 05/15/13 04/19/19 History terazosin 5 mg capsule 5 mg PO QHS PROSTATE 3 04/18/19 History aspirin 81 mg tablet,delayed 81 mg PO DAILY@0800 #30 t abs 04/21/19 Unknown Rx release atorvastatin 40 mg tablet 40 mg PO QHS #90 tabs Unknown Rx carvedilol 3.125 mg tablet 3.125 mg PO BID #180 tabs 0 07/20/23 Unknown Rx cholecalciferol (vitamin D3) 25 1,000 unit PO DAILY Unknown History mcg (1,000 unit) tablet lisinopril 2.5 mg tablet 2.5 mg PO DAILY #90 tabs Unknown Rx niacinamide 500 mg tablet 500 mg PO BID 07/20/23 Unkno wn History dapagliflozin propanediol 10 mg 10 mg PO DAILY PA ayaan roved by 08/20/24 Unknown Rx tablet (Farxiga) Elixir #90 tabs ondansetron 4 mg disintegrating 4 mg PO Q8H PRN PRN Na usea #10 tabs 08/20/24 Unknown Rx tablet Allergy/AdvReac Type Severity Reaction Status Date / Time No Known Allergies Allergy Verified 08/20/24 03:20 Family History Father Myocardial infarction, Onset Age: 80 Surgical History History of melanoma excision (~01/2021) History of implantable cardiac defibrillator (ICD) (09/13/19) History of lithotripsy (~03/2023) History of eye surgery History of appendectomy History of coronary artery stent placement (04/20/19) Social History Smoking Status: Never smoker alcohol intake: never substance use type: does not use caffeine: Yes Type: coffee ROS ROS ED Constitutional Constitutional ED: Denies chills, fever(s) or sweats ENT ENT ED: Denies sore throat Cardiovascular Cardiovascular: Denies chest pain, leg edema, palpitations or racing heartbeat Respiratory/Chest Respiratory/Chest: Denies cough, dyspnea or dyspnea on exertion Gastrointestinal Gastrointestinal: Reports abdominal pain and vomiting; Denies diarrhea or nausea Genitourinary Genitourinary ED: Denies dysuria, hematuria or urinary frequency Musculoskeletal Musculoskeletal: Denies back pain, extremity pain or neck pain Integumentary Denies rash or wounds Neurologic Neurologic: Denies headache(s), paresthesias or weakness EXAM Physical Exam Const Vital Signs: 08/20/24 03:20 08/20/24 04:55 08/20/24 06:00 Temperature 96.5 F L 97.9 F 97.9 F Temperature Source Temporal Temporal Temporal Pulse Rate 51 L 72 70 Respiratory Rate 18 18 18 Blood Pressure 119/65 120/67 124/65 H Blood Pressure Mean 83 84 84 Pulse Ox 99 95 95 Oxygen Delivery Method Room Air Room Air Room Air 08/20/24 07:00 08/20/24 08:29 08/20/24 08:32 Temperature 97.9 F 98.3 F Temperature Source Pulse Rate 70 76 Respiratory Rate 16 16 15 Blood Pressure 111/62 111/62 112/66 Blood Pressure Mean 78 78 81 Pulse Ox 94 94 95 Oxygen Delivery Method Room Air Positive well nourished and well developed General Appearance ED: well developed and NAD HEENT Reports moist mucous membranes normocephalic and atraumatic Eyes General Eye ED: Yes normal appearance of both eyes Neck full ROM Chest Wall Chest: Negative for tenderness Resp normal respiratory effort and normal air movement Effort and Inspection: symmetric chest movement; Negative for respiratory distress Cardio regular rate, regular rhythm and no murmurs Peripheral Pulses: pulses 2+ throughout GI normal to inspection, nondistended, normoactive bowel sounds and non-tender GI Narrative: Negative Delaney's or McBurney's tenderness. No tenderness left lower quadrant. Palpation: Negative for guarding or rebound tenderness present Extremity normal to inspection General Extremety ED: Negative for edema or tenderness General Extremity: Negative for edema Neuro oriented x3 and no sensory deficits noted Sensorium / Orientation: awake and alert Skin no rashes or lesions noted and no wounds MDM MDM MDM Narrative Medical decision making narrative: Interventions / MDM: Differential diagnosis: Gastritis, enteritis, abdominal pain Diagnosis considered but do not suspect: Colitis, kidney stones however CT negative. No clinical bowel obstruction. My EKG interpretation: N/A Imaging independently reviewed and interpreted by myself: CT abdomen pelvis IV contrast: Abnormal small bowel loops right upper quadrant mid abdomen with wall thickening concerning for inflammatory infectious or ischemic. Also reports prominent small bowel loops central abdomen reported possible ileus versus early small bowel obstruction. External documents reviewed: N/A Test considered but not ordered:N/A ED course: Patient currently symptom-free. Pain that resolved ED mid abdomen rating down left lower quadrant. Will check abdominal labs, IV fluids given. CT scan for further evaluation. CT scan read noting abnormal small bowel loops concerning for inflammatory infectious or ischemic. Added lactic acid normal at 1.8. Reported questionable ileus versus small bowel obstruction. Questionable enteritis. Patient having daily bowel movements. He did have vomiting at home. No abdominal surgeries. Clinically symptoms resolved since my evaluation. No pain out of proportion normal lactic acid for lower concerns for ischemic. 0745: Discussed results with the patient, clinically does not have concerns for ileus versus bowel obstruction. I will p.o. challenge him and reevaluate. 0820: Reevaluated no emesis no return of pain. Discharge prescription for Zofran with strict return precautions. All questions were answered. Re-evaluation: stable Disposition discussed with patient/family/significant other: Patient and son Case discussed with consulting clinician: N/A This note was generated with [employer] dictation software. It may contain incorrect words, spelling, and punctuation that were not noted in checking the note before signing. Lab Data Attestation: I reviewed the patient's lab results. Labs: Laboratory Results - last 24 hr 08/20/24 08/20/24 08/20/24 03:45 06:12 06:22 WBC 11.5 H RBC 4.79 Hgb 16.1 Hct 46.3 MCV 96.7 H MCH 33.6 H MCHC 34.8 RDW Std Deviation 44.8 H RDW Coeff of Margarette 12.6 Plt Count 205 MPV 10.6 Immature Gran % (Auto) 0.500 Neut % (Auto) 89.4 H Lymph % (Auto) 6.6 L [place] % (Auto) 3.0 Eos % (Auto) 0.2 Baso % (Auto) 0.3 Absolute Neuts (auto) 10.2 H Absolute Lymphs (auto) 0.75 L Nucleated RBC % 0 Sodium 141 Potassium 3.4 L Chloride 106 Carbon Dioxide 22.0 Anion Gap 13 BUN 18 Creatinine 0.93 Estim Creat Clear Calc 81.25 Est GFR (MDRD) Af Amer 101 Est GFR (MDRD) Non-Af 84 BUN/Creatinine Ratio 19.4 Glucose 169 H Lactic Acid 1.8 Calcium 9.6 Total Bilirubin 1.10 H AST 14 L ALT 18 Alkaline Phosphatase 82 Total Protein 6.7 Albumin 3.9 Globulin 2.8 Albumin/Globulin Ratio 1.4 Lipase 29 L Urine Color Yellow Urine Clarity Clear Urine pH 6.0 Ur Specific [place] 1.010 Urine Protein 15 H Urine Glucose (UA) 1000 H Urine Ketones 150 A* Urine Occult Blood 10 H Urine Nitrite Negative Urine Bilirubin Negative Urine Urobilinogen Normal Ur Leukocyte Esterase Negative Urine RBC 0-5 SEEN Urine WBC 0-5 SEEN Ur Squamous Epith Cells 0-5 SEEN Urine Bacteria 0 SEEN Urine Mucus 0 SEEN Radiography Diagnostic Testing: Clinical Impression(s) from Imaging Studies Abdomen/Pelvis CT 08/20/24 04:20 IMPRESSION: Abnormal appearing small bowel loops in the right upper quadrant and right mid abdomen with wall thickening, edema, interloop and mesenteric fluid, edema consistent with enteritis which may be inflammatory, infectious or ischemic. Requires further clinical correlation/workup. Right upper quadrant, interloop and bilateral lower quadrant free fluid. No free air. Mildly prominent small bowel loops in the central abdomen with a few scattered fluid levels may represent ileus or early obstructive change. One or more dose reduction techniques were used (e.g., Automated exposure control, adjustment of the mA and/or kV according to patient size, use of iterative reconstruction technique). Reading Location: [facility] Discharge Plan Triage Chief Complaint: Abd Pain ED Provider: Simón Collazo Dx/Rx/DC Orders Clinical Impression: Vomiting, Abdominal pain Instructions: Abdominal Pain, ED Vomiting (Adult) Prescriptions: New ondansetron 4 mg tablet,disintegrating 4 mg PO Q8H PRN PRN (Reason: Nausea) Qty: 10 0RF No Action niacinamide 500 mg tablet 500 mg PO BID cholecalciferol (vitamin D3) 25 mcg (1,000 unit) tablet 1,000 unit PO DAILY Patient Comments: take 1 tablet by mouth once daily lisinopril 2.5 mg tablet 2.5 mg PO DAILY Qty: 90 3RF carvedilol 3.125 mg tablet 3.125 mg PO BID Qty: 180 3RF terazosin 5 MG capsule 5 mg PO QHS calcium carbonate-vitamin D3 1 EACH tablet 1 ea PO DAILY lecithin, soy 400 MG capsule 200 mg PO DAILY aspirin 81 MG tablet 81 mg PO DAILY@0800 Qty: 30 0RF atorvastatin 40 mg tablet 40 mg PO QHS Qty: 90 3RF Farxiga 10 mg tablet 10 mg PO DAILY Qty: 90 3RF Primary Care Provider: Cali Streeter Referrals: Cali Streeter MD [Primary Care Provider] - 3-5 Days Activity Restrictions/Additional Instructions: Continue oral fluids for hydration. If your vomiting returns not controlled medications or worsening pain, return to the ED for reevaluation. Print Language: Albanian Disposition Disposition: Home, Self Care Discharge Date/Time: 08/20/24 08:33
[2024-08-20 06:00] VITALS: BP 124/65; PULSE 70; RESP 18; TEMP 36.6; O2SAT 95
[2024-08-20 06:27] LABS: Bacteria 0 SEEN /hpf (None Seen); Mucous, Urine 0 SEEN /hpf (<or=2+)
[2024-08-20 06:34] LABS: Color, Urine Yellow (Yellow); Glucose, Dipstick 1000 mg/dl (Normal); Leukocyte Esterase-Dipstick Negative /ul (Negative); Nitrite-Dipstick Negative (Negative); Occult Blood-Urine 10 /ul (Negative); Protein-Dipstick 15 mg/dl (Negative); Urine Bilirubin Dipstick Negative (Negative); Urine Clarity Clear (Clear); Urine Urobilinogen Normal (Normal)
[2024-08-20 06:49] LABS: Lactic Acid 1.8 mmol/L (0.4-1.9)
[2024-08-20 06:52] LABS: Ketone-Dipstick 150 mg/dl (Negative)
[2024-08-20 07:00] VITALS: BP 111/62; RESP 16; O2SAT 94
[2024-08-20 07:07] LABS: Red Blood Cells-Urine 0-5 SEEN /hpf (0-5); Squamous Epithelial Cells - UA 0-5 SEEN /hpf (0-5); White Blood Cells 0-5 SEEN /hpf (0-5)
[2024-08-20 08:29] VITALS: BP 111/62; PULSE 70; RESP 16; TEMP 36.6; O2SAT 94
[2024-08-20 08:32] VITALS: BP 112/66; PULSE 76; RESP 15; TEMP 36.8; O2SAT 95
== END 2024-08-20 08:33 | disposition home or self-care (01) ==
PROVIDERS: Emergency Provider Emergency Medicine; PCP Family Medicine; Visit Provider Emergency Medicine
DX: R10.13 Epigastric pain (principal); I50.20 Unspecified systolic (congestive) heart failure; R10.32 Left lower quadrant pain; R11.2 Nausea with vomiting, unspecified; R93.3 Abnormal findings on diagnostic imaging of other parts of digestive tract; I25.5 Ischemic cardiomyopathy; I25.2 Old myocardial infarction; I25.10 Atherosclerotic heart disease of native coronary artery without angina pectoris; E78.5 Hyperlipidemia, unspecified; N40.0 Benign prostatic hyperplasia without lower urinary tract symptoms; Z95.5 Presence of coronary angioplasty implant and graft; Z79.82 Long term (current) use of aspirin; Z95.810 Presence of automatic (implantable) cardiac defibrillator; Z79.899 Other long term (current) drug therapy
CPT/HCPCS: 74177; 80053; 81001; 83605; 83690; 85025; 96360; 99284; Q9967; A4216

== ENCOUNTER → 2024-11-05 | Outpatient (CLI) | payer MEDICARE, BC, SELFPAY ==
[2019-04-20 11:58] VITALS: BMI 32.5
--- NOTE | 2024-11-05 07:19 | ECHOCS_ITS ---
Reason For Study Reason For Study: DILATED CARDIOMYOPATHY Procedure This was a 2D Doppler, Color Flow transthoracic echocardiogram. The study was technically difficult. Exam performed in department. Left Ventricle Normal LV size. The left ventricular ejection fraction is 40 %. Stage 1 diastolic dysfunction. There are regional wall motion abnormalities as specified. Right Ventricle Normal RV size. Normal systolic function. Atria The left atrium is mildly enlarged. Mitral Valve Bileaflet diffuse mitral valve thickening. Tricuspid Valve Normal tricuspid valve. Mild to moderate (1-2+) tricuspid valve insufficiency. Pulmonary artery systolic pressure is 34 mmHg. Aortic Valve Trisinus/trileaflet aortic valve. Mild focal aortic valve calcification. Pulmonic Valve Normal pulmonic valve. Great Vessels Normal sized aortic root. The pulmonary artery is normal size. Inferior vena cava collapse with respiration. Pericardium/Pleural No pericardial effusion. Medication Diluted definity 3ml given slow IV push to enhance endocardial definition. MMode/2D Measurements & Calculations LVIDd: 6.1 cm IVSd: 0.87 cm Ao root diam: 3.6 cm LVIDs: 4.6 cm LVPWd: 1.0 cm RVDd: 3.5 cm FS: 23.8 % LAV(MOD-bp): 67.4 ml LVAd ap4: 35.7 cm2 SV(MOD-sp4): 53.1 ml LAV(MOD-bp) Indexed: 31.0 ml/m2 LVLd ap4: 8.2 cm SI(MOD-sp4): 24.5 ml/m2 LAV(MOD-sp2): 65.1 ml EDV(MOD-sp4): 131.0 ml LAV(MOD-sp4): 69.4 ml EDV(sp4-el): 132.4 ml LVAs ap4: 27.4 cm2 LVLs ap4: 7.9 cm ESV(MOD-sp4): 77.9 ml ESV(sp4-el): 80.9 ml EF(MOD-sp4): 40.6 % EF(sp4-el): 38.9 % SV(sp4-el): 51.6 ml LA A4 area: 23.5 cm2 LA dimension(2D): 3.9 cm RA A4 area: 18.8 cm2 TAPSE: 2.2 cm Time Measurements MV dec time: 0.18 sec Doppler Measurements & Calculations MV E max dameon: 54.7 cm/sec Lat Peak E[place]: 9.9 cm/sec Med Peak E[place]: 6.9 cm/sec MV A max dameon: 60.6 cm/sec E/E' lat: 5.5 E/E' med: 7.9 MV E/A: 0.90 Ao V2 max: 112.1 cm/sec LV V1 max: 82.7 cm/sec PA V2 max: 77.1 cm/sec Ao max P.0 mmHg LV V1 max P.7 mmHg TR max dameon: 269.8 cm/sec TR max P.1 mmHg ECHO/Echo Complete W/ Contrast Interpretation Summary Normal LV size. The left ventricular ejection fraction is 40 %. Stage 1 diastolic dysfunction. Pulmonary artery systolic pressure is 34 mmHg. Contrast injection was performed. Ordering Physician: Mynor Smallwood Referring Physician: SHERI HEATON Performed By: Soila Peres RDCS
--- NOTE | 2024-11-05 16:34 | STRESSREP ---
Stress Test Report Pharmacologic myocardial perfusion stress test. 79-year-old man with a history of coronary artery disease and ischemic cardiomyopathy Resting EKG demonstrates sinus bradycardia with a right bundle branch block with a rate of 57 bpm. Resting blood pressure is 124/70 mmHg. 0.4 mg of regadenoson was infused per usual protocol followed by rapid intravenous saline flush injection. Continuous EKG monitoring was performed. The maximum heart rate was 86 bpm which was 60% of max impacted heart rate the maximum workload was 1 metabolic equivalent. At rest there were no ST or T wave changes noted to suggest ischemia and at peak infusion nonspecific ST changes were noted which did not meet the criteria for ischemia. No clinical angina is noted. The final blood pressure was 104/60 mmHg. Myocardial perfusion protocol. 14.1 mCi of technetium 99m sestamibi was injected at rest. 0.4 mg of regadenoson was infused per usual protocol. At peak infusion 43.9 mCi of technetium 99m sestamibi was injected stress images were obtained stress and rest images were reconstructed and compared in the short axis vertical long and horizontal long axis. Gated images were also obtained. Perfusion SPECT analysis: Review of the stress images demonstrate a large defect noted involving the mid anterior wall all to the apex and the inferior apical wall with the rest of the ray[place] being normally perfused. The resting images demonstrate a similar pattern. The above is suggestive of an extensive previous anterior anteroapical and inferoapical infarct with no ischemia present. Gated SPECT analysis: The gated ejection fraction is 49% Left ventricle is dilated. Conclusion: Nonischemic pharmacologic myocardial perfusion stress test. Reduce ejection fraction. Previous extensive anterior and anterior apical infarct
== END | disposition home or self-care (01) ==
LOC: CVS 07:14
PROVIDERS: PCP Family Medicine; Referring Provider Internal Medicine Cardiovascular Disease; Visit Provider Internal Medicine Cardiovascular Disease
DX: I25.5 Ischemic cardiomyopathy (principal)
CPT/HCPCS: 78452; 93017; 93306; A9500; Q9957; A4216; C8929; J2785

== ENCOUNTER → 2024-12-25 | Outpatient (CLI) | payer MEDICARE, BC, SELFPAY ==
[2019-04-20 11:58] VITALS: BMI 32.5
[2024-12-25 12:26] LABS: PSA,Total- Diagnostic 5.35 ng/mL (0.00-4.00)
== END | disposition home or self-care (01) ==
LOC: LAB 10:19
PROVIDERS: PCP Family Medicine; Referring Provider Urology; Visit Provider Urology
DX: R97.20 Elevated prostate specific antigen [PSA] (principal); R73.09 Other abnormal glucose
CPT/HCPCS: 36415; 83036; 84153

== ENCOUNTER → 2025-04-25 | Outpatient (CLI) | payer MEDICARE, BC, SELFPAY ==
[2019-04-20 11:58] VITALS: BMI 32.5
[2025-04-25 18:08] LABS: AST(SGOT) 16 U/L (<=37); Alanine Aminotransfer ALT/SGPT 10 U/L (<=46); Albumin, Serum 4.3 g/dL (3.4-4.8); Alkaline Phosphatase 76 U/L (40-129); Anion Gap 10 (5-15); BUN 18 mg/dL (4-19); BUN/Creat Ratio 20.4 RATIO (10-20); Calcium,Total 9.5 mg/dL (7.6-11.0); Carbon Dioxide 23.7 mmol/L (21.0-32.0); Chloride 107 mmol/L (98-108); Cholesterol 128 mg/dL (<=200); Globulin 2.3 g/dL (2.2-4.2); Glucose 105 mg/dL (70-99); Low Density Lipoprotein Calc. 49 mg/dL; Magnesium 2.2 mg/dL (1.5-2.2); Potassium 4.6 mmol/L (3.3-5.1); Triglycerides 80 mg/dL; Very Low Density Lipoprotein 16 mg/dL (5-40); cholesterol:hdl ratio screen 2.02
== END | disposition home or self-care (01) ==
LOC: LAB 15:43
PROVIDERS: PCP Family Medicine; Referring Provider Physician Assistant Medical; Visit Provider Physician Assistant Medical
DX: I25.10 Atherosclerotic heart disease of native coronary artery without angina pectoris (principal); E78.5 Hyperlipidemia, unspecified; Z95.5 Presence of coronary angioplasty implant and graft; I25.5 Ischemic cardiomyopathy; Z95.810 Presence of automatic (implantable) cardiac defibrillator
CPT/HCPCS: 36415; 80053; 80061; 83735